=== PATIENT | male | born 1935 | race Caucasian/White ===

== ENCOUNTER 2017-08-28 12:17 | Inpatient (IN) | payer MEDICARE ==
[2017-08-28 12:33] LABS: Glucose,Whole Blood 117 mg/dL (75-99)
[2017-08-28] MEDS ORDERED: SODIUM CHLORIDE 0.9% 500 ML IV ONE (12:39)
--- NOTE | 2017-08-28 12:42 | ED ---
General Adult HPI - General Chief complaint: Altered Mental Status Stated complaint: Altered Mental Status Time Seen by Provider: 08/28/17 12:20 Source: patient, RN notes reviewed Mode of arrival: wheelchair Limitations: no limitations - History of Present Illness Initial comments: This is an 82-year-old male who presents emergency Department with his family he has a past medical history significant for diabetes high blood pressure and high cholesterol. Patient has had episodes where he has become unresponsive in the past last time was approximate one year ago. Today he comes in because white states she was sitting at the table and then became unresponsive but did not pass out he was just looking straight there and last approximate 5 minutes and then it resolved. Patient has no recollection of this. Patient has no complaint. Patient denies headache patient denies numbness weakness. Patient denies chest pain difficulty breathing shortness of breath. Patient denies any recent fever chills or cough. Patient did have some trauma on Tuesday fell hit the side of his head and there was a small laceration to the did not bring him into the hospital to get it repaired. Family states he is currently at his baseline according to them. - Related Data Home Medications Medication Instructions Recorded Confirmed Atenolol 25 mg PO DAILY 05/10/14 08/28/17 Omeprazole 20 mg PO DAILY 05/10/14 08/28/17 Simvastatin 20 mg PO HS 05/10/14 08/28/17 Ferrous Sulfate [Iron (65 MG 325 mg PO BID 08/28/16 08/28/17 Elemental)] Fludrocortisone [Florinef] 0.05 mg PO BID 08/28/16 08/28/17 Tiotropium 18 Mcg/Puff [Spiriva] 1 puff INHALATION RT-DAILY 08/28/16 08/28/17 Allopurinol [Zyloprim] 100 mg PO DAILY 08/28/17 08/28/17 Furosemide [Lasix] 20 mg PO DAILY 08/28/17 08/28/17 Hydrocortisone [Cortef] 10 mg PO BID 08/28/17 08/28/17 Ipratropium-Albuterol Nebulize 3 ml INHALATION RT-QID 08/28/17 08/28/17 [Duoneb 0.5 mg-3 mg/3 ml Soln] Spironolactone [Aldactone] 50 mg PO DAILY 08/28/17 08/28/17 glipiZIDE/METFORMIN HCL 2 tab PO BID 08/28/17 08/28/17 [glipiZIDE/METFORMIN HCL 5-500 mg] Allergies Allergy/AdvReac Type Severity Reaction Status Date / Time No Known Allergies Allergy Verified 08/28/17 14:34 Review of Systems ROS Statement: Those systems with pertinent positive or pertinent negative responses have been documented in the HPI. ROS Other: All systems not noted in ROS Statement are negative. Past Medical History Past Medical History: Heart Failure, COPD, CVA/TIA, Diabetes Mellitus, Hyperlipidemia, Hypertension Additional Past Medical History / Comment(s): ARTHRITIS History of Any Multi-Drug Resistant Organisms: None Reported Past Surgical History: Appendectomy Additional Past Surgical History / Comment(s): Right cataract removal and intraocular lens implant, last colonoscopy without abnormal findings Past Anesthesia/Blood Transfusion Reactions: No Reported Reaction Past Psychological History: No Psychological Hx Reported Smoking Status: Former smoker Past Alcohol Use History: None Reported Past Drug Use History: None Reported - Past Family History Father Additional Family Medical History / Comment(s): Father in his 60s from a myocardial infarction. Mother Additional Family Medical History / Comment(s): Mother between 85 and 90 with no major medical problems. Brother(s) Additional Family Medical History / Comment(s): Patient has 5 brothers with heavy coronary artery disease and MIs in the family. Sister(s) Additional Family Medical History / Comment(s): He has one sister with history of cervical cancer. Daughter(s) Additional Family Medical History / Comment(s): Patient has 4 daughters with no major medical problems and 1 son with history of Crohn's General Exam - General Exam Comments Initial Comments: GENERAL: Patient is well-developed and well-nourished. Patient is nontoxic and well- hydrated and is in no acute distress. ENT: Neck is soft and supple. No significant lymphadenopathy is noted. Oropharynx is clear. Moist mucous membranes. Neck has full range of motion without eliciting any pain. EYES: The sclera were anicteric and conjunctiva were pink and moist. Extraocular movements were intact and pupils were equal round and reactive to light. Eyelids were unremarkable. PULMONARY: Unlabored respirations. Good breath sounds bilaterally. No audible rales rhonchi or wheezing was noted. CARDIOVASCULAR: There is a regular rate and rhythm without any murmurs gallops or rubs. ABDOMEN: Soft and nontender with normal bowel sounds. No palpable organomegaly was noted. There is no palpable pulsatile mass. SKIN: Patient is a little bit pale. NEUROLOGIC: Patient is alert and oriented x3. Cranial nerves II through XII are grossly intact. Motor and sensory are also intact. Normal speech, volume and content. Symmetrical smile. MUSCULOSKELETAL: Normal extremities with adequate strength and full range of motion. No lower extremity swelling or edema. No calf tenderness. LYMPHATICS: No significant lymphadenopathy is noted PSYCHIATRIC: Normal psychiatric evaluation. Normal interpersonal interactions appears functionally intact in deals appropriately with others. No signs of depression. No signs of anxiety. Limitations: no limitations Course Vital Signs 08/28/17 08/28/17 08/28/17 12:20 13:10 13:44 Temperature 97.2 F L Pulse Rate 63 68 Pulse Rate [ 65 Sitting Tobacco Drummer] Pulse Rate [ 64 Standing Tobacco Drummer ] Pulse Rate [ 64 Supine Tobacco Drummer] Respiratory 18 18 Rate Blood Pressure 117/42 104/61 Blood Pressure 87/39 [Right Arm Sitting] Blood Pressure 68/31 [Right Arm Standing] Blood Pressure 90/43 [Right Arm Supine] O2 Sat by Pulse 99 99 Oximetry 08/28/17 08/28/17 14:17 15:04 Temperature Pulse Rate 68 68 Pulse Rate [ Sitting Tobacco Drummer] Pulse Rate [ Standing Tobacco Drummer ] Pulse Rate [ Supine Tobacco Drummer] Respiratory 18 18 Rate Blood Pressure 102/53 97/58 Blood Pressure [Right Arm Sitting] Blood Pressure [Right Arm Standing] Blood Pressure [Right Arm Supine] O2 Sat by Pulse 98 98 Oximetry Medical Decision Making - Medical Decision Making EKG shows a sinus rhythm with occasional PAC at 77 bpm NM interval is 136 QRS is 1:30 QT interval 466 QTC is 527. Patient's EKG shows no ST segment elevation or depression or T wave normalities are noted. Patient has a right bundle branch block. CT of the brain shows no acute abnormality. Chest x-ray shows no acute abnormality. - Lab Data Result diagrams: 08/28/17 12:51 08/28/17 12:51 Lab Results 08/28/17 08/28/17 08/28/17 Range/Units 12:31 12:51 12:51 WBC 7.1 (3.8-10.6) k/uL RBC 3.94 L (4.30-5.90) m/uL Hgb 11.8 L (13.0-17.5) gm/dL Hct 36.8 L (39.0-53.0) % MCV 93.5 (80.0-100.0) fL MCH 29.8 (25.0-35.0) pg MCHC 31.9 (31.0-37.0) g/dL RDW 16.4 H (11.5-15.5) % Plt Count 147 L (150-450) k/uL Neutrophils % 61 % Lymphocytes % 25 % Monocytes % 10 % Eosinophils % 2 % Basophils % 1 % Neutrophils # 4.3 (1.3-7.7) k/uL Lymphocytes # 1.7 (1.0-4.8) k/uL Monocytes # 0.7 (0-1.0) k/uL Eosinophils # 0.1 (0-0.7) k/uL Basophils # 0.1 (0-0.2) k/uL Anisocytosis Slight PT (9.0-12.0) sec INR (<1.2) APTT (22.0-30.0) sec Sodium (137-145) mmol/L Potassium (3.5-5.1) mmol/L Chloride (98-107) mmol/L Carbon Dioxide (22-30) mmol/L Anion Gap mmol/L BUN (9-20) mg/dL Creatinine (0.66-1.25) mg/dL Est GFR (MDRD) Af Amer (>60 ml/min/1.73 sqM) Est GFR (MDRD) Non-Af (>60 ml/min/1.73 sqM) Glucose (74-99) mg/dL POC Glucose (mg/dL) 117 H (75-99) mg/dL POC Glu Sales Representative Meats ID McDaid, Tiki Calcium (8.4-10.2) mg/dL Magnesium (1.6-2.3) mg/dL Total Bilirubin (0.2-1.3) mg/dL AST (17-59) U/L ALT (21-72) U/L Alkaline Phosphatase (38-126) U/L Total Creatine Kinase 174 H (55-170) U/L CK-MB (CK-2) 4.2 H* (0.0-2.4) ng/mL CK-MB (CK-2) Rel Index 2.4 Troponin I <0.012 (0.000-0.034) ng/mL Total Protein (6.3-8.2) g/dL Albumin (3.5-5.0) g/dL Urine Color Urine Appearance (Clear) Urine pH (5.0-8.0) Ur Specific [place] (1.001-1.035) Urine Protein (Negative) Urine Glucose (UA) (Negative) Urine Ketones (Negative) Urine Blood (Negative) Urine Nitrite (Negative) Urine Bilirubin (Negative) Urine Urobilinogen (<2.0) mg/dL Ur Leukocyte Esterase (Negative) Urine Opiates Screen (NotDetected) Ur Oxycodone Screen (NotDetected) Urine Methadone Screen (NotDetected) Ur Propoxyphene Screen (NotDetected) Ur Barbiturates Screen (NotDetected) U Tricyclic Antidepress (NotDetected) Ur Phencyclidine Scrn (NotDetected) Ur Amphetamines Screen (NotDetected) U Methamphetamines Scrn (NotDetected) U Benzodiazepines Scrn (NotDetected) Urine Cocaine Screen (NotDetected) U Marijuana (THC) Screen (NotDetected) 08/28/17 08/28/17 08/28/17 Range/Units 12:51 12:51 12:51 WBC (3.8-10.6) k/uL RBC (4.30-5.90) m/uL Hgb (13.0-17.5) gm/dL Hct (39.0-53.0) % MCV (80.0-100.0) fL MCH (25.0-35.0) pg MCHC (31.0-37.0) g/dL RDW (11.5-15.5) % Plt Count (150-450) k/uL Neutrophils % % Lymphocytes % % Monocytes % % Eosinophils % % Basophils % % Neutrophils # (1.3-7.7) k/uL Lymphocytes # (1.0-4.8) k/uL Monocytes # (0-1.0) k/uL Eosinophils # (0-0.7) k/uL Basophils # (0-0.2) k/uL Anisocytosis PT 12.0 (9.0-12.0) sec INR 1.2 H (<1.2) APTT 22.1 (22.0-30.0) sec Sodium 139 (137-145) mmol/L Potassium 4.2 (3.5-5.1) mmol/L Chloride 105 (98-107) mmol/L Carbon Dioxide 20 L (22-30) mmol/L Anion Gap 14 mmol/L BUN 26 H (9-20) mg/dL Creatinine 2.50 H (0.66-1.25) mg/dL Est GFR (MDRD) Af Amer 30 (>60 ml/min/1.73 sqM) Est GFR (MDRD) Non-Af 25 (>60 ml/min/1.73 sqM) Glucose 149 H (74-99) mg/dL POC Glucose (mg/dL) (75-99) mg/dL POC Glu Sales Representative Meats ID Calcium 8.8 (8.4-10.2) mg/dL Magnesium 1.1 L (1.6-2.3) mg/dL Total Bilirubin 1.5 H (0.2-1.3) mg/dL AST 34 (17-59) U/L ALT 31 (21-72) U/L Alkaline Phosphatase 54 (38-126) U/L Total Creatine Kinase (55-170) U/L CK-MB (CK-2) (0.0-2.4) ng/mL CK-MB (CK-2) Rel Index Troponin I (0.000-0.034) ng/mL Total Protein 5.8 L (6.3-8.2) g/dL Albumin 2.9 L (3.5-5.0) g/dL Urine Color Yellow Urine Appearance Clear (Clear) Urine pH 5.0 (5.0-8.0) Ur Specific [place] 1.010 (1.001-1.035) Urine Protein Negative (Negative) Urine Glucose (UA) Negative (Negative) Urine Ketones Negative (Negative) Urine Blood Negative (Negative) Urine Nitrite Negative (Negative) Urine Bilirubin Negative (Negative) Urine Urobilinogen <2.0 (<2.0) mg/dL Ur Leukocyte Esterase Negative (Negative) Urine Opiates Screen Not Detected (NotDetected) Ur Oxycodone Screen Not Detected (NotDetected) Urine Methadone Screen Not Detected (NotDetected) Ur Propoxyphene Screen Not Detected (NotDetected) Ur Barbiturates Screen Not Detected (NotDetected) U Tricyclic Antidepress Not Detected (NotDetected) Ur Phencyclidine Scrn Not Detected (NotDetected) Ur Amphetamines Screen Not Detected (NotDetected) U Methamphetamines Scrn Not Detected (NotDetected) U Benzodiazepines Scrn Not Detected (NotDetected) Urine Cocaine Screen Not Detected (NotDetected) U Marijuana (THC) Screen Not Detected (NotDetected) Disposition Clinical Impression: Altered mental status Disposition: ADMITTED IP TO THIS HOSP Referrals: Ishmael Rojas MD [Primary Care Provider] - 1-2 days Time of Disposition: 15:41
[2017-08-28 13:14] LABS: Anisocytosis Slight; Basophils # (A) 0.1 k/uL (0-0.2); Basophils % (A) 1 %; CH 31.2; CHCM 33.6; Eosinophils # (A) 0.1 k/uL (0-0.7); Eosinophils % (A) 2 %; HCT 36.8 % (39.0-53.0); HDW 2.81; HGB 11.8 gm/dL (13.0-17.5); Luc # (Auto) 0.14; Luc % (Auto) 2; Lymphocytes # (A) 1.7 k/uL (1.0-4.8); Lymphocytes % (A) 25 %; MCH 29.8 pg (25.0-35.0); MCHC 31.9 g/dL (31.0-37.0); MCV 93.5 fL (80.0-100.0); Mean Platelet Volume 8.6; Monocytes # (A) 0.7 k/uL (0-1.0); Monocytes % (A) 10 %; Neutrophils # (A) 4.3 k/uL (1.3-7.7); Neutrophils % (A) 61 %; RBC 3.94 m/uL (4.30-5.90); RDW 16.4 % (11.5-15.5); WBC 7.1 k/uL (3.8-10.6); WBC (Perox) 7.57
[2017-08-28 13:30] LABS: Calcium 8.8 mg/dL (8.4-10.2); Magnesium 1.1 mg/dL (1.6-2.3); Potassium 4.2 mmol/L (3.5-5.1); Total Bilirubin 1.5 mg/dL (0.2-1.3); Total Protein 5.8 g/dL (6.3-8.2)
[2017-08-28 13:33] LABS: INR 1.2 (<1.2); Partial Thromboplastin Time 22.1 sec (22.0-30.0)
[2017-08-28 13:37] LABS: Creatine Kinase 174 U/L (55-170)
[2017-08-28] MEDS ORDERED: SODIUM CHLORIDE 0.9% 500 ML IV STA (13:40)
--- NOTE | 2017-08-28 13:44 | CT ---
EXAMINATION TYPE: CT brain wo con DATE OF EXAM: 08/28/2017 COMPARISON: Previous study dated 08/28/2016 HISTORY: Altered mental status CT DLP: 1064.2 mGycm Automated exposure control for dose reduction was used. FINDINGS: There are generalized changes of sulcal prominence and ventriculomegaly, compatible with atrophic adriel nge. There is diffuse periventricular white matter lucency, compatible with small vessel ischemic adriel nge. There is no acute focal lesion, mass effect or midline shift identified. I do not see evidence o f intracranial blood. There is some chronic mucoperiosteal thickening involving the right maxillary s inus. Visualized portions of paranasal sinuses and mastoids are otherwise clear. IMPRESSION: 1. NO ACUTE INTRACRANIAL ABNORMALITY. 2. ATROPHIC CHANGE. 3. CHRONIC WHITE MATTER ISCHEMIC CHANGE. 4. CHRONIC MUCOPERIOSTEAL THICKENING INVOLVING THE RIGHT MAXILLARY SINUS.
--- NOTE | 2017-08-28 13:46 | XR ---
EXAMINATION TYPE: XR chest 2V DATE OF EXAM: 08/28/2017 HISTORY: altered mental status. REFERENCE: Previous study dated 08/28/2016. FINDINGS: The lungs are overinflated. The heart is mildly enlarged. The lungs are clear. Pleural spac es are clear. IMPRESSION: 1. COPD. 2. MILD CARDIOMEGALY.
[2017-08-28 13:48] LABS: Troponin I <0.012 ng/mL (0.000-0.034)
[2017-08-28 13:50] LABS: Creatine Kinase MB 4.2 ng/mL (0.0-2.4)
[2017-08-28 14:46] LABS: Appearance,Urine Clear (Clear); Bilirubin,Urine Negative (Negative); Glucose,Urine (UA) Negative (Negative); Ketones,Urine Negative (Negative); Leukocyte Esterase,Urine Negative (Negative); Nitrite,Urine Negative (Negative); Protein,Urine Negative (Negative); UA Billing (MACRO vs. MICRO) CHEM; Urobilinogen,Urine <2.0 mg/dL (<2.0)
[2017-08-28] MEDS ORDERED: SODIUM CHLORIDE 0.9% 1,000 ML IV ONE (15:41)
[2017-08-28 18:23] VITALS: BMI 29.6
[2017-08-28 20:44] LABS: Glucose,Whole Blood 170 mg/dL (75-99)
[2017-08-29] MEDS: MAGNESIUM SULFATE-D5W PMX 1 GM in DEXTROSE/WATER 1 100ML.BAG IVPB SCH ×3 (01:09→03:49)
[2017-08-29 05:58] LABS: Glucose,Whole Blood 108 mg/dL (75-99)
[2017-08-29] MEDS: INSULIN LISPRO (humaLOG) 300 UNIT/3 ML VIAL SQ SCH ×2 (06:16→11:58)
[2017-08-29 06:35] LABS: Anisocytosis Slight; Basophils % (A) 1 %; CH 31.3; CHCM 33.9; Eosinophils # (A) 0.1 k/uL (0-0.7); Eosinophils % (A) 2 %; HCT 32.9 % (39.0-53.0); HDW 2.76; HGB 10.6 gm/dL (13.0-17.5); Luc # (Auto) 0.09; Luc % (Auto) 2; Lymphocytes # (A) 1.3 k/uL (1.0-4.8); Lymphocytes % (A) 26 %; MCH 29.8 pg (25.0-35.0); MCHC 32.1 g/dL (31.0-37.0); MCV 92.8 fL (80.0-100.0); Mean Platelet Volume 8.8; Monocytes # (A) 0.4 k/uL (0-1.0); Monocytes % (A) 8 %; Neutrophils # (A) 3.2 k/uL (1.3-7.7); Neutrophils % (A) 62 %; RBC 3.54 m/uL (4.30-5.90); RDW 16.5 % (11.5-15.5); WBC 5.2 k/uL (3.8-10.6); WBC (Perox) 5.24
[2017-08-29 06:56] LABS: Potassium 4.4 mmol/L (3.5-5.1)
[2017-08-29] MEDS ORDERED: PANTOPRAZOLE 40 MG TABLET PO SCH (07:30)
[2017-08-29] MEDS ORDERED: NON-FORMULARY DRUG (Tiotropium 18 Mcg/Puff 1 PUFF) INHALATION SCH (08:00)
[2017-08-29] MEDS: IPRATROPIUM-ALBUTEROL 3 ML NEB INHALATION SCH ×3 (08:35→16:24)
[2017-08-29] MEDS ORDERED: FLUDROCORTISONE 0.1 MG TAB PO SCH (09:00)
[2017-08-29] MEDS ORDERED: ALLOPURINOL 100 MG TAB PO SCH (09:00)
[2017-08-29] MEDS ORDERED: HYDROCORTISONE 10 MG TAB PO SCH (09:00)
[2017-08-29] MEDS ORDERED: FERROUS SULFATE 325 MG TAB PO SCH (09:00)
[2017-08-29] MEDS ORDERED: ATENOLOL 25 MG TAB PO SCH (09:00)
[2017-08-29] MEDS ORDERED: glipiZIDE 10 MG TAB PO SCH (10:15)
[2017-08-29 10:23] VITALS: PULSE 77; RESP 18
[2017-08-29 10:48] LABS: Hemoglobin A1C 6.6 % (4.2-6.1)
[2017-08-29 11:57] LABS: Glucose,Whole Blood 169 mg/dL (75-99)
--- NOTE | 2017-08-29 12:28 | P.HPIM ---
History of Present Illness H&P Date: 08/29/17 Chief Complaint: Mental status changes HISTORY AND PHYSICAL AND DISCHARGE SUMMARY: This is an 82-year-old male. His primary care physician is Dr. Rojas. His past medical history is COPD, diabetes mellitus, osteoarthritis. Patient does not have previous history of stroke. He did have a hospitalization in August 2016 at which time he came in for mental status changes with metabolic encephalopathy secondary to acute kidney injury and dehydration. Patient's was contacted on the phone and she does state that he has not been drinking very much fluid. Patient is currently at his baseline. He denies any dysuria, cough, runny nose. He did have a fall at home and he states he at the back of his head with minimal swelling and no hematoma. He is undergone a chest x-ray that showed mild cardiomegaly and COPD. CAT scan of the brain showed only atrophic changes and chronic white matter ischemic changes. No acute findings. Patient does use a cane at home.on this admission, patient was found to have acute kidney injury with BUN 26 and creatinine 2.5. He has been on IV fluids with improvement to BUN of 24 and creatinine 1.94. We plan to continue IV fluids until 3 PM and patient can be discharged home later today with close follow-up and Dr. Rojas's office and repeat lab work on Tuesday. Review of Systems All systems: negative Constitutional: Denies anorexia, Denies chills, Denies fever, Denies poor appetite Eyes: denies blurred vision, denies pain Ears, nose, mouth and throat: Denies headache, Denies sore throat, Denies vertigo Cardiovascular: Denies chest pain, Denies decreased exercise tolerance, Denies dyspnea on exertion, Denies edema, Denies leg edema, Denies lightheadedness, Denies shortness of breath, Denies syncope Respiratory: Denies cough, Denies cough with sputum, Denies dyspnea, Denies excessive sputum, Denies hemoptysis, Denies home oxygen Gastrointestinal: Denies abdominal pain, Denies diarrhea, Denies nausea, Denies vomiting Genitourinary: Denies dysuria Musculoskeletal: Denies myalgias Integumentary: Denies pruritus, Denies rash Neurological: Denies numbness, Denies weakness Psychiatric: Denies anxiety, Denies depression Endocrine: Denies fatigue, Denies weight change Past Medical History Past Medical History: Heart Failure, COPD, CVA/TIA, Diabetes Mellitus, Hyperlipidemia, Hypertension Additional Past Medical History / Comment(s): ARTHRITIS History of Any Multi-Drug Resistant Organisms: None Reported Past Surgical History: Appendectomy Additional Past Surgical History / Comment(s): Right cataract removal and intraocular lens implant, last colonoscopy without abnormal findings Past Anesthesia/Blood Transfusion Reactions: No Reported Reaction Past Psychological History: No Psychological Hx Reported Smoking Status: Former smoker Past Alcohol Use History: None Reported Additional Past Alcohol Use History / Comment(s): Patient was a smoker one pack per day for possibly 35 years and quit 30 years ago. No marijuana, street drug or alcohol use. Patient lives at home with his . He uses a cane for ambulation. Past Drug Use History: None Reported - Past Family History Father Additional Family Medical History / Comment(s): Father in his 60s from a myocardial infarction. Mother Additional Family Medical History / Comment(s): Mother between 85 and 90 with no major medical problems. Brother(s) Additional Family Medical History / Comment(s): Patient has 5 brothers with heavy coronary artery disease and MIs in the family. Sister(s) Additional Family Medical History / Comment(s): He has one sister with history of cervical cancer. Daughter(s) Additional Family Medical History / Comment(s): Patient has 4 daughters with no major medical problems and 1 son with history of Crohn's Medications and Allergies Home Medications Medication Instructions Recorded Confirmed Type Atenolol 25 mg PO DAILY 05/10/14 08/28/17 History Omeprazole 20 mg PO DAILY 05/10/14 08/28/17 History Simvastatin 20 mg PO HS 05/10/14 08/28/17 History Ferrous Sulfate [Iron (65 MG 325 mg PO BID 08/28/16 08/28/17 History Elemental)] Fludrocortisone [Florinef] 0.05 mg PO BID 08/28/16 08/28/17 History Tiotropium 18 Mcg/Puff [Spiriva] 1 puff INHALATION RT-DAILY 08/28/16 08/28/17 History Allopurinol [Zyloprim] 100 mg PO DAILY 08/28/17 08/28/17 History Hydrocortisone [Cortef] 10 mg PO BID 08/28/17 08/28/17 History Ipratropium-Albuterol Nebulize 3 ml INHALATION RT-QID 08/28/17 08/28/17 History [Duoneb 0.5 mg-3 mg/3 ml Soln] glipiZIDE/METFORMIN HCL 2 tab PO BID 08/28/17 08/28/17 History [glipiZIDE/METFORMIN HCL 5-500 mg] Allergies Allergy/AdvReac Type Severity Reaction Status Date / Time No Known Allergies Allergy Verified 08/28/17 14:34 Physical Exam Vitals: Vital Signs Temp Pulse Pulse Pulse Pulse Pulse Resp 08/29/17 08:43 88 08/29/17 08:36 80 08/29/17 04:00 97.1 F L 82 17 08/29/17 00:00 97.1 F L 76 17 08/28/17 20:00 97.1 F L 85 17 08/28/17 18:56 70 18 08/28/17 18:15 96.9 F L 70 18 08/28/17 18:00 98.0 F 73 18 08/28/17 17:47 98.0 F 73 18 08/28/17 16:44 72 18 08/28/17 15:58 69 18 08/28/17 15:04 68 18 08/28/17 14:17 68 18 08/28/17 13:44 68 18 08/28/17 13:10 65 64 64 08/28/17 12:20 97.2 F L 63 18 BP BP BP BP Pulse Ox 08/29/17 08:43 08/29/17 08:36 96 08/29/17 04:00 127/44 100 08/29/17 00:00 114/44 99 08/28/17 20:00 120/48 100 08/28/17 18:56 08/28/17 18:15 106/43 99 08/28/17 18:00 95/56 100 08/28/17 17:47 95/56 100 08/28/17 16:44 124/64 98 08/28/17 15:58 110/52 98 08/28/17 15:04 97/58 98 08/28/17 14:17 102/53 98 08/28/17 13:44 104/61 99 08/28/17 13:10 87/39 68/31 90/43 08/28/17 12:20 117/42 99 Intake and Output 08/28/17 08/29/17 08/29/17 22:59 06:59 14:59 Intake Total 200 800 Output Total 750 Balance 200 50 Intake: IV 200 800 Sodium Chloride 0.9% 1, 200 800 000 ml @ 100 mls/hr IV . Q10H ONE Rx#:[id number] Output: Urine 375 Straight 375 Post Void Residual 375 Other: Voiding Method Urinal Urinal Weight 113.398 kg 114 kg Gen: This is an 81-year-old male. He is sitting up in bed and appears to be in no acute distress. Patient's mentation is back to baseline. Patient is noted to be hard of hearing. HEENT: Head is atraumatic, normocephalic. Pupils equal, round. Sclerae is anicteric. NECK: Supple. No JVD. No lymphadenopathy. No thyromegaly. LUNGS: Clear to auscultation. No wheezes or rhonchi. No intercostal retractions. HEART: Regular rate and rhythm. No murmur. ABDOMEN: Soft. Bowel sounds are present. No masses. No tenderness. EXTREMITIES: No pedal edema. No calf tenderness. NEUROLOGICAL: Patient is awake, alert and oriented x3. Cranial nerves 2 through 12 are grossly intact. Results CBC & Chem 7: 08/29/17 06:14 08/29/17 06:14 Labs: Abnormal Lab Results - Last 24 Hours (Table) 08/28/17 08/28/17 08/28/17 Range/Units 12:31 12:51 12:51 RBC 3.94 L (4.30-5.90) m/uL Hgb 11.8 L (13.0-17.5) gm/dL Hct 36.8 L (39.0-53.0) % RDW 16.4 H (11.5-15.5) % Plt Count 147 L (150-450) k/uL INR (<1.2) Chloride (98-107) mmol/L Carbon Dioxide (22-30) mmol/L BUN (9-20) mg/dL Creatinine (0.66-1.25) mg/dL Glucose (74-99) mg/dL POC Glucose (mg/dL) 117 H (75-99) mg/dL Calcium (8.4-10.2) mg/dL Magnesium (1.6-2.3) mg/dL Total Bilirubin (0.2-1.3) mg/dL Total Creatine Kinase 174 H (55-170) U/L CK-MB (CK-2) 4.2 H* (0.0-2.4) ng/mL Total Protein (6.3-8.2) g/dL Albumin (3.5-5.0) g/dL 08/28/17 08/28/17 08/28/17 Range/Units 12:51 12:51 20:41 RBC (4.30-5.90) m/uL Hgb (13.0-17.5) gm/dL Hct (39.0-53.0) % RDW (11.5-15.5) % Plt Count (150-450) k/uL INR 1.2 H (<1.2) Chloride (98-107) mmol/L Carbon Dioxide 20 L (22-30) mmol/L BUN 26 H (9-20) mg/dL Creatinine 2.50 H (0.66-1.25) mg/dL Glucose 149 H (74-99) mg/dL POC Glucose (mg/dL) 170 H (75-99) mg/dL Calcium (8.4-10.2) mg/dL Magnesium 1.1 L (1.6-2.3) mg/dL Total Bilirubin 1.5 H (0.2-1.3) mg/dL Total Creatine Kinase (55-170) U/L CK-MB (CK-2) (0.0-2.4) ng/mL Total Protein 5.8 L (6.3-8.2) g/dL Albumin 2.9 L (3.5-5.0) g/dL 08/29/17 08/29/17 08/29/17 Range/Units 05:56 06:14 06:14 RBC 3.54 L (4.30-5.90) m/uL Hgb 10.6 L (13.0-17.5) gm/dL Hct 32.9 L (39.0-53.0) % RDW 16.5 H (11.5-15.5) % Plt Count 111 L (150-450) k/uL INR (<1.2) Chloride 110 H (98-107) mmol/L Carbon Dioxide (22-30) mmol/L BUN 24 H (9-20) mg/dL Creatinine 1.94 H (0.66-1.25) mg/dL Glucose (74-99) mg/dL POC Glucose (mg/dL) 108 H (75-99) mg/dL Calcium 8.0 L (8.4-10.2) mg/dL Magnesium (1.6-2.3) mg/dL Total Bilirubin (0.2-1.3) mg/dL Total Creatine Kinase (55-170) U/L CK-MB (CK-2) (0.0-2.4) ng/mL Total Protein (6.3-8.2) g/dL Albumin (3.5-5.0) g/dL Thrombosis Risk Factor Assmnt - DVT/VTE Prophylaxis DVT/VTE Prophylaxis: Pharmacologic Prophylaxis ordered - Choose All That Apply Any of the Below Risk Factors Present?: No Each Factor Represents 1 point: Abnormal pulmonary function (COPD) Other Risk Factors: Yes Each Risk Factor Represents 3 Points: Age 75 years or older Other congenital or acquired thrombophilia - If yes, enter type in comment: No Thrombosis Risk Factor Assessment Total Risk Factor Score: 4 Thrombosis Risk Factor Assessment Level: Moderate Risk Assessment and Plan Plan: 1. Metabolic encephalopathy secondary to acute kidney injury and dehydration possibly due to hypoperfusion. Patient has been on IV fluids which will will be continued until about 3 PM and patient may be discharged home. 2. COPD. Continue albuterol nebulizer treatment every 6 hours as needed and Spiriva 1 puff daily. 3. Diabetes mellitus type 2. Metformin placed on holdand will be resumed at discharge. Humalog scale before meals and at bedtime. 4. Hyperlipidemia. Continue simvastatin 20mg daily. 5. Chronic anemia. Continue ferrous sulfate 325 mg daily. 6. History of hypotension. Continue Florinef 0.05 mg daily. 7. hypertension. Continue atenolol 25 mg daily. 8. Gout unspecified. Continue allopurinol 100 mg daily. 9. Gastroesophageal reflux disease. Continue omeprazole. Patient will be admitted to the hospital for a minimum of 1 night stay. Discharge plan: Return home Impression and plan of care have been directed as dictated by the signing physician. Radha Arredondo nurse practitioner acting as scribe for signing physician.
[2017-08-29 14:27] VITALS: BP 119/70; TEMP 97.4
--- NOTE | 2017-08-29 16:30 | P.CNNES ---
History of Present Illness Consult date: 08/28/17 Reason for Consult: Patient admitted with altered mental status. History of Present Illness: This patient is a 82-year-old right-handed white male was brought into the emergency room at [facility] on 08/28/2017 for evaluation of altered mental status. Patient apparently was sent home and was sitting at the table and suddenly became unresponsive. According to the ER notes the patient did not pass out but just was sitting and staring for approximately 5 minutes without any response to the family members who were there. After 5 minutes of patient did seem to snap out of a dream state and was able to converse with family members. Patient had no recollection of what had just happened. His entire episode of unresponsiveness was about 5 minutes in duration. He did suffer a recent fall and hit the side of his head for which she sustained a mild laceration. He did not come to the hospital as the family felt it was a minor accident. The patient has been having symptoms of slurred speech and difficulty with breathing for the past 3 months. He does use home oxygen but is unaware that the setting of the oxygen tanks. The patient has a history of underlying diabetes mellitus. He states his blood sugars have been under fairly good control. He denies any previous history of seizures or convulsions. He denies any recent motor vehicle accident or head trauma. The patient does seem to be appropriate but does have some difficulty with his breathing. His speech does become slurred at times. He may benefit from a pulmonary medicine consultation to assess his breathing status. Patient is now admitted and neurology has been consulted for further evaluation and recommendations. Review of Systems Constitutional: Denies chills, Denies fever Eyes: denies blurred vision, denies pain Ears, nose, mouth and throat: Denies headache, Denies sore throat Cardiovascular: Denies chest pain, Denies shortness of breath Respiratory: Denies cough Gastrointestinal: Denies abdominal pain, Denies diarrhea, Denies nausea, Denies vomiting Musculoskeletal: Denies myalgias Integumentary: Denies pruritus, Denies rash Neurological: Reports balance difficulties, Reports change in mentation, Reports convulsions, Reports head injury, Reports motor disturbance, Reports seizures, Denies numbness, Denies weakness Psychiatric: Denies anxiety, Denies depression Endocrine: Denies fatigue, Denies weight change Past Medical History Past Medical History: Heart Failure, COPD, CVA/TIA, Diabetes Mellitus, Hyperlipidemia, Hypertension Additional Past Medical History / Comment(s): ARTHRITIS History of Any Multi-Drug Resistant Organisms: None Reported Past Surgical History: Appendectomy Additional Past Surgical History / Comment(s): Right cataract removal and intraocular lens implant, last colonoscopy without abnormal findings Past Anesthesia/Blood Transfusion Reactions: No Reported Reaction Past Psychological History: No Psychological Hx Reported Smoking Status: Former smoker Past Alcohol Use History: None Reported Additional Past Alcohol Use History / Comment(s): Patient was a smoker one pack per day for possibly 35 years and quit 30 years ago. No marijuana, street drug or alcohol use. Patient lives at home with his . He uses a cane for ambulation. Past Drug Use History: None Reported - Past Family History Father Additional Family Medical History / Comment(s): Father in his 60s from a myocardial infarction. Mother Additional Family Medical History / Comment(s): Mother between 85 and 90 with no major medical problems. Brother(s) Additional Family Medical History / Comment(s): Patient has 5 brothers with heavy coronary artery disease and MIs in the family. Sister(s) Additional Family Medical History / Comment(s): He has one sister with history of cervical cancer. Daughter(s) Additional Family Medical History / Comment(s): Patient has 4 daughters with no major medical problems and 1 son with history of Crohn's Medications and Allergies Home Medications Medication Instructions Recorded Confirmed Type Atenolol 25 mg PO DAILY 05/10/14 08/28/17 History Omeprazole 20 mg PO DAILY 05/10/14 08/28/17 History Simvastatin 20 mg PO HS 05/10/14 08/28/17 History Ferrous Sulfate [Iron (65 MG 325 mg PO BID 08/28/16 08/28/17 History Elemental)] Fludrocortisone [Florinef] 0.05 mg PO BID 08/28/16 08/28/17 History Tiotropium 18 Mcg/Puff [Spiriva] 1 puff INHALATION RT-DAILY 08/28/16 08/28/17 History Allopurinol [Zyloprim] 100 mg PO DAILY 08/28/17 08/28/17 History Hydrocortisone [Cortef] 10 mg PO BID 08/28/17 08/28/17 History Ipratropium-Albuterol Nebulize 3 ml INHALATION RT-QID 08/28/17 08/28/17 History [Duoneb 0.5 mg-3 mg/3 ml Soln] glipiZIDE/METFORMIN HCL 2 tab PO BID 08/28/17 08/28/17 History [glipiZIDE/METFORMIN HCL 5-500 mg] Allergies Allergy/AdvReac Type Severity Reaction Status Date / Time No Known Allergies Allergy Verified 08/28/17 14:34 Physical Examination - Vital Signs Vital Signs: Vital Signs Temp Pulse Pulse Pulse Pulse Pulse Resp 08/28/17 18:56 70 18 08/28/17 18:15 96.9 F L 70 18 08/28/17 18:00 98.0 F 73 18 08/28/17 17:47 98.0 F 73 18 08/28/17 16:44 72 18 08/28/17 15:58 69 18 08/28/17 15:04 68 18 08/28/17 14:17 68 18 08/28/17 13:44 68 18 08/28/17 13:10 65 64 64 08/28/17 12:20 97.2 F L 63 18 BP BP BP BP Pulse Ox 08/28/17 18:56 08/28/17 18:15 106/43 99 08/28/17 18:00 95/56 100 08/28/17 17:47 95/56 100 08/28/17 16:44 124/64 98 08/28/17 15:58 110/52 98 08/28/17 15:04 97/58 98 08/28/17 14:17 102/53 98 08/28/17 13:44 104/61 99 08/28/17 13:10 87/39 68/31 90/43 08/28/17 12:20 117/42 99 Intake and Output 08/28/17 08/28/17 08/28/17 06:59 14:59 22:59 Other: Weight 113.398 kg 113.398 kg Patient Weight 08/29/17 06:59 Weight 113.398 kg - Constitutional General appearance: average body habitus, cooperative - EENT EENT: PERRL, mucous membranes moist - Respiratory Respiratory: lungs clear, normal breath sounds - Cardiovascular Cardiovascular: regular rate, normal S1, normal S2 Extremities: no peripheral edema bilaterally - Gastrointestinal Gastrointestinal: normoactive bowel sounds - Integumentary Integumentary: normal - Neurologic Cranial nerve examination: PERRL, EOMI, nystagmus, V1/V2/V3 grossly intact, face symmetric, intact gag reflex, intact corneal reflex, normal palatal elevation Speech examination: intact Sensorimotor examination: intact Motor examination - right side: 4/5: biceps, triceps, wrist flexion, wrist extension, imaging assistant, hip flexors, knee extensors, dorsiflexion, toe extension (EHL) , plantarflexion Motor examination - left side: 4/5: biceps, triceps, wrist flexion, wrist extension, imaging assistant, hip flexors, knee extensors, dorsiflexion, toe extension (EHL) , plantarflexion Detailed sensory examination: intact Reflex and gait examination: intact Reflexes: 1+: ankle, bicep, knee, tricep - Musculoskeletal Musculoskeletal: no pain - Psychiatric Psychiatric: mood/affect appropriate, cooperative Results - Laboratory Findings CBC and BMP: 08/29/17 06:14 08/29/17 06:14 Abnormal Lab Findings: Abnormal Labs 08/28/17 08/28/17 08/28/17 12:31 12:51 12:51 RBC 3.94 L Hgb 11.8 L Hct 36.8 L RDW 16.4 H Plt Count 147 L INR Carbon Dioxide BUN Creatinine Glucose POC Glucose (mg/dL) 117 H Magnesium Total Bilirubin Total Creatine Kinase 174 H CK-MB (CK-2) 4.2 H* Total Protein Albumin 08/28/17 08/28/17 12:51 12:51 RBC Hgb Hct RDW Plt Count INR 1.2 H Carbon Dioxide 20 L BUN 26 H Creatinine 2.50 H Glucose 149 H POC Glucose (mg/dL) Magnesium 1.1 L Total Bilirubin 1.5 H Total Creatine Kinase CK-MB (CK-2) Total Protein 5.8 L Albumin 2.9 L Assessment and Plan (1) Acute encephalopathy Current Visit: Yes Status: Acute SNOMED Code(s): 8634726 (2) Shortness of breath Current Visit: Yes Status: Acute SNOMED Code(s): 382519890 (3) ARF (acute renal failure) Current Visit: No Status: Acute SNOMED Code(s): 99964715 (4) Dehydration Current Visit: No Status: Acute SNOMED Code(s): 93340719 Plan: This patient is a 82-year-old male who was admitted to hospital with episode of altered mental status and unresponsive state. The patient was sitting at the table and became unresponsive for appeared to 5 minutes. Apparently he was staring into space and was not answering to family members. Exact etiology is still unclear. We've recommended to have the patient evaluated for possibility of partial seizures. He was brought into the emergency room and was seen by Dr. Roman. He was sent for a computed tomography scan of the brain which revealed no acute intracranial abnormality. There was some atrophy seen. He was subsequent admitted to the hospital. His neurological examination at this time is limited. He does not appear to have any focal weakness some. We have recommended further evaluation to rule out possibility of partial seizures in this patient. His overall prognosis at this time remains guarded. Time with Patient: Greater than 30
[2017-08-29] MEDS ORDERED: ATORVASTATIN 10 MG TAB PO SCH (21:00)
--- NOTE | 2017-09-09 10:12 | EEG ---
ELECTROENCEPHALOGRAM REPORT DATE OF EE08/29/2017 REFERRING PHYSICIAN: Dr. Patino. ELECTROENCEPHALOGRAPHIC EXAMINATION REPORT: INDICATION FOR EXAMINATION: This patient is an 82-year-old male being evaluated for episode of unresponsiveness. Patient had staring spell lasting for over 5 minutes. EEG to rule out partial seizure. AGE: 82. EEG FINDINGS: A routine 21 channel awake digital EEG recording was accomplished utilizing the 10 - 20 international system with bipolar and referential montages. The background activity in the most alert resting state consists of a low to medium amplitude, poorly-developed and poorly-sustained 3 - 4 Hz activity over the posterior head regions. This posterior rhythm attenuates minimally to eye opening. There was a small amount of low amplitude 18 - 20 Hz beta activity seen maximally over the anterior head regions. Muscle and movement artifact was observed on a few occasions during the tracing. Hyperventilation was not performed. Photic stimulation at flash frequencies of 2 - 30 Hz produced a minimal occipital driving response. No epileptiform discharges were seen. IMPRESSION: This EEG gives evidence of a severe widespread diffuse disturbance in cerebral function. The EEG failed to reveal any focal, lateralized, or epileptiform abnormalities. Clinical correlation is recommended. MMODL / IJN: [id number] /
== END 2017-08-29 16:24 | disposition home or self-care (01) | DRG 682 ==
LOC: EC 12:17 → 6SEL 15:42
PROVIDERS: ADMIT Family Medicine; ATTEND Family Medicine
DX: N17.9 Acute kidney failure, unspecified (principal); G93.41 Metabolic encephalopathy; I95.9 Hypotension, unspecified; I11.0 Hypertensive heart disease with heart failure; Z99.81 Dependence on supplemental oxygen; I50.9 Heart failure, unspecified; J44.9 Chronic obstructive pulmonary disease, unspecified; D64.9 Anemia, unspecified; E11.9 Type 2 diabetes mellitus without complications; E86.0 Dehydration; I45.10 Unspecified right bundle-branch block; E78.5 Hyperlipidemia, unspecified; M10.9 Gout, unspecified; M19.91 Primary osteoarthritis, unspecified site; K21.9 Gastro-esophageal reflux disease without esophagitis; Z79.84 Long term (current) use of oral hypoglycemic drugs; Z79.899 Other long term (current) drug therapy; Z90.49 Acquired absence of other specified parts of digestive tract; Z98.41 Cataract extraction status, right eye; Z96.1 Presence of intraocular lens; Z87.891 Personal history of nicotine dependence; Z86.73 Personal history of transient ischemic attack (TIA), and cerebral infarction without residual deficits; W19.XXXA Unspecified fall, initial encounter; Y92.009 Unspecified place in unspecified non-institutional (private) residence as the place of occurrence of the external cause
CPT/HCPCS: 36415; 70450; 71020; 80048; 80053; 80306; 81003; 82550; 82553; 83036; 83735; 84484; 85025; 85610; 85730; 93005; 94640; 94760; 95819; 96360; 96361; 99285

== ENCOUNTER 2018-01-16 11:23 | Inpatient (IN) | payer MEDICARE ==
[2018-01-16] MEDS ORDERED: SODIUM CHLORIDE 0.9% 1,000 ML IV STA ×3 (12:02→13:45)
--- NOTE | 2018-01-16 12:09 | ED ---
General Adult HPI - General Chief complaint: Weakness Stated complaint: Weakness Time Seen by Provider: 01/16/18 11:34 Source: patient, family, RN notes reviewed Mode of arrival: EMS Limitations: no limitations - History of Present Illness Initial comments: Patient is a pleasant 82-year-old male presenting to the emergency department with family for generalized weakness. Patient did have a fall a couple of days ago with no injury. Patient did have a large bowel movement through the night in bed that was black. Patient was too weak to get up out of bed this morning. Patient feels weak all over. No history of similar symptoms previously. No isolated area of weakness or confusion. Patient has been eating and drinking normally. - Related Data Home Medications Medication Instructions Recorded Confirmed Omeprazole 20 mg PO DAILY 05/10/14 01/16/18 Simvastatin 20 mg PO HS 05/10/14 01/16/18 Fludrocortisone [Florinef] 0.05 mg PO BID 08/28/16 01/16/18 Tiotropium 18 Mcg/Puff [Spiriva] 1 puff INHALATION RT-DAILY 08/28/16 01/16/18 Allopurinol [Zyloprim] 100 mg PO DAILY 08/28/17 01/16/18 Hydrocortisone [Cortef] 10 mg PO BID 08/28/17 01/16/18 glipiZIDE/METFORMIN HCL 2 tab PO BID 08/28/17 01/16/18 [glipiZIDE/METFORMIN HCL 5-500 mg] Metoprolol Succinate [Toprol XL] 25 mg PO DAILY 01/16/18 01/16/18 Spironolactone [Aldactone] 25 mg PO DAILY 01/16/18 01/16/18 Allergies Allergy/AdvReac Type Severity Reaction Status Date / Time No Known Allergies Allergy Verified 01/16/18 12:37 Review of Systems ROS Statement: Those systems with pertinent positive or pertinent negative responses have been documented in the HPI. ROS Other: All systems not noted in ROS Statement are negative. Constitutional: Denies: fever Eyes: Denies: eye pain ENT: Denies: ear pain Respiratory: Denies: cough Cardiovascular: Denies: chest pain Endocrine: Reports: fatigue Gastrointestinal: Reports: melena. Denies: abdominal pain Genitourinary: Denies: dysuria Musculoskeletal: Denies: back pain Skin: Denies: rash Neurological: Reports: weakness (Generalized) Past Medical History Past Medical History: Heart Failure, COPD, CVA/TIA, Diabetes Mellitus, Hyperlipidemia, Hypertension Additional Past Medical History / Comment(s): ARTHRITIS History of Any Multi-Drug Resistant Organisms: None Reported Past Surgical History: Appendectomy Additional Past Surgical History / Comment(s): Right cataract removal and intraocular lens implant, last colonoscopy without abnormal findings Past Anesthesia/Blood Transfusion Reactions: No Reported Reaction Past Psychological History: No Psychological Hx Reported Smoking Status: Former smoker Past Alcohol Use History: None Reported Past Drug Use History: None Reported - Past Family History Father Additional Family Medical History / Comment(s): Father in his 60s from a myocardial infarction. Mother Additional Family Medical History / Comment(s): Mother between 85 and 90 with no major medical problems. Brother(s) Additional Family Medical History / Comment(s): Patient has 5 brothers with heavy coronary artery disease and MIs in the family. Sister(s) Additional Family Medical History / Comment(s): He has one sister with history of cervical cancer. Daughter(s) Additional Family Medical History / Comment(s): Patient has 4 daughters with no major medical problems and 1 son with history of Crohn's General Exam Limitations: no limitations General appearance: alert, in no apparent distress Head exam: Present: atraumatic Eye exam: Present: normal appearance, PERRL ENT exam: Present: mucous membranes dry Neck exam: Present: normal inspection Respiratory exam: Present: normal lung sounds bilaterally Cardiovascular Exam: Present: tachycardia GI/Abdominal exam: Present: soft. Absent: distended, tenderness, guarding, rebound Rectal exam: Present: black stool Extremities exam: Present: normal inspection Neurological exam: Present: alert. Absent: motor sensory deficit Expanded Motor strength exam: RUE: 5, LUE: 5, RLE: 5, LLE: 5 Eye Response: (4) open spontaneously Motor Response: (6) obeys commands Verbal Response: (5) oriented Psychiatric exam: Present: normal affect, normal mood Skin exam: Present: normal color Course Vital Signs 01/16/18 11:30 Pulse Rate 114 H Respiratory 28 H Rate Blood Pressure 147/57 O2 Sat by Pulse 95 Oximetry - Reevaluation(s) Reevaluation #1: 01/16/18 13:43 Patient reevaluated. Case was discussed in detail with Dr. Patino, who will admit for Dr. Rojas. She does recommend IV fluids. Consult with Dr. Sampson, consult with GI and surgery, Dr. mackenzie. Patient will have second IV placed. Chest x-ray will be added. Cause of lactic acidosis is felt to be secondary to GI hemorrhage and some dehydration. Patient does not have concern for infection at this time. Therefore patient does not meet sepsis criteria. Procedures - Procedures Initial comment: Emergent procedure: NG tube. Patient with large episode of coffee-ground emesis. NG tube placed to suction the stomach. Nursing did have difficulty with this. NG tube was passed on the right nares. Original attempt was unclear if it needed to the stomach. Tube was withdrawn and then forwarded with positive sounds in the epigastric region with tube insufflation. Medical Decision Making - Lab Data Result diagrams: 01/16/18 12:35 01/16/18 12:35 Lab Results 01/16/18 01/16/18 01/16/18 Range/Units 12:35 12:35 12:35 WBC 16.2 H (3.8-10.6) k/uL RBC 3.40 L (4.30-5.90) m/uL Hgb 9.9 L (13.0-17.5) gm/dL Hct 30.7 L (39.0-53.0) % MCV 90.5 (80.0-100.0) fL MCH 29.0 (25.0-35.0) pg MCHC 32.1 (31.0-37.0) g/dL RDW 15.8 H (11.5-15.5) % Plt Count 190 (150-450) k/uL Neutrophils % 75 % Lymphocytes % 13 % Monocytes % 8 % Eosinophils % 0 % Basophils % 0 % Neutrophils # 12.1 H (1.3-7.7) k/uL Lymphocytes # 2.2 (1.0-4.8) k/uL Monocytes # 1.3 H (0-1.0) k/uL Eosinophils # 0.1 (0-0.7) k/uL Basophils # 0.1 (0-0.2) k/uL Hypochromasia Slight PT (9.0-12.0) sec INR (<1.2) APTT (22.0-30.0) sec Sodium 144 (137-145) mmol/L Potassium 5.1 (3.5-5.1) mmol/L Chloride 108 H (98-107) mmol/L Carbon Dioxide 15 L (22-30) mmol/L Anion Gap 21 mmol/L BUN 54 H (9-20) mg/dL Creatinine 1.70 H (0.66-1.25) mg/dL Est GFR (CKD-EPI)AfAm 43 (>60 ml/min/1.73 sqM) Est GFR (CKD-EPI)NonAf 37 (>60 ml/min/1.73 sqM) Glucose 48 L* (74-99) mg/dL POC Glucose (mg/dL) (75-99) mg/dL POC Glu [employer] Of [employer] [address] ID Plasma Lactic Acid Abram (0.7-2.0) mmol/L Calcium 9.4 (8.4-10.2) mg/dL Magnesium 1.7 (1.6-2.3) mg/dL Total Bilirubin 0.9 (0.2-1.3) mg/dL AST 61 H (17-59) U/L ALT 33 (21-72) U/L Alkaline Phosphatase 93 (38-126) U/L Total Creatine Kinase 136 (55-170) U/L CK-MB (CK-2) 4.9 H* (0.0-2.4) ng/mL CK-MB (CK-2) Rel Index 3.6 Troponin I 0.060 H* (0.000-0.034) ng/mL Total Protein 5.3 L (6.3-8.2) g/dL Albumin 2.7 L (3.5-5.0) g/dL Urine Color Urine Appearance (Clear) Urine pH (5.0-8.0) Ur Specific [place] (1.001-1.035) Urine Protein (Negative) Urine Glucose (UA) (Negative) Urine Ketones (Negative) Urine Blood (Negative) Urine Nitrite (Negative) Urine Bilirubin (Negative) Urine Urobilinogen (<2.0) mg/dL Ur Leukocyte Esterase (Negative) Urine RBC (0-5) /hpf Urine WBC (0-5) /hpf Ur Squamous Epith Cells (0-4) /hpf Urine Bacteria (None) /hpf Hyaline Casts (0-2) /lpf Stool Occult Blood (Negative) 0301/16/18 01/16/18 Range/Units 12:35 12:35 12:35 WBC (3.8-10.6) k/uL RBC (4.30-5.90) m/uL Hgb (13.0-17.5) gm/dL Hct (39.0-53.0) % MCV (80.0-100.0) fL MCH (25.0-35.0) pg MCHC (31.0-37.0) g/dL RDW (11.5-15.5) % Plt Count (150-450) k/uL Neutrophils % % Lymphocytes % % Monocytes % % Eosinophils % % Basophils % % Neutrophils # (1.3-7.7) k/uL Lymphocytes # (1.0-4.8) k/uL Monocytes # (0-1.0) k/uL Eosinophils # (0-0.7) k/uL Basophils # (0-0.2) k/uL Hypochromasia PT 12.1 H (9.0-12.0) sec INR 1.3 H (<1.2) APTT 22.7 (22.0-30.0) sec Sodium (137-145) mmol/L Potassium (3.5-5.1) mmol/L Chloride (98-107) mmol/L Carbon Dioxide (22-30) mmol/L Anion Gap mmol/L BUN (9-20) mg/dL Creatinine (0.66-1.25) mg/dL Est GFR (CKD-EPI)AfAm (>60 ml/min/1.73 sqM) Est GFR (CKD-EPI)NonAf (>60 ml/min/1.73 sqM) Glucose (74-99) mg/dL POC Glucose (mg/dL) (75-99) mg/dL POC Glu [address] [employer] [address] ID Plasma Lactic Acid Abram 10.0 H* (0.7-2.0) mmol/L Calcium (8.4-10.2) mg/dL Magnesium (1.6-2.3) mg/dL Total Bilirubin (0.2-1.3) mg/dL AST (17-59) U/L ALT (21-72) U/L Alkaline Phosphatase (38-126) U/L Total Creatine Kinase (55-170) U/L CK-MB (CK-2) (0.0-2.4) ng/mL CK-MB (CK-2) Rel Index Troponin I (0.000-0.034) ng/mL Total Protein (6.3-8.2) g/dL Albumin (3.5-5.0) g/dL Urine Color Urine Appearance (Clear) Urine pH (5.0-8.0) Ur Specific [place] (1.001-1.035) Urine Protein (Negative) Urine Glucose (UA) (Negative) Urine Ketones (Negative) Urine Blood (Negative) Urine Nitrite (Negative) Urine Bilirubin (Negative) Urine Urobilinogen (<2.0) mg/dL Ur Leukocyte Esterase (Negative) Urine RBC (0-5) /hpf Urine WBC (0-5) /hpf Ur Squamous Epith Cells (0-4) /hpf Urine Bacteria (None) /hpf Hyaline Casts (0-2) /lpf Stool Occult Blood Positive (Negative) 01/16/18 01/16/18 Range/Units 12:45 13:23 WBC (3.8-10.6) k/uL RBC (4.30-5.90) m/uL Hgb (13.0-17.5) gm/dL Hct (39.0-53.0) % MCV (80.0-100.0) fL MCH (25.0-35.0) pg MCHC (31.0-37.0) g/dL RDW (11.5-15.5) % Plt Count (150-450) k/uL Neutrophils % % Lymphocytes % % Monocytes % % Eosinophils % % Basophils % % Neutrophils # (1.3-7.7) k/uL Lymphocytes # (1.0-4.8) k/uL Monocytes # (0-1.0) k/uL Eosinophils # (0-0.7) k/uL Basophils # (0-0.2) k/uL Hypochromasia PT (9.0-12.0) sec INR (<1.2) APTT (22.0-30.0) sec Sodium (137-145) mmol/L Potassium (3.5-5.1) mmol/L Chloride (98-107) mmol/L Carbon Dioxide (22-30) mmol/L Anion Gap mmol/L BUN (9-20) mg/dL Creatinine (0.66-1.25) mg/dL Est GFR (CKD-EPI)AfAm (>60 ml/min/1.73 sqM) Est GFR (CKD-EPI)NonAf (>60 ml/min/1.73 sqM) Glucose (74-99) mg/dL POC Glucose (mg/dL) 55 L (75-99) mg/dL POC Glu Friend [address] Court ID Alma Holm Plasma Lactic Acid [place] (0.7-2.0) mmol/L Calcium (8.4-10.2) mg/dL Magnesium (1.6-2.3) mg/dL Total Bilirubin (0.2-1.3) mg/dL AST (17-59) U/L ALT (21-72) U/L Alkaline Phosphatase (38-126) U/L Total Creatine Kinase (55-170) U/L CK-MB (CK-2) (0.0-2.4) ng/mL CK-MB (CK-2) Rel Index Troponin I (0.000-0.034) ng/mL Total Protein (6.3-8.2) g/dL Albumin (3.5-5.0) g/dL Urine Color Yellow Urine Appearance Clear (Clear) Urine pH 5.5 (5.0-8.0) Ur Specific [place] 1.020 (1.001-1.035) Urine Protein Trace H (Negative) Urine Glucose (UA) Negative (Negative) Urine Ketones 1+ H (Negative) Urine Blood Moderate H (Negative) Urine Nitrite Negative (Negative) Urine Bilirubin Negative (Negative) Urine Urobilinogen <2.0 (<2.0) mg/dL Ur Leukocyte Esterase Negative (Negative) Urine RBC 59 H (0-5) /hpf Urine WBC 1 (0-5) /hpf Ur Squamous Epith Cells <1 (0-4) /hpf Urine Bacteria Rare H (None) /hpf Hyaline Casts 15 H (0-2) /lpf Stool Occult Blood (Negative) Critical Care Time Critical Care Time: Yes Total Critical Care Time: 35 Disposition Clinical Impression: GI hemorrhage, Lactic acidosis Disposition: ADMITTED IP TO THIS [facility] Condition: Critical Referrals: Ishmael Rojas MD [Primary Care Provider] - 1-2 days Decision Time: 13:44
[2018-01-16 13:03] LABS: Albumin 2.7 g/dL (3.5-5.0); Basophils # (A) 0.1 k/uL (0-0.2); Basophils % (A) 0 %; Calcium 9.4 mg/dL (8.4-10.2); Eosinophils # (A) 0.1 k/uL (0-0.7); Eosinophils % (A) 0 %; HCT 30.7 % (39.0-53.0); HGB 9.9 gm/dL (13.0-17.5); Hypochromasia Slight; Lymphocytes # (A) 2.2 k/uL (1.0-4.8); Lymphocytes % (A) 13 %; MCHC 32.1 g/dL (31.0-37.0); MCV 90.5 fL (80.0-100.0); Magnesium 1.7 mg/dL (1.6-2.3); Mean Platelet Volume 8.4; Monocytes # (A) 1.3 k/uL (0-1.0); Monocytes % (A) 8 %; Neutrophils # (A) 12.1 k/uL (1.3-7.7); Neutrophils % (A) 75 %; Platelet Count 190 k/uL (150-450); Potassium 5.1 mmol/L (3.5-5.1); RDW 15.8 % (11.5-15.5); Total Bilirubin 0.9 mg/dL (0.2-1.3); Total Protein 5.3 g/dL (6.3-8.2); WBC 16.2 k/uL (3.8-10.6)
[2018-01-16] MEDS: PANTOPRAZOLE 40 MG/10 ML VIAL IVP STA ×2 (13:06→13:40)
[2018-01-16 13:08] LABS: INR 1.3 (<1.2); Partial Thromboplastin Time 22.7 sec (22.0-30.0); Prothrombin Time 12.1 sec (9.0-12.0)
[2018-01-16 13:18] LABS: Appearance,Urine Clear (Clear); Bacteria,Urine Rare /hpf; Bilirubin,Urine Negative (Negative); Blood,Urine Moderate (Negative); Color,Urine Yellow; Glucose,Urine (UA) Negative (Negative); Hyaline Casts,Urine 15 /lpf (0-2); Ketones,Urine 1+ (Negative); Leukocyte Esterase,Urine Negative (Negative); Nitrite,Urine Negative (Negative); PH, Urine 5.5 (5.0-8.0); Protein,Urine Trace (Negative); RBC,Urine 59 /hpf (0-5); Squamous Epithelial Cell,Urine <1 /hpf (0-4); Urobilinogen,Urine <2.0 mg/dL (<2.0); WBC,Urine 1 /hpf (0-5)
[2018-01-16 13:24] LABS: Glucose,Whole Blood 55 mg/dL (75-99)
[2018-01-16 13:31] LABS: Creatine Kinase MB 4.9 ng/mL (0.0-2.4); Troponin I 0.06 ng/mL (0.000-0.034)
[2018-01-16] MEDS ORDERED: PANTOPRAZOLE 40 MG/10 ML VIAL IVP STA (13:45)
[2018-01-16 13:54] LABS: Glucose,Whole Blood 109 mg/dL (75-99)
[2018-01-16] MEDS ORDERED: DEXTROSE 5%-0.45% NACL 1,000 ML IV SCH (14:00)
[2018-01-16] MEDS ORDERED: NALOXONE 0.4 MG/ML 1 ML VIAL IV PRN (14:00)
[2018-01-16] MEDS ORDERED: DEXTROSE 50%-WATER 50 ML SYRINGE IVP STA (14:11)
[2018-01-16 14:37] LABS: Glucose,Whole Blood 95 mg/dL (75-99)
--- NOTE | 2018-01-16 14:37 | XR ---
EXAMINATION TYPE: XR chest 1V portable DATE OF EXAM: 01/16/2018 COMPARISON: 08/26/2017 HISTORY: Enteric tube placement TECHNIQUE: Single frontal view of the chest is obtained. FINDINGS: New patchy bilateral subsegmental atelectasis is seen. Pulmonary hyperinflation represents underlying COPD. Enteric tube has been placed in the interim with its distal tip not clearly defined secondary to overpenetration. Abdominal radiograph could be performed. Cardiomediastinal silhouette is within normal limits. Osseous structures are grossly intact. IMPRESSION: 1. Distal tip of the enteric tube is not clearly defined given overpenetration. Abdominal radiograph could be utilized to further assess the distal aspect location. 2. New bibasilar subsegmental atelectasis.
--- NOTE | 2018-01-16 14:38 | XR ---
EXAMINATION TYPE: XR abdomen 1V DATE OF EXAM: 01/16/2018 2:32 PM CLINICAL HISTORY: Enteric tube placement TECHNIQUE: Single supine KUB image of the abdomen is obtained. COMPARISON: None. FINDINGS: Enteric tube has been inserted with its fenestrated portion beyond the gastroesophageal carli ction and its distal aspect in the region of the proximal small bowel. Incidental note of cholelithia sis. Scattered gas is seen in non-distended small bowel loops. Gas and fecal material is seen in non- distended colon. There is no visceromegaly, pneumoperitoneum, or abnormal calcification appreciated. The lung bases are clear and the osseous structures are intact. IMPRESSION: Appropriately placed enteric tube. Scattered air-fluid levels within nondilated small bow el suggests mild ileus.
--- NOTE | 2018-01-16 15:36 | P.GSCN ---
History of Present Illness Consult date: 01/16/18 History of present illness: 82-year-old male was brought in by his family secondary to generalized weakness. They did state that he had a large black bowel movement overnight. He also stated that he did have a fall approximately 2 days ago. At this point , he is confused and not answering questions appropriately. The family is currently not at bedside. His examination was performed with a nurse at bedside. Dates that he was covered head to toe in black stool and likely hematemesis. He did have one episode of hematemesis in the emergency department and an NG tube was placed. So far 900 mL of coffee ground colored fluid has been suctioned. A Ortiz catheter was placed with yellow urine noted. The urine output has been marginal. So far he has received 1.5 L normal saline. When pushing on his abdomen, the patient states he does not have belly pain. Review of Systems ROS unobtainable: due to mental status Past Medical History Past Medical History: Heart Failure, COPD, CVA/TIA, Diabetes Mellitus, Hyperlipidemia, Hypertension Additional Past Medical History / Comment(s): ARTHRITIS History of Any Multi-Drug Resistant Organisms: None Reported Past Surgical History: Appendectomy Additional Past Surgical History / Comment(s): Right cataract removal and intraocular lens implant, last colonoscopy without abnormal findings Past Anesthesia/Blood Transfusion Reactions: No Reported Reaction Past Psychological History: No Psychological Hx Reported Smoking Status: Former smoker Past Alcohol Use History: None Reported Past Drug Use History: None Reported - Past Family History Father Additional Family Medical History / Comment(s): Father in his 60s from a myocardial infarction. Mother Additional Family Medical History / Comment(s): Mother between 85 and 90 with no major medical problems. Brother(s) Additional Family Medical History / Comment(s): Patient has 5 brothers with heavy coronary artery disease and MIs in the family. Sister(s) Additional Family Medical History / Comment(s): He has one sister with history of cervical cancer. Daughter(s) Additional Family Medical History / Comment(s): Patient has 4 daughters with no major medical problems and 1 son with history of Crohn's Medications and Allergies Home Medications Medication Instructions Recorded Confirmed Type Omeprazole 20 mg PO DAILY 05/10/14 01/16/18 History Simvastatin 20 mg PO HS 05/10/14 01/16/18 History Fludrocortisone [Florinef] 0.05 mg PO BID 08/28/16 01/16/18 History Tiotropium 18 Mcg/Puff [Spiriva] 1 puff INHALATION RT-DAILY 08/28/16 01/16/18 History Allopurinol [Zyloprim] 100 mg PO DAILY 08/28/17 01/16/18 History Hydrocortisone [Cortef] 10 mg PO BID 08/28/17 01/16/18 History glipiZIDE/METFORMIN HCL 2 tab PO BID 08/28/17 01/16/18 History [glipiZIDE/METFORMIN HCL 5-500 mg] Metoprolol Succinate [Toprol XL] 25 mg PO DAILY 01/16/18 01/16/18 History Spironolactone [Aldactone] 25 mg PO DAILY 01/16/18 01/16/18 History Allergies Allergy/AdvReac Type Severity Reaction Status Date / Time No Known Allergies Allergy Verified 01/16/18 12:37 Surgical - Exam Osteopathic Statement: *. No significant issues noted on an osteopathic structural exam other than those noted in the History and Physical/Consult. Vital Signs Pulse Resp BP Pulse Ox 114 H 28 H 147/57 95 01/16/18 11:30 01/16/18 11:30 01/16/18 11:30 01/16/18 11:30 - General Well-developed, confused - Eyes PERRL, normal ocular movement - ENT normal mucosa, decreased hearing - Neck no masses, no bruits, trachea midline - Respiratory normal respiratory effort - Cardiovascular Tachycardic - Abdomen Soft, nontender, nondistended, no rebound, no guarding, there is an infraumbilical vertical midline scar - Psychiatric Currently confused, not oriented to time or place or person Results - Labs 01/16/18 12:35 01/16/18 12:35 Abnormal Lab Results - Last 24 Hours (Table) 01/16/18 01/16/18 01/16/18 Range/Units 12:35 12:35 12:35 WBC 16.2 H (3.8-10.6) k/uL RBC 3.40 L (4.30-5.90) m/uL Hgb 9.9 L (13.0-17.5) gm/dL Hct 30.7 L (39.0-53.0) % RDW 15.8 H (11.5-15.5) % Neutrophils # 12.1 H (1.3-7.7) k/uL Monocytes # 1.3 H (0-1.0) k/uL PT (9.0-12.0) sec INR (<1.2) Chloride 108 H (98-107) mmol/L Carbon Dioxide 15 L (22-30) mmol/L BUN 54 H (9-20) mg/dL Creatinine 1.70 H (0.66-1.25) mg/dL Glucose 48 L* (74-99) mg/dL POC Glucose (mg/dL) (75-99) mg/dL Plasma Lactic Acid Abram (0.7-2.0) mmol/L AST 61 H (17-59) U/L CK-MB (CK-2) 4.9 H* (0.0-2.4) ng/mL Troponin I 0.060 H* (0.000-0.034) ng/mL Total Protein 5.3 L (6.3-8.2) g/dL Albumin 2.7 L (3.5-5.0) g/dL Urine Protein (Negative) Urine Ketones (Negative) Urine Blood (Negative) Urine RBC (0-5) /hpf Urine Bacteria (None) /hpf Hyaline Casts (0-2) /lpf 01/16/18 01/16/18 01/16/18 Range/Units 12:35 12:35 12:45 WBC (3.8-10.6) k/uL RBC (4.30-5.90) m/uL Hgb (13.0-17.5) gm/dL Hct (39.0-53.0) % RDW (11.5-15.5) % Neutrophils # (1.3-7.7) k/uL Monocytes # (0-1.0) k/uL PT 12.1 H (9.0-12.0) sec INR 1.3 H (<1.2) Chloride (98-107) mmol/L Carbon Dioxide (22-30) mmol/L BUN (9-20) mg/dL Creatinine (0.66-1.25) mg/dL Glucose (74-99) mg/dL POC Glucose (mg/dL) (75-99) mg/dL Plasma Lactic Acid Abram 10.0 H* (0.7-2.0) mmol/L AST (17-59) U/L CK-MB (CK-2) (0.0-2.4) ng/mL Troponin I (0.000-0.034) ng/mL Total Protein (6.3-8.2) g/dL Albumin (3.5-5.0) g/dL Urine Protein Trace H (Negative) Urine Ketones 1+ H (Negative) Urine Blood Moderate H (Negative) Urine RBC 59 H (0-5) /hpf Urine Bacteria Rare H (None) /hpf Hyaline Casts 15 H (0-2) /lpf 01/16/18 01/16/18 Range/Units 13:23 13:53 WBC (3.8-10.6) k/uL RBC (4.30-5.90) m/uL Hgb (13.0-17.5) gm/dL Hct (39.0-53.0) % RDW (11.5-15.5) % Neutrophils # (1.3-7.7) k/uL Monocytes # (0-1.0) k/uL PT (9.0-12.0) sec INR (<1.2) Chloride (98-107) mmol/L Carbon Dioxide (22-30) mmol/L BUN (9-20) mg/dL Creatinine (0.66-1.25) mg/dL Glucose (74-99) mg/dL POC Glucose (mg/dL) 55 L 109 H (75-99) mg/dL Plasma Lactic Acid Abram (0.7-2.0) mmol/L AST (17-59) U/L CK-MB (CK-2) (0.0-2.4) ng/mL Troponin I (0.000-0.034) ng/mL Total Protein (6.3-8.2) g/dL Albumin (3.5-5.0) g/dL Urine Protein (Negative) Urine Ketones (Negative) Urine Blood (Negative) Urine RBC (0-5) /hpf Urine Bacteria (None) /hpf Hyaline Casts (0-2) /lpf Diabetes panel 01/16/18 Range/Units 12:35 Sodium 144 (137-145) mmol/L Potassium 5.1 (3.5-5.1) mmol/L Chloride 108 H (98-107) mmol/L Carbon Dioxide 15 L (22-30) mmol/L BUN 54 H (9-20) mg/dL Creatinine 1.70 H (0.66-1.25) mg/dL Glucose 48 L* (74-99) mg/dL Calcium 9.4 (8.4-10.2) mg/dL AST 61 H (17-59) U/L ALT 33 (21-72) U/L Alkaline Phosphatase 93 (38-126) U/L Total Protein 5.3 L (6.3-8.2) g/dL Albumin 2.7 L (3.5-5.0) g/dL Calcium panel 01/16/18 Range/Units 12:35 Calcium 9.4 (8.4-10.2) mg/dL Albumin 2.7 L (3.5-5.0) g/dL Pituitary panel 01/16/18 Range/Units 12:35 Sodium 144 (137-145) mmol/L Potassium 5.1 (3.5-5.1) mmol/L Chloride 108 H (98-107) mmol/L Carbon Dioxide 15 L (22-30) mmol/L BUN 54 H (9-20) mg/dL Creatinine 1.70 H (0.66-1.25) mg/dL Glucose 48 L* (74-99) mg/dL Calcium 9.4 (8.4-10.2) mg/dL Adrenal panel 01/16/18 Range/Units 12:35 Sodium 144 (137-145) mmol/L Potassium 5.1 (3.5-5.1) mmol/L Chloride 108 H (98-107) mmol/L Carbon Dioxide 15 L (22-30) mmol/L BUN 54 H (9-20) mg/dL Creatinine 1.70 H (0.66-1.25) mg/dL Glucose 48 L* (74-99) mg/dL Calcium 9.4 (8.4-10.2) mg/dL Total Bilirubin 0.9 (0.2-1.3) mg/dL AST 61 H (17-59) U/L ALT 33 (21-72) U/L Alkaline Phosphatase 93 (38-126) U/L Total Protein 5.3 L (6.3-8.2) g/dL Albumin 2.7 L (3.5-5.0) g/dL Assessment and Plan (1) GI hemorrhage Narrative/Plan: The patient needs continued IV fluid resuscitation. Hemoglobin is currently 9.9 and lactic acidosis of 10. He is having marginal output. He is only received 1.5 L of normal saline. I have advised to continue IV fluid resuscitation. Follow hemoglobin every 6 hours. NG tube is in place and we'll continue to monitor quality of output. Gastroenterology has been consulted for any endoscopy that may be needed. Due to an elevated B LAD and the coffee- ground finding in the NG tube, this is most likely an upper GI bleed. I recommend the patient placed in the intensive care unit for resuscitation and close monitoring. Hold any anticoagulation. We will continue to follow patient closely and continue to provide recommendations. Current Visit: Yes Status: Acute Code(s): K92.2 - GASTROINTESTINAL HEMORRHAGE, UNSPECIFIED SNOMED Code(s): 36714922
[2018-01-16] MEDS ORDERED: HYDROCORTISONE SUCCINATE 100 MG/2 ML VIAL IV SCH (16:00)
--- NOTE | 2018-01-16 16:03 | P.CNPUL ---
History of Present Illness Consult date: 01/16/18 Reason for consult: other (ICU management) Chief complaint: Black stool and confusion History of present illness: This is an 82-year-old gentleman who presented emergency department complaining of generalized weakness. The patient apparently had a large black bowel movement overnight. He also had coffee-ground emesis the emergency department. An NG tube was placed and 900 mL of coffee-ground fluid has been suctioned. The patient denies abdominal pain. He has received one and half liters of normal saline. He was found to have a lactic acid of 10. The patient denies abdominal pain, nausea, vomiting. He denies a history of GI bleed however the patient appears to be a poor historian. His hemoglobin is currently 9.9. History is mostly obtained from the electronic medical record. Review of Systems All systems: negative Past Medical History Past Medical History: Heart Failure, COPD, CVA/TIA, Diabetes Mellitus, Hyperlipidemia, Hypertension Additional Past Medical History / Comment(s): ARTHRITIS History of Any Multi-Drug Resistant Organisms: None Reported Past Surgical History: Appendectomy Additional Past Surgical History / Comment(s): Right cataract removal and intraocular lens implant, last colonoscopy without abnormal findings Past Anesthesia/Blood Transfusion Reactions: No Reported Reaction Past Psychological History: No Psychological Hx Reported Smoking Status: Former smoker Past Alcohol Use History: None Reported Past Drug Use History: None Reported - Past Family History Father Additional Family Medical History / Comment(s): Father in his 60s from a myocardial infarction. Mother Additional Family Medical History / Comment(s): Mother between 85 and 90 with no major medical problems. Brother(s) Additional Family Medical History / Comment(s): Patient has 5 brothers with heavy coronary artery disease and MIs in the family. Sister(s) Additional Family Medical History / Comment(s): He has one sister with history of cervical cancer. Daughter(s) Additional Family Medical History / Comment(s): Patient has 4 daughters with no major medical problems and 1 son with history of Crohn's Medications and Allergies Home Medications Medication Instructions Recorded Confirmed Type Omeprazole 20 mg PO DAILY 05/10/14 01/16/18 History Simvastatin 20 mg PO HS 05/10/14 01/16/18 History Fludrocortisone [Florinef] 0.05 mg PO BID 08/28/16 01/16/18 History Tiotropium 18 Mcg/Puff [Spiriva] 1 puff INHALATION RT-DAILY 08/28/16 01/16/18 History Allopurinol [Zyloprim] 100 mg PO DAILY 08/28/17 01/16/18 History Hydrocortisone [Cortef] 10 mg PO BID 08/28/17 01/16/18 History glipiZIDE/METFORMIN HCL 2 tab PO BID 08/28/17 01/16/18 History [glipiZIDE/METFORMIN HCL 5-500 mg] Metoprolol Succinate [Toprol XL] 25 mg PO DAILY 01/16/18 01/16/18 History Spironolactone [Aldactone] 25 mg PO DAILY 01/16/18 01/16/18 History Allergies Allergy/AdvReac Type Severity Reaction Status Date / Time No Known Allergies Allergy Verified 01/16/18 12:37 Physical Exam Osteopathic Statement: *. No significant issues noted on an osteopathic structural exam other than those noted in the History and Physical/Consult. Vitals: Vital Signs Temp Pulse Resp BP Pulse Ox 01/16/18 15:42 97.2 F L 126 H 24 116/58 100 01/16/18 14:15 97.0 F L 126 H 26 H 128/84 98 01/16/18 13:30 97 F L 115 H 22 94 L 01/16/18 11:30 114 H 28 H 147/57 95 Intake and Output 01/16/18 01/16/18 01/16/18 06:59 14:59 22:59 Output Total 602 Balance -602 Output: Urine 602 Straight 600 Uretheral (Ortiz) 2 Other: Weight 113.398 kg Patient Weight 01/17/18 06:59 Weight 113.398 kg Gen.: Patient is alert and oriented 3, no acute distress, poor historian Cardiovascular: Tachycardic, regular rate and rhythm, S1/S2 Lungs: Diminished breath sounds bilaterally otherwise clear Abdomen: Soft nontender nondistended positive bowel sounds Extremities: Trace edema Results - Laboratory Findings CBC and BMP: 01/16/18 12:35 01/16/18 12:35 PT/INR, D-dimer PT 12.1 sec (9.0-12.0) H 01/16/18 12:35 INR 1.3 (<1.2) H 01/16/18 12:35 Abnormal lab findings: Abnormal Labs 01/16/18 01/16/18 01/16/18 12:35 12:35 12:35 WBC 16.2 H RBC 3.40 L Hgb 9.9 L Hct 30.7 L RDW 15.8 H Neutrophils # 12.1 H Monocytes # 1.3 H PT INR Chloride 108 H Carbon Dioxide 15 L BUN 54 H Creatinine 1.70 H Glucose 48 L* POC Glucose (mg/dL) Plasma Lactic Acid Abram AST 61 H CK-MB (CK-2) 4.9 H* Troponin I 0.060 H* Total Protein 5.3 L Albumin 2.7 L Urine Protein Urine Ketones Urine Blood Urine RBC Urine Bacteria Hyaline Casts 01/16/18 01/16/18 01/16/18 12:35 12:35 12:45 WBC RBC Hgb Hct RDW Neutrophils # Monocytes # PT 12.1 H INR 1.3 H Chloride Carbon Dioxide BUN Creatinine Glucose POC Glucose (mg/dL) Plasma Lactic Acid Abram 10.0 H* AST CK-MB (CK-2) Troponin I Total Protein Albumin Urine Protein Trace H Urine Ketones 1+ H Urine Blood Moderate H Urine RBC 59 H Urine Bacteria Rare H Hyaline Casts 15 H 01/16/18 01/16/18 13:23 13:53 WBC RBC Hgb Hct RDW Neutrophils # Monocytes # PT INR Chloride Carbon Dioxide BUN Creatinine Glucose POC Glucose (mg/dL) 55 L 109 H Plasma Lactic Acid Abram AST CK-MB (CK-2) Troponin I Total Protein Albumin Urine Protein Urine Ketones Urine Blood Urine RBC Urine Bacteria Hyaline Casts - Diagnostic Findings Chest x-ray: report reviewed, image reviewed Assessment and Plan Assessment: Acute GIB Leukocytosis ABLA Lactic acidosis AGMA ALONDRA NSTEMI History of CHF, unknown type COPD DM2 Dyslipidemia Chronic steroids, question orthostatic hypotension Discontinue metformin and glipizide Continue IVF hydration Monitor H/H Repeat LA Transfer to ICU Monitor lytes, coags Echocardiogram No anticoagulation Surgery and GI recommendations NGT to LIS Consult cardiology Protonix SCDs for DVT prophylaxis Thank you for this consultation. We will continue to follow along.
--- NOTE | 2018-01-16 16:09 | XR ---
EXAMINATION TYPE: XR chest 1V portable DATE OF EXAM: 01/16/2018 COMPARISON: 01/16/2018 abdomen and chest radiograph HISTORY: Enteric tube placement TECHNIQUE: Single frontal view of the chest is obtained. FINDINGS: The enteric tube courses beyond the hemidiaphragms and beyond the [id number] and was ap propriately placed on the abdominal radiograph earlier the same day. Patchy bibasilar atelectasis is redemonstrated with pulmonary hyperinflation. Cardiomediastinal silhouette is within normal limits an d osseous structures are intact. IMPRESSION: Appropriately placed enteric tube and bibasilar atelectasis, unchanged from the abdominal and chest radiographs earlier on the same day.
[2018-01-16 16:23] LABS: Glucose,Whole Blood 127 mg/dL (75-99)
[2018-01-16] MEDS: HYDROCORTISONE SUCCINATE 100 MG/2 ML VIAL IV SCH (16:28)
[2018-01-16 16:48] LABS: HCT 29.4 % (39.0-53.0); HGB 9.6 gm/dL (13.0-17.5); Hypochromasia Slight; MCH 29.8 pg (25.0-35.0); MCHC 32.7 g/dL (31.0-37.0); MCV 91.1 fL (80.0-100.0); Mean Platelet Volume 8.2; Platelet Count 167 k/uL (150-450); RBC 3.23 m/uL (4.30-5.90); RDW 15.8 % (11.5-15.5); WBC 16.3 k/uL (3.8-10.6)
[2018-01-16 17:01] LABS: Albumin 2.5 g/dL (3.5-5.0); Calcium 8.8 mg/dL (8.4-10.2); Potassium 5.4 mmol/L (3.5-5.1); Total Bilirubin 1.1 mg/dL (0.2-1.3); Total Protein 5.1 g/dL (6.3-8.2)
[2018-01-16] MEDS ORDERED: SODIUM CHLORIDE 0.9% 1,000 ML IV ONE ×2 (18:46→18:59)
[2018-01-16] MEDS ORDERED: Magnesium Replacement Protocol 1 EACH MISC MISCELLANE PRN (19:57)
[2018-01-16] MEDS: DEXTROSE 5%-0.45% NACL 1,000 ML with SODIUM BICARB (1 MEQ/ML) 150 ML IV SCH ×2 (20:02)
[2018-01-16] MEDS: MAGNESIUM SULFATE-D5W PMX 1 GM in DEXTROSE/WATER 1 100ML.BAG IVPB SCH ×2 (21:05→22:15)
[2018-01-16 21:06] LABS: HCT 30.6 % (39.0-53.0); HGB 9.7 gm/dL (13.0-17.5); Hypochromasia Moderate; MCH 29.6 pg (25.0-35.0); MCHC 31.9 g/dL (31.0-37.0); MCV 92.9 fL (80.0-100.0); Mean Platelet Volume 8.6; Platelet Count 159 k/uL (150-450); RBC 3.29 m/uL (4.30-5.90); RDW 15.6 % (11.5-15.5); WBC 16.2 k/uL (3.8-10.6)
[2018-01-16 21:18] LABS: Calcium 8.5 mg/dL (8.4-10.2); Potassium 5.1 mmol/L (3.5-5.1)
[2018-01-16 22:04] LABS: Glucose,Whole Blood 181 mg/dL (75-99)
[2018-01-17] MEDS: HYDROCORTISONE SUCCINATE 100 MG/2 ML VIAL IV SCH ×3 (00:59→16:21)
[2018-01-17 02:15] LABS: Glucose,Whole Blood 246 mg/dL (75-99)
[2018-01-17 02:25] LABS: Hemoglobin A1C 5.7 % (4.0-6.0)
[2018-01-17 02:34] LABS: Basophils % (A) 0 %; Eosinophils # (A) 0.1 k/uL (0-0.7); Eosinophils % (A) 1 %; HGB 8.6 gm/dL (13.0-17.5); Hypochromasia Slight; Lymphocytes # (A) 1.6 k/uL (1.0-4.8); Lymphocytes % (A) 11 %; MCH 28.1 pg (25.0-35.0); MCHC 30.6 g/dL (31.0-37.0); MCV 91.7 fL (80.0-100.0); Mean Platelet Volume 8.9; Monocytes # (A) 1.2 k/uL (0-1.0); Monocytes % (A) 8 %; Neutrophils % (A) 79 %; Platelet Count 138 k/uL (150-450); RBC 3.05 m/uL (4.30-5.90); WBC 15.1 k/uL (3.8-10.6)
[2018-01-17 02:43] LABS: Albumin 2.4 g/dL (3.5-5.0); Calcium 8.4 mg/dL (8.4-10.2); Potassium 4.6 mmol/L (3.5-5.1); Total Bilirubin 1.2 mg/dL (0.2-1.3)
[2018-01-17 06:10] LABS: Glucose,Whole Blood 358 mg/dL (75-99)
[2018-01-17] MEDS: INSULIN ASPART 100 UNIT/ML 1 ML 10 ML VIAL SQ SCH ×4 (06:14→18:56)
[2018-01-17 06:15] LABS: Basophils % (A) 0 %; Eosinophils # (A) 0.1 k/uL (0-0.7); Eosinophils % (A) 1 %; HCT 28.1 % (39.0-53.0); HGB 9.1 gm/dL (13.0-17.5); Lymphocytes # (A) 1.2 k/uL (1.0-4.8); Lymphocytes % (A) 8 %; MCHC 32.3 g/dL (31.0-37.0); MCV 89.9 fL (80.0-100.0); Mean Platelet Volume 8.6; Monocytes % (A) 7 %; Neutrophils # (A) 11.9 k/uL (1.3-7.7); Neutrophils % (A) 82 %; Platelet Count 140 k/uL (150-450); RBC 3.12 m/uL (4.30-5.90); RDW 15.9 % (11.5-15.5); WBC 14.6 k/uL (3.8-10.6)
[2018-01-17 06:46] LABS: Albumin 2.4 g/dL (3.5-5.0); Calcium 8.5 mg/dL (8.4-10.2); Magnesium 2.2 mg/dL (1.6-2.3); Potassium 4.5 mmol/L (3.5-5.1); Total Bilirubin 1.2 mg/dL (0.2-1.3); Total Protein 5.1 g/dL (6.3-8.2)
[2018-01-17] MEDS: PANTOPRAZOLE 40 MG/10 ML VIAL IV SCH (08:52)
[2018-01-17] MEDS: DEXTROSE 5%-0.45% NACL 1,000 ML with SODIUM BICARB (1 MEQ/ML) 150 ML IV SCH ×2 (09:08)
[2018-01-17] MEDS: SODIUM CHLORIDE 0.9% 1,000 ML IV SCH ×2 (09:36→21:20)
[2018-01-17 10:23] LABS: Glucose,Whole Blood 179 mg/dL (75-99)
--- NOTE | 2018-01-17 10:43 | PN ---
PROGRESS NOTE He was seen again on 01/17/2018. He has been hemodynamically stable, not requiring pressors. He is confused, but awake. He has had some coffee-ground secretions in his NG tube. Vital signs reveal a blood pressure 129/72, respiratory rate of 16, pulse rate of 105, temperature 98.6, O2 saturation on room air is 99%. HEENT reveals pupils are equal. Chest reveals occasional rhonchi in the base only. Cardiovascular system reveals an S1, S2. Abdomen is soft. There is no edema. White count is 14.6, hemoglobin of 9.1. Sodium 139, potassium 4.5, chloride 109, bicarb 18, BUN 59, creatinine of 1.7. Glucose 358. Lactic acid is 4.2. AST is 73. Albumin of 2.4. IMPRESSION AT THIS TIME: 1. Acute gastrointestinal bleed. 2. Diabetes mellitus. 3. Lactic acidosis, which is multifactorial in part due to low flow state. Cannot rule out bowel ischemia. 4. Non ST myocardial infarction. 5. Chronic obstructive pulmonary disease for which the patient has been chronically on steroids. 6. Metabolic acidosis. 7. Metabolic encephalopathy. At this point in time, would continue the patient on Solu-Cortef, insulin, pantoprazole, IV fluids, bicarbonate drip, SCDs for lower extremities. We will follow him closely during his hospital stay and appreciate the opportunity to participate in his care. REJI / JOBY: [id number] /
--- NOTE | 2018-01-17 10:47 | P.PN ---
Subjective Progress Note Date: 01/17/18 Patient seen and examined at bedside. Confused. He has had 1 small black, tarry stool overnight. NG tube has been coffee-ground and bright red blood. Lactic acidosis has decreased to 4 from 11. Not complaining of abdominal pain. Objective - Vital Signs Vital signs: Vital Signs Temp 98.6 F 01/17/18 08:00 Pulse 113 H 01/17/18 09:00 Resp 13 01/17/18 09:00 BP 129/72 01/17/18 09:00 Pulse Ox 97 01/17/18 09:00 Intake & Output 01/16/18 01/17/18 01/17/18 18:59 06:59 18:59 Intake Total 390 4360 300 Output Total 662 564 105 Balance -272 3796 195 Weight 113.398 kg 112.3 kg Intake: IV 390 3130 Dextrose 5%-0.45% NaCl 1, 390 130 000 ml @ 130 mls/hr IV . Q7H42M EVELIN Rx#:[id number] Sodium Chloride 0.9% 1, 3000 000 ml @ 999 mls/hr IV . Q1H1M ONE Rx#:[id number] Intake, IV Titration 1230 300 Amount Dextrose 5%-0.45% NaCl 1, 1030 300 000 ml @ 100 mls/hr IV . [id number] EVELIN with Sodium Bicarb (1 Meq/ml) 150 ml Rx#:[id number] Magnesium Sulfate-D5w Pmx 200 1 gm In Dextrose/Water 1 100ml.bag @ 100 mls/hr IVPB Q1H EVELIN Rx#: [id number] Output: Urine 662 564 105 Straight 600 Uretheral (Ortiz) 2 4 Other: Voiding Method Indwelling Catheter Indwelling Catheter Indwelling Catheter # Bowel Movements 1 - Constitutional Constitutional Comment(s): Confused - EENT Eyes: Present: PERRLA - Neck Neck: Present: normal ROM - Respiratory Details: No difficulty with respiration - Gastrointestinal Gastrointestinal Comment(s): Soft, nontender, nondistended, no rebound, no guarding - Musculoskeletal Musculoskeletal: Present: generalized weakness - Labs CBC & Chem 7: 01/17/18 05:53 01/17/18 05:53 Labs: Abnormal Lab Results - Last 24 Hours (Table) 01/16/18 01/16/18 01/16/18 Range/Units 12:35 12:35 12:35 WBC 16.2 H (3.8-10.6) k/uL RBC 3.40 L (4.30-5.90) m/uL Hgb 9.9 L (13.0-17.5) gm/dL Hct 30.7 L (39.0-53.0) % MCHC (31.0-37.0) g/dL RDW 15.8 H (11.5-15.5) % Plt Count (150-450) k/uL Neutrophils # 12.1 H (1.3-7.7) k/uL Monocytes # 1.3 H (0-1.0) k/uL PT (9.0-12.0) sec INR (<1.2) Potassium (3.5-5.1) mmol/L Chloride 108 H (98-107) mmol/L Carbon Dioxide 15 L (22-30) mmol/L BUN 54 H (9-20) mg/dL Creatinine 1.70 H (0.66-1.25) mg/dL Glucose 48 L* (74-99) mg/dL POC Glucose (mg/dL) (75-99) mg/dL Plasma Lactic Acid Abram (0.7-2.0) mmol/L AST 61 H (17-59) U/L CK-MB (CK-2) 4.9 H* (0.0-2.4) ng/mL Troponin I 0.060 H* (0.000-0.034) ng/mL Total Protein 5.3 L (6.3-8.2) g/dL Albumin 2.7 L (3.5-5.0) g/dL Urine Protein (Negative) Urine Ketones (Negative) Urine Blood (Negative) Urine RBC (0-5) /hpf Urine Bacteria (None) /hpf Hyaline Casts (0-2) /lpf 01/16/18 01/16/18 01/16/18 Range/Units 12:35 12:35 12:45 WBC (3.8-10.6) k/uL RBC (4.30-5.90) m/uL Hgb (13.0-17.5) gm/dL Hct (39.0-53.0) % MCHC (31.0-37.0) g/dL RDW (11.5-15.5) % Plt Count (150-450) k/uL Neutrophils # (1.3-7.7) k/uL Monocytes # (0-1.0) k/uL PT 12.1 H (9.0-12.0) sec INR 1.3 H (<1.2) Potassium (3.5-5.1) mmol/L Chloride (98-107) mmol/L Carbon Dioxide (22-30) mmol/L BUN (9-20) mg/dL Creatinine (0.66-1.25) mg/dL Glucose (74-99) mg/dL POC Glucose (mg/dL) (75-99) mg/dL Plasma Lactic Acid Abram 10.0 H* (0.7-2.0) mmol/L AST (17-59) U/L CK-MB (CK-2) (0.0-2.4) ng/mL Troponin I (0.000-0.034) ng/mL Total Protein (6.3-8.2) g/dL Albumin (3.5-5.0) g/dL Urine Protein Trace H (Negative) Urine Ketones 1+ H (Negative) Urine Blood Moderate H (Negative) Urine RBC 59 H (0-5) /hpf Urine Bacteria Rare H (None) /hpf Hyaline Casts 15 H (0-2) /lpf 01/16/18 01/16/18 01/16/18 Range/Units 13:23 13:53 16:19 WBC (3.8-10.6) k/uL RBC (4.30-5.90) m/uL Hgb (13.0-17.5) gm/dL Hct (39.0-53.0) % MCHC (31.0-37.0) g/dL RDW (11.5-15.5) % Plt Count (150-450) k/uL Neutrophils # (1.3-7.7) k/uL Monocytes # (0-1.0) k/uL PT (9.0-12.0) sec INR (<1.2) Potassium (3.5-5.1) mmol/L Chloride (98-107) mmol/L Carbon Dioxide (22-30) mmol/L BUN (9-20) mg/dL Creatinine (0.66-1.25) mg/dL Glucose (74-99) mg/dL POC Glucose (mg/dL) 55 L 109 H 127 H (75-99) mg/dL Plasma Lactic Acid Abram (0.7-2.0) mmol/L AST (17-59) U/L CK-MB (CK-2) (0.0-2.4) ng/mL Troponin I (0.000-0.034) ng/mL Total Protein (6.3-8.2) g/dL Albumin (3.5-5.0) g/dL Urine Protein (Negative) Urine Ketones (Negative) Urine Blood (Negative) Urine RBC (0-5) /hpf Urine Bacteria (None) /hpf Hyaline Casts (0-2) /lpf 01/16/18 01/16/18 01/16/18 Range/Units 16:27 16:27 16:27 WBC (3.8-10.6) k/uL RBC (4.30-5.90) m/uL Hgb (13.0-17.5) gm/dL Hct (39.0-53.0) % MCHC (31.0-37.0) g/dL RDW (11.5-15.5) % Plt Count (150-450) k/uL Neutrophils # (1.3-7.7) k/uL Monocytes # (0-1.0) k/uL PT (9.0-12.0) sec INR (<1.2) Potassium 5.4 H (3.5-5.1) mmol/L Chloride 110 H (98-107) mmol/L Carbon Dioxide 11 L (22-30) mmol/L BUN 53 H (9-20) mg/dL Creatinine 1.80 H (0.66-1.25) mg/dL Glucose 121 H (74-99) mg/dL POC Glucose (mg/dL) (75-99) mg/dL Plasma Lactic Acid Abram 11.4 H* (0.7-2.0) mmol/L AST 61 H (17-59) U/L CK-MB (CK-2) (0.0-2.4) ng/mL Troponin I 0.077 H* (0.000-0.034) ng/mL Total Protein 5.1 L (6.3-8.2) g/dL Albumin 2.5 L (3.5-5.0) g/dL Urine Protein (Negative) Urine Ketones (Negative) Urine Blood (Negative) Urine RBC (0-5) /hpf Urine Bacteria (None) /hpf Hyaline Casts (0-2) /lpf 01/16/18 01/16/18 01/16/18 Range/Units 16:30 20:48 20:48 WBC 16.3 H 16.2 H (3.8-10.6) k/uL RBC 3.23 L 3.29 L (4.30-5.90) m/uL Hgb 9.6 L 9.7 L (13.0-17.5) gm/dL Hct 29.4 L 30.6 L (39.0-53.0) % MCHC (31.0-37.0) g/dL RDW 15.8 H 15.6 H (11.5-15.5) % Plt Count (150-450) k/uL Neutrophils # (1.3-7.7) k/uL Monocytes # (0-1.0) k/uL PT (9.0-12.0) sec INR (<1.2) Potassium (3.5-5.1) mmol/L Chloride 110 H (98-107) mmol/L Carbon Dioxide 13 L (22-30) mmol/L BUN 55 H (9-20) mg/dL Creatinine 1.80 H (0.66-1.25) mg/dL Glucose 151 H (74-99) mg/dL POC Glucose (mg/dL) (75-99) mg/dL Plasma Lactic Acid Abram (0.7-2.0) mmol/L AST (17-59) U/L CK-MB (CK-2) (0.0-2.4) ng/mL Troponin I (0.000-0.034) ng/mL Total Protein (6.3-8.2) g/dL Albumin (3.5-5.0) g/dL Urine Protein (Negative) Urine Ketones (Negative) Urine Blood (Negative) Urine RBC (0-5) /hpf Urine Bacteria (None) /hpf Hyaline Casts (0-2) /lpf 01/16/18 01/16/18 01/17/18 Range/Units 20:48 22:01 02:12 WBC (3.8-10.6) k/uL RBC (4.30-5.90) m/uL Hgb (13.0-17.5) gm/dL Hct (39.0-53.0) % MCHC (31.0-37.0) g/dL RDW (11.5-15.5) % Plt Count (150-450) k/uL Neutrophils # (1.3-7.7) k/uL Monocytes # (0-1.0) k/uL PT (9.0-12.0) sec INR (<1.2) Potassium (3.5-5.1) mmol/L Chloride (98-107) mmol/L Carbon Dioxide (22-30) mmol/L BUN (9-20) mg/dL Creatinine (0.66-1.25) mg/dL Glucose (74-99) mg/dL POC Glucose (mg/dL) 181 H 246 H (75-99) mg/dL Plasma Lactic Acid Abram 8.7 H* (0.7-2.0) mmol/L AST (17-59) U/L CK-MB (CK-2) (0.0-2.4) ng/mL Troponin I (0.000-0.034) ng/mL Total Protein (6.3-8.2) g/dL Albumin (3.5-5.0) g/dL Urine Protein (Negative) Urine Ketones (Negative) Urine Blood (Negative) Urine RBC (0-5) /hpf Urine Bacteria (None) /hpf Hyaline Casts (0-2) /lpf 01/17/18 01/17/18 01/17/18 Range/Units 02:15 02:15 02:15 WBC 15.1 H (3.8-10.6) k/uL RBC 3.05 L (4.30-5.90) m/uL Hgb 8.6 L (13.0-17.5) gm/dL Hct 28.0 L (39.0-53.0) % MCHC 30.6 L (31.0-37.0) g/dL RDW 16.0 H (11.5-15.5) % Plt Count 138 L (150-450) k/uL Neutrophils # 12.0 H (1.3-7.7) k/uL Monocytes # 1.2 H (0-1.0) k/uL PT (9.0-12.0) sec INR (<1.2) Potassium (3.5-5.1) mmol/L Chloride 109 H (98-107) mmol/L Carbon Dioxide 18 L (22-30) mmol/L BUN 58 H (9-20) mg/dL Creatinine 1.70 H (0.66-1.25) mg/dL Glucose 216 H (74-99) mg/dL POC Glucose (mg/dL) (75-99) mg/dL Plasma Lactic Acid Abram 5.3 H* (0.7-2.0) mmol/L AST 68 H (17-59) U/L CK-MB (CK-2) (0.0-2.4) ng/mL Troponin I (0.000-0.034) ng/mL Total Protein 5.0 L (6.3-8.2) g/dL Albumin 2.4 L (3.5-5.0) g/dL Urine Protein (Negative) Urine Ketones (Negative) Urine Blood (Negative) Urine RBC (0-5) /hpf Urine Bacteria (None) /hpf Hyaline Casts (0-2) /lpf 01/17/18 01/17/18 01/17/18 Range/Units 05:53 05:53 05:53 WBC 14.6 H (3.8-10.6) k/uL RBC 3.12 L (4.30-5.90) m/uL Hgb 9.1 L (13.0-17.5) gm/dL Hct 28.1 L (39.0-53.0) % MCHC (31.0-37.0) g/dL RDW 15.9 H (11.5-15.5) % Plt Count 140 L (150-450) k/uL Neutrophils # 11.9 H (1.3-7.7) k/uL Monocytes # (0-1.0) k/uL PT (9.0-12.0) sec INR (<1.2) Potassium (3.5-5.1) mmol/L Chloride 109 H (98-107) mmol/L Carbon Dioxide 18 L (22-30) mmol/L BUN 59 H (9-20) mg/dL Creatinine 1.70 H (0.66-1.25) mg/dL Glucose 235 H (74-99) mg/dL POC Glucose (mg/dL) (75-99) mg/dL Plasma Lactic Acid Abram 4.2 H* (0.7-2.0) mmol/L AST 73 H (17-59) U/L CK-MB (CK-2) (0.0-2.4) ng/mL Troponin I (0.000-0.034) ng/mL Total Protein 5.1 L (6.3-8.2) g/dL Albumin 2.4 L (3.5-5.0) g/dL Urine Protein (Negative) Urine Ketones (Negative) Urine Blood (Negative) Urine RBC (0-5) /hpf Urine Bacteria (None) /hpf Hyaline Casts (0-2) /lpf 01/17/18 01/17/18 Range/Units 06:07 10:20 WBC (3.8-10.6) k/uL RBC (4.30-5.90) m/uL Hgb (13.0-17.5) gm/dL Hct (39.0-53.0) % MCHC (31.0-37.0) g/dL RDW (11.5-15.5) % Plt Count (150-450) k/uL Neutrophils # (1.3-7.7) k/uL Monocytes # (0-1.0) k/uL PT (9.0-12.0) sec INR (<1.2) Potassium (3.5-5.1) mmol/L Chloride (98-107) mmol/L Carbon Dioxide (22-30) mmol/L BUN (9-20) mg/dL Creatinine (0.66-1.25) mg/dL Glucose (74-99) mg/dL POC Glucose (mg/dL) 358 H 179 H (75-99) mg/dL Plasma Lactic Acid Abram (0.7-2.0) mmol/L AST (17-59) U/L CK-MB (CK-2) (0.0-2.4) ng/mL Troponin I (0.000-0.034) ng/mL Total Protein (6.3-8.2) g/dL Albumin (3.5-5.0) g/dL Urine Protein (Negative) Urine Ketones (Negative) Urine Blood (Negative) Urine RBC (0-5) /hpf Urine Bacteria (None) /hpf Hyaline Casts (0-2) /lpf Assessment and Plan (1) GI hemorrhage Narrative/Plan: Was called overnight the patient, I did recommend continued IV fluid resuscitation at that time. Lactic acidosis has decreased from 11.4 to 4. Will continue to need IV fluid resuscitation. Urine output has increased to 30-40 mL/ h. Awaiting GI recommendations and possible intervention with endoscopy. NG tube is in place with some coffee-ground and bloody output. I do recommend PPI at this time. No obvious indication of ischemic bowel at this time with no hypotension, no abdominal pain , tenderness or distention and decreased lactic acidosis and decreased white count over the past 24 hours. Continue to hold any anticoagulation. We'll continue to follow. Current Visit: Yes Status: Acute Code(s): K92.2 - GASTROINTESTINAL HEMORRHAGE, UNSPECIFIED SNOMED Code(s): 68098060
--- NOTE | 2018-01-17 10:47 | P.CONS ---
History of Present Illness - Reason for Consult Consult date: 01/17/18 GI bleed Requesting physician: Sofie Patino - History of Present Illness 82-year-old male with a past medical history of heart failure, COPD, diabetes, hyperlipidemia, CVA TIA. Admitted with confusion, generalized weakness fall 2 days ago with reports of black colored bowel movements. Most of history is been obtained from medical records and nursing staff as patient is not able to provide details. Nursing reports to black colored bowel movements early evening yesterday. NG tube was inserted on admission with 900 mL coffee-ground gastric colored fluid. Lactic acid was elevated 10 with hydration improved to 4.2. Admission hemoglobin 9.9. MCV 90. Platelet 190. White count 16.2. Presently hemoglobin is 9.1 platelet 140. White count 14.6. Hemoccult and gastric occult positive. BUN 54. Creatinine 1.7. Unsure if patient has had an EGD colonoscopy in the past. Abdominal x-rays nondilated small bowel possible mild ileus. Review of Systems Obtained from medical records nursing staff Constitutional: Denies fever, chills, sweats, weight gain, or loss. HEENT: Negative for migraines, blurred vision or loss, earaches, drainage, tinnitus, oral mucosal lesions, dysphagia, or odynophagia. Cardiac: History of heart failure. Hypertension. Hyperlipidemia. Negative for chest pain, arrhythmias, or palpitation. Respiratory: Negative for shortness of breath, hemoptysis, cough, or sputum production. Gastrointestinal: See HPI for pertinent findings. Genitourinary: Negative for hematuria, urgency, frequency, polyuria, dysuria, or penile discharge. Musculoskeletal: Negative for muscle aches, swelling, arthritis, and arthralgias. Neurologic: Negative for stroke or TIA. Endocrine: History diabetes. Negative for thyroid problems. Skin: Negative for rash or itching. Psychiatric: Negative history for depression and anxiety ROS unobtainable: due to mental status Past Medical History Past Medical History: Heart Failure, COPD, Diabetes Mellitus, Eye Disorder, GERD /Reflux, Hyperlipidemia, Hypertension Additional Past Medical History / Comment(s): Pt had a fall about 1 month ago with 5 R rib fractures, family has noticed increased confusion since time of fall, bronchitis, R pleural effusion, diverticular dx, peptic ulcer, hemorrhoids , chronic anemia, NIDDM type iI, gout, R eye macular degeneration, dehydration with acute kidney injury, bladder polyp removed, hypotensive at times. History of Any Multi-Drug Resistant Organisms: None Reported Past Surgical History: Appendectomy Additional Past Surgical History / Comment(s): R/L cataract removal with lens implants, EGD/colonoscopy, capsule endoscopy, cystoscopy to remove bladder polyp. Past Anesthesia/Blood Transfusion Reactions: No Reported Reaction Smoking Status: Former smoker - Past Family History Father Additional Family Medical History / Comment(s): Father in his 60s from a myocardial infarction. Mother Additional Family Medical History / Comment(s): Mother between 85 and 90 with no major medical problems. Brother(s) Additional Family Medical History / Comment(s): Patient has 5 brothers with heavy coronary artery disease and MIs in the family. Sister(s) Additional Family Medical History / Comment(s): He has one sister with history of cervical cancer. Daughter(s) Additional Family Medical History / Comment(s): Patient has 4 daughters with no major medical problems. Son(s) Additional Family Medical History / Comment(s): Son has chron's dx. Medications and Allergies Home Medications Medication Instructions Recorded Confirmed Type Omeprazole 20 mg PO DAILY 05/10/14 01/16/18 History Simvastatin 20 mg PO HS 05/10/14 01/16/18 History Fludrocortisone [Florinef] 0.05 mg PO BID 08/28/16 01/16/18 History Tiotropium 18 Mcg/Puff [Spiriva] 1 puff INHALATION RT-DAILY 08/28/16 01/16/18 History Allopurinol [Zyloprim] 100 mg PO DAILY 08/28/17 01/16/18 History Hydrocortisone [Cortef] 10 mg PO BID 08/28/17 01/16/18 History glipiZIDE/METFORMIN HCL 2 tab PO BID 08/28/17 01/16/18 History [glipiZIDE/METFORMIN HCL 5-500 mg] Metoprolol Succinate [Toprol XL] 25 mg PO DAILY 01/16/18 01/16/18 History Spironolactone [Aldactone] 25 mg PO DAILY 01/16/18 01/16/18 History Allergies Allergy/AdvReac Type Severity Reaction Status Date / Time No Known Allergies Allergy Verified 01/16/18 12:37 Physical Exam Vitals: Vital Signs Temp Pulse Resp BP Pulse Ox 01/17/18 09:00 113 H 13 129/72 97 01/17/18 08:00 98.6 F 105 H 16 129/72 99 01/17/18 07:00 109 H 14 142/79 98 01/17/18 06:00 109 H 21 142/79 93 L 01/17/18 05:00 125 H 24 142/79 97 01/17/18 04:00 98.4 F 121 H 24 158/70 97 01/17/18 03:00 126 H 20 158/70 98 01/17/18 02:00 125 H 19 123/64 98 01/17/18 01:00 130 H 15 123/64 99 01/17/18 00:00 141 H 24 96 01/16/18 23:05 119 H 36 H 145/72 95 01/16/18 23:00 134 H 30 H 145/72 99 01/16/18 22:00 126 H 36 H 153/53 97 01/16/18 21:00 98.4 F 126 H 28 H 153/66 100 01/16/18 20:00 123 H 36 H 145/66 99 01/16/18 19:00 127 H 20 147/78 99 01/16/18 18:00 124 H 22 105/61 100 01/16/18 17:15 124 H 25 H 171/70 100 01/16/18 17:00 125 H 24 100 01/16/18 16:30 97.8 F 128 H 18 112/53 100 01/16/18 15:42 97.2 F L 126 H 24 116/58 100 01/16/18 14:15 97.0 F L 126 H 26 H 128/84 98 01/16/18 13:30 97 F L 115 H 22 94 L 01/16/18 11:30 114 H 28 H 147/57 95 Intake and Output 01/16/18 01/17/18 01/17/18 22:59 06:59 14:59 Intake Total 3850 900 300 Output Total 227 397 105 Balance 3623 503 195 Intake: IV 3520 Dextrose 5%-0.45% NaCl 1, 520 000 ml @ 130 mls/hr IV . Q7H42M [facility] Rx#:[id number] Sodium Chloride 0.9% 1, 3000 000 ml @ 999 mls/hr IV . Q1H1M [facility] Rx#:[id number] Intake, IV Titration 330 900 300 Amount Dextrose 5%-0.45% NaCl 1, 230 800 300 000 ml @ 100 mls/hr IV . [id number] [facility] with Sodium Bicarb (1 Meq/ml) 150 ml Rx#:[id number] Magnesium Sulfate-D5w Pmx 100 100 1 gm In Dextrose/Water 1 100ml.bag @ 100 mls/hr IVPB Q1H [facility] Rx#: [id number] Output: Urine 227 397 105 Uretheral (Ortiz) 2 2 Other: Voiding Method Indwelling Catheter Indwelling Catheter Indwelling Catheter # Bowel Movements 1 Weight 112.3 kg General appearance: The patient is alert, in no acute distress. Alert to self only. Patient is presently restrained. HET: Head is normocephalic and atraumatic. Pupils are equal and reactive. Oropharynx is clear without lesions. NG tube with coffee ground fluid in canister. Neck: Supple without lymphadenopathy. Trachea midline. Heart: S1 S2. Regular rate and rhythm. Lungs: No crackles or wheezes are heard. Abdomen: Soft, nontender, nondistended with bowel sounds. No peritoneal signs. No palpable organomegaly or masses. Extremities: Normal skin color and turgor. No cyanosis, rash, ulceration, clubbing, or edema. Radial and pedal pulses are 2/4 bilaterally. Ortiz with clear nicol urine. Neurological: No focal deficits. Strength and sensation are grossly intact. Results CBC & Chem 7: 01/17/18 05:53 01/17/18 05:53 Labs: Abnormal Lab Results - Last 24 Hours (Table) 01/16/18 01/16/18 01/16/18 Range/Units 12:35 12:35 12:35 WBC 16.2 H (3.8-10.6) k/uL RBC 3.40 L (4.30-5.90) m/uL Hgb 9.9 L (13.0-17.5) gm/dL Hct 30.7 L (39.0-53.0) % MCHC (31.0-37.0) g/dL RDW 15.8 H (11.5-15.5) % Plt Count (150-450) k/uL Neutrophils # 12.1 H (1.3-7.7) k/uL Monocytes # 1.3 H (0-1.0) k/uL PT (9.0-12.0) sec INR (<1.2) Potassium (3.5-5.1) mmol/L Chloride 108 H (98-107) mmol/L Carbon Dioxide 15 L (22-30) mmol/L BUN 54 H (9-20) mg/dL Creatinine 1.70 H (0.66-1.25) mg/dL Glucose 48 L* (74-99) mg/dL POC Glucose (mg/dL) (75-99) mg/dL Plasma Lactic Acid Abram (0.7-2.0) mmol/L AST 61 H (17-59) U/L CK-MB (CK-2) 4.9 H* (0.0-2.4) ng/mL Troponin I 0.060 H* (0.000-0.034) ng/mL Total Protein 5.3 L (6.3-8.2) g/dL Albumin 2.7 L (3.5-5.0) g/dL Urine Protein (Negative) Urine Ketones (Negative) Urine Blood (Negative) Urine RBC (0-5) /hpf Urine Bacteria (None) /hpf Hyaline Casts (0-2) /lpf 01/16/18 01/16/18 01/16/18 Range/Units 12:35 12:35 12:45 WBC (3.8-10.6) k/uL RBC (4.30-5.90) m/uL Hgb (13.0-17.5) gm/dL Hct (39.0-53.0) % MCHC (31.0-37.0) g/dL RDW (11.5-15.5) % Plt Count (150-450) k/uL Neutrophils # (1.3-7.7) k/uL Monocytes # (0-1.0) k/uL PT 12.1 H (9.0-12.0) sec INR 1.3 H (<1.2) Potassium (3.5-5.1) mmol/L Chloride (98-107) mmol/L Carbon Dioxide (22-30) mmol/L BUN (9-20) mg/dL Creatinine (0.66-1.25) mg/dL Glucose (74-99) mg/dL POC Glucose (mg/dL) (75-99) mg/dL Plasma Lactic Acid Abram 10.0 H* (0.7-2.0) mmol/L AST (17-59) U/L CK-MB (CK-2) (0.0-2.4) ng/mL Troponin I (0.000-0.034) ng/mL Total Protein (6.3-8.2) g/dL Albumin (3.5-5.0) g/dL Urine Protein Trace H (Negative) Urine Ketones 1+ H (Negative) Urine Blood Moderate H (Negative) Urine RBC 59 H (0-5) /hpf Urine Bacteria Rare H (None) /hpf Hyaline Casts 15 H (0-2) /lpf 01/16/18 01/16/18 01/16/18 Range/Units 13:23 13:53 16:19 WBC (3.8-10.6) k/uL RBC (4.30-5.90) m/uL Hgb (13.0-17.5) gm/dL Hct (39.0-53.0) % MCHC (31.0-37.0) g/dL RDW (11.5-15.5) % Plt Count (150-450) k/uL Neutrophils # (1.3-7.7) k/uL Monocytes # (0-1.0) k/uL PT (9.0-12.0) sec INR (<1.2) Potassium (3.5-5.1) mmol/L Chloride (98-107) mmol/L Carbon Dioxide (22-30) mmol/L BUN (9-20) mg/dL Creatinine (0.66-1.25) mg/dL Glucose (74-99) mg/dL POC Glucose (mg/dL) 55 L 109 H 127 H (75-99) mg/dL Plasma Lactic Acid Abram (0.7-2.0) mmol/L AST (17-59) U/L CK-MB (CK-2) (0.0-2.4) ng/mL Troponin I (0.000-0.034) ng/mL Total Protein (6.3-8.2) g/dL Albumin (3.5-5.0) g/dL Urine Protein (Negative) Urine Ketones (Negative) Urine Blood (Negative) Urine RBC (0-5) /hpf Urine Bacteria (None) /hpf Hyaline Casts (0-2) /lpf 01/16/18 01/16/18 01/16/18 Range/Units 16:27 16:27 16:27 WBC (3.8-10.6) k/uL RBC (4.30-5.90) m/uL Hgb (13.0-17.5) gm/dL Hct (39.0-53.0) % MCHC (31.0-37.0) g/dL RDW (11.5-15.5) % Plt Count (150-450) k/uL Neutrophils # (1.3-7.7) k/uL Monocytes # (0-1.0) k/uL PT (9.0-12.0) sec INR (<1.2) Potassium 5.4 H (3.5-5.1) mmol/L Chloride 110 H (98-107) mmol/L Carbon Dioxide 11 L (22-30) mmol/L BUN 53 H (9-20) mg/dL Creatinine 1.80 H (0.66-1.25) mg/dL Glucose 121 H (74-99) mg/dL POC Glucose (mg/dL) (75-99) mg/dL Plasma Lactic Acid Abram 11.4 H* (0.7-2.0) mmol/L AST 61 H (17-59) U/L CK-MB (CK-2) (0.0-2.4) ng/mL Troponin I 0.077 H* (0.000-0.034) ng/mL Total Protein 5.1 L (6.3-8.2) g/dL Albumin 2.5 L (3.5-5.0) g/dL Urine Protein (Negative) Urine Ketones (Negative) Urine Blood (Negative) Urine RBC (0-5) /hpf Urine Bacteria (None) /hpf Hyaline Casts (0-2) /lpf 01/16/18 01/16/18 01/16/18 Range/Units 16:30 20:48 20:48 WBC 16.3 H 16.2 H (3.8-10.6) k/uL RBC 3.23 L 3.29 L (4.30-5.90) m/uL Hgb 9.6 L 9.7 L (13.0-17.5) gm/dL Hct 29.4 L 30.6 L (39.0-53.0) % MCHC (31.0-37.0) g/dL RDW 15.8 H 15.6 H (11.5-15.5) % Plt Count (150-450) k/uL Neutrophils # (1.3-7.7) k/uL Monocytes # (0-1.0) k/uL PT (9.0-12.0) sec INR (<1.2) Potassium (3.5-5.1) mmol/L Chloride 110 H (98-107) mmol/L Carbon Dioxide 13 L (22-30) mmol/L BUN 55 H (9-20) mg/dL Creatinine 1.80 H (0.66-1.25) mg/dL Glucose 151 H (74-99) mg/dL POC Glucose (mg/dL) (75-99) mg/dL Plasma Lactic Acid Abram (0.7-2.0) mmol/L AST (17-59) U/L CK-MB (CK-2) (0.0-2.4) ng/mL Troponin I (0.000-0.034) ng/mL Total Protein (6.3-8.2) g/dL Albumin (3.5-5.0) g/dL Urine Protein (Negative) Urine Ketones (Negative) Urine Blood (Negative) Urine RBC (0-5) /hpf Urine Bacteria (None) /hpf Hyaline Casts (0-2) /lpf 01/16/18 01/16/18 01/17/18 Range/Units 20:48 22:01 02:12 WBC (3.8-10.6) k/uL RBC (4.30-5.90) m/uL Hgb (13.0-17.5) gm/dL Hct (39.0-53.0) % MCHC (31.0-37.0) g/dL RDW (11.5-15.5) % Plt Count (150-450) k/uL Neutrophils # (1.3-7.7) k/uL Monocytes # (0-1.0) k/uL PT (9.0-12.0) sec INR (<1.2) Potassium (3.5-5.1) mmol/L Chloride (98-107) mmol/L Carbon Dioxide (22-30) mmol/L BUN (9-20) mg/dL Creatinine (0.66-1.25) mg/dL Glucose (74-99) mg/dL POC Glucose (mg/dL) 181 H 246 H (75-99) mg/dL Plasma Lactic Acid Abram 8.7 H* (0.7-2.0) mmol/L AST (17-59) U/L CK-MB (CK-2) (0.0-2.4) ng/mL Troponin I (0.000-0.034) ng/mL Total Protein (6.3-8.2) g/dL Albumin (3.5-5.0) g/dL Urine Protein (Negative) Urine Ketones (Negative) Urine Blood (Negative) Urine RBC (0-5) /hpf Urine Bacteria (None) /hpf Hyaline Casts (0-2) /lpf 01/17/18 01/17/18 01/17/18 Range/Units 02:15 02:15 02:15 WBC 15.1 H (3.8-10.6) k/uL RBC 3.05 L (4.30-5.90) m/uL Hgb 8.6 L (13.0-17.5) gm/dL Hct 28.0 L (39.0-53.0) % MCHC 30.6 L (31.0-37.0) g/dL RDW 16.0 H (11.5-15.5) % Plt Count 138 L (150-450) k/uL Neutrophils # 12.0 H (1.3-7.7) k/uL Monocytes # 1.2 H (0-1.0) k/uL PT (9.0-12.0) sec INR (<1.2) Potassium (3.5-5.1) mmol/L Chloride 109 H (98-107) mmol/L Carbon Dioxide 18 L (22-30) mmol/L BUN 58 H (9-20) mg/dL Creatinine 1.70 H (0.66-1.25) mg/dL Glucose 216 H (74-99) mg/dL POC Glucose (mg/dL) (75-99) mg/dL Plasma Lactic Acid Abram 5.3 H* (0.7-2.0) mmol/L AST 68 H (17-59) U/L CK-MB (CK-2) (0.0-2.4) ng/mL Troponin I (0.000-0.034) ng/mL Total Protein 5.0 L (6.3-8.2) g/dL Albumin 2.4 L (3.5-5.0) g/dL Urine Protein (Negative) Urine Ketones (Negative) Urine Blood (Negative) Urine RBC (0-5) /hpf Urine Bacteria (None) /hpf Hyaline Casts (0-2) /lpf 01/17/18 01/17/18 01/17/18 Range/Units 05:53 05:53 05:53 WBC 14.6 H (3.8-10.6) k/uL RBC 3.12 L (4.30-5.90) m/uL Hgb 9.1 L (13.0-17.5) gm/dL Hct 28.1 L (39.0-53.0) % MCHC (31.0-37.0) g/dL RDW 15.9 H (11.5-15.5) % Plt Count 140 L (150-450) k/uL Neutrophils # 11.9 H (1.3-7.7) k/uL Monocytes # (0-1.0) k/uL PT (9.0-12.0) sec INR (<1.2) Potassium (3.5-5.1) mmol/L Chloride 109 H (98-107) mmol/L Carbon Dioxide 18 L (22-30) mmol/L BUN 59 H (9-20) mg/dL Creatinine 1.70 H (0.66-1.25) mg/dL Glucose 235 H (74-99) mg/dL POC Glucose (mg/dL) (75-99) mg/dL Plasma Lactic Acid Abram 4.2 H* (0.7-2.0) mmol/L AST 73 H (17-59) U/L CK-MB (CK-2) (0.0-2.4) ng/mL Troponin I (0.000-0.034) ng/mL Total Protein 5.1 L (6.3-8.2) g/dL Albumin 2.4 L (3.5-5.0) g/dL Urine Protein (Negative) Urine Ketones (Negative) Urine Blood (Negative) Urine RBC (0-5) /hpf Urine Bacteria (None) /hpf Hyaline Casts (0-2) /lpf 01/17/18 01/17/18 Range/Units 06:07 10:20 WBC (3.8-10.6) k/uL RBC (4.30-5.90) m/uL Hgb (13.0-17.5) gm/dL Hct (39.0-53.0) % MCHC (31.0-37.0) g/dL RDW (11.5-15.5) % Plt Count (150-450) k/uL Neutrophils # (1.3-7.7) k/uL Monocytes # (0-1.0) k/uL PT (9.0-12.0) sec INR (<1.2) Potassium (3.5-5.1) mmol/L Chloride (98-107) mmol/L Carbon Dioxide (22-30) mmol/L BUN (9-20) mg/dL Creatinine (0.66-1.25) mg/dL Glucose (74-99) mg/dL POC Glucose (mg/dL) 358 H 179 H (75-99) mg/dL Plasma Lactic Acid Abram (0.7-2.0) mmol/L AST (17-59) U/L CK-MB (CK-2) (0.0-2.4) ng/mL Troponin I (0.000-0.034) ng/mL Total Protein (6.3-8.2) g/dL Albumin (3.5-5.0) g/dL Urine Protein (Negative) Urine Ketones (Negative) Urine Blood (Negative) Urine RBC (0-5) /hpf Urine Bacteria (None) /hpf Hyaline Casts (0-2) /lpf Abdominal x-ray: report reviewed (Dr. Haq) Assessment and Plan (1) GI bleed Narrative/Plan: 82-year-old male admitted with reports of coffee-ground emesis and melena possible peptic ulcer disease component of acute blood loss anemia. Current Visit: Yes Status: Acute Code(s): K92.2 - GASTROINTESTINAL HEMORRHAGE, UNSPECIFIED SNOMED Code(s): 87808390 Plan: 1. Continue with Protonix 40 mg twice daily. CBC monitoring. EGD evaluation. Thank you for this kind referral and the opportunity to participate in the care of your patient. This consultation was discussed with Dr. Haq. The impression and plan of care have been directed as dictated.
[2018-01-17 11:54] LABS: Glucose,Whole Blood 180 mg/dL (75-99)
[2018-01-17 14:39] LABS: Calcium 8.2 mg/dL (8.4-10.2)
[2018-01-17 15:53] LABS: Glucose,Whole Blood 202 mg/dL (75-99)
--- NOTE | 2018-01-17 18:31 | ECHOF ---
Referral Reason:elevated troponin MEASUREMENTS -------- HEIGHT: 193.0 cm WEIGHT: 113.4 kg BP: 116/58 IVSd: 1.2 cm (0.6 - 1.1) LVIDd: 4.3 cm (3.9 - 5.3) LVPWd: 1.3 cm (0.6 - 1.1) IVSs: 1.6 cm LVIDs: 3.0 cm LVPWs: 1.6 cm LAESV Index (A-L): 16.36 ml/m AV maxP.23 mmHg AV meanP.95 mmHg RAP: 5.00 mmHg RVSP: 21.85 mmHg FINDINGS -------- Resting tachycardia (HR>100bpm). This was a technically difficult study with suboptimal views. Unable to use Lumason due to patient agitation. The left ventricular size is normal. There is mild concentric left ventricular hypertrophy. Overa ll left ventricular systolic function is normal with, an EF between 55 - 60 %. The RV was not well visualized. Normal LA size by volume 22+/-6 ml/m2. The right atrium is normal in size. The aortic valve is trileaflet, and appears structurally normal. No aortic stenosis or regurgitation. The mitral valve leaflets are mildly thickened. There is trace to mild mitral regurgitation. Trace tricuspid regurgitation present. Right ventricular systolic pressure is normal at < 35 mmHg. There is no evidence of pulmonary hypertension. The pulmonic valve was not well visualized. The aortic root size is normal. IVC Not well visulized. There is no pericardial effusion. CONCLUSIONS -------- 1. Resting tachycardia (HR>100bpm). 2. This was a technically difficult study with suboptimal views. 3. Unable to use Lumason due to patient agitation. 4. The left ventricular size is normal. 5. There is mild concentric left ventricular hypertrophy. 6. Overall left ventricular systolic function is normal with, an EF between 55 - 60 %. 7. The RV was not well visualized. 8. Normal LA size by volume 22+/-6 ml/m2. 9. The aortic valve is trileaflet, and appears structurally normal. No aortic stenosis or regurgitati on. 10. The mitral valve leaflets are mildly thickened. 11. There is trace to mild mitral regurgitation. 12. Trace tricuspid regurgitation present. 13. Right ventricular systolic pressure is normal at < 35 mmHg. 14. There is no evidence of pulmonary hypertension. 15. The pulmonic valve was not well visualized. 16. The aortic root size is normal. 17. IVC Not well visulized. 18. There is no pericardial effusion. [employer] MECH[employer]IC: Santi Meeks RDCS
[2018-01-17 18:55] LABS: Glucose,Whole Blood 137 mg/dL (75-99)
[2018-01-17 20:24] LABS: Glucose,Whole Blood 141 mg/dL (75-99)
[2018-01-17] MEDS ORDERED: METOPROLOL SUCCINATE (ER) 25 MG TAB.ER.24H PO SCH (20:30)
--- NOTE | 2018-01-17 20:31 | P.HPIM ---
History of Present Illness H&P Date: 01/17/18 Chief Complaint: Jaundice confusion This is an 82-year-old gentleman patient of Dr. Rojas, with known history of CK D stage III, diabetes mellitus type 2, COPD, hyperlipidemia, and chronic anemia admitted from our facility in early August 2017, was diagnosed to have metabolic encephalopathy secondary to acute kidney injury and dehydration with hypoperfusion. Patient comes into the emergency room with a four-day history of black stools, has had increasing falls, no abdominal pain, patient denies any hematochezia, patient is not an alcoholic drinker currently, and was not feeling very well hence the ER admission. Patient has fallen numerous times, and the last one was 2 days ago, previous to this, patient had cracked the ribs , 4 weeks prior to admission. Patient follows up with Dr. Rojas every 4 months regimen, his due to see him in 01/20/2018 In the emergency room, he was noted to have Hemoccult-positive stools, patient was noted to have melanocytic stools, Hemoccult positive, hematuria with RBC of 59, double see if 1, moderate ketones, EKG shows sinus tachycardia with right bundle branch block, left anterior fascicular block, and pulmonary disease pattern heart rate of 124. Patient is admitted to ICU secondary to melanocytic stools with hemoglobin of 9, consult to Gen. surgery Dr. Montes and Dr. Haq gastroenterology. Admitting lactic acid was significantly elevated at 10.0 with a peak of 11.4, wbc of 15 troponin of 0.077 Previous imaging in our facility shows small amount of ascites, in the abdomen noted in May 2014 and CAT scan chest 2014, cholelithiasis, and evidence of cirrhosis and portal hypertension, improving pleural effusion, improving right apical nodule When patient was seen, patient was very much confused, trying to grab things in the area, very dry mouth, patient's nothing by mouth, and has a bilateral wrist restraints, ammonia levels were requested, family at bedside, CODE STATUS was discussed and is DO NOT RESUSCITATE no CPR with options for vent if needed Review of Systems ROS unobtainable: due to mental status Constitutional: Reports as per HPI Past Medical History Past Medical History: Heart Failure, COPD, Diabetes Mellitus, Eye Disorder, GERD /Reflux, Hyperlipidemia, Hypertension Additional Past Medical History / Comment(s): Pt had a fall about 1 month ago with 5 R rib fractures, family has noticed increased confusion since time of fall, bronchitis, R pleural effusion, diverticular dx, peptic ulcer, hemorrhoids , chronic anemia, NIDDM type iI, gout, R eye macular degeneration, dehydration with acute kidney injury, bladder polyp removed, hypotensive at times. History of Any Multi-Drug Resistant Organisms: None Reported Past Surgical History: Appendectomy Additional Past Surgical History / Comment(s): R/L cataract removal with lens implants, EGD/colonoscopy, capsule endoscopy, cystoscopy to remove bladder polyp. Past Anesthesia/Blood Transfusion Reactions: No Reported Reaction Smoking Status: Former smoker - Past Family History Father Additional Family Medical History / Comment(s): Father in his 60s from a myocardial infarction. Mother Additional Family Medical History / Comment(s): Mother between 85 and 90 with no major medical problems. Brother(s) Additional Family Medical History / Comment(s): Patient has 5 brothers with heavy coronary artery disease and MIs in the family. Sister(s) Additional Family Medical History / Comment(s): He has one sister with history of cervical cancer. Daughter(s) Additional Family Medical History / Comment(s): Patient has 4 daughters with no major medical problems. Son(s) Additional Family Medical History / Comment(s): Son has chron's dx. Medications and Allergies Home Medications Medication Instructions Recorded Confirmed Type Omeprazole 20 mg PO DAILY 05/10/14 01/16/18 History Simvastatin 20 mg PO HS 05/10/14 01/16/18 History Fludrocortisone [Florinef] 0.05 mg PO BID 08/28/16 01/16/18 History Tiotropium 18 Mcg/Puff [Spiriva] 1 puff INHALATION RT-DAILY 08/28/16 01/16/18 History Allopurinol [Zyloprim] 100 mg PO DAILY 08/28/17 01/16/18 History Hydrocortisone [Cortef] 10 mg PO BID 08/28/17 01/16/18 History glipiZIDE/METFORMIN HCL 2 tab PO BID 08/28/17 01/16/18 History [glipiZIDE/METFORMIN HCL 5-500 mg] Metoprolol Succinate [Toprol XL] 25 mg PO DAILY 01/16/18 01/16/18 History Spironolactone [Aldactone] 25 mg PO DAILY 01/16/18 01/16/18 History Allergies Allergy/AdvReac Type Severity Reaction Status Date / Time No Known Allergies Allergy Verified 01/16/18 12:37 Physical Exam Vitals: Vital Signs Temp Pulse Resp BP Pulse Ox 01/17/18 09:00 113 H 13 129/72 97 01/17/18 08:00 98.6 F 105 H 16 129/72 99 01/17/18 07:00 109 H 14 142/79 98 01/17/18 06:00 109 H 21 142/79 93 L 01/17/18 05:00 125 H 24 142/79 97 01/17/18 04:00 98.4 F 121 H 24 158/70 97 01/17/18 03:00 126 H 20 158/70 98 01/17/18 02:00 125 H 19 123/64 98 01/17/18 01:00 130 H 15 123/64 99 01/17/18 00:00 141 H 24 96 01/16/18 23:05 119 H 36 H 145/72 95 01/16/18 23:00 134 H 30 H 145/72 99 01/16/18 22:00 126 H 36 H 153/53 97 01/16/18 21:00 98.4 F 126 H 28 H 153/66 100 01/16/18 20:00 123 H 36 H 145/66 99 01/16/18 19:00 127 H 20 147/78 99 01/16/18 18:00 124 H 22 105/61 100 01/16/18 17:15 124 H 25 H 171/70 100 01/16/18 17:00 125 H 24 100 01/16/18 16:30 97.8 F 128 H 18 112/53 100 01/16/18 15:42 97.2 F L 126 H 24 116/58 100 01/16/18 14:15 97.0 F L 126 H 26 H 128/84 98 01/16/18 13:30 97 F L 115 H 22 94 L 01/16/18 11:30 114 H 28 H 147/57 95 Intake and Output 01/16/18 01/17/18 01/17/18 22:59 06:59 14:59 Intake Total 3850 900 300 Output Total 227 397 105 Balance 3623 503 195 Intake: IV 3520 Dextrose 5%-0.45% NaCl 1, 520 000 ml @ 130 mls/hr IV . [id number] EVELIN Rx#:[id number] Sodium Chloride 0.9% 1, 3000 000 ml @ 999 mls/hr IV . Q1H1M ONE Rx#:[id number] Intake, IV Titration 330 900 300 Amount Dextrose 5%-0.45% NaCl 1, 230 800 300 000 ml @ 100 mls/hr IV . [id number] EVELIN with Sodium Bicarb (1 Meq/ml) 150 ml Rx#:[id number] Magnesium Sulfate-D5w Pmx 100 100 1 gm In Dextrose/Water 1 100ml.bag @ 100 mls/hr IVPB Q1H EVELIN Rx#: [id number] Output: Urine 227 397 105 Uretheral (Ortiz) 2 2 Other: Voiding Method Indwelling Catheter Indwelling Catheter Indwelling Catheter # Bowel Movements 1 Weight 112.3 kg - Constitutional General appearance: cooperative, obese - EENT Eyes: anicteric sclerae, EOMI ENT: NA/AT - Neck Neck: normal ROM - Respiratory Respiratory: bilateral: CTA, diminished, negative: dullness, rales, rhonchi, wheezing - Cardiovascular Rhythm: regular Heart sounds: normal: S1, S2 - Gastrointestinal General gastrointestinal: normal bowel sounds, soft - Integumentary Integumentary: decreased turgor, normal - Neurologic Unable, patient cannot cooperate during the examination for complete cranial nerve exam Results CBC & Chem 7: 01/17/18 05:53 01/17/18 14:13 Labs: Abnormal Lab Results - Last 24 Hours (Table) 01/16/18 01/16/18 01/16/18 Range/Units 12:35 12:35 12:35 WBC 16.2 H (3.8-10.6) k/uL RBC 3.40 L (4.30-5.90) m/uL Hgb 9.9 L (13.0-17.5) gm/dL Hct 30.7 L (39.0-53.0) % MCHC (31.0-37.0) g/dL RDW 15.8 H (11.5-15.5) % Plt Count (150-450) k/uL Neutrophils # 12.1 H (1.3-7.7) k/uL Monocytes # 1.3 H (0-1.0) k/uL PT (9.0-12.0) sec INR (<1.2) Potassium (3.5-5.1) mmol/L Chloride 108 H (98-107) mmol/L Carbon Dioxide 15 L (22-30) mmol/L BUN 54 H (9-20) mg/dL Creatinine 1.70 H (0.66-1.25) mg/dL Glucose 48 L* (74-99) mg/dL POC Glucose (mg/dL) (75-99) mg/dL Plasma Lactic Acid Abram (0.7-2.0) mmol/L AST 61 H (17-59) U/L CK-MB (CK-2) 4.9 H* (0.0-2.4) ng/mL Troponin I 0.060 H* (0.000-0.034) ng/mL Total Protein 5.3 L (6.3-8.2) g/dL Albumin 2.7 L (3.5-5.0) g/dL Urine Protein (Negative) Urine Ketones (Negative) Urine Blood (Negative) Urine RBC (0-5) /hpf Urine Bacteria (None) /hpf Hyaline Casts (0-2) /lpf 01/16/18 01/16/18 01/16/18 Range/Units 12:35 12:35 12:45 WBC (3.8-10.6) k/uL RBC (4.30-5.90) m/uL Hgb (13.0-17.5) gm/dL Hct (39.0-53.0) % MCHC (31.0-37.0) g/dL RDW (11.5-15.5) % Plt Count (150-450) k/uL Neutrophils # (1.3-7.7) k/uL Monocytes # (0-1.0) k/uL PT 12.1 H (9.0-12.0) sec INR 1.3 H (<1.2) Potassium (3.5-5.1) mmol/L Chloride (98-107) mmol/L Carbon Dioxide (22-30) mmol/L BUN (9-20) mg/dL Creatinine (0.66-1.25) mg/dL Glucose (74-99) mg/dL POC Glucose (mg/dL) (75-99) mg/dL Plasma Lactic Acid Abram 10.0 H* (0.7-2.0) mmol/L AST (17-59) U/L CK-MB (CK-2) (0.0-2.4) ng/mL Troponin I (0.000-0.034) ng/mL Total Protein (6.3-8.2) g/dL Albumin (3.5-5.0) g/dL Urine Protein Trace H (Negative) Urine Ketones 1+ H (Negative) Urine Blood Moderate H (Negative) Urine RBC 59 H (0-5) /hpf Urine Bacteria Rare H (None) /hpf Hyaline Casts 15 H (0-2) /lpf 01/16/18 01/16/18 01/16/18 Range/Units 13:23 13:53 16:19 WBC (3.8-10.6) k/uL RBC (4.30-5.90) m/uL Hgb (13.0-17.5) gm/dL Hct (39.0-53.0) % MCHC (31.0-37.0) g/dL RDW (11.5-15.5) % Plt Count (150-450) k/uL Neutrophils # (1.3-7.7) k/uL Monocytes # (0-1.0) k/uL PT (9.0-12.0) sec INR (<1.2) Potassium (3.5-5.1) mmol/L Chloride (98-107) mmol/L Carbon Dioxide (22-30) mmol/L BUN (9-20) mg/dL Creatinine (0.66-1.25) mg/dL Glucose (74-99) mg/dL POC Glucose (mg/dL) 55 L 109 H 127 H (75-99) mg/dL Plasma Lactic Acid Abram (0.7-2.0) mmol/L AST (17-59) U/L CK-MB (CK-2) (0.0-2.4) ng/mL Troponin I (0.000-0.034) ng/mL Total Protein (6.3-8.2) g/dL Albumin (3.5-5.0) g/dL Urine Protein (Negative) Urine Ketones (Negative) Urine Blood (Negative) Urine RBC (0-5) /hpf Urine Bacteria (None) /hpf Hyaline Casts (0-2) /lpf 01/16/18 01/16/18 01/16/18 Range/Units 16:27 16:27 16:27 WBC (3.8-10.6) k/uL RBC (4.30-5.90) m/uL Hgb (13.0-17.5) gm/dL Hct (39.0-53.0) % MCHC (31.0-37.0) g/dL RDW (11.5-15.5) % Plt Count (150-450) k/uL Neutrophils # (1.3-7.7) k/uL Monocytes # (0-1.0) k/uL PT (9.0-12.0) sec INR (<1.2) Potassium 5.4 H (3.5-5.1) mmol/L Chloride 110 H (98-107) mmol/L Carbon Dioxide 11 L (22-30) mmol/L BUN 53 H (9-20) mg/dL Creatinine 1.80 H (0.66-1.25) mg/dL Glucose 121 H (74-99) mg/dL POC Glucose (mg/dL) (75-99) mg/dL Plasma Lactic Acid Abram 11.4 H* (0.7-2.0) mmol/L AST 61 H (17-59) U/L CK-MB (CK-2) (0.0-2.4) ng/mL Troponin I 0.077 H* (0.000-0.034) ng/mL Total Protein 5.1 L (6.3-8.2) g/dL Albumin 2.5 L (3.5-5.0) g/dL Urine Protein (Negative) Urine Ketones (Negative) Urine Blood (Negative) Urine RBC (0-5) /hpf Urine Bacteria (None) /hpf Hyaline Casts (0-2) /lpf 01/16/18 01/16/18 01/16/18 Range/Units 16:30 20:48 20:48 WBC 16.3 H 16.2 H (3.8-10.6) k/uL RBC 3.23 L 3.29 L (4.30-5.90) m/uL Hgb 9.6 L 9.7 L (13.0-17.5) gm/dL Hct 29.4 L 30.6 L (39.0-53.0) % MCHC (31.0-37.0) g/dL RDW 15.8 H 15.6 H (11.5-15.5) % Plt Count (150-450) k/uL Neutrophils # (1.3-7.7) k/uL Monocytes # (0-1.0) k/uL PT (9.0-12.0) sec INR (<1.2) Potassium (3.5-5.1) mmol/L Chloride 110 H (98-107) mmol/L Carbon Dioxide 13 L (22-30) mmol/L BUN 55 H (9-20) mg/dL Creatinine 1.80 H (0.66-1.25) mg/dL Glucose 151 H (74-99) mg/dL POC Glucose (mg/dL) (75-99) mg/dL Plasma Lactic Acid Abram (0.7-2.0) mmol/L AST (17-59) U/L CK-MB (CK-2) (0.0-2.4) ng/mL Troponin I (0.000-0.034) ng/mL Total Protein (6.3-8.2) g/dL Albumin (3.5-5.0) g/dL Urine Protein (Negative) Urine Ketones (Negative) Urine Blood (Negative) Urine RBC (0-5) /hpf Urine Bacteria (None) /hpf Hyaline Casts (0-2) /lpf 01/16/18 01/16/18 01/17/18 Range/Units 20:48 22:01 02:12 WBC (3.8-10.6) k/uL RBC (4.30-5.90) m/uL Hgb (13.0-17.5) gm/dL Hct (39.0-53.0) % MCHC (31.0-37.0) g/dL RDW (11.5-15.5) % Plt Count (150-450) k/uL Neutrophils # (1.3-7.7) k/uL Monocytes # (0-1.0) k/uL PT (9.0-12.0) sec INR (<1.2) Potassium (3.5-5.1) mmol/L Chloride (98-107) mmol/L Carbon Dioxide (22-30) mmol/L BUN (9-20) mg/dL Creatinine (0.66-1.25) mg/dL Glucose (74-99) mg/dL POC Glucose (mg/dL) 181 H 246 H (75-99) mg/dL Plasma Lactic Acid Abram 8.7 H* (0.7-2.0) mmol/L AST (17-59) U/L CK-MB (CK-2) (0.0-2.4) ng/mL Troponin I (0.000-0.034) ng/mL Total Protein (6.3-8.2) g/dL Albumin (3.5-5.0) g/dL Urine Protein (Negative) Urine Ketones (Negative) Urine Blood (Negative) Urine RBC (0-5) /hpf Urine Bacteria (None) /hpf Hyaline Casts (0-2) /lpf 01/17/18 01/17/18 01/17/18 Range/Units 02:15 02:15 02:15 WBC 15.1 H (3.8-10.6) k/uL RBC 3.05 L (4.30-5.90) m/uL Hgb 8.6 L (13.0-17.5) gm/dL Hct 28.0 L (39.0-53.0) % MCHC 30.6 L (31.0-37.0) g/dL RDW 16.0 H (11.5-15.5) % Plt Count 138 L (150-450) k/uL Neutrophils # 12.0 H (1.3-7.7) k/uL Monocytes # 1.2 H (0-1.0) k/uL PT (9.0-12.0) sec INR (<1.2) Potassium (3.5-5.1) mmol/L Chloride 109 H (98-107) mmol/L Carbon Dioxide 18 L (22-30) mmol/L BUN 58 H (9-20) mg/dL Creatinine 1.70 H (0.66-1.25) mg/dL Glucose 216 H (74-99) mg/dL POC Glucose (mg/dL) (75-99) mg/dL Plasma Lactic Acid Abram 5.3 H* (0.7-2.0) mmol/L AST 68 H (17-59) U/L CK-MB (CK-2) (0.0-2.4) ng/mL Troponin I (0.000-0.034) ng/mL Total Protein 5.0 L (6.3-8.2) g/dL Albumin 2.4 L (3.5-5.0) g/dL Urine Protein (Negative) Urine Ketones (Negative) Urine Blood (Negative) Urine RBC (0-5) /hpf Urine Bacteria (None) /hpf Hyaline Casts (0-2) /lpf 01/17/18 01/17/18 01/17/18 Range/Units 05:53 05:53 05:53 WBC 14.6 H (3.8-10.6) k/uL RBC 3.12 L (4.30-5.90) m/uL Hgb 9.1 L (13.0-17.5) gm/dL Hct 28.1 L (39.0-53.0) % MCHC (31.0-37.0) g/dL RDW 15.9 H (11.5-15.5) % Plt Count 140 L (150-450) k/uL Neutrophils # 11.9 H (1.3-7.7) k/uL Monocytes # (0-1.0) k/uL PT (9.0-12.0) sec INR (<1.2) Potassium (3.5-5.1) mmol/L Chloride 109 H (98-107) mmol/L Carbon Dioxide 18 L (22-30) mmol/L BUN 59 H (9-20) mg/dL Creatinine 1.70 H (0.66-1.25) mg/dL Glucose 235 H (74-99) mg/dL POC Glucose (mg/dL) (75-99) mg/dL Plasma Lactic Acid Abram 4.2 H* (0.7-2.0) mmol/L AST 73 H (17-59) U/L CK-MB (CK-2) (0.0-2.4) ng/mL Troponin I (0.000-0.034) ng/mL Total Protein 5.1 L (6.3-8.2) g/dL Albumin 2.4 L (3.5-5.0) g/dL Urine Protein (Negative) Urine Ketones (Negative) Urine Blood (Negative) Urine RBC (0-5) /hpf Urine Bacteria (None) /hpf Hyaline Casts (0-2) /lpf 01/17/18 01/17/18 Range/Units 06:07 10:20 WBC (3.8-10.6) k/uL RBC (4.30-5.90) m/uL Hgb (13.0-17.5) gm/dL Hct (39.0-53.0) % MCHC (31.0-37.0) g/dL RDW (11.5-15.5) % Plt Count (150-450) k/uL Neutrophils # (1.3-7.7) k/uL Monocytes # (0-1.0) k/uL PT (9.0-12.0) sec INR (<1.2) Potassium (3.5-5.1) mmol/L Chloride (98-107) mmol/L Carbon Dioxide (22-30) mmol/L BUN (9-20) mg/dL Creatinine (0.66-1.25) mg/dL Glucose (74-99) mg/dL POC Glucose (mg/dL) 358 H 179 H (75-99) mg/dL Plasma Lactic Acid Abram (0.7-2.0) mmol/L AST (17-59) U/L CK-MB (CK-2) (0.0-2.4) ng/mL Troponin I (0.000-0.034) ng/mL Total Protein (6.3-8.2) g/dL Albumin (3.5-5.0) g/dL Urine Protein (Negative) Urine Ketones (Negative) Urine Blood (Negative) Urine RBC (0-5) /hpf Urine Bacteria (None) /hpf Hyaline Casts (0-2) /lpf Laboratory Results WBC 14.6 k/uL (3.8-10.6) H 01/17/18 05:53 RBC 3.12 m/uL (4.30-5.90) L 01/17/18 05:53 Hgb 9.1 gm/dL (13.0-17.5) L 01/17/18 05:53 Hct 28.1 % (39.0-53.0) L 01/17/18 05:53 MCV 89.9 fL (80.0-100.0) 01/17/18 05:53 MCH 29.0 pg (25.0-35.0) 01/17/18 05:53 MCHC 32.3 g/dL (31.0-37.0) 01/17/18 05:53 RDW 15.9 % (11.5-15.5) H 01/17/18 05:53 Plt Count 140 k/uL (150-450) L 01/17/18 05:53 Neutrophils % 82 % 01/17/18 05:53 Lymphocytes % 8 % 01/17/18 05:53 Monocytes % 7 % 01/17/18 05:53 Eosinophils % 1 % 01/17/18 05:53 Basophils % 0 % 01/17/18 05:53 Neutrophils # 11.9 k/uL (1.3-7.7) H 01/17/18 05:53 Lymphocytes # 1.2 k/uL (1.0-4.8) 01/17/18 05:53 Monocytes # 1.0 k/uL (0-1.0) 01/17/18 05:53 Eosinophils # 0.1 k/uL (0-0.7) 01/17/18 05:53 Basophils # 0.0 k/uL (0-0.2) 01/17/18 05:53 Hypochromasia Slight 01/17/18 02:15 PT 12.1 sec (9.0-12.0) H 01/16/18 12:35 INR 1.3 (<1.2) H 01/16/18 12:35 APTT 22.7 sec (22.0-30.0) 01/16/18 12:35 Sodium 143 mmol/L (137-145) 01/17/18 14:13 Potassium 4.0 mmol/L (3.5-5.1) 01/17/18 14:13 Chloride 109 mmol/L (98-107) H 01/17/18 14:13 Carbon Dioxide 25 mmol/L (22-30) 01/17/18 14:13 Anion Gap 9 mmol/L 01/17/18 14:13 BUN 58 mg/dL (9-20) H 01/17/18 14:13 Creatinine 1.50 mg/dL (0.66-1.25) H 01/17/18 14:13 Est GFR (CKD-EPI)AfAm 50 (>60 ml/min/1.73 sqM) 01/17/18 14:13 Est GFR (CKD-EPI)NonAf 43 (>60 ml/min/1.73 sqM) 01/17/18 14:13 Glucose 201 mg/dL (74-99) H 01/17/18 14:13 POC Glucose (mg/dL) 137 mg/dL (75-99) H 01/17/18 18:52 POC Glu [employer] ID Murali Mike 01/17/18 18:[address] Glu mg/dL 117 01/16/18 16:30 Hemoglobin A1c 5.7 % (4.0-6.0) 01/16/18 16:30 Lactic Ac Sepsis Rflx Y 01/17/18 06:39 Plasma Lactic Acid Abram 2.8 mmol/L (0.7-2.0) H* 01/17/18 14:13 Calcium 8.2 mg/dL (8.4-10.2) L 01/17/18 14:13 Magnesium 2.2 mg/dL (1.6-2.3) 01/17/18 05:53 Total Bilirubin 1.2 mg/dL (0.2-1.3) 01/17/18 05:53 AST 73 U/L (17-59) H 01/17/18 05:53 ALT 35 U/L (21-72) 01/17/18 05:53 Alkaline Phosphatase 96 U/L (38-126) 01/17/18 05:53 Ammonia 52 umol/L (<30) H 01/17/18 14:13 Total Creatine Kinase 136 U/L (55-170) 01/16/18 12:35 CK-MB (CK-2) 4.9 ng/mL (0.0-2.4) H* 01/16/18 12:35 CK-MB (CK-2) Rel Index 3.6 01/16/18 12:35 Troponin I 0.077 ng/mL (0.000-0.034) H* 01/16/18 16:27 Total Protein 5.1 g/dL (6.3-8.2) L 01/17/18 05:53 Albumin 2.4 g/dL (3.5-5.0) L 01/17/18 05:53 Urine Color Yellow 01/16/18 12:45 Urine Appearance Clear (Clear) 01/16/18 12:45 Urine pH 5.5 (5.0-8.0) 01/16/18 12:45 Ur Specific [place] 1.020 (1.001-1.035) 01/16/18 12:45 Urine Protein Trace (Negative) H 01/16/18 12:45 Urine Glucose (UA) Negative (Negative) 01/16/18 12:45 Urine Ketones 1+ (Negative) H 01/16/18 12:45 Urine Blood Moderate (Negative) H 01/16/18 12:45 Urine Nitrite Negative (Negative) 01/16/18 12:45 Urine Bilirubin Negative (Negative) 01/16/18 12:45 Urine Urobilinogen <2.0 mg/dL (<2.0) 01/16/18 12:45 Ur Leukocyte Esterase Negative (Negative) 01/16/18 12:45 Urine RBC 59 /hpf (0-5) H 01/16/18 12:45 Urine WBC 1 /hpf (0-5) 01/16/18 12:45 Ur Squamous Epith Cells <1 /hpf (0-4) 01/16/18 12:45 Urine Bacteria Rare /hpf (None) H 01/16/18 12:45 Hyaline Casts 15 /lpf (0-2) H 01/16/18 12:45 Gastric Occult Blood Positive (Negative) 01/16/18 13:55 Stool Occult Blood Positive (Negative) 01/16/18 12:35 Blood Type O Positive 01/16/18 12:35 Blood Type Recheck No 01/16/18 12:35 Antibody Screen NEGATIVE 01/16/18 12:35 Spec Expiration Date 01/19/2018 - 3677 01/16/18 12:35 Thrombosis Risk Factor Assmnt - DVT/VTE Prophylaxis DVT/VTE Prophylaxis: Mechanical Prophylaxis ordered, Contraindicated - See note (GI bleed) - Choose All That Apply Any of the Below Risk Factors Present?: Yes Each Factor Represents 1 point: Abnormal pulmonary function (COPD), Medical pt on bed rest, Obesity (BMI >25) Other Risk Factors: Yes Each Risk Factor Represents 3 Points: Age 75 years or older Other congenital or acquired thrombophilia - If yes, enter type in comment: No Thrombosis Risk Factor Assessment Total Risk Factor Score: 6 Thrombosis Risk Factor Assessment Level: High Risk Assessment and Plan Plan: 1. Acute upper GI bleed with melanocytic stools, patient is currently in ICU being closely monitored, director payment was consulted Dr. Granger,we will transfuse with hemoglobin of less than 7, and GI consult with Dr. Salinas, for an EGD. Dr. Rodgers general surgeon hemoglobin in cereal, 2. Chronic liver cirrhosis and portal hypertension as noted through CT imaging , in 2015, ammonia levels are requested secondary to confusion, 3. Hyperammonemia, lactulose started 20 g 3 times a day, series of ammonia level to be made 4. Recurrent falls, multifactorial, was likely secondary to metabolic encephalopathy with ongoing liver cirrhosis, as well as sensory and motor neuropathy, primary possibly spinal stenosis,, consulted with PT OT, discharge planning for possible skilled Diabetes mellitus type 2, on metformin and glipizide, Autonomic dysfunction/possible adrenal insufficiency, on Cortef 10 twice a day, and Florinef 0.05 mg twice a day however patient currently is nothing by mouth, with an NG tube, patient will be started on stress dose hydrocortisone 100 mg every 8 hours COPD on Spiriva, and when necessary albuterol Hypertension, and tachycardia, patient will be restarted on metoprolol 25 mg nightly G-tube Lactic acidosis likely secondary to GI bleed, continue to monitor serially, CK D stage III with acute kidney failure, azotemia, IV hydration, monitor for post void to Cipro, patient would need to discontinue metformin secondary to elevated creatinine if it remains to be over 1.5 post discharge Leukocytosis, Hematuria, this needs to be worked up as outpatient, patient is asymptomatic, would need evaluate with either renal ultrasound or CT of the abdomen once stabilized Acute blood loss anemia, baseline over the past 1-2 years are between 9-11.8, last normal hemoglobin was in May 2014, iron studies to be done, would transfuse with hemoglobin less than 7-8 if continues to bleed
[2018-01-17] MEDS ORDERED: hydrALAZINE HCL 20 MG/ML 1 ML VIAL IVP PRN (20:32)
[2018-01-17] MEDS ORDERED: LACTATED RINGERS 1,000 ML IV SCH (20:45)
[2018-01-17] MEDS ORDERED: INSULIN ASPART 100 UNIT/ML 1 ML 10 ML VIAL SQ ONE (20:49)
[2018-01-17] MEDS: ACETAMINOPHEN IV (For NPO) 1,000 MG in EMPTY BAG 1 BAG IVPB PRN (20:58)
[2018-01-17] MEDS: METOPROLOL TARTRATE 12.5 MG TAB PO SCH (20:59)
[2018-01-17] MEDS: LACTULOSE 20 GM/30 ML CUP PO SCH (21:00)
[2018-01-17 23:54] LABS: Calcium 8.4 mg/dL (8.4-10.2); Potassium 3.9 mmol/L (3.5-5.1)
[2018-01-18 00:09] LABS: Glucose,Whole Blood 142 mg/dL (75-99)
[2018-01-18] MEDS: HYDROCORTISONE SUCCINATE 100 MG/2 ML VIAL IV SCH ×3 (00:51→16:22)
[2018-01-18] MEDS: INSULIN ASPART 100 UNIT/ML 1 ML 10 ML VIAL SQ SCH ×6 (00:51→20:04)
[2018-01-18 04:57] LABS: Glucose,Whole Blood 167 mg/dL (75-99)
[2018-01-18 05:42] LABS: Anisocytosis Slight; Basophils % (A) 0 %; Eosinophils % (A) 0 %; HCT 26.7 % (39.0-53.0); HGB 8.8 gm/dL (13.0-17.5); Lymphocytes # (A) 0.7 k/uL (1.0-4.8); Lymphocytes % (A) 7 %; MCH 29.2 pg (25.0-35.0); MCV 88.4 fL (80.0-100.0); Mean Platelet Volume 8.6; Monocytes # (A) 0.2 k/uL (0-1.0); Monocytes % (A) 3 %; Neutrophils # (A) 8.4 k/uL (1.3-7.7); Neutrophils % (A) 89 %; Platelet Count 130 k/uL (150-450); RBC 3.01 m/uL (4.30-5.90); RDW 16.3 % (11.5-15.5); WBC 9.5 k/uL (3.8-10.6)
[2018-01-18 05:52] LABS: Albumin 2.6 g/dL (3.5-5.0); Calcium 8.3 mg/dL (8.4-10.2); Phosphorus 2.3 mg/dL (2.5-4.5); Potassium 3.9 mmol/L (3.5-5.1); Total Bilirubin 1.3 mg/dL (0.2-1.3); Total Protein 5.3 g/dL (6.3-8.2)
[2018-01-18] MEDS: METOPROLOL TARTRATE 12.5 MG TAB PO SCH ×2 (08:16→20:05)
[2018-01-18] MEDS: PANTOPRAZOLE 40 MG/10 ML VIAL IV SCH (08:16)
[2018-01-18 08:26] LABS: Glucose,Whole Blood 188 mg/dL (75-99)
[2018-01-18] MEDS: LACTULOSE 20 GM/30 ML CUP PO SCH ×3 (09:15→20:05)
[2018-01-18 11:00] LABS: Iron Saturation 7.05 (15.00-50.00)
[2018-01-18] MEDS ORDERED: PROPOFOL 10 MG/ML 20 ML VIAL IV ONE (11:38)
[2018-01-18] MEDS ORDERED: SODIUM CHLORIDE 0.9% 1,000 ML IV ONE (11:52)
--- NOTE | 2018-01-18 11:54 | P.PCN ---
Date of Procedure: 01/18/18 Procedure(s) Performed: BRIEF HISTORY: Patient is a 82-year-old, pleasant,, admitted to the hospital with acute GI bleed. Here multiple episodes of black tarry stools. Hemoglobin is 9.2 g/dL. He scheduled for an upper endoscopy to evaluate further.. PROCEDURE PERFORMED: Esophagogastroduodenoscopy. PREOPERATIVE DIAGNOSIS: Acute upper GI bleed. IV sedation per anesthesia. PROCEDURE: After informed consent was obtained, the patient was brought into the endoscopy unit. IV sedation was administered by Anesthesia under continuous monitoring. Initially the Olympus GIF-140 video endoscope was inserted into the mouth. Esophagus intubated without any difficulty. It was gradually advanced into the stomach and duodenum and carefully examined. The bulb and the second part of the duodenum appeared normal. The scope at this time was withdrawn to the stomach, adequately insufflated with air, and upon careful examination, mucosa of the antrum, body, cardia and the fundus appeared normal. The scope was then withdrawn into the esophagus. The GE junction was located at 41 cm from the incisors. There was a superficial ulceration the distal esophagus measuring about 3 cm in length with no active bleeding. The rest of esophagus appeared normal. In the posterior pharynx there was thick crusted or blood and a mass in this area could not be excluded. Patient tolerated the procedure well IMPRESSION: 1. Distal esophageal superficial ulceration with no active bleeding. 2. Mild gastritis. RECOMMENDATIONS: The findings of this examination were discussed with the patient as well as his family. He will be started on full liquid diet and it will be advanced as tolerated. If patient has any dysphagia or throat discomfort ENT evaluation can be considered.
[2018-01-18 12:16] LABS: Glucose,Whole Blood 162 mg/dL (75-99)
[2018-01-18] MEDS: SODIUM CHLORIDE 0.9% 1,000 ML IV SCH ×2 (12:33→20:06)
[2018-01-18] MEDS: ACETAMINOPHEN IV (For NPO) 1,000 MG in EMPTY BAG 1 BAG IVPB PRN (13:16)
--- NOTE | 2018-01-18 13:28 | P.CRDCN ---
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 No further cardiac workup Past Medical History Past Medical History: Heart Failure, COPD, Diabetes Mellitus, Eye Disorder, GERD /Reflux, Hyperlipidemia, Hypertension Additional Past Medical History / Comment(s): Pt had a fall about 1 month ago with 5 R rib fractures, family has noticed increased confusion since time of fall, bronchitis, R pleural effusion, diverticular dx, peptic ulcer, hemorrhoids , chronic anemia, NIDDM type iI, gout, R eye macular degeneration, dehydration with acute kidney injury, bladder polyp removed, hypotensive at times. History of Any Multi-Drug Resistant Organisms: None Reported Past Surgical History: Appendectomy Additional Past Surgical History / Comment(s): R/L cataract removal with lens implants, EGD/colonoscopy, capsule endoscopy, cystoscopy to remove bladder polyp. Past Anesthesia/Blood Transfusion Reactions: No Reported Reaction Smoking Status: Former smoker - Past Family History Father Additional Family Medical History / Comment(s): Father in his 60s from a myocardial infarction. Mother Additional Family Medical History / Comment(s): Mother between 85 and 90 with no major medical problems. Brother(s) Additional Family Medical History / Comment(s): Patient has 5 brothers with heavy coronary artery disease and MIs in the family. Sister(s) Additional Family Medical History / Comment(s): He has one sister with history of cervical cancer. Daughter(s) Additional Family Medical History / Comment(s): Patient has 4 daughters with no major medical problems. Son(s) Additional Family Medical History / Comment(s): Son has chron's dx. Medications and Allergies Home Medications Medication Instructions Recorded Confirmed Type Omeprazole 20 mg PO DAILY 05/10/14 01/16/18 History Simvastatin 20 mg PO HS 05/10/14 01/16/18 History Fludrocortisone [Florinef] 0.05 mg PO BID 08/28/16 01/16/18 History Tiotropium 18 Mcg/Puff [Spiriva] 1 puff INHALATION RT-DAILY 08/28/16 01/16/18 History Allopurinol [Zyloprim] 100 mg PO DAILY 08/28/17 01/16/18 History Hydrocortisone [Cortef] 10 mg PO BID 08/28/17 01/16/18 History glipiZIDE/METFORMIN HCL 2 tab PO BID 08/28/17 01/16/18 History [glipiZIDE/METFORMIN HCL 5-500 mg] Metoprolol Succinate [Toprol XL] 25 mg PO DAILY 01/16/18 01/16/18 History Spironolactone [Aldactone] 25 mg PO DAILY 01/16/18 01/16/18 History Allergies Allergy/AdvReac Type Severity Reaction Status Date / Time No Known Allergies Allergy Verified 01/16/18 12:37 Physical Exam Vitals: Vital Signs Temp Pulse Resp BP Pulse Ox 01/18/18 12:00 14 144/61 01/18/18 11:00 101 H 14 134/62 100 01/18/18 10:00 92 20 137/54 97 01/18/18 09:00 91 14 146/59 96 01/18/18 08:00 97.8 F 107 H 13 152/59 98 01/18/18 07:00 97 13 154/59 97 01/18/18 06:00 101 H 14 146/55 97 01/18/18 05:00 108 H 14 150/58 99 01/18/18 04:00 97.9 F 104 H 14 134/49 98 01/18/18 03:00 101 H 14 149/68 97 01/18/18 02:00 104 H 18 150/77 98 01/18/18 01:00 103 H 16 146/88 96 01/18/18 00:00 98.9 F 104 H 17 152/54 99 01/17/18 23:30 103 H 19 148/106 97 01/17/18 23:00 107 H 20 143/60 99 01/17/18 22:00 108 H 17 160/86 99 01/17/18 21:00 122 H 15 164/69 97 01/17/18 20:00 98.8 F 120 H 20 163/65 97 01/17/18 19:00 119 H 19 164/65 97 01/17/18 18:00 117 H 22 148/85 97 01/17/18 17:00 119 H 17 101/70 98 01/17/18 16:00 98.0 F 115 H 35 H 176/57 99 01/17/18 15:00 120 H 17 156/74 98 01/17/18 14:00 115 H 22 147/65 98 Intake and Output 01/17/18 01/18/18 01/18/18 22:59 06:59 14:59 Intake Total 880 600 550 Output Total 345 535 430 Balance 535 65 120 Intake: IV 400 600 550 ACETAMINOPHEN IV (For NPO 100 ) 1,000 mg In Empty Bag 1 bag @ 400 mls/hr IVPB Q6HR PRN Rx#:[id number] Sodium Chloride 0.9% 1, 300 600 450 000 ml @ 75 mls/hr IV . [id number] [facility] Rx#:[id number] Intake, IV Titration 400 Amount Dextrose 5%-0.45% NaCl 1, 100 000 ml @ 100 mls/hr IV . [id number] [facility] with Sodium Bicarb (1 Meq/ml) 150 ml Rx#:[id number] Sodium Chloride 0.9% 1, 300 000 ml @ 75 mls/hr IV . [id number] [facility] Rx#:[id number] Other 80 Output: Gastric Drainage 150 Urine 345 385 430 Other: Voiding Method Indwelling Catheter Indwelling Catheter Indwelling Catheter # Bowel Movements 1 1 1 Weight 113.3 kg Results 01/18/18 05:24 01/18/18 05:24 Cardiac Enzymes 01/17/18 01/18/18 01/18/18 Range/Units 23:24 05:24 05:24 AST 112 H (17-59) U/L Troponin I 0.109 H* 0.105 H* (0.000-0.034) ng/mL CBC 01/18/18 Range/Units 05:24 WBC 9.5 (3.8-10.6) k/uL RBC 3.01 L (4.30-5.90) m/uL Hgb 8.8 L (13.0-17.5) gm/dL Hct 26.7 L (39.0-53.0) % Plt Count 130 L (150-450) k/uL Comprehensive Metabolic Panel 03/13/18 03/13/18 03/14/18 Range/Units 14:13 23:24 05:24 Sodium 143 144 148 H (137-145) mmol/L Potassium 4.0 3.9 3.9 (3.5-5.1) mmol/L Chloride 109 H 111 H 113 H (98-107) mmol/L Carbon Dioxide 25 23 24 (22-30) mmol/L BUN 58 H 54 H 49 H (9-20) mg/dL Creatinine 1.50 H 1.42 H 1.32 H (0.66-1.25) mg/dL Glucose 201 H 155 H 171 H (74-99) mg/dL Calcium 8.2 L 8.4 8.3 L (8.4-10.2) mg/dL AST 112 H (17-59) U/L ALT 48 (21-72) U/L Alkaline Phosphatase 119 (38-126) U/L Total Protein 5.3 L (6.3-8.2) g/dL Albumin 2.6 L (3.5-5.0) g/dL Current Medications Generic Name Dose Route Start Last Admin Trade Name Freq PRN Reason Stop Dose Admin Albuterol/Ipratropium 3 ml 01/17/18 20:28 Duoneb 0.5 Mg-3 Mg/3 Ml Soln INHALATION RT-QID PRN Shortness Of Breath Or Wheezing Hydralazine HCl 10 mg 01/17/18 20:32 01/17/18 22:01 Apresoline IVP 10 mg Q4HR PRN Administration Blood Pressure - High Hydrocortisone Sodium Succinate 100 mg 01/18/18 00:00 01/18/18 08:17 Solu-Cortef IV 100 mg Q8HR [facility] Administration Sodium Chloride 1,000 mls @ 75 mls/hr 01/17/18 09:15 01/18/18 12:33 Saline 0.9% IV 75 mls/hr .[id number] [facility] Administration Acetaminophen 1,000 mg/ IV 100 mls @ 400 mls/hr 01/17/18 20:27 01/18/18 13:16 Solution IVPB 01/18/18 18:14 400 mls/hr Q6HR PRN Administration Analgesia Lactated Ringer's 1,000 mls @ 20 mls/hr 01/17/18 20:45 01/17/18 20:57 Lactated Ringers IV Not Given .Q24H [facility] Insulin Aspart 0 unit 01/18/18 00:00 01/18/18 12:32 Novolog SQ 3 unit Q4H [facility] Administration Protocol Lactulose 20 gm 01/17/18 22:00 01/18/18 09:15 Cephulac PO Not Given TID [facility] Metoprolol Tartrate 12.5 mg 01/17/18 21:00 01/18/18 08:16 Lopressor PO 12.5 mg BID [facility] Administration Miscellaneous Information 1 each 01/16/18 19:57 Magnesium Per Protocol MISCELLANE DAILY PRN Per Protocol Protocol Naloxone HCl 0.2 mg 01/16/18 14:00 Narcan IV Q2M PRN Opioid Reversal Pantoprazole Sodium 40 mg 01/17/18 09:00 01/18/18 08:16 Protonix IV 40 mg DAILY [facility] Administration Intake and Output 01/17/18 01/18/18 01/18/18 22:59 06:59 14:59 Intake Total 880 600 550 Output Total 345 535 430 Balance 535 65 120 Intake: IV 400 600 550 ACETAMINOPHEN IV (For NPO 100 ) 1,000 mg In Empty Bag 1 bag @ 400 mls/hr IVPB Q6HR PRN Rx#:[id number] Sodium Chloride 0.9% 1, 300 600 450 000 ml @ 75 mls/hr IV . [id number] [facility] Rx#:[id number] Intake, IV Titration 400 Amount Dextrose 5%-0.45% NaCl 1, 100 000 ml @ 100 mls/hr IV . [id number] [facility] with Sodium Bicarb (1 Meq/ml) 150 ml Rx#:[id number] Sodium Chloride 0.9% 1, 300 000 ml @ 75 mls/hr IV . [id number] [facility] Rx#:[id number] Other 80 Output: Gastric Drainage 150 Urine 345 385 430 Other: Voiding Method Indwelling Catheter Indwelling Catheter Indwelling Catheter # Bowel Movements 1 1 1 Weight 113.3 kg 01/18/18 05:24 01/18/18 05:24
--- NOTE | 2018-01-18 13:58 | P.PN ---
<Teresa Farfan E - Last Filed: 01/18/18 13:53> Subjective Progress Note Date: 01/18/18 01/16/18-This is an 82-year-old gentleman who presented emergency department complaining of generalized weakness. The patient apparently had a large black bowel movement overnight. He also had coffee-ground emesis the emergency department. An NG tube was placed and 900 mL of coffee-ground fluid has been suctioned. The patient denies abdominal pain. He has received one and half liters of normal saline. He was found to have a lactic acid of 10. The patient denies abdominal pain, nausea, vomiting. He denies a history of GI bleed however the patient appears to be a poor historian. His hemoglobin is currently 9.9. History is mostly obtained from the electronic medical record. 01/17/18- Please see Dr. Baron Pool note 01/18/18- patient been seen examined and evaluated on rounds in the intensive care unit. The patient is resting up in bed on room air. He will be going for an EGD with Dr. Claros this afternoon. He continues to have some coffee ground liquid coming from the NG tube as well as some dark stools. His current hemoglobin is 8.8 WBCs 9.5 has lactic acid has come down to 1.7. He has been afebrile denies any further complaints. Denies any pain. All labs and reports have been reviewed. Objective - Vital Signs Vital signs: Vital Signs Temp 97.8 F 01/18/18 08:00 Pulse 104 H 01/18/18 13:00 Resp 27 H 01/18/18 13:00 BP 168/67 01/18/18 13:00 Pulse Ox 100 01/18/18 13:00 Intake & Output 01/17/18 01/18/18 01/18/18 18:59 06:59 18:59 Intake Total 1500 1080 625 Output Total 525 705 505 Balance 975 375 120 Weight 113.3 kg Intake: IV 1000 625 ACETAMINOPHEN IV (For NPO 100 ) 1,000 mg In Empty Bag 1 bag @ 400 mls/hr IVPB Q6HR PRN Rx#:[id number] Sodium Chloride 0.9% 1, 900 525 000 ml @ 75 mls/hr IV . [id number] [facility] Rx#:[id number] Intake, IV Titration 1500 Amount Dextrose 5%-0.45% NaCl 1, 900 000 ml @ 100 mls/hr IV . [id number] [facility] with Sodium Bicarb (1 Meq/ml) 150 ml Rx#:[id number] Sodium Chloride 0.9% 1, 600 000 ml @ 75 mls/hr IV . [id number] [facility] Rx#:[id number] Other 80 Output: Gastric Drainage 150 Urine 525 555 505 Other: Voiding Method Indwelling Catheter Indwelling Catheter Indwelling Catheter # Bowel Movements 1 1 1 - Exam Gen.: Patient is alert and oriented 3, no acute distress, poor historian Cardiovascular: Tachycardic, regular rate and rhythm, S1/S2 Lungs: Diminished breath sounds bilaterally otherwise clear Abdomen: Soft nontender nondistended positive bowel sounds Extremities: Trace edema - Labs CBC & Chem 7: 01/18/18 05:24 01/18/18 05:24 Labs: Abnormal Lab Results - Last 24 Hours (Table) 01/17/18 01/17/18 01/17/18 Range/Units 14:13 14:13 14:13 RBC (4.30-5.90) m/uL Hgb (13.0-17.5) gm/dL Hct (39.0-53.0) % RDW (11.5-15.5) % Plt Count (150-450) k/uL Neutrophils # (1.3-7.7) k/uL Lymphocytes # (1.0-4.8) k/uL Sodium (137-145) mmol/L Chloride 109 H (98-107) mmol/L BUN 58 H (9-20) mg/dL Creatinine 1.50 H (0.66-1.25) mg/dL Glucose 201 H (74-99) mg/dL POC Glucose (mg/dL) (75-99) mg/dL Plasma Lactic Acid Abram 2.8 H* (0.7-2.0) mmol/L Calcium 8.2 L (8.4-10.2) mg/dL Phosphorus (2.5-4.5) mg/dL Iron (65-175) ug/dL TIBC (228-460) ug/dL Iron Saturation (15.00-50.00) AST (17-59) U/L Ammonia 52 H (<30) umol/L Troponin I (0.000-0.034) ng/mL Total Protein (6.3-8.2) g/dL Albumin (3.5-5.0) g/dL 01/17/18 01/17/18 01/17/18 Range/Units 15:51 18:52 20:22 RBC (4.30-5.90) m/uL Hgb (13.0-17.5) gm/dL Hct (39.0-53.0) % RDW (11.5-15.5) % Plt Count (150-450) k/uL Neutrophils # (1.3-7.7) k/uL Lymphocytes # (1.0-4.8) k/uL Sodium (137-145) mmol/L Chloride (98-107) mmol/L BUN (9-20) mg/dL Creatinine (0.66-1.25) mg/dL Glucose (74-99) mg/dL POC Glucose (mg/dL) 202 H 137 H 141 H (75-99) mg/dL Plasma Lactic Acid Abram (0.7-2.0) mmol/L Calcium (8.4-10.2) mg/dL Phosphorus (2.5-4.5) mg/dL Iron (65-175) ug/dL TIBC (228-460) ug/dL Iron Saturation (15.00-50.00) AST (17-59) U/L Ammonia (<30) umol/L Troponin I (0.000-0.034) ng/mL Total Protein (6.3-8.2) g/dL Albumin (3.5-5.0) g/dL 01/17/18 01/17/18 01/17/18 Range/Units 23:24 23:24 23:24 RBC (4.30-5.90) m/uL Hgb (13.0-17.5) gm/dL Hct (39.0-53.0) % RDW (11.5-15.5) % Plt Count (150-450) k/uL Neutrophils # (1.3-7.7) k/uL Lymphocytes # (1.0-4.8) k/uL Sodium (137-145) mmol/L Chloride 111 H (98-107) mmol/L BUN 54 H (9-20) mg/dL Creatinine 1.42 H (0.66-1.25) mg/dL Glucose 155 H (74-99) mg/dL POC Glucose (mg/dL) (75-99) mg/dL Plasma Lactic Acid Abram 2.6 H* (0.7-2.0) mmol/L Calcium (8.4-10.2) mg/dL Phosphorus (2.5-4.5) mg/dL Iron (65-175) ug/dL TIBC (228-460) ug/dL Iron Saturation (15.00-50.00) AST (17-59) U/L Ammonia (<30) umol/L Troponin I 0.109 H* (0.000-0.034) ng/mL Total Protein (6.3-8.2) g/dL Albumin (3.5-5.0) g/dL 01/18/18 01/18/18 01/18/18 Range/Units 00:06 04:55 05:24 RBC (4.30-5.90) m/uL Hgb (13.0-17.5) gm/dL Hct (39.0-53.0) % RDW (11.5-15.5) % Plt Count (150-450) k/uL Neutrophils # (1.3-7.7) k/uL Lymphocytes # (1.0-4.8) k/uL Sodium (137-145) mmol/L Chloride (98-107) mmol/L BUN (9-20) mg/dL Creatinine (0.66-1.25) mg/dL Glucose (74-99) mg/dL POC Glucose (mg/dL) 142 H 167 H (75-99) mg/dL Plasma Lactic Acid Abram (0.7-2.0) mmol/L Calcium (8.4-10.2) mg/dL Phosphorus (2.5-4.5) mg/dL Iron 16 L (65-175) ug/dL TIBC 227 L (228-460) ug/dL Iron Saturation 7.05 L (15.00-50.00) AST (17-59) U/L Ammonia (<30) umol/L Troponin I (0.000-0.034) ng/mL Total Protein (6.3-8.2) g/dL Albumin (3.5-5.0) g/dL 03/14/18 03/14/18 03/14/18 Range/Units 05:24 05:24 05:24 RBC 3.01 L (4.30-5.90) m/uL Hgb 8.8 L (13.0-17.5) gm/dL Hct 26.7 L (39.0-53.0) % RDW 16.3 H (11.5-15.5) % Plt Count 130 L (150-450) k/uL Neutrophils # 8.4 H (1.3-7.7) k/uL Lymphocytes # 0.7 L (1.0-4.8) k/uL Sodium 148 H (137-145) mmol/L Chloride 113 H (98-107) mmol/L BUN 49 H (9-20) mg/dL Creatinine 1.32 H (0.66-1.25) mg/dL Glucose 171 H (74-99) mg/dL POC Glucose (mg/dL) (75-99) mg/dL Plasma Lactic Acid Abram (0.7-2.0) mmol/L Calcium 8.3 L (8.4-10.2) mg/dL Phosphorus 2.3 L (2.5-4.5) mg/dL Iron (65-175) ug/dL TIBC (228-460) ug/dL Iron Saturation (15.00-50.00) AST 112 H (17-59) U/L Ammonia (<30) umol/L Troponin I 0.105 H* (0.000-0.034) ng/mL Total Protein 5.3 L (6.3-8.2) g/dL Albumin 2.6 L (3.5-5.0) g/dL 01/18/18 01/18/18 01/18/18 Range/Units 05:24 08:24 12:15 RBC (4.30-5.90) m/uL Hgb (13.0-17.5) gm/dL Hct (39.0-53.0) % RDW (11.5-15.5) % Plt Count (150-450) k/uL Neutrophils # (1.3-7.7) k/uL Lymphocytes # (1.0-4.8) k/uL Sodium (137-145) mmol/L Chloride (98-107) mmol/L BUN (9-20) mg/dL Creatinine (0.66-1.25) mg/dL Glucose (74-99) mg/dL POC Glucose (mg/dL) 188 H 162 H (75-99) mg/dL Plasma Lactic Acid Abram 2.1 H* (0.7-2.0) mmol/L Calcium (8.4-10.2) mg/dL Phosphorus (2.5-4.5) mg/dL Iron (65-175) ug/dL TIBC (228-460) ug/dL Iron Saturation (15.00-50.00) AST (17-59) U/L Ammonia (<30) umol/L Troponin I (0.000-0.034) ng/mL Total Protein (6.3-8.2) g/dL Albumin (3.5-5.0) g/dL Assessment and Plan Assessment: Assessment Acute GIB Leukocytosis ABLA Lactic acidosis AGMA ALONDRA NSTEMI History of CHF, unknown type COPD DM2 Dyslipidemia Chronic steroids, question orthostatic hypotension Plan Patient will be going for an EGD with Dr. Claros this afternoon. Discontinue metformin and glipizide Continue IVF hydration Monitor H/H Repeat LA, reviewed and is now 1.7 Transfer to ICU Monitor emily addison Echocardiogram No anticoagulation Surgery and GI recommendations NGT to LIS Consult cardiology Protonix SCDs for DVT prophylaxis Thank you for this consultation. We will continue to follow along. I performed an examination of the patient and discussed their management with the nurse practitioner. I have reviewed the nurse practitioner's note and agree with the documented findings and plan of care. <Jenifer Granger - Last Filed: 01/18/18 15:11> Objective - Vital Signs Vital signs: Vital Signs Temp 97.8 F 01/18/18 08:00 Pulse 102 H 01/18/18 14:00 Resp 21 01/18/18 14:00 BP 152/76 01/18/18 14:00 Pulse Ox 98 01/18/18 14:00 Intake & Output 01/17/18 01/18/18 01/18/18 18:59 06:59 18:59 Intake Total 1500 1080 700 Output Total 525 705 550 Balance 975 375 150 Weight 113.3 kg Intake: IV 1000 700 ACETAMINOPHEN IV (For NPO 100 ) 1,000 mg In Empty Bag 1 bag @ 400 mls/hr IVPB Q6HR PRN Rx#:[id number] Sodium Chloride 0.9% 1, 900 600 000 ml @ 75 mls/hr IV . [id number] [facility] Rx#:[id number] Intake, IV Titration 1500 Amount Dextrose 5%-0.45% NaCl 1, 900 000 ml @ 100 mls/hr IV . [id number] [facility] with Sodium Bicarb (1 Meq/ml) 150 ml Rx#:[id number] Sodium Chloride 0.9% 1, 600 000 ml @ 75 mls/hr IV . [id number] [facility] Rx#:[id number] Other 80 Output: Gastric Drainage 150 Urine 525 555 550 Other: Voiding Method Indwelling Catheter Indwelling Catheter Indwelling Catheter # Bowel Movements 1 1 1 - Labs CBC & Chem 7: 01/18/18 05:24 01/18/18 05:24 Labs: Abnormal Lab Results - Last 24 Hours (Table) 01/17/18 01/17/18 01/17/18 Range/Units 15:51 18:52 20:22 RBC (4.30-5.90) m/uL Hgb (13.0-17.5) gm/dL Hct (39.0-53.0) % RDW (11.5-15.5) % Plt Count (150-450) k/uL Neutrophils # (1.3-7.7) k/uL Lymphocytes # (1.0-4.8) k/uL Sodium (137-145) mmol/L Chloride (98-107) mmol/L BUN (9-20) mg/dL Creatinine (0.66-1.25) mg/dL Glucose (74-99) mg/dL POC Glucose (mg/dL) 202 H 137 H 141 H (75-99) mg/dL Plasma Lactic Acid Abram (0.7-2.0) mmol/L Calcium (8.4-10.2) mg/dL Phosphorus (2.5-4.5) mg/dL Iron (65-175) ug/dL TIBC (228-460) ug/dL Iron Saturation (15.00-50.00) AST (17-59) U/L Troponin I (0.000-0.034) ng/mL Total Protein (6.3-8.2) g/dL Albumin (3.5-5.0) g/dL 01/17/18 01/17/18 01/17/18 Range/Units 23:24 23:24 23:24 RBC (4.30-5.90) m/uL Hgb (13.0-17.5) gm/dL Hct (39.0-53.0) % RDW (11.5-15.5) % Plt Count (150-450) k/uL Neutrophils # (1.3-7.7) k/uL Lymphocytes # (1.0-4.8) k/uL Sodium (137-145) mmol/L Chloride 111 H (98-107) mmol/L BUN 54 H (9-20) mg/dL Creatinine 1.42 H (0.66-1.25) mg/dL Glucose 155 H (74-99) mg/dL POC Glucose (mg/dL) (75-99) mg/dL Plasma Lactic Acid Abram 2.6 H* (0.7-2.0) mmol/L Calcium (8.4-10.2) mg/dL Phosphorus (2.5-4.5) mg/dL Iron (65-175) ug/dL TIBC (228-460) ug/dL Iron Saturation (15.00-50.00) AST (17-59) U/L Troponin I 0.109 H* (0.000-0.034) ng/mL Total Protein (6.3-8.2) g/dL Albumin (3.5-5.0) g/dL 01/18/18 01/18/18 01/18/18 Range/Units 00:06 04:55 05:24 RBC (4.30-5.90) m/uL Hgb (13.0-17.5) gm/dL Hct (39.0-53.0) % RDW (11.5-15.5) % Plt Count (150-450) k/uL Neutrophils # (1.3-7.7) k/uL Lymphocytes # (1.0-4.8) k/uL Sodium (137-145) mmol/L Chloride (98-107) mmol/L BUN (9-20) mg/dL Creatinine (0.66-1.25) mg/dL Glucose (74-99) mg/dL POC Glucose (mg/dL) 142 H 167 H (75-99) mg/dL Plasma Lactic Acid Abram (0.7-2.0) mmol/L Calcium (8.4-10.2) mg/dL Phosphorus (2.5-4.5) mg/dL Iron 16 L (65-175) ug/dL TIBC 227 L (228-460) ug/dL Iron Saturation 7.05 L (15.00-50.00) AST (17-59) U/L Troponin I (0.000-0.034) ng/mL Total Protein (6.3-8.2) g/dL Albumin (3.5-5.0) g/dL 01/18/18 01/18/18 01/18/18 Range/Units 05:24 05:24 05:24 RBC 3.01 L (4.30-5.90) m/uL Hgb 8.8 L (13.0-17.5) gm/dL Hct 26.7 L (39.0-53.0) % RDW 16.3 H (11.5-15.5) % Plt Count 130 L (150-450) k/uL Neutrophils # 8.4 H (1.3-7.7) k/uL Lymphocytes # 0.7 L (1.0-4.8) k/uL Sodium 148 H (137-145) mmol/L Chloride 113 H (98-107) mmol/L BUN 49 H (9-20) mg/dL Creatinine 1.32 H (0.66-1.25) mg/dL Glucose 171 H (74-99) mg/dL POC Glucose (mg/dL) (75-99) mg/dL Plasma Lactic Acid Abram (0.7-2.0) mmol/L Calcium 8.3 L (8.4-10.2) mg/dL Phosphorus 2.3 L (2.5-4.5) mg/dL Iron (65-175) ug/dL TIBC (228-460) ug/dL Iron Saturation (15.00-50.00) AST 112 H (17-59) U/L Troponin I 0.105 H* (0.000-0.034) ng/mL Total Protein 5.3 L (6.3-8.2) g/dL Albumin 2.6 L (3.5-5.0) g/dL 01/18/18 01/18/18 01/18/18 Range/Units 05:24 08:24 12:15 RBC (4.30-5.90) m/uL Hgb (13.0-17.5) gm/dL Hct (39.0-53.0) % RDW (11.5-15.5) % Plt Count (150-450) k/uL Neutrophils # (1.3-7.7) k/uL Lymphocytes # (1.0-4.8) k/uL Sodium (137-145) mmol/L Chloride (98-107) mmol/L BUN (9-20) mg/dL Creatinine (0.66-1.25) mg/dL Glucose (74-99) mg/dL POC Glucose (mg/dL) 188 H 162 H (75-99) mg/dL Plasma Lactic Acid Abram 2.1 H* (0.7-2.0) mmol/L Calcium (8.4-10.2) mg/dL Phosphorus (2.5-4.5) mg/dL Iron (65-175) ug/dL TIBC (228-460) ug/dL Iron Saturation (15.00-50.00) AST (17-59) U/L Troponin I (0.000-0.034) ng/mL Total Protein (6.3-8.2) g/dL Albumin (3.5-5.0) g/dL Assessment and Plan Assessment: Patient had EGD with gastric ulcer. He is still recovering from anesthesia. Patient's family is at bedside. Patient is currently on 2 L nasal cannula. Nursing staff will check patient's swallow once he is more awake from anesthesia. He will be transferred to selective unit later this afternoon. He has been hemodynamically stable. Hemoglobin has been stable. ~Jenifer Granger DO
--- NOTE | 2018-01-18 14:49 | P.PN ---
Subjective Progress Note Date: 01/18/18 Patient seen and examined at bedside. Currently resting. Had upper endoscopy performed today with finding of distal esophageal ulcer, nonbleeding. He has had a few small tarry stool. Objective - Vital Signs Vital signs: Vital Signs Temp 97.8 F 01/18/18 08:00 Pulse 102 H 01/18/18 14:00 Resp 21 01/18/18 14:00 BP 152/76 01/18/18 14:00 Pulse Ox 98 01/18/18 14:00 Intake & Output 01/17/18 01/18/18 01/18/18 18:59 06:59 18:59 Intake Total 1500 1080 700 Output Total 525 705 550 Balance 975 375 150 Weight 113.3 kg Intake: IV 1000 700 ACETAMINOPHEN IV (For NPO 100 ) 1,000 mg In Empty Bag 1 bag @ 400 mls/hr IVPB Q6HR PRN Rx#:[id number] Sodium Chloride 0.9% 1, 900 600 000 ml @ 75 mls/hr IV . [id number] [facility] Rx#:[id number] Intake, IV Titration 1500 Amount Dextrose 5%-0.45% NaCl 1, 900 000 ml @ 100 mls/hr IV . [id number] [facility] with Sodium Bicarb (1 Meq/ml) 150 ml Rx#:[id number] Sodium Chloride 0.9% 1, 600 000 ml @ 75 mls/hr IV . [id number] [facility] Rx#:[id number] Other 80 Output: Gastric Drainage 150 Urine 525 555 550 Other: Voiding Method Indwelling Catheter Indwelling Catheter Indwelling Catheter # Bowel Movements 1 1 1 - Constitutional General appearance: Present: no acute distress - EENT Eyes: Present: PERRLA - Respiratory Details: No difficulty with respiration - Gastrointestinal Gastrointestinal Comment(s): Soft, nontender, nondistended, no rebound, no guarding - Musculoskeletal Musculoskeletal: Present: generalized weakness - Labs CBC & Chem 7: 01/18/18 05:24 01/18/18 05:24 Labs: Abnormal Lab Results - Last 24 Hours (Table) 01/17/18 01/17/18 01/17/18 Range/Units 15:51 18:52 20:22 RBC (4.30-5.90) m/uL Hgb (13.0-17.5) gm/dL Hct (39.0-53.0) % RDW (11.5-15.5) % Plt Count (150-450) k/uL Neutrophils # (1.3-7.7) k/uL Lymphocytes # (1.0-4.8) k/uL Sodium (137-145) mmol/L Chloride (98-107) mmol/L BUN (9-20) mg/dL Creatinine (0.66-1.25) mg/dL Glucose (74-99) mg/dL POC Glucose (mg/dL) 202 H 137 H 141 H (75-99) mg/dL Plasma Lactic Acid Abram (0.7-2.0) mmol/L Calcium (8.4-10.2) mg/dL Phosphorus (2.5-4.5) mg/dL Iron (65-175) ug/dL TIBC (228-460) ug/dL Iron Saturation (15.00-50.00) AST (17-59) U/L Troponin I (0.000-0.034) ng/mL Total Protein (6.3-8.2) g/dL Albumin (3.5-5.0) g/dL 01/17/18 01/17/18 01/17/18 Range/Units 23:24 23:24 23:24 RBC (4.30-5.90) m/uL Hgb (13.0-17.5) gm/dL Hct (39.0-53.0) % RDW (11.5-15.5) % Plt Count (150-450) k/uL Neutrophils # (1.3-7.7) k/uL Lymphocytes # (1.0-4.8) k/uL Sodium (137-145) mmol/L Chloride 111 H (98-107) mmol/L BUN 54 H (9-20) mg/dL Creatinine 1.42 H (0.66-1.25) mg/dL Glucose 155 H (74-99) mg/dL POC Glucose (mg/dL) (75-99) mg/dL Plasma Lactic Acid Abram 2.6 H* (0.7-2.0) mmol/L Calcium (8.4-10.2) mg/dL Phosphorus (2.5-4.5) mg/dL Iron (65-175) ug/dL TIBC (228-460) ug/dL Iron Saturation (15.00-50.00) AST (17-59) U/L Troponin I 0.109 H* (0.000-0.034) ng/mL Total Protein (6.3-8.2) g/dL Albumin (3.5-5.0) g/dL 01/18/18 01/18/18 01/18/18 Range/Units 00:06 04:55 05:24 RBC (4.30-5.90) m/uL Hgb (13.0-17.5) gm/dL Hct (39.0-53.0) % RDW (11.5-15.5) % Plt Count (150-450) k/uL Neutrophils # (1.3-7.7) k/uL Lymphocytes # (1.0-4.8) k/uL Sodium (137-145) mmol/L Chloride (98-107) mmol/L BUN (9-20) mg/dL Creatinine (0.66-1.25) mg/dL Glucose (74-99) mg/dL POC Glucose (mg/dL) 142 H 167 H (75-99) mg/dL Plasma Lactic Acid Abram (0.7-2.0) mmol/L Calcium (8.4-10.2) mg/dL Phosphorus (2.5-4.5) mg/dL Iron 16 L (65-175) ug/dL TIBC 227 L (228-460) ug/dL Iron Saturation 7.05 L (15.00-50.00) AST (17-59) U/L Troponin I (0.000-0.034) ng/mL Total Protein (6.3-8.2) g/dL Albumin (3.5-5.0) g/dL 01/18/18 01/18/18 01/18/18 Range/Units 05:24 05:24 05:24 RBC 3.01 L (4.30-5.90) m/uL Hgb 8.8 L (13.0-17.5) gm/dL Hct 26.7 L (39.0-53.0) % RDW 16.3 H (11.5-15.5) % Plt Count 130 L (150-450) k/uL Neutrophils # 8.4 H (1.3-7.7) k/uL Lymphocytes # 0.7 L (1.0-4.8) k/uL Sodium 148 H (137-145) mmol/L Chloride 113 H (98-107) mmol/L BUN 49 H (9-20) mg/dL Creatinine 1.32 H (0.66-1.25) mg/dL Glucose 171 H (74-99) mg/dL POC Glucose (mg/dL) (75-99) mg/dL Plasma Lactic Acid Abram (0.7-2.0) mmol/L Calcium 8.3 L (8.4-10.2) mg/dL Phosphorus 2.3 L (2.5-4.5) mg/dL Iron (65-175) ug/dL TIBC (228-460) ug/dL Iron Saturation (15.00-50.00) AST 112 H (17-59) U/L Troponin I 0.105 H* (0.000-0.034) ng/mL Total Protein 5.3 L (6.3-8.2) g/dL Albumin 2.6 L (3.5-5.0) g/dL 01/18/18 01/18/18 01/18/18 Range/Units 05:24 08:24 12:15 RBC (4.30-5.90) m/uL Hgb (13.0-17.5) gm/dL Hct (39.0-53.0) % RDW (11.5-15.5) % Plt Count (150-450) k/uL Neutrophils # (1.3-7.7) k/uL Lymphocytes # (1.0-4.8) k/uL Sodium (137-145) mmol/L Chloride (98-107) mmol/L BUN (9-20) mg/dL Creatinine (0.66-1.25) mg/dL Glucose (74-99) mg/dL POC Glucose (mg/dL) 188 H 162 H (75-99) mg/dL Plasma Lactic Acid Abram 2.1 H* (0.7-2.0) mmol/L Calcium (8.4-10.2) mg/dL Phosphorus (2.5-4.5) mg/dL Iron (65-175) ug/dL TIBC (228-460) ug/dL Iron Saturation (15.00-50.00) AST (17-59) U/L Troponin I (0.000-0.034) ng/mL Total Protein (6.3-8.2) g/dL Albumin (3.5-5.0) g/dL Assessment and Plan (1) GI hemorrhage Narrative/Plan: Upper endoscopy was performed by GI today. A distal esophageal ulcer was noted with no stigmata of bleeding. The patient's lactic acidosis has resolved. Leukocytosis has resolved. Per family, the patient is returning towards normal mentation. No plan for acute surgical intervention. Continue medical management at this time. Current Visit: Yes Status: Acute Code(s): K92.2 - GASTROINTESTINAL HEMORRHAGE, UNSPECIFIED SNOMED Code(s): 04326172
[2018-01-18 16:19] LABS: Glucose,Whole Blood 168 mg/dL (75-99)
[2018-01-18] MEDS: TAMSULOSIN 0.4 MG CAP.ER.24H PO SCH (17:59)
[2018-01-18 19:43] LABS: Glucose,Whole Blood 196 mg/dL (75-99)
[2018-01-18] MEDS: MELATONIN 3 MG TABLET PO SCH (20:04)
[2018-01-19] MEDS: HYDROCORTISONE SUCCINATE 100 MG/2 ML VIAL IV SCH ×3 (00:11→17:16)
[2018-01-19 00:12] LABS: Glucose,Whole Blood 162 mg/dL (75-99)
[2018-01-19] MEDS: INSULIN ASPART 100 UNIT/ML 1 ML 10 ML VIAL SQ SCH ×6 (00:14→21:04)
[2018-01-19 04:30] LABS: Glucose,Whole Blood 155 mg/dL (75-99)
[2018-01-19 04:43] LABS: Anisocytosis Slight; Basophils % (A) 0 %; Eosinophils % (A) 0 %; HCT 24.8 % (39.0-53.0); HGB 8.1 gm/dL (13.0-17.5); Lymphocytes # (A) 0.6 k/uL (1.0-4.8); Lymphocytes % (A) 10 %; MCH 29.2 pg (25.0-35.0); MCHC 32.6 g/dL (31.0-37.0); MCV 89.7 fL (80.0-100.0); Mean Platelet Volume 8.5; Monocytes # (A) 0.2 k/uL (0-1.0); Monocytes % (A) 4 %; Neutrophils # (A) 5.2 k/uL (1.3-7.7); Neutrophils % (A) 86 %; Platelet Count 111 k/uL (150-450); RBC 2.77 m/uL (4.30-5.90); RDW 16.3 % (11.5-15.5); WBC 6.1 k/uL (3.8-10.6)
[2018-01-19 04:55] LABS: Albumin 2.4 g/dL (3.5-5.0); Calcium 8.1 mg/dL (8.4-10.2); Magnesium 2.1 mg/dL (1.6-2.3); Phosphorus 2.8 mg/dL (2.5-4.5); Potassium 3.8 mmol/L (3.5-5.1)
[2018-01-19] MEDS: LACTULOSE 20 GM/30 ML CUP PO SCH ×3 (09:15→21:05)
[2018-01-19] MEDS: PANTOPRAZOLE 40 MG/10 ML VIAL IV SCH (09:16)
[2018-01-19] MEDS: METOPROLOL TARTRATE 12.5 MG TAB PO SCH ×2 (09:16→21:05)
[2018-01-19 12:10] LABS: Glucose,Whole Blood 217 mg/dL (75-99)
--- NOTE | 2018-01-19 12:22 | P.PN ---
<Teresa Farfan E - Last Filed: 01/19/18 12:20> Subjective Progress Note Date: 01/19/18 01/16/18-This is an 82-year-old gentleman who presented emergency department complaining of generalized weakness. The patient apparently had a large black bowel movement overnight. He also had coffee-ground emesis the emergency department. An NG tube was placed and 900 mL of coffee-ground fluid has been suctioned. The patient denies abdominal pain. He has received one and half liters of normal saline. He was found to have a lactic acid of 10. The patient denies abdominal pain, nausea, vomiting. He denies a history of GI bleed however the patient appears to be a poor historian. His hemoglobin is currently 9.9. History is mostly obtained from the electronic medical record. 01/17/18- Please see Dr. Baron Pool note 01/18/18- patient been seen examined and evaluated on rounds in the intensive care unit. The patient is resting up in bed on room air. He will be going for an EGD with Dr. Claros this afternoon. He continues to have some coffee ground liquid coming from the NG tube as well as some dark stools. His current hemoglobin is 8.8 WBCs 9.5 has lactic acid has come down to 1.7. He has been afebrile denies any further complaints. Denies any pain. All labs and reports have been reviewed. 01/19/18- patient is in seen examined and evaluated today on rounds. He is resting up in bed on room air. He states he is feeling better today. He did go for an EGD with GI yesterday and then nonbleeding ulcer was found. Patient has had no further episodes of bleeding. He is afebrile, no further complaints. All labs and reports have been reviewed. Objective - Vital Signs Vital signs: Vital Signs Temp 98.2 F 01/19/18 08:00 Pulse 97 01/19/18 11:00 Resp 15 01/19/18 11:00 BP 153/63 01/19/18 11:00 Pulse Ox 92 L 01/19/18 09:00 Intake & Output 01/18/18 01/19/18 01/19/18 18:59 06:59 18:59 Intake Total 1000 825 Output Total 820 350 Balance 180 475 Weight 112.1 kg Intake: IV 1000 825 Sodium Chloride 0.9% 1, 900 825 000 ml @ 75 mls/hr IV . [id number] [facility] Rx#:[id number] Output: Urine 820 350 Other: Voiding Method Indwelling Catheter Indwelling Catheter Indwelling Catheter # Bowel Movements 1 1 - Exam Gen.: Patient is alert and oriented 3, no acute distress, poor historian Cardiovascular: Tachycardic, regular rate and rhythm, S1/S2 Lungs: Diminished breath sounds bilaterally otherwise clear Abdomen: Soft nontender nondistended positive bowel sounds Extremities: Trace edema - Labs CBC & Chem 7: 01/19/18 04:24 01/19/18 04:24 Labs: Abnormal Lab Results - Last 24 Hours (Table) 01/18/18 01/18/18 01/19/18 Range/Units 16:18 19:41 00:10 RBC (4.30-5.90) m/uL Hgb (13.0-17.5) gm/dL Hct (39.0-53.0) % RDW (11.5-15.5) % Plt Count (150-450) k/uL Lymphocytes # (1.0-4.8) k/uL Sodium (137-145) mmol/L Chloride (98-107) mmol/L BUN (9-20) mg/dL Creatinine (0.66-1.25) mg/dL Glucose (74-99) mg/dL POC Glucose (mg/dL) 168 H 196 H 162 H (75-99) mg/dL Calcium (8.4-10.2) mg/dL AST (17-59) U/L Total Protein (6.3-8.2) g/dL Albumin (3.5-5.0) g/dL 01/19/18 01/19/18 01/19/18 Range/Units 04:24 04:24 04:28 RBC 2.77 L (4.30-5.90) m/uL Hgb 8.1 L (13.0-17.5) gm/dL Hct 24.8 L (39.0-53.0) % RDW 16.3 H (11.5-15.5) % Plt Count 111 L (150-450) k/uL Lymphocytes # 0.6 L (1.0-4.8) k/uL Sodium 146 H (137-145) mmol/L Chloride 114 H (98-107) mmol/L BUN 47 H (9-20) mg/dL Creatinine 1.30 H (0.66-1.25) mg/dL Glucose 158 H (74-99) mg/dL POC Glucose (mg/dL) 155 H (75-99) mg/dL Calcium 8.1 L (8.4-10.2) mg/dL AST 106 H (17-59) U/L Total Protein 5.0 L (6.3-8.2) g/dL Albumin 2.4 L (3.5-5.0) g/dL 01/19/18 Range/Units 12:08 RBC (4.30-5.90) m/uL Hgb (13.0-17.5) gm/dL Hct (39.0-53.0) % RDW (11.5-15.5) % Plt Count (150-450) k/uL Lymphocytes # (1.0-4.8) k/uL Sodium (137-145) mmol/L Chloride (98-107) mmol/L BUN (9-20) mg/dL Creatinine (0.66-1.25) mg/dL Glucose (74-99) mg/dL POC Glucose (mg/dL) 217 H (75-99) mg/dL Calcium (8.4-10.2) mg/dL AST (17-59) U/L Total Protein (6.3-8.2) g/dL Albumin (3.5-5.0) g/dL Assessment and Plan Assessment: Assessment Acute GIB Leukocytosis ABLA Lactic acidosis AGMA ALONDRA NSTEMI History of CHF, unknown type COPD DM2 Dyslipidemia Chronic steroids, question orthostatic hypotension Nonbleeding ulcer found on EKG Plan Status post EGD Continue IVF hydration Monitor H/H, monitor for any overt signs of bleeding Repeat LA, reviewed and is now 1.7 Monitor lytes, coags Echocardiogram No anticoagulation Surgery and GI recommendations Diet advanced per GI recommendations NGT to LIS Consult cardiology Protonix SCDs for DVT prophylaxis Thank you for this consultation. We will continue to follow along. I performed an examination of the patient and discussed their management with the nurse practitioner. I have reviewed the nurse practitioner's note and agree with the documented findings and plan of care. <Jenifer Granger Last Filed: 01/19/18 15:00> Objective - Vital Signs Vital signs: Vital Signs Temp 98.2 F 01/19/18 08:00 Pulse 97 01/19/18 11:00 Resp 15 01/19/18 11:00 BP 153/63 01/19/18 11:00 Pulse Ox 92 L 01/19/18 09:00 Intake & Output 01/18/18 01/19/18 01/19/18 18:59 06:59 18:59 Intake Total 1000 825 Output Total 820 350 Balance 180 475 Weight 112.1 kg Intake: IV 1000 825 Sodium Chloride 0.9% 1, 900 825 000 ml @ 75 mls/hr IV . [id number] [facility] Rx#:[id number] Output: Urine 820 350 Other: Voiding Method Indwelling Catheter Indwelling Catheter Indwelling Catheter # Bowel Movements 1 1 - Labs CBC & Chem 7: 01/19/18 04:24 01/19/18 04:24 Labs: Abnormal Lab Results - Last 24 Hours (Table) 01/18/18 01/18/18 01/19/18 Range/Units 16:18 19:41 00:10 RBC (4.30-5.90) m/uL Hgb (13.0-17.5) gm/dL Hct (39.0-53.0) % RDW (11.5-15.5) % Plt Count (150-450) k/uL Lymphocytes # (1.0-4.8) k/uL Sodium (137-145) mmol/L Chloride (98-107) mmol/L BUN (9-20) mg/dL Creatinine (0.66-1.25) mg/dL Glucose (74-99) mg/dL POC Glucose (mg/dL) 168 H 196 H 162 H (75-99) mg/dL Calcium (8.4-10.2) mg/dL AST (17-59) U/L Total Protein (6.3-8.2) g/dL Albumin (3.5-5.0) g/dL 01/19/18 01/19/18 01/19/18 Range/Units 04:24 04:24 04:28 RBC 2.77 L (4.30-5.90) m/uL Hgb 8.1 L (13.0-17.5) gm/dL Hct 24.8 L (39.0-53.0) % RDW 16.3 H (11.5-15.5) % Plt Count 111 L (150-450) k/uL Lymphocytes # 0.6 L (1.0-4.8) k/uL Sodium 146 H (137-145) mmol/L Chloride 114 H (98-107) mmol/L BUN 47 H (9-20) mg/dL Creatinine 1.30 H (0.66-1.25) mg/dL Glucose 158 H (74-99) mg/dL POC Glucose (mg/dL) 155 H (75-99) mg/dL Calcium 8.1 L (8.4-10.2) mg/dL AST 106 H (17-59) U/L Total Protein 5.0 L (6.3-8.2) g/dL Albumin 2.4 L (3.5-5.0) g/dL 01/19/18 Range/Units 12:08 RBC (4.30-5.90) m/uL Hgb (13.0-17.5) gm/dL Hct (39.0-53.0) % RDW (11.5-15.5) % Plt Count (150-450) k/uL Lymphocytes # (1.0-4.8) k/uL Sodium (137-145) mmol/L Chloride (98-107) mmol/L BUN (9-20) mg/dL Creatinine (0.66-1.25) mg/dL Glucose (74-99) mg/dL POC Glucose (mg/dL) 217 H (75-99) mg/dL Calcium (8.4-10.2) mg/dL AST (17-59) U/L Total Protein (6.3-8.2) g/dL Albumin (3.5-5.0) g/dL Assessment and Plan Assessment: seen and examined in the ICU with sitter at bedside. Patient states he is feeling well. He is complaining of an occasional cough. He denies fevers and chills. He denies abdominal pain. Patient has been respiratory and hemodynamically stable. He is going to be transferred to telemetry. Jenifer Granger DO
[2018-01-19] MEDS ORDERED: SODIUM FERRIC GLUCONAT-SUCROSE 125 MG in SODIUM CHLORIDE 0.9% 100 ML IVPB ONE (13:15)
[2018-01-19] MEDS ORDERED: MUPIROCIN 2% OINT 22 GM TUBE TOPICAL ONE (13:15)
--- NOTE | 2018-01-19 14:17 | P.PN ---
Subjective Progress Note Date: 01/19/18 Principal diagnosis: Upper GI bleed s/p EGD with findings of distal esophageal superficial ulceration. Hemoglobin 8.1. No bleeding this morning. Tolerating full liquids. Objective - Vital Signs Vital signs: Vital Signs Temp 98.2 F 01/19/18 08:00 Pulse 97 01/19/18 11:00 Resp 15 01/19/18 11:00 BP 153/63 01/19/18 11:00 Pulse Ox 92 L 01/19/18 09:00 Intake & Output 01/18/18 01/19/18 01/19/18 18:59 06:59 18:59 Intake Total 1000 825 Output Total 820 350 Balance 180 475 Weight 112.1 kg Intake: IV 1000 825 Sodium Chloride 0.9% 1, 900 825 000 ml @ 75 mls/hr IV . [id number] [facility] Rx#:[id number] Output: Urine 820 350 Other: Voiding Method Indwelling Catheter Indwelling Catheter Indwelling Catheter # Bowel Movements 1 1 - Constitutional Constitutional Comment(s): alert to self General appearance: Present: average body habitus, no acute distress - EENT Eyes: Present: normal appearance - Neck Neck: Present: normal ROM - Respiratory Respiratory: bilateral: CTA - Cardiovascular Rhythm: regular - Gastrointestinal General gastrointestinal: Present: soft - Labs CBC & Chem 7: 01/19/18 04:24 01/19/18 04:24 Labs: Abnormal Lab Results - Last 24 Hours (Table) 01/18/18 01/18/18 01/19/18 Range/Units 16:18 19:41 00:10 RBC (4.30-5.90) m/uL Hgb (13.0-17.5) gm/dL Hct (39.0-53.0) % RDW (11.5-15.5) % Plt Count (150-450) k/uL Lymphocytes # (1.0-4.8) k/uL Sodium (137-145) mmol/L Chloride (98-107) mmol/L BUN (9-20) mg/dL Creatinine (0.66-1.25) mg/dL Glucose (74-99) mg/dL POC Glucose (mg/dL) 168 H 196 H 162 H (75-99) mg/dL Calcium (8.4-10.2) mg/dL AST (17-59) U/L Total Protein (6.3-8.2) g/dL Albumin (3.5-5.0) g/dL 01/19/18 01/19/18 01/19/18 Range/Units 04:24 04:24 04:28 RBC 2.77 L (4.30-5.90) m/uL Hgb 8.1 L (13.0-17.5) gm/dL Hct 24.8 L (39.0-53.0) % RDW 16.3 H (11.5-15.5) % Plt Count 111 L (150-450) k/uL Lymphocytes # 0.6 L (1.0-4.8) k/uL Sodium 146 H (137-145) mmol/L Chloride 114 H (98-107) mmol/L BUN 47 H (9-20) mg/dL Creatinine 1.30 H (0.66-1.25) mg/dL Glucose 158 H (74-99) mg/dL POC Glucose (mg/dL) 155 H (75-99) mg/dL Calcium 8.1 L (8.4-10.2) mg/dL AST 106 H (17-59) U/L Total Protein 5.0 L (6.3-8.2) g/dL Albumin 2.4 L (3.5-5.0) g/dL 01/19/18 Range/Units 12:08 RBC (4.30-5.90) m/uL Hgb (13.0-17.5) gm/dL Hct (39.0-53.0) % RDW (11.5-15.5) % Plt Count (150-450) k/uL Lymphocytes # (1.0-4.8) k/uL Sodium (137-145) mmol/L Chloride (98-107) mmol/L BUN (9-20) mg/dL Creatinine (0.66-1.25) mg/dL Glucose (74-99) mg/dL POC Glucose (mg/dL) 217 H (75-99) mg/dL Calcium (8.4-10.2) mg/dL AST (17-59) U/L Total Protein (6.3-8.2) g/dL Albumin (3.5-5.0) g/dL Assessment and Plan (1) GI bleed Narrative/Plan: 82-year-old male admitted with reports of coffee-ground emesis and melena s/p EGD with findings of distal esophageal superficial ulceration with component of acute blood loss anemia. Current Visit: Yes Status: Acute Code(s): K92.2 - GASTROINTESTINAL HEMORRHAGE, UNSPECIFIED SNOMED Code(s): 85066432 Plan: 1. Slow advancement of diet. 2. Protonix 40 mg daily. 3. CBC monitoring. Assessment and plan of care discussed with Dr. Haq
[2018-01-19] MEDS: SODIUM CHLORIDE 0.9% 1,000 ML IV SCH (15:31)
--- NOTE | 2018-01-19 16:35 | P.PN ---
Subjective Progress Note Date: 01/18/18 This is an 82-year-old gentleman patient of Dr. Rojas, with known history of CK D stage III, diabetes mellitus type 2, COPD, hyperlipidemia, and chronic anemia admitted from our facility in early August 2017, was diagnosed to have metabolic encephalopathy secondary to acute kidney injury and dehydration with hypoperfusion. Patient comes into the emergency room with a four-day history of black stools, has had increasing falls, no abdominal pain, patient denies any hematochezia, patient is not an alcoholic drinker currently, and was not feeling very well hence the ER admission. Patient has fallen numerous times, and the last one was 2 days ago, previous to this, patient had cracked the ribs , 4 weeks prior to admission. Patient follows up with Dr. Rojas every 4 months regimen, his due to see him in 01/20/2018 In the emergency room, he was noted to have Hemoccult-positive stools, patient was noted to have melanocytic stools, Hemoccult positive, hematuria with RBC of 59, double see if 1, moderate ketones, EKG shows sinus tachycardia with right bundle branch block, left anterior fascicular block, and pulmonary disease pattern heart rate of 124. Patient is admitted to ICU secondary to melanocytic stools with hemoglobin of 9, consult to Gen. surgery Dr. Montes and Dr. Haq gastroenterology. Admitting lactic acid was significantly elevated at 10.0 with a peak of 11.4, wbc of 15 troponin of 0.077 Previous imaging in our facility shows small amount of ascites, in the abdomen noted in May 2014 and CAT scan chest 2014, cholelithiasis, and evidence of cirrhosis and portal hypertension, improving pleural effusion, improving right apical nodule When patient was seen, patient was very much confused, trying to grab things in the area, very dry mouth, patient's nothing by mouth, and has a bilateral wrist restraints, ammonia levels were requested, family at bedside, CODE STATUS was discussed and is DO NOT RESUSCITATE no CPR with options for vent if needed 01/18: Hemoglobin is stable at 8.8. Patient is scheduled for EGD. The patient has had small bowel movements 7. Lactulose is on hold. Stools have been tarry in color. Cardiology is following for tachycardia. No plan for any further workup. Objective - Vital Signs Vital signs: Vital Signs Temp 97.8 F 01/18/18 08:00 Pulse 104 H 01/18/18 13:00 Resp 27 H 01/18/18 13:00 BP 168/67 01/18/18 13:00 Pulse Ox 100 01/18/18 13:00 Intake & Output 01/17/18 01/18/18 01/18/18 18:59 06:59 18:59 Intake Total 1500 1080 625 Output Total 525 705 505 Balance 975 375 120 Weight 113.3 kg Intake: IV 1000 625 ACETAMINOPHEN IV (For NPO 100 ) 1,000 mg In Empty Bag 1 bag @ 400 mls/hr IVPB Q6HR PRN Rx#:[id number] Sodium Chloride 0.9% 1, 900 525 000 ml @ 75 mls/hr IV . [id number] [facility] Rx#:[id number] Intake, IV Titration 1500 Amount Dextrose 5%-0.45% NaCl 1, 900 000 ml @ 100 mls/hr IV . [id number] EVELIN with Sodium Bicarb (1 Meq/ml) 150 ml Rx#:[id number] Sodium Chloride 0.9% 1, 600 000 ml @ 75 mls/hr IV . [id number] [facility] Rx#:[id number] Other 80 Output: Gastric Drainage 150 Urine 525 555 505 Other: Voiding Method Indwelling Catheter Indwelling Catheter Indwelling Catheter # Bowel Movements 1 1 1 - Exam General appearance: cooperative, obese - EENT Eyes: anicteric sclerae, EOMI ENT: NA/AT - Neck Neck: normal ROM - Respiratory Respiratory: bilateral: CTA, diminished, negative: dullness, rales, rhonchi, wheezing - Cardiovascular Rhythm: regular Heart sounds: normal: S1, S2 - Gastrointestinal General gastrointestinal: normal bowel sounds, soft - Integumentary Integumentary: decreased turgor, normal - Neurologic Unable, patient cannot cooperate during the examination for complete cranial nerve exam - Labs CBC & Chem 7: 01/19/18 04:24 01/19/18 04:24 Labs: Abnormal Lab Results - Last 24 Hours (Table) 01/17/18 01/17/18 01/17/18 Range/Units 14:13 14:13 14:13 RBC (4.30-5.90) m/uL Hgb (13.0-17.5) gm/dL Hct (39.0-53.0) % RDW (11.5-15.5) % Plt Count (150-450) k/uL Neutrophils # (1.3-7.7) k/uL Lymphocytes # (1.0-4.8) k/uL Sodium (137-145) mmol/L Chloride 109 H (98-107) mmol/L BUN 58 H (9-20) mg/dL Creatinine 1.50 H (0.66-1.25) mg/dL Glucose 201 H (74-99) mg/dL POC Glucose (mg/dL) (75-99) mg/dL Plasma Lactic Acid Abram 2.8 H* (0.7-2.0) mmol/L Calcium 8.2 L (8.4-10.2) mg/dL Phosphorus (2.5-4.5) mg/dL Iron (65-175) ug/dL TIBC (228-460) ug/dL Iron Saturation (15.00-50.00) AST (17-59) U/L Ammonia 52 H (<30) umol/L Troponin I (0.000-0.034) ng/mL Total Protein (6.3-8.2) g/dL Albumin (3.5-5.0) g/dL 01/17/18 01/17/18 01/17/18 Range/Units 15:51 18:52 20:22 RBC (4.30-5.90) m/uL Hgb (13.0-17.5) gm/dL Hct (39.0-53.0) % RDW (11.5-15.5) % Plt Count (150-450) k/uL Neutrophils # (1.3-7.7) k/uL Lymphocytes # (1.0-4.8) k/uL Sodium (137-145) mmol/L Chloride (98-107) mmol/L BUN (9-20) mg/dL Creatinine (0.66-1.25) mg/dL Glucose (74-99) mg/dL POC Glucose (mg/dL) 202 H 137 H 141 H (75-99) mg/dL Plasma Lactic Acid Abram (0.7-2.0) mmol/L Calcium (8.4-10.2) mg/dL Phosphorus (2.5-4.5) mg/dL Iron (65-175) ug/dL TIBC (228-460) ug/dL Iron Saturation (15.00-50.00) AST (17-59) U/L Ammonia (<30) umol/L Troponin I (0.000-0.034) ng/mL Total Protein (6.3-8.2) g/dL Albumin (3.5-5.0) g/dL 01/17/18 01/17/18 01/17/18 Range/Units 23:24 23:24 23:24 RBC (4.30-5.90) m/uL Hgb (13.0-17.5) gm/dL Hct (39.0-53.0) % RDW (11.5-15.5) % Plt Count (150-450) k/uL Neutrophils # (1.3-7.7) k/uL Lymphocytes # (1.0-4.8) k/uL Sodium (137-145) mmol/L Chloride 111 H (98-107) mmol/L BUN 54 H (9-20) mg/dL Creatinine 1.42 H (0.66-1.25) mg/dL Glucose 155 H (74-99) mg/dL POC Glucose (mg/dL) (75-99) mg/dL Plasma Lactic Acid Abram 2.6 H* (0.7-2.0) mmol/L Calcium (8.4-10.2) mg/dL Phosphorus (2.5-4.5) mg/dL Iron (65-175) ug/dL TIBC (228-460) ug/dL Iron Saturation (15.00-50.00) AST (17-59) U/L Ammonia (<30) umol/L Troponin I 0.109 H* (0.000-0.034) ng/mL Total Protein (6.3-8.2) g/dL Albumin (3.5-5.0) g/dL 01/18/18 01/18/18 01/18/18 Range/Units 00:06 04:55 05:24 RBC (4.30-5.90) m/uL Hgb (13.0-17.5) gm/dL Hct (39.0-53.0) % RDW (11.5-15.5) % Plt Count (150-450) k/uL Neutrophils # (1.3-7.7) k/uL Lymphocytes # (1.0-4.8) k/uL Sodium (137-145) mmol/L Chloride (98-107) mmol/L BUN (9-20) mg/dL Creatinine (0.66-1.25) mg/dL Glucose (74-99) mg/dL POC Glucose (mg/dL) 142 H 167 H (75-99) mg/dL Plasma Lactic Acid Abram (0.7-2.0) mmol/L Calcium (8.4-10.2) mg/dL Phosphorus (2.5-4.5) mg/dL Iron 16 L (65-175) ug/dL TIBC 227 L (228-460) ug/dL Iron Saturation 7.05 L (15.00-50.00) AST (17-59) U/L Ammonia (<30) umol/L Troponin I (0.000-0.034) ng/mL Total Protein (6.3-8.2) g/dL Albumin (3.5-5.0) g/dL 01/18/18 01/18/18 01/18/18 Range/Units 05:24 05:24 05:24 RBC 3.01 L (4.30-5.90) m/uL Hgb 8.8 L (13.0-17.5) gm/dL Hct 26.7 L (39.0-53.0) % RDW 16.3 H (11.5-15.5) % Plt Count 130 L (150-450) k/uL Neutrophils # 8.4 H (1.3-7.7) k/uL Lymphocytes # 0.7 L (1.0-4.8) k/uL Sodium 148 H (137-145) mmol/L Chloride 113 H (98-107) mmol/L BUN 49 H (9-20) mg/dL Creatinine 1.32 H (0.66-1.25) mg/dL Glucose 171 H (74-99) mg/dL POC Glucose (mg/dL) (75-99) mg/dL Plasma Lactic Acid Abram (0.7-2.0) mmol/L Calcium 8.3 L (8.4-10.2) mg/dL Phosphorus 2.3 L (2.5-4.5) mg/dL Iron (65-175) ug/dL TIBC (228-460) ug/dL Iron Saturation (15.00-50.00) AST 112 H (17-59) U/L Ammonia (<30) umol/L Troponin I 0.105 H* (0.000-0.034) ng/mL Total Protein 5.3 L (6.3-8.2) g/dL Albumin 2.6 L (3.5-5.0) g/dL 01/18/18 01/18/18 01/18/18 Range/Units 05:24 08:24 12:15 RBC (4.30-5.90) m/uL Hgb (13.0-17.5) gm/dL Hct (39.0-53.0) % RDW (11.5-15.5) % Plt Count (150-450) k/uL Neutrophils # (1.3-7.7) k/uL Lymphocytes # (1.0-4.8) k/uL Sodium (137-145) mmol/L Chloride (98-107) mmol/L BUN (9-20) mg/dL Creatinine (0.66-1.25) mg/dL Glucose (74-99) mg/dL POC Glucose (mg/dL) 188 H 162 H (75-99) mg/dL Plasma Lactic Acid Abram 2.1 H* (0.7-2.0) mmol/L Calcium (8.4-10.2) mg/dL Phosphorus (2.5-4.5) mg/dL Iron (65-175) ug/dL TIBC (228-460) ug/dL Iron Saturation (15.00-50.00) AST (17-59) U/L Ammonia (<30) umol/L Troponin I (0.000-0.034) ng/mL Total Protein (6.3-8.2) g/dL Albumin (3.5-5.0) g/dL Assessment and Plan Plan: 1. Acute upper GI bleed with melanocytic stools, and acute blood loss anemia, patient is currently in ICU being closely monitored, insurance marketing specialist was consulted Dr. Granger,we will transfuse with hemoglobin of less than 7, and GI consult with Dr. Salinas, for an EGD. Dr. Rodgers general surgeon. 2. Chronic liver cirrhosis and portal hypertension as noted through CT imaging , in 2015, ammonia levels are requested secondary to confusion, 3. Hyperammonemia, lactulose started 20 g 3 times a day, series of ammonia level to be made 4. Recurrent falls, multifactorial, was likely secondary to metabolic encephalopathy with ongoing liver cirrhosis, as well as sensory and motor neuropathy, primary possibly spinal stenosis, consulted with PT OT, discharge planning for possible skilled 5. Diabetes mellitus type 2, on metformin and glipizide, 6. Autonomic dysfunction/possible adrenal insufficiency, on Cortef 10 twice a day, and Florinef 0.05 mg twice a day however patient currently is nothing by mouth, with an NG tube, patient will be started on stress dose hydrocortisone 100 mg every 8 hours 7. COPD on Spiriva, and when necessary albuterol 8. Hypertension, and tachycardia, patient will be restarted on metoprolol 12.5 mg bid. 9. Lactic acidosis likely secondary to GI bleed, continue to monitor serially, 10. CK D stage III with acute kidney failure, azotemia, IV hydration, Ortiz in place. Monitor creatinine. 11. Leukocytosis, 12. Hematuria, this needs to be worked up as outpatient, patient is asymptomatic , would need evaluate with either renal ultrasound or CT of the abdomen once stabilized Discharge plan: To be determined Impression and plan of care have been directed as dictated by the signing physician. Radha Arredondo nurse practitioner acting as scribe for signing physician.
--- NOTE | 2018-01-19 16:39 | P.PN ---
Subjective Progress Note Date: 01/19/18 This is an 82-year-old gentleman patient of Dr. Roajs, with known history of CK D stage III, diabetes mellitus type 2, COPD, hyperlipidemia, and chronic anemia admitted from our facility in early August 2017, was diagnosed to have metabolic encephalopathy secondary to acute kidney injury and dehydration with hypoperfusion. Patient comes into the emergency room with a four-day history of black stools, has had increasing falls, no abdominal pain, patient denies any hematochezia, patient is not an alcoholic drinker currently, and was not feeling very well hence the ER admission. Patient has fallen numerous times, and the last one was 2 days ago, previous to this, patient had cracked the ribs , 4 weeks prior to admission. Patient follows up with Dr. Rojas every 4 months regimen, his due to see him in 01/20/2018 In the emergency room, he was noted to have Hemoccult-positive stools, patient was noted to have melanocytic stools, Hemoccult positive, hematuria with RBC of 59, double see if 1, moderate ketones, EKG shows sinus tachycardia with right bundle branch block, left anterior fascicular block, and pulmonary disease pattern heart rate of 124. Patient is admitted to ICU secondary to melanocytic stools with hemoglobin of 9, consult to Gen. surgery Dr. Montes and Dr. Haq gastroenterology. Admitting lactic acid was significantly elevated at 10.0 with a peak of 11.4, wbc of 15 troponin of 0.077 Previous imaging in our facility shows small amount of ascites, in the abdomen noted in May 2014 and CAT scan chest 2014, cholelithiasis, and evidence of cirrhosis and portal hypertension, improving pleural effusion, improving right apical nodule When patient was seen, patient was very much confused, trying to grab things in the area, very dry mouth, patient's nothing by mouth, and has a bilateral wrist restraints, ammonia levels were requested, family at bedside, CODE STATUS was discussed and is DO NOT RESUSCITATE no CPR with options for vent if needed 01/18: Hemoglobin is stable at 8.8. Patient is scheduled for EGD. The patient has had small bowel movements 7. Lactulose is on hold. Stools have been tarry in color. Cardiology is following for tachycardia. No plan for any further workup. 01/19: EGD revealed distal esophageal ulcer and gastritis but no active bleeding. Hemoglobin is 8.1. Ferrlecit ordered 1 dose. Patient is more alert today. Ammonia level is less than 9. Patient does have a large bruising area to the left antecubital which we will plan for Bactroban. Patient will be transferred out of intensive care today. PT will be started to help determine discharge plan. Objective - Vital Signs Vital signs: Vital Signs Temp 98.2 F 01/19/18 08:00 Pulse 97 01/19/18 11:00 Resp 15 01/19/18 11:00 BP 153/63 01/19/18 11:00 Pulse Ox 92 L 01/19/18 09:00 Intake & Output 01/18/18 01/19/18 01/19/18 18:59 06:59 18:59 Intake Total 1000 825 Output Total 820 350 Balance 180 475 Weight 112.1 kg Intake: IV 1000 825 Sodium Chloride 0.9% 1, 900 825 000 ml @ 75 mls/hr IV . [id number] [facility]EL[facility] Rx#:[id number] Output: Urine 820 350 Other: Voiding Method Indwelling Catheter Indwelling Catheter Indwelling Catheter # Bowel Movements 1 1 - Exam General appearance: cooperative, obese - EENT Eyes: anicteric sclerae, EOMI ENT: NA/AT - Neck Neck: normal ROM - Respiratory Respiratory: bilateral: CTA, diminished, negative: dullness, rales, rhonchi, wheezing - Cardiovascular Rhythm: regular Heart sounds: normal: S1, S2 - Gastrointestinal General gastrointestinal: normal bowel sounds, soft - Integumentary Integumentary: decreased turgor, normal - Neurologic awake, oriented to person and place. - Labs CBC & Chem 7: 01/19/18 04:24 01/19/18 04:24 Labs: Abnormal Lab Results - Last 24 Hours (Table) 01/18/18 01/18/18 01/19/18 Range/Units 16:18 19:41 00:10 RBC (4.30-5.90) m/uL Hgb (13.0-17.5) gm/dL Hct (39.0-53.0) % RDW (11.5-15.5) % Plt Count (150-450) k/uL Lymphocytes # (1.0-4.8) k/uL Sodium (137-145) mmol/L Chloride (98-107) mmol/L BUN (9-20) mg/dL Creatinine (0.66-1.25) mg/dL Glucose (74-99) mg/dL POC Glucose (mg/dL) 168 H 196 H 162 H (75-99) mg/dL Calcium (8.4-10.2) mg/dL AST (17-59) U/L Total Protein (6.3-8.2) g/dL Albumin (3.5-5.0) g/dL 01/19/18 01/19/18 01/19/18 Range/Units 04:24 04:24 04:28 RBC 2.77 L (4.30-5.90) m/uL Hgb 8.1 L (13.0-17.5) gm/dL Hct 24.8 L (39.0-53.0) % RDW 16.3 H (11.5-15.5) % Plt Count 111 L (150-450) k/uL Lymphocytes # 0.6 L (1.0-4.8) k/uL Sodium 146 H (137-145) mmol/L Chloride 114 H (98-107) mmol/L BUN 47 H (9-20) mg/dL Creatinine 1.30 H (0.66-1.25) mg/dL Glucose 158 H (74-99) mg/dL POC Glucose (mg/dL) 155 H (75-99) mg/dL Calcium 8.1 L (8.4-10.2) mg/dL AST 106 H (17-59) U/L Total Protein 5.0 L (6.3-8.2) g/dL Albumin 2.4 L (3.5-5.0) g/dL 01/19/18 Range/Units 12:08 RBC (4.30-5.90) m/uL Hgb (13.0-17.5) gm/dL Hct (39.0-53.0) % RDW (11.5-15.5) % Plt Count (150-450) k/uL Lymphocytes # (1.0-4.8) k/uL Sodium (137-145) mmol/L Chloride (98-107) mmol/L BUN (9-20) mg/dL Creatinine (0.66-1.25) mg/dL Glucose (74-99) mg/dL POC Glucose (mg/dL) 217 H (75-99) mg/dL Calcium (8.4-10.2) mg/dL AST (17-59) U/L Total Protein (6.3-8.2) g/dL Albumin (3.5-5.0) g/dL Assessment and Plan Plan: 1. Acute upper GI bleed with melanocytic stools, and acute blood loss anemia, secondary to esophageal ulcer and gastritis. Patient will be transferred out of ICU. [employer] was consulted Dr. Granger,we will transfuse with hemoglobin of less than 7, and GI consult with Dr. Salinas, for an EGD. Dr. Rodgers general surgeon. 2. Chronic liver cirrhosis and portal hypertension as noted through CT imaging , in 2015, ammonia levels are requested secondary to confusion, 3. Hyperammonemia, lactulose started 20 g 3 times a day, series of ammonia level to be made 4. Recurrent falls, multifactorial, was likely secondary to metabolic encephalopathy with ongoing liver cirrhosis, as well as sensory and motor neuropathy, primary possibly spinal stenosis, consulted with PT OT, discharge planning for possible skilled 5. Diabetes mellitus type 2, on metformin and glipizide, 6. Autonomic dysfunction/possible adrenal insufficiency, on Cortef 10 twice a day, and Florinef 0.05 mg twice a day however patient currently is nothing by mouth, with an NG tube, patient will be started on stress dose hydrocortisone 100 mg every 8 hours 7. COPD on Spiriva, and when necessary albuterol 8. Hypertension, and tachycardia, patient will be restarted on metoprolol 12.5 mg bid. 9. Lactic acidosis likely secondary to GI bleed, continue to monitor serially, 10. CK D stage III with acute kidney failure, azotemia, IV hydration, Ortiz in place. Monitor creatinine. 11. Leukocytosis, 12. Hematuria, this needs to be worked up as outpatient, patient is asymptomatic , would need evaluate with either renal ultrasound or CT of the abdomen once stabilized Discharge plan: To be determined Impression and plan of care have been directed as dictated by the signing physician. Radha Arredondo nurse practitioner acting as scribe for signing physician.
[2018-01-19] MEDS: TAMSULOSIN 0.4 MG CAP.ER.24H PO SCH (17:16)
[2018-01-19 17:24] LABS: Glucose,Whole Blood 124 mg/dL (75-99)
[2018-01-19 21:00] LABS: Glucose,Whole Blood 197 mg/dL (75-99)
[2018-01-19] MEDS: MELATONIN 3 MG TABLET PO SCH (21:05)
[2018-01-20] MEDS: HYDROCORTISONE SUCCINATE 100 MG/2 ML VIAL IV SCH ×2 (00:03→07:45)
[2018-01-20 05:03] LABS: Anisocytosis Slight; Basophils % (A) 0 %; Eosinophils % (A) 0 %; HCT 23.8 % (39.0-53.0); HGB 7.8 gm/dL (13.0-17.5); Lymphocytes # (A) 0.5 k/uL (1.0-4.8); Lymphocytes % (A) 8 %; MCH 29.2 pg (25.0-35.0); MCHC 32.7 g/dL (31.0-37.0); MCV 89.4 fL (80.0-100.0); Mean Platelet Volume 8.8; Monocytes # (A) 0.2 k/uL (0-1.0); Monocytes % (A) 4 %; Neutrophils # (A) 4.6 k/uL (1.3-7.7); Neutrophils % (A) 86 %; Platelet Count 100 k/uL (150-450); RBC 2.66 m/uL (4.30-5.90); RDW 16.6 % (11.5-15.5); WBC 5.4 k/uL (3.8-10.6)
[2018-01-20 05:16] LABS: Albumin 2.2 g/dL (3.5-5.0); Calcium 7.9 mg/dL (8.4-10.2); Phosphorus 2.9 mg/dL (2.5-4.5); Potassium 4.1 mmol/L (3.5-5.1); Total Protein 4.8 g/dL (6.3-8.2)
[2018-01-20] MEDS: SODIUM CHLORIDE 0.9% 1,000 ML IV SCH ×2 (06:32→17:57)
[2018-01-20 07:44] LABS: Glucose,Whole Blood 171 mg/dL (75-99)
[2018-01-20] MEDS: PANTOPRAZOLE 40 MG/10 ML VIAL IV SCH (07:45)
[2018-01-20] MEDS: METOPROLOL TARTRATE 12.5 MG TAB PO SCH ×2 (07:45→20:51)
[2018-01-20] MEDS: LACTULOSE 20 GM/30 ML CUP PO SCH ×2 (07:45→20:49)
[2018-01-20] MEDS: INSULIN ASPART 100 UNIT/ML 1 ML 10 ML VIAL SQ SCH ×4 (07:49→20:51)
--- NOTE | 2018-01-20 09:31 | P.PN ---
Subjective Progress Note Date: 01/20/18 Principal diagnosis: Upper GI bleed s/p EGD with findings of distal esophageal superficial ulceration. Hemoglobin 7.8. No bleeding this morning passing nonbloody BMs per nursing. Tolerating full liquids. Objective - Vital Signs Vital signs: Vital Signs Temp 98.2 F 01/20/18 08:00 Pulse 94 01/20/18 08:00 Resp 18 01/20/18 08:36 BP 124/78 01/20/18 08:00 Pulse Ox 94 L 01/20/18 08:00 Intake & Output 01/19/18 01/20/18 01/20/18 18:59 06:59 18:59 Intake Total 700 915 Output Total 220 275 Balance 480 640 Weight 117 kg Intake: IV 600 675 Sodium Chloride 0.9% 1, 600 675 000 ml @ 75 mls/hr IV . [id number] [facility] Rx#:[id number] Intake, IV Titration 100 Amount Sodium Ferric Gluconat- 100 Sucrose 125 mg In Sodium Chloride 0.9% 100 ml @ 100 mls/hr IVPB ONCE ONE Rx#:[id number] Oral 240 Output: Urine 220 275 Other: Voiding Method Indwelling Catheter Indwelling Catheter Indwelling Catheter # Bowel Movements 1 1 - Exam General appearance: The patient is alert, oriented, in no acute distress. HET: Head is normocephalic and atraumatic. Pupils are equal and reactive. Oropharynx is clear without lesions. Neck: Supple without lymphadenopathy. Trachea midline. Heart: S1 S2. Regular rate and rhythm. Lungs: No crackles or wheezes are heard. Abdomen: Soft, nontender, nondistended with bowel sounds. No peritoneal signs. No palpable organomegaly or masses. Extremities: Normal skin color and turgor. No cyanosis, rash, ulceration, clubbing, or edema. Radial and pedal pulses are 2/4 bilaterally. Ortiz with clear nicol urine. Neurological: No focal deficits. Strength and sensation are grossly intact. - Labs CBC & Chem 7: 01/20/18 04:29 01/20/18 04:29 Labs: Abnormal Lab Results - Last 24 Hours (Table) 01/19/18 01/19/18 01/19/18 Range/Units 12:08 17:23 20:59 RBC (4.30-5.90) m/uL Hgb (13.0-17.5) gm/dL Hct (39.0-53.0) % RDW (11.5-15.5) % Plt Count (150-450) k/uL Lymphocytes # (1.0-4.8) k/uL Chloride (98-107) mmol/L Carbon Dioxide (22-30) mmol/L BUN (9-20) mg/dL Glucose (74-99) mg/dL POC Glucose (mg/dL) 217 H 124 H 197 H (75-99) mg/dL Calcium (8.4-10.2) mg/dL AST (17-59) U/L Ammonia (<30) umol/L Total Protein (6.3-8.2) g/dL Albumin (3.5-5.0) g/dL 01/20/18 01/20/18 01/20/18 Range/Units 04:29 04:29 04:29 RBC 2.66 L (4.30-5.90) m/uL Hgb 7.8 L (13.0-17.5) gm/dL Hct 23.8 L (39.0-53.0) % RDW 16.6 H (11.5-15.5) % Plt Count 100 L (150-450) k/uL Lymphocytes # 0.5 L (1.0-4.8) k/uL Chloride 110 H (98-107) mmol/L Carbon Dioxide 21 L (22-30) mmol/L BUN 44 H (9-20) mg/dL Glucose 147 H (74-99) mg/dL POC Glucose (mg/dL) (75-99) mg/dL Calcium 7.9 L (8.4-10.2) mg/dL AST 108 H (17-59) U/L Ammonia 34 H (<30) umol/L Total Protein 4.8 L (6.3-8.2) g/dL Albumin 2.2 L (3.5-5.0) g/dL 01/20/18 Range/Units 07:43 RBC (4.30-5.90) m/uL Hgb (13.0-17.5) gm/dL Hct (39.0-53.0) % RDW (11.5-15.5) % Plt Count (150-450) k/uL Lymphocytes # (1.0-4.8) k/uL Chloride (98-107) mmol/L Carbon Dioxide (22-30) mmol/L BUN (9-20) mg/dL Glucose (74-99) mg/dL POC Glucose (mg/dL) 171 H (75-99) mg/dL Calcium (8.4-10.2) mg/dL AST (17-59) U/L Ammonia (<30) umol/L Total Protein (6.3-8.2) g/dL Albumin (3.5-5.0) g/dL Assessment and Plan (1) GI bleed Narrative/Plan: 82-year-old male admitted with reports of coffee-ground emesis and melena s/p EGD with findings of distal esophageal superficial ulceration with component of acute blood loss anemia. Current Visit: Yes Status: Acute Code(s): K92.2 - GASTROINTESTINAL HEMORRHAGE, UNSPECIFIED SNOMED Code(s): 23751734 Plan: 1. Slow advancement of diet. 2. Protonix 40 mg daily. 3. CBC monitoring. Assessment and plan of care discussed with Dr. Lopez
--- NOTE | 2018-01-20 11:40 | P.PN ---
Subjective Progress Note Date: 01/20/18 This is an 82-year-old gentleman patient of Dr. Rojas, with known history of CK D stage III, diabetes mellitus type 2, COPD, hyperlipidemia, and chronic anemia admitted from our facility in early August 2017, was diagnosed to have metabolic encephalopathy secondary to acute kidney injury and dehydration with hypoperfusion. Patient comes into the emergency room with a four-day history of black stools, has had increasing falls, no abdominal pain, patient denies any hematochezia, patient is not an alcoholic drinker currently, and was not feeling very well hence the ER admission. Patient has fallen numerous times, and the last one was 2 days ago, previous to this, patient had cracked the ribs , 4 weeks prior to admission. Patient follows up with Dr. Rojas every 4 months regimen, his due to see him in 01/20/2018 In the emergency room, he was noted to have Hemoccult-positive stools, patient was noted to have melanocytic stools, Hemoccult positive, hematuria with RBC of 59, double see if 1, moderate ketones, EKG shows sinus tachycardia with right bundle branch block, left anterior fascicular block, and pulmonary disease pattern heart rate of 124. Patient is admitted to ICU secondary to melanocytic stools with hemoglobin of 9, consult to Gen. surgery Dr. Montes and Dr. Haq gastroenterology. Admitting lactic acid was significantly elevated at 10.0 with a peak of 11.4, wbc of 15 troponin of 0.077 Previous imaging in our facility shows small amount of ascites, in the abdomen noted in May 2014 and CAT scan chest 2014, cholelithiasis, and evidence of cirrhosis and portal hypertension, improving pleural effusion, improving right apical nodule When patient was seen, patient was very much confused, trying to grab things in the area, very dry mouth, patient's nothing by mouth, and has a bilateral wrist restraints, ammonia levels were requested, family at bedside, CODE STATUS was discussed and is DO NOT RESUSCITATE no CPR with options for vent if needed 01/18: Hemoglobin is stable at 8.8. Patient is scheduled for EGD. The patient has had small bowel movements 7. Lactulose is on hold. Stools have been tarry in color. Cardiology is following for tachycardia. No plan for any further workup. 01/19: EGD revealed distal esophageal ulcer and gastritis but no active bleeding. Hemoglobin is 8.1. Ferrlecit ordered 1 dose. Patient is more alert today. Ammonia level is less than 9. Patient does have a large bruising area to the left antecubital which we will plan for Bactroban. Patient will be transferred out of intensive care today. PT will be started to help determine discharge plan. 01/20: Patient has less alert today. He missed a dose of lactulose and ammonia level is 34 today. He has a sitter at the bedside. Hemoglobin is currently 7.8. [facility] He is hemodynamically stable will now be transferred to [facility]. Lactulose decrease to twice daily. Home medications reviewed and those appropriate have been resumed. Objective - Vital Signs Vital signs: Vital Signs Temp 98.2 F 01/20/18 08:00 Pulse 94 01/20/18 08:00 Resp 18 01/20/18 08:36 BP 124/78 01/20/18 08:00 Pulse Ox 94 L 01/20/18 08:00 Intake & Output 01/19/18 01/20/18 01/20/18 18:59 06:59 18:59 Intake Total 700 915 Output Total 220 275 Balance 480 640 Weight 117 kg Intake: IV 600 675 Sodium Chloride 0.9% 1, 600 675 000 ml @ 75 mls/hr IV . [id number] [facility] Rx#:[id number] Intake, IV Titration 100 Amount Sodium Ferric Gluconat- 100 Sucrose 125 mg In Sodium Chloride 0.9% 100 ml @ 100 mls/hr IVPB ONCE ONE Rx#:[id number] Oral 240 Output: Urine 220 275 Other: Voiding Method Indwelling Catheter Indwelling Catheter Indwelling Catheter # Bowel Movements 1 1 - Exam General appearance: cooperative, obese - EENT Eyes: anicteric sclerae, EOMI ENT: NA/AT - Neck Neck: normal ROM - Respiratory Respiratory: bilateral: CTA, diminished, negative: dullness, rales, rhonchi, wheezing - Cardiovascular Rhythm: regular Heart sounds: normal: S1, S2 - Gastrointestinal General gastrointestinal: normal bowel sounds, soft - Integumentary Integumentary: decreased turgor, normal - Neurologic awake, oriented to person and place. - Labs CBC & Chem 7: 01/20/18 04:29 01/20/18 04:29 Labs: Abnormal Lab Results - Last 24 Hours (Table) 01/19/18 01/19/18 01/19/18 Range/Units 12:08 17:23 20:59 RBC (4.30-5.90) m/uL Hgb (13.0-17.5) gm/dL Hct (39.0-53.0) % RDW (11.5-15.5) % Plt Count (150-450) k/uL Lymphocytes # (1.0-4.8) k/uL Chloride (98-107) mmol/L Carbon Dioxide (22-30) mmol/L BUN (9-20) mg/dL Glucose (74-99) mg/dL POC Glucose (mg/dL) 217 H 124 H 197 H (75-99) mg/dL Calcium (8.4-10.2) mg/dL AST (17-59) U/L Ammonia (<30) umol/L Total Protein (6.3-8.2) g/dL Albumin (3.5-5.0) g/dL 01/20/18 01/20/18 01/20/18 Range/Units 04:29 04:29 04:29 RBC 2.66 L (4.30-5.90) m/uL Hgb 7.8 L (13.0-17.5) gm/dL Hct 23.8 L (39.0-53.0) % RDW 16.6 H (11.5-15.5) % Plt Count 100 L (150-450) k/uL Lymphocytes # 0.5 L (1.0-4.8) k/uL Chloride 110 H (98-107) mmol/L Carbon Dioxide 21 L (22-30) mmol/L BUN 44 H (9-20) mg/dL Glucose 147 H (74-99) mg/dL POC Glucose (mg/dL) (75-99) mg/dL Calcium 7.9 L (8.4-10.2) mg/dL AST 108 H (17-59) U/L Ammonia 34 H (<30) umol/L Total Protein 4.8 L (6.3-8.2) g/dL Albumin 2.2 L (3.5-5.0) g/dL 01/20/18 Range/Units 07:43 RBC (4.30-5.90) m/uL Hgb (13.0-17.5) gm/dL Hct (39.0-53.0) % RDW (11.5-15.5) % Plt Count (150-450) k/uL Lymphocytes # (1.0-4.8) k/uL Chloride (98-107) mmol/L Carbon Dioxide (22-30) mmol/L BUN (9-20) mg/dL Glucose (74-99) mg/dL POC Glucose (mg/dL) 171 H (75-99) mg/dL Calcium (8.4-10.2) mg/dL AST (17-59) U/L Ammonia (<30) umol/L Total Protein (6.3-8.2) g/dL Albumin (3.5-5.0) g/dL Assessment and Plan Plan: 1. Acute upper GI bleed with acute blood loss anemia, secondary to esophageal ulcer and gastritis. Patient will be transferred out of ICU. Clinical Resource Coordinator was consulted Dr. Granger,we will transfuse with hemoglobin of less than 7, and GI consult with Dr. Lopez, for an EGD. Dr. Rodgers general surgeon. 2. Chronic liver cirrhosis and portal hypertension as noted through CT imaging , in 2015, ammonia levels are requested secondary to confusion. Lactulose twice daily. Aldactone will be resumed. 13. Hyperlipidemia. Patient will be resumed back on Lipitor. 3. Hyperammonemia, lactulose started 20 g 2 times a day, series of ammonia level to be made 4. Recurrent falls, multifactorial, was likely secondary to metabolic encephalopathy with ongoing liver cirrhosis, as well as sensory and motor neuropathy, primary possibly spinal stenosis, consulted with PT OT, discharge planning for possible skilled 5. Diabetes mellitus type 2, on metformin and glipizide--resumed 6. Autonomic dysfunction/possible adrenal insufficiency, patient resumed on home dose of Cortef and Florinef. Hydrocortisone discontinued 7. COPD on Spiriva, and when necessary albuterol 8. Hypertension, and tachycardia, patient will be restarted on metoprolol 12.5 mg bid. 9. Lactic acidosis likely secondary to GI bleed, continue to monitor serially, 10. CK D stage III with acute kidney failure, azotemia, IV hydration, Ortiz in place. Monitor creatinine. 11. Leukocytosis, 12. Hematuria, this needs to be worked up as outpatient, patient is asymptomatic , would need evaluate with either renal ultrasound or CT of the abdomen once stabilized 13. Hyperlipidemia. Patient will be resumed back on atorvastatin. 14. Mildly elevated troponins for which acute coronary syndrome has been ruled out. 15. No previous diagnosis right also of heart failure. He is on Aldactone due to liver failure. 16. Severe protein calorie malnutrition secondary to cirrhosis of the liver with albumin of 2.2. Ensure added. Discharge plan: PT and OT added as patient may benefit from subacute rehab. Impression and plan of care have been directed as dictated by the signing physician. Radha Arredondo nurse practitioner acting as scribe for signing physician.
--- NOTE | 2018-01-20 11:49 | P.PN ---
Subjective Progress Note Date: 01/20/18 01/16/18-This is an 82-year-old gentleman who presented emergency department complaining of generalized weakness. The patient apparently had a large black bowel movement overnight. He also had coffee-ground emesis the emergency department. An NG tube was placed and 900 mL of coffee-ground fluid has been suctioned. The patient denies abdominal pain. He has received one and half liters of normal saline. He was found to have a lactic acid of 10. The patient denies abdominal pain, nausea, vomiting. He denies a history of GI bleed however the patient appears to be a poor historian. His hemoglobin is currently 9.9. History is mostly obtained from the electronic medical record. 01/17/18- Please see Dr. Baron Pool note 01/18/18- patient been seen examined and evaluated on rounds in the intensive care unit. The patient is resting up in bed on room air. He will be going for an EGD with Dr. Claros this afternoon. He continues to have some coffee ground liquid coming from the NG tube as well as some dark stools. His current hemoglobin is 8.8 WBCs 9.5 has lactic acid has come down to 1.7. He has been afebrile denies any further complaints. Denies any pain. All labs and reports have been reviewed. 01/19/18- patient is in seen examined and evaluated today on rounds. He is resting up in bed on room air. He states he is feeling better today. He did go for an EGD with GI yesterday and then nonbleeding ulcer was found. Patient has had no further episodes of bleeding. He is afebrile, no further complaints. All labs and reports have been reviewed. 01/20/18- patient's being seen examined and evaluated today on rounds. He continues on room air denies any shortness of breath cough or congestion at this time. He has had no further bleeding. His hemoglobin has been stable his diet has been advanced per surgical services, he is tolerating a full liquid diet at this time. Patient has been working with therapy. Objective - Vital Signs Vital signs: Vital Signs Temp 98.2 F 01/20/18 08:00 Pulse 94 01/20/18 08:00 Resp 18 01/20/18 08:36 BP 124/78 01/20/18 08:00 Pulse Ox 94 L 01/20/18 08:00 Intake & Output 01/19/18 01/20/18 01/20/18 18:59 06:59 18:59 Intake Total 700 915 Output Total 220 275 Balance 480 640 Weight 117 kg Intake: IV 600 675 Sodium Chloride 0.9% 1, 600 675 000 ml @ 75 mls/hr IV . [id number] [facility] Rx#:[id number] Intake, IV Titration 100 Amount Sodium Ferric Gluconat- 100 Sucrose 125 mg In Sodium Chloride 0.9% 100 ml @ 100 mls/hr IVPB ONCE ONE Rx#:[id number] Oral 240 Output: Urine 220 275 Other: Voiding Method Indwelling Catheter Indwelling Catheter Indwelling Catheter # Bowel Movements 1 1 - Exam Gen.: Patient is alert and oriented 3, no acute distress, poor historian Cardiovascular: Tachycardic, regular rate and rhythm, S1/S2 Lungs: Diminished breath sounds bilaterally otherwise clear Abdomen: Soft nontender nondistended positive bowel sounds Extremities: Trace edema - Labs CBC & Chem 7: 01/20/18 04:29 01/20/18 04:29 Labs: Abnormal Lab Results - Last 24 Hours (Table) 01/19/18 01/19/18 01/19/18 Range/Units 12:08 17:23 20:59 RBC (4.30-5.90) m/uL Hgb (13.0-17.5) gm/dL Hct (39.0-53.0) % RDW (11.5-15.5) % Plt Count (150-450) k/uL Lymphocytes # (1.0-4.8) k/uL Chloride (98-107) mmol/L Carbon Dioxide (22-30) mmol/L BUN (9-20) mg/dL Glucose (74-99) mg/dL POC Glucose (mg/dL) 217 H 124 H 197 H (75-99) mg/dL Calcium (8.4-10.2) mg/dL AST (17-59) U/L Ammonia (<30) umol/L Total Protein (6.3-8.2) g/dL Albumin (3.5-5.0) g/dL 01/20/18 01/20/18 01/20/18 Range/Units 04:29 04:29 04:29 RBC 2.66 L (4.30-5.90) m/uL Hgb 7.8 L (13.0-17.5) gm/dL Hct 23.8 L (39.0-53.0) % RDW 16.6 H (11.5-15.5) % Plt Count 100 L (150-450) k/uL Lymphocytes # 0.5 L (1.0-4.8) k/uL Chloride 110 H (98-107) mmol/L Carbon Dioxide 21 L (22-30) mmol/L BUN 44 H (9-20) mg/dL Glucose 147 H (74-99) mg/dL POC Glucose (mg/dL) (75-99) mg/dL Calcium 7.9 L (8.4-10.2) mg/dL AST 108 H (17-59) U/L Ammonia 34 H (<30) umol/L Total Protein 4.8 L (6.3-8.2) g/dL Albumin 2.2 L (3.5-5.0) g/dL 01/20/18 Range/Units 07:43 RBC (4.30-5.90) m/uL Hgb (13.0-17.5) gm/dL Hct (39.0-53.0) % RDW (11.5-15.5) % Plt Count (150-450) k/uL Lymphocytes # (1.0-4.8) k/uL Chloride (98-107) mmol/L Carbon Dioxide (22-30) mmol/L BUN (9-20) mg/dL Glucose (74-99) mg/dL POC Glucose (mg/dL) 171 H (75-99) mg/dL Calcium (8.4-10.2) mg/dL AST (17-59) U/L Ammonia (<30) umol/L Total Protein (6.3-8.2) g/dL Albumin (3.5-5.0) g/dL Assessment and Plan Assessment: Assessment Acute GIB Leukocytosis ABLA Lactic acidosis AGMA ALONDRA NSTEMI History of CHF, unknown type COPD DM2 Dyslipidemia Chronic steroids, question orthostatic hypotension Nonbleeding ulcer found on EKG Plan Status post EGD Continue IVF hydration Monitor H/H, monitor for any overt signs of bleeding Repeat LA, reviewed and is now 1.7 Monitor lytes, coags Echocardiogram No anticoagulation Surgery and GI recommendations Diet advanced per GI recommendations Consult cardiology Protonix SCDs for DVT prophylaxis Thank you for this consultation. We will continue to follow along. I performed an examination of the patient and discussed their management with the nurse practitioner. I have reviewed the nurse practitioner's note and agree with the documented findings and plan of care.
[2018-01-20 12:26] LABS: Glucose,Whole Blood 239 mg/dL (75-99)
--- NOTE | 2018-01-20 14:06 | CDI ---
Last Revision, October 2017 Documentation Clarification Form Date: 01/20/2018 From: Salima Lopez RN, CCDS Admit Date: 01/16/2018 2:00:00 PM Patient Name: Kayden Méndez Visit Number: [id number] Discharge Date: ATTENTION: The Clinical Documentation Specialists (CDI) and [facility] Coding Staff appreciate your assistance in clarifying documentation. Please respond to the clarification below the line at the bottom and electronically sign. The CDI & [facility] Coding staff will review the response and follow-up if needed. Please note: Queries are made part of the Legal Health Record. If you have any questions, please contact the author of this message via ITS. Dr. Jenifer Granger NSTEMI is documented in the ongoing pulmonary progress notes. Patient History/Risk Factors: Heart Failure, COPD, CVA/TIA, Diabetes Mellitus, Hyperlipidemia, Hypertension Clinical Indicators: Present with complaints of generalized weakness. He had a large bowel movement and it was black. Troponin: 0.060, 0.077 Labs: Lactic acid 10.0, BUN 54, CR 1.70, WBC 16.2 EKG Results: Sinus tachycardia 124 bpm Treatment: Monitor Labs Cardiology Consult: Twelve-lead ECG shows sinus tachycardia right bundle branch block left anterior fascicular block right axis. Impression: GI bleeding metabolic encephalopathy patient obtunded chronic kidney disease. Plan GI management of bleeding . No further cardiac workup In order to capture the severity of condition and necessary documentation , please clarify: NSTEMI ruled in NSTEMI ruled out Unable to determine Other Condition, please specify Please continue to document in your progress notes and discharge summary in order to capture severity of illness and risk of mortality. Include clinical findings that support your diagnosis. MTDD
[2018-01-20 17:25] LABS: Glucose,Whole Blood 174 mg/dL (75-99)
[2018-01-20] MEDS: glipiZIDE 5 MG TAB PO SCH (17:44)
[2018-01-20] MEDS: metFORMIN 500 MG TAB PO SCH (17:44)
[2018-01-20] MEDS: TAMSULOSIN 0.4 MG CAP.ER.24H PO SCH (17:45)
[2018-01-20 20:07] LABS: Glucose,Whole Blood 153 mg/dL (75-99)
[2018-01-20] MEDS: ATORVASTATIN 10 MG TAB PO SCH (20:49)
[2018-01-20] MEDS: FLUDROCORTISONE 0.1 MG TAB PO SCH (20:50)
[2018-01-20] MEDS: HYDROCORTISONE 10 MG TAB PO SCH (20:51)
[2018-01-20] MEDS: MELATONIN 3 MG TABLET PO SCH (20:51)
[2018-01-21 07:36] LABS: Glucose,Whole Blood 76 mg/dL (75-99)
[2018-01-21 07:36] LABS: Anisocytosis Slight; HCT 21.7 % (39.0-53.0); HGB 7.2 gm/dL (13.0-17.5); MCH 29.1 pg (25.0-35.0); MCV 88.4 fL (80.0-100.0); Mean Platelet Volume 8.4; Platelet Count 104 k/uL (150-450); Poikilocytosis Slight; RBC 2.46 m/uL (4.30-5.90); RDW 17.1 % (11.5-15.5); WBC 6.1 k/uL (3.8-10.6)
[2018-01-21] MEDS: INSULIN ASPART 100 UNIT/ML 1 ML 10 ML VIAL SQ SCH ×4 (07:39→21:27)
[2018-01-21 07:57] LABS: Albumin 2.1 g/dL (3.5-5.0); Calcium 7.7 mg/dL (8.4-10.2); Potassium 3.7 mmol/L (3.5-5.1); Total Bilirubin 0.9 mg/dL (0.2-1.3); Total Protein 4.6 g/dL (6.3-8.2)
[2018-01-21] MEDS: LACTULOSE 20 GM/30 ML CUP PO SCH ×2 (08:57→21:28)
[2018-01-21] MEDS: FLUDROCORTISONE 0.1 MG TAB PO SCH ×2 (08:58→21:28)
[2018-01-21] MEDS: metFORMIN 500 MG TAB PO SCH ×2 (08:58→17:53)
[2018-01-21] MEDS: glipiZIDE 5 MG TAB PO SCH ×2 (08:58→17:54)
[2018-01-21] MEDS: METOPROLOL TARTRATE 12.5 MG TAB PO SCH ×2 (08:58→21:27)
[2018-01-21] MEDS: PANTOPRAZOLE 40 MG/10 ML VIAL IV SCH (08:59)
[2018-01-21] MEDS: SPIRONOLACTONE 25 MG TAB PO SCH (08:59)
[2018-01-21] MEDS: HYDROCORTISONE 10 MG TAB PO SCH ×2 (08:59→21:28)
--- NOTE | 2018-01-21 11:13 | P.PN ---
Subjective Progress Note Date: 01/21/18 01/16/18-This is an 82-year-old gentleman who presented emergency department complaining of generalized weakness. The patient apparently had a large black bowel movement overnight. He also had coffee-ground emesis the emergency department. An NG tube was placed and 900 mL of coffee-ground fluid has been suctioned. The patient denies abdominal pain. He has received one and half liters of normal saline. He was found to have a lactic acid of 10. The patient denies abdominal pain, nausea, vomiting. He denies a history of GI bleed however the patient appears to be a poor historian. His hemoglobin is currently 9.9. History is mostly obtained from the electronic medical record. 01/17/18- Please see Dr. Baron Pool note 01/18/18- patient been seen examined and evaluated on rounds in the intensive care unit. The patient is resting up in bed on room air. He will be going for an EGD with Dr. Claros this afternoon. He continues to have some coffee ground liquid coming from the NG tube as well as some dark stools. His current hemoglobin is 8.8 WBCs 9.5 has lactic acid has come down to 1.7. He has been afebrile denies any further complaints. Denies any pain. All labs and reports have been reviewed. 01/19/18- patient is in seen examined and evaluated today on rounds. He is resting up in bed on room air. He states he is feeling better today. He did go for an EGD with GI yesterday and then nonbleeding ulcer was found. Patient has had no further episodes of bleeding. He is afebrile, no further complaints. All labs and reports have been reviewed. 01/20/18- patient's being seen examined and evaluated today on rounds. He continues on room air denies any shortness of breath cough or congestion at this time. He has had no further bleeding. His hemoglobin has been stable his diet has been advanced per surgical services, he is tolerating a full liquid diet at this time. Patient has been working with therapy. 01/21/2018: Patient seen and examined. Patient states that he is feeling good. He has no needs or complaints. He is currently on 2 L nasal cannula. He denies any shortness of breath or chest pain. He denies abdominal pain. The patient states his cough is improving. Objective - Vital Signs Vital signs: Vital Signs Temp 97.5 F L 01/21/18 07:00 Pulse 89 01/21/18 07:00 Resp 18 01/21/18 07:00 BP 108/52 01/21/18 07:00 Pulse Ox 96 01/21/18 07:00 Intake & Output 01/20/18 01/21/18 01/21/18 18:59 06:59 18:59 Intake Total 1440 480 Output Total 100 Balance 1340 480 Weight 117 kg Intake: Oral 1440 480 Output: Urine 100 Other: Voiding Method Indwelling Catheter Bedside Commode # Voids 2 # Bowel Movements 1 - Exam Gen.: Patient is alert and oriented 3, no acute distress, poor historian Cardiovascular: Tachycardic, regular rate and rhythm, S1/S2 Lungs: Diminished breath sounds bilaterally otherwise clear Abdomen: Soft nontender nondistended positive bowel sounds Extremities: Trace edema - Labs CBC & Chem 7: 01/21/18 06:58 01/21/18 06:58 Labs: Abnormal Lab Results - Last 24 Hours (Table) 01/20/18 01/20/18 01/20/18 Range/Units 12:22 17:15 20:06 RBC (4.30-5.90) m/uL Hgb (13.0-17.5) gm/dL Hct (39.0-53.0) % RDW (11.5-15.5) % Plt Count (150-450) k/uL Chloride (98-107) mmol/L Carbon Dioxide (22-30) mmol/L BUN (9-20) mg/dL Creatinine (0.66-1.25) mg/dL Glucose (74-99) mg/dL POC Glucose (mg/dL) 239 H 174 H 153 H (75-99) mg/dL Calcium (8.4-10.2) mg/dL AST (17-59) U/L Alkaline Phosphatase (38-126) U/L Total Protein (6.3-8.2) g/dL Albumin (3.5-5.0) g/dL 01/21/18 01/21/18 Range/Units 06:58 06:58 RBC 2.46 L (4.30-5.90) m/uL Hgb 7.2 L (13.0-17.5) gm/dL Hct 21.7 L (39.0-53.0) % RDW 17.1 H (11.5-15.5) % Plt Count 104 L (150-450) k/uL Chloride 108 H (98-107) mmol/L Carbon Dioxide 21 L (22-30) mmol/L BUN 43 H (9-20) mg/dL Creatinine 1.26 H (0.66-1.25) mg/dL Glucose 69 L (74-99) mg/dL POC Glucose (mg/dL) (75-99) mg/dL Calcium 7.7 L (8.4-10.2) mg/dL AST 110 H (17-59) U/L Alkaline Phosphatase 130 H (38-126) U/L Total Protein 4.6 L (6.3-8.2) g/dL Albumin 2.1 L (3.5-5.0) g/dL Assessment and Plan Assessment: Acute upper GIB Leukocytosis ABLA Lactic acidosis AGMA ALONDRA, improving NSTEMI History of CHF, unknown type COPD DM2 Dyslipidemia Chronic steroids, question orthostatic hypotension Nonbleeding ulcer found on EGD Plan Status post EGD Monitor H/H, monitor for any overt signs of bleeding Monitor lytes, coags No anticoagulation Surgery and GI recommendations Diet advanced per GI recommendations Protonix SCDs for DVT prophylaxis Respiratory status is stable Decrease IVF Bronchodilators PRN
[2018-01-21] MEDS: SODIUM CHLORIDE 0.9% 1,000 ML IV SCH ×3 (11:37→11:40)
[2018-01-21] MEDS ORDERED: FUROSEMIDE 10 MG/ML 2 ML VIAL IV ONE (12:19)
[2018-01-21] MEDS: IPRATROPIUM-ALBUTEROL 3 ML NEB INHALATION PRN ×3 (12:25→20:15)
--- NOTE | 2018-01-21 12:28 | P.PN ---
Subjective Progress Note Date: 01/21/18 Principal diagnosis: GI bleed Patient continued to be hemodynamically stable no major events reported by nursing staff patient currently is alert and oriented denying chest pain, shortness breath, nausea, vomiting, abdominal pain, dizziness or lightheadedness. Patient mentioned that he had no bowel movement today but nursing staff is reporting one bowel movement with fresh blood. Objective - Vital Signs Vital signs: Vital Signs Temp 97.5 F L 01/21/18 07:00 Pulse 89 01/21/18 07:00 Resp 18 01/21/18 07:00 BP 108/52 01/21/18 07:00 Pulse Ox 96 01/21/18 07:00 Intake & Output 01/20/18 01/21/18 01/21/18 18:59 06:59 18:59 Intake Total 1440 480 Output Total 100 Balance 1340 480 Weight 117 kg Intake: Oral 1440 480 Output: Urine 100 Other: Voiding Method Indwelling Catheter Bedside Commode # Voids 2 # Bowel Movements 1 1 - Exam Gen.: in stated age, no acute distress Heart: Normal S1-S2 Lungs: Clear to auscultation bilaterally Abdomen: Soft, distended at baseline, no tenderness, positive bowel sounds in all 4 quadrant no guarding or rebound Skin: No new rash Psych: Alert and oriented 3 Neuro: No focal deficit Lower extremity seems to be with chronic edema - Labs CBC & Chem 7: 01/21/18 06:58 01/21/18 06:58 Labs: Abnormal Lab Results - Last 24 Hours (Table) 01/20/18 01/20/18 01/20/18 Range/Units 12:22 17:15 20:06 RBC (4.30-5.90) m/uL Hgb (13.0-17.5) gm/dL Hct (39.0-53.0) % RDW (11.5-15.5) % Plt Count (150-450) k/uL Chloride (98-107) mmol/L Carbon Dioxide (22-30) mmol/L BUN (9-20) mg/dL Creatinine (0.66-1.25) mg/dL Glucose (74-99) mg/dL POC Glucose (mg/dL) 239 H 174 H 153 H (75-99) mg/dL Calcium (8.4-10.2) mg/dL AST (17-59) U/L Alkaline Phosphatase (38-126) U/L Total Protein (6.3-8.2) g/dL Albumin (3.5-5.0) g/dL 01/21/18 01/21/18 Range/Units 06:58 06:58 RBC 2.46 L (4.30-5.90) m/uL Hgb 7.2 L (13.0-17.5) gm/dL Hct 21.7 L (39.0-53.0) % RDW 17.1 H (11.5-15.5) % Plt Count 104 L (150-450) k/uL Chloride 108 H (98-107) mmol/L Carbon Dioxide 21 L (22-30) mmol/L BUN 43 H (9-20) mg/dL Creatinine 1.26 H (0.66-1.25) mg/dL Glucose 69 L (74-99) mg/dL POC Glucose (mg/dL) (75-99) mg/dL Calcium 7.7 L (8.4-10.2) mg/dL AST 110 H (17-59) U/L Alkaline Phosphatase 130 H (38-126) U/L Total Protein 4.6 L (6.3-8.2) g/dL Albumin 2.1 L (3.5-5.0) g/dL Assessment and Plan Assessment: 1. GI bleed likely lower. 2. Liver cirrhosis. 3. Elevated liver enzymes. 4. Diabetes mellitus. 5. Blood loss anemia. 6. Elevated ammonia level, chronic. 7. COPD. 8. Chronic kidney disease stage III. 9. Moderate to severe protein calorie malnutrition Plan: I would like to reconsult with GI regarding current GI bleed which seems to be lower and possible need for colonoscopy as soon as possible area didn't we will check on CBC again this afternoon monitor vital signs closely if hemoglobin is less than 7 would consider blood transfusion. I would like to provide patients with one dose of Lasix 20 mg IV push given the swelling in the legs and distention and abdomen monitor his vital signs closely plan discussed with the nursing staff and with family at the bedside
[2018-01-21 12:41] LABS: Glucose,Whole Blood 181 mg/dL (75-99)
[2018-01-21 16:51] LABS: Anisocytosis Slight; Basophils # (A) 0.1 k/uL (0-0.2); Basophils % (A) 1 %; Eosinophils # (A) 0.1 k/uL (0-0.7); Eosinophils % (A) 1 %; HCT 24.9 % (39.0-53.0); Hypochromasia Slight; Lymphocytes # (A) 1.2 k/uL (1.0-4.8); Lymphocytes % (A) 13 %; MCH 29.9 pg (25.0-35.0); MCHC 32.1 g/dL (31.0-37.0); MCV 92.9 fL (80.0-100.0); Mean Platelet Volume 8.5; Monocytes % (A) 10 %; Neutrophils # (A) 6.8 k/uL (1.3-7.7); Neutrophils % (A) 72 %; Platelet Count 115 k/uL (150-450); RBC 2.67 m/uL (4.30-5.90); RDW 17.2 % (11.5-15.5); WBC 9.4 k/uL (3.8-10.6)
[2018-01-21 17:14] LABS: Glucose,Whole Blood 88 mg/dL (75-99)
[2018-01-21] MEDS: TAMSULOSIN 0.4 MG CAP.ER.24H PO SCH (17:53)
[2018-01-21 20:19] LABS: Glucose,Whole Blood 229 mg/dL (75-99)
[2018-01-21] MEDS: MELATONIN 3 MG TABLET PO SCH (21:27)
[2018-01-21] MEDS: ATORVASTATIN 10 MG TAB PO SCH (21:28)
[2018-01-22] MEDS: INSULIN ASPART 100 UNIT/ML 1 ML 10 ML VIAL SQ SCH ×5 (07:56→21:36)
[2018-01-22] MEDS: metFORMIN 500 MG TAB PO SCH ×2 (07:58→17:41)
[2018-01-22] MEDS: glipiZIDE 5 MG TAB PO SCH ×2 (07:58→17:41)
[2018-01-22 08:13] LABS: Glucose,Whole Blood 119 mg/dL (75-99)
[2018-01-22] MEDS: SPIRONOLACTONE 25 MG TAB PO SCH (08:50)
[2018-01-22] MEDS: LACTULOSE 20 GM/30 ML CUP PO SCH ×2 (08:50→20:27)
[2018-01-22] MEDS: FLUDROCORTISONE 0.1 MG TAB PO SCH ×2 (08:50→20:26)
[2018-01-22] MEDS: METOPROLOL TARTRATE 12.5 MG TAB PO SCH ×2 (08:50→20:27)
[2018-01-22] MEDS: HYDROCORTISONE 10 MG TAB PO SCH ×2 (08:50→20:26)
[2018-01-22] MEDS: PANTOPRAZOLE 40 MG/10 ML VIAL IV SCH (08:50)
[2018-01-22] MEDS: SODIUM CHLORIDE 0.9% 1,000 ML IV SCH (08:54)
[2018-01-22] MEDS: IPRATROPIUM-ALBUTEROL 3 ML NEB INHALATION PRN ×3 (11:18→19:05)
[2018-01-22 12:04] LABS: Glucose,Whole Blood 190 mg/dL (75-99)
[2018-01-22] MEDS ORDERED: PEG 3350-NA SULF,BICARB,CL/KCL 4,000 ML BOTTLE PO ONE (12:36)
[2018-01-22 17:24] LABS: Glucose,Whole Blood 237 mg/dL (75-99)
[2018-01-22] MEDS: FUROSEMIDE 10 MG/ML 2 ML VIAL IV SCH (17:38)
[2018-01-22] MEDS: TAMSULOSIN 0.4 MG CAP.ER.24H PO SCH (17:41)
[2018-01-22] MEDS: MELATONIN 3 MG TABLET PO SCH (20:26)
[2018-01-22] MEDS: ATORVASTATIN 10 MG TAB PO SCH (20:26)
[2018-01-22 21:18] LABS: Glucose,Whole Blood 215 mg/dL (75-99)
--- NOTE | 2018-01-22 21:50 | P.PN ---
Subjective Progress Note Date: 01/22/18 Principal diagnosis: GI bleed Patient continued to be hemodynamically stable no major events reported by nursing staff patient currently is alert and oriented denying chest pain, shortness breath, nausea, vomiting, abdominal pain, dizziness or lightheadedness. Patient with no bowel movement today. Objective - Vital Signs Vital signs: Vital Signs Temp 98.1 F 01/22/18 15:00 Pulse 82 01/22/18 19:05 Resp 18 01/22/18 16:00 BP 132/54 01/22/18 15:00 Pulse Ox 99 01/22/18 15:00 Intake & Output 01/22/18 01/22/18 01/23/18 06:59 18:59 06:59 Intake Total 140 1040 Balance 140 1040 Weight 117 kg Intake: IV 140 80 Sodium Chloride 0.9% 1, 140 80 000 ml @ 40 mls/hr IV . Q24H EVELIN Rx#:[id number] Oral 960 Other: Voiding Method Bedside Commode Bedside Commode # Voids 2 1 # Bowel Movements 1 - Exam Gen.: in stated age, no acute distress Heart: Normal S1-S2 Lungs: Clear to auscultation bilaterally Abdomen: Soft, distended at baseline, no tenderness, positive bowel sounds in all 4 quadrant no guarding or rebound Skin: No new rash Psych: Alert and oriented 3 Neuro: No focal deficit Lower extremity seems to be with chronic edema - Labs CBC & Chem 7: 01/21/18 16:26 01/21/18 06:58 Labs: Abnormal Lab Results - Last 24 Hours (Table) 01/22/18 01/22/18 01/22/18 Range/Units 07:31 12:00 17:21 POC Glucose (mg/dL) 119 H 190 H 237 H (75-99) mg/dL 01/22/18 Range/Units 21:17 POC Glucose (mg/dL) 215 H (75-99) mg/dL Assessment and Plan Assessment: 1. GI bleed likely lower. 2. Liver cirrhosis. 3. Elevated liver enzymes. 4. Diabetes mellitus. 5. Blood loss anemia. 6. Elevated ammonia level, chronic. 7. COPD. 8. Chronic kidney disease stage III. 9. Moderate to severe protein calorie malnutrition Plan: I discussed with GI regarding LGIB and need for colonoscopy, will keep pt npo pmn, start clear and bowel prep d/w nursing staff. I would like to Hg and VS closely.
--- NOTE | 2018-01-22 22:42 | P.PN ---
Subjective Progress Note Date: 01/21/18 Principal diagnosis: GI bleeding The patient was reported to pass fresh bleeding per rectum mixed with normal- looking stools with drop in his hemoglobin. He denied abdominal pains. No further upper GI complaints or black stools. His EGD done on January 17 showed distal esophageal ulcer and gastritis. Objective - Vital Signs Vital signs: Vital Signs Temp 97.5 F L 01/21/18 07:00 Pulse 84 01/21/18 12:38 Resp 18 01/21/18 07:00 BP 108/52 01/21/18 07:00 Pulse Ox 96 01/21/18 07:00 Intake & Output 01/20/18 01/21/18 01/21/18 18:59 06:59 18:59 Intake Total 1440 480 Output Total 100 Balance 1340 480 Weight 117 kg Intake: Oral 1440 480 Output: Urine 100 Other: Voiding Method Indwelling Catheter Bedside Commode # Voids 2 1 # Bowel Movements 1 3 - Exam General: Appears stated age, very pleasant in no acute distress Head and neck: Normocephalic and atraumatic, conjunctivae pink and sclerae not icteric, mucous membranes moist and pink. No masses in the neck or tracheal shifts Lungs: Clear to auscultation with no dullness to percussion Heart: Regular, no abnormal sounds, murmurs, gallops or friction rubs Abdomen: Soft, no masses or organomegalies. No tenderness or guarding. Bowel sounds present Extremities: No clubbing, cyanosis or edema Neurologic: Alert and oriented. Cranial nerves grossly intact. No gross sensory or motor abnormalities - Labs CBC & Chem 7: 01/21/18 16:26 01/21/18 06:58 Labs: Abnormal Lab Results - Last 24 Hours (Table) 01/20/18 01/20/18 01/21/18 Range/Units 17:15 20:06 06:58 RBC 2.46 L (4.30-5.90) m/uL Hgb 7.2 L (13.0-17.5) gm/dL Hct 21.7 L (39.0-53.0) % RDW 17.1 H (11.5-15.5) % Plt Count 104 L (150-450) k/uL Chloride (98-107) mmol/L Carbon Dioxide (22-30) mmol/L BUN (9-20) mg/dL Creatinine (0.66-1.25) mg/dL Glucose (74-99) mg/dL POC Glucose (mg/dL) 174 H 153 H (75-99) mg/dL Calcium (8.4-10.2) mg/dL AST (17-59) U/L Alkaline Phosphatase (38-126) U/L Total Protein (6.3-8.2) g/dL Albumin (3.5-5.0) g/dL 01/21/18 01/21/18 Range/Units 06:58 12:35 RBC (4.30-5.90) m/uL Hgb (13.0-17.5) gm/dL Hct (39.0-53.0) % RDW (11.5-15.5) % Plt Count (150-450) k/uL Chloride 108 H (98-107) mmol/L Carbon Dioxide 21 L (22-30) mmol/L BUN 43 H (9-20) mg/dL Creatinine 1.26 H (0.66-1.25) mg/dL Glucose 69 L (74-99) mg/dL POC Glucose (mg/dL) 181 H (75-99) mg/dL Calcium 7.7 L (8.4-10.2) mg/dL AST 110 H (17-59) U/L Alkaline Phosphatase 130 H (38-126) U/L Total Protein 4.6 L (6.3-8.2) g/dL Albumin 2.1 L (3.5-5.0) g/dL Assessment and Plan Assessment: GI bleeding appears to be lower in origin. The possibility of diverticular bleed, colitis or neoplasia would be considered. Plan: Agree with your current management. I would consider colonoscopy for Tuesday as you have suggested. Further plans based on his course.
[2018-01-23 07:42] LABS: Glucose,Whole Blood 193 mg/dL (75-99)
--- NOTE | 2018-01-23 07:47 | XR ---
EXAMINATION TYPE: XR chest 1V portable DATE OF EXAM: 01/23/2018 COMPARISON: 01/16/2018 HISTORY: Shortness of breath TECHNIQUE: Single frontal view of the chest is obtained. FINDINGS: There is a new right small pleural effusion with right basilar airspace disease. Remainder of the lungs are clear. Cardiomediastinal silhouette is within normal limits and osseous structures are grossly intact. Mediastinal rotation secondary to patient positioning creates pronunciation of th e left hilum. Enteric tube has been removed in the interim. IMPRESSION: New small right pleural effusion and right basilar airspace disease favored to represent atelectasis. Pneumonia is possible in the appropriate clinical setting.
[2018-01-23 07:48] LABS: Anisocytosis Slight; Basophils % (A) 0 %; Eosinophils # (A) 0.2 k/uL (0-0.7); Eosinophils % (A) 2 %; HCT 24.2 % (39.0-53.0); HGB 7.9 gm/dL (13.0-17.5); Hypochromasia Slight; Lymphocytes # (A) 0.5 k/uL (1.0-4.8); Lymphocytes % (A) 5 %; MCH 29.6 pg (25.0-35.0); MCHC 32.6 g/dL (31.0-37.0); MCV 90.6 fL (80.0-100.0); Mean Platelet Volume 8.3; Monocytes # (A) 0.5 k/uL (0-1.0); Monocytes % (A) 5 %; Neutrophils # (A) 8.9 k/uL (1.3-7.7); Neutrophils % (A) 87 %; Platelet Count 127 k/uL (150-450); RBC 2.67 m/uL (4.30-5.90); RDW 17.9 % (11.5-15.5); WBC 10.2 k/uL (3.8-10.6)
[2018-01-23 08:06] LABS: Calcium 8.3 mg/dL (8.4-10.2); Potassium 4.4 mmol/L (3.5-5.1)
[2018-01-23] MEDS: INSULIN ASPART 100 UNIT/ML 1 ML 10 ML VIAL SQ SCH ×4 (08:06→20:37)
[2018-01-23] MEDS: metFORMIN 500 MG TAB PO SCH ×2 (08:06→18:07)
[2018-01-23] MEDS: glipiZIDE 5 MG TAB PO SCH ×2 (08:06→18:07)
[2018-01-23] MEDS: IPRATROPIUM-ALBUTEROL 3 ML NEB INHALATION PRN (08:45)
[2018-01-23] MEDS: METOPROLOL TARTRATE 12.5 MG TAB PO SCH ×2 (10:04→20:00)
[2018-01-23] MEDS: HYDROCORTISONE 10 MG TAB PO SCH ×2 (10:04→20:00)
[2018-01-23] MEDS: FLUDROCORTISONE 0.1 MG TAB PO SCH ×2 (10:04→19:59)
[2018-01-23] MEDS: LACTULOSE 20 GM/30 ML CUP PO SCH ×2 (10:04→20:00)
[2018-01-23] MEDS: SPIRONOLACTONE 25 MG TAB PO SCH (10:04)
[2018-01-23] MEDS: SODIUM CHLORIDE 0.9% 1,000 ML IV SCH (10:05)
[2018-01-23] MEDS: PANTOPRAZOLE 40 MG/10 ML VIAL IV SCH (10:07)
[2018-01-23 11:38] LABS: Glucose,Whole Blood 212 mg/dL (75-99)
[2018-01-23] MEDS ORDERED: BISACODYL 10 MG SUPP RECTAL STA (12:36)
--- NOTE | 2018-01-23 13:13 | XR ---
EXAMINATION TYPE: XR abdomen 1V DATE OF EXAM: 01/23/2018 12:53 PM CLINICAL HISTORY: Abdominal pain. TECHNIQUE: Single supine KUB image of the abdomen is obtained. COMPARISON: None. FINDINGS: Numerous choleliths are seen within the right upper quadrant. Exam is somewhat limited by p atient body habitus. No dilated bowel is seen. Evaluation for pneumoperitoneum is limited on this sup ine only view. Moderate multilevel degenerative changes of the visualized thoracolumbar spine and fem oral acetabular joints are present. No gross evidence of abnormal calcification within the abdomen or pelvis. IMPRESSION: Exam is somewhat limited by patient body habitus although there is no gross evidence of b owel obstruction. Incidentally noted cholelithiasis.
[2018-01-23] MEDS: LACTULOSE 200 GM/300 ML (FROM 1/2 GAL JUG) RECTAL SCH ×2 (14:32→21:49)
[2018-01-23] MEDS: FUROSEMIDE 10 MG/ML 2 ML VIAL IV SCH (14:33)
[2018-01-23] MEDS ORDERED: BISACODYL 10 MG SUPP RECTAL SCH (16:00)
[2018-01-23 17:22] LABS: Glucose,Whole Blood 183 mg/dL (75-99)
[2018-01-23] MEDS: TAMSULOSIN 0.4 MG CAP.ER.24H PO SCH (18:07)
--- NOTE | 2018-01-23 18:45 | P.PN ---
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 Bedolla recommended to monitor observe closely Patient presented emergency department on January 16 complaining of generalized weakness and was admitted in ICU, patient was evaluated by Dr. crystal in my absence. The patient apparently had a large black bowel movement overnight. He also had coffee-ground emesis the emergency department. An NG tube was placed and 900 mL of coffee-ground fluid has been suctioned. The patient denies abdominal pain. He has received one and half liters of normal saline. He was found to have a lactic acid of 10. The patient denies abdominal pain, nausea, vomiting. He denies a history of GI bleed however the patient appears to be a poor historian. His hemoglobin is currently 9.9. History is mostly obtained from the electronic medical record. Objective - Vital Signs Vital signs: Vital Signs Temp 97.8 F 01/23/18 15:00 Pulse 104 H 01/23/18 15:00 Resp 22 01/23/18 15:00 BP 111/52 01/23/18 15:00 Pulse Ox 99 01/23/18 15:00 Intake & Output 01/22/18 01/23/18 01/23/18 18:59 06:59 18:59 Intake Total 1040 160 280 Balance 1040 160 280 Weight 117 kg Intake: IV 80 160 280 Sodium Chloride 0.9% 1, 80 160 280 000 ml @ 40 mls/hr IV . Q24H [facility] Rx#:[id number] Oral 960 Other: Voiding Method Bedside Commode Bedside Commode Bedside Commode Diaper Incontinent # Voids 1 1 # Bowel Movements 1 1 - Constitutional General appearance: Present: mild distress, obese - EENT Eyes: Present: EOMI, PERRLA, normal appearance ENT: Present: hard of hearing, normal oropharynx Ears: bilateral: normal - Neck Neck: Present: normal ROM Carotids: bilateral: upstroke normal, bruit absent Thyroid: bilateral: normal size - Respiratory Respiratory: bilateral: CTA, diminished, negative: dullness, rales, rhonchi, wheezing, prolonged expiration, prolonged inspiration - Cardiovascular Rhythm: regular Heart sounds: normal: S1, S2 - Gastrointestinal General gastrointestinal: Present: decreased bowel sounds, distended - Integumentary Integumentary: Present: normal, normal turgor - Neurologic Neurologic: Present: CNII-XII intact - Musculoskeletal Musculoskeletal: Present: generalized weakness, strength equal bilaterally - Psychiatric Psychiatric: Present: A&O x's 3, appropriate affect, intact judgment & insight - Labs CBC & Chem 7: 01/23/18 07:32 01/23/18 07:32 Labs: Abnormal Lab Results - Last 24 Hours (Table) 01/22/18 01/23/18 01/23/18 Range/Units 21:17 07:08 07:32 RBC (4.30-5.90) m/uL Hgb (13.0-17.5) gm/dL Hct (39.0-53.0) % RDW (11.5-15.5) % Plt Count (150-450) k/uL Neutrophils # (1.3-7.7) k/uL Lymphocytes # (1.0-4.8) k/uL Carbon Dioxide 21 L (22-30) mmol/L BUN 46 H (9-20) mg/dL Creatinine 1.64 H (0.66-1.25) mg/dL Glucose 182 H (74-99) mg/dL POC Glucose (mg/dL) 215 H 193 H (75-99) mg/dL Plasma Lactic Acid Abram (0.7-2.0) mmol/L Calcium 8.3 L (8.4-10.2) mg/dL Ammonia (<30) umol/L 01/23/18 01/23/18 01/23/18 Range/Units 07:32 07:32 07:32 RBC 2.67 L (4.30-5.90) m/uL Hgb 7.9 L (13.0-17.5) gm/dL Hct 24.2 L (39.0-53.0) % RDW 17.9 H (11.5-15.5) % Plt Count 127 L (150-450) k/uL Neutrophils # 8.9 H (1.3-7.7) k/uL Lymphocytes # 0.5 L (1.0-4.8) k/uL Carbon Dioxide (22-30) mmol/L BUN (9-20) mg/dL Creatinine (0.66-1.25) mg/dL Glucose (74-99) mg/dL POC Glucose (mg/dL) (75-99) mg/dL Plasma Lactic Acid Abram 2.1 H* (0.7-2.0) mmol/L Calcium (8.4-10.2) mg/dL Ammonia 137 H (<30) umol/L 01/23/18 01/23/18 Range/Units 11:30 17:09 RBC (4.30-5.90) m/uL Hgb (13.0-17.5) gm/dL Hct (39.0-53.0) % RDW (11.5-15.5) % Plt Count (150-450) k/uL Neutrophils # (1.3-7.7) k/uL Lymphocytes # (1.0-4.8) k/uL Carbon Dioxide (22-30) mmol/L BUN (9-20) mg/dL Creatinine (0.66-1.25) mg/dL Glucose (74-99) mg/dL POC Glucose (mg/dL) 212 H 183 H (75-99) mg/dL Plasma Lactic Acid Abram (0.7-2.0) mmol/L Calcium (8.4-10.2) mg/dL Ammonia (<30) umol/L Assessment and Plan Assessment: Severe anemia and thrombocytopenia and GI bleed Stage III renal failure GI bleed with nonbleeding peptic ulcer, associated lower GI bleed cannot be excluded Metabolic acidosis lactic acidosis slowly improving History of prior recurrent pleural effusion of unclear etiology History of cirrhosis of the liver Plan: Continue gentle rehydration monitor clinical course closely continue supportive care will follow clinical course closely Time with Patient: Greater than 30
--- NOTE | 2018-01-23 18:49 | P.PN ---
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 Bedolla recommended to monitor observe closely Patient presented emergency department on January 16 complaining of generalized weakness and was admitted in ICU, patient was evaluated by Dr. crystal in my absence. The patient apparently had a large black bowel movement overnight. He also had coffee-ground emesis the emergency department. An NG tube was placed and 900 mL of coffee-ground fluid has been suctioned. The patient denies abdominal pain. He has received one and half liters of normal saline. He was found to have a lactic acid of 10. The patient denies abdominal pain, nausea, vomiting. He denies a history of GI bleed however the patient appears to be a poor historian. His hemoglobin is currently 9.9. History is mostly obtained from the electronic medical record. Objective - Vital Signs Vital signs: Vital Signs Temp 97.8 F 01/23/18 15:00 Pulse 104 H 01/23/18 15:00 Resp 22 01/23/18 15:00 BP 111/52 01/23/18 15:00 Pulse Ox 99 01/23/18 15:00 Intake & Output 01/22/18 01/23/18 01/23/18 18:59 06:59 18:59 Intake Total 1040 160 280 Balance 1040 160 280 Weight 117 kg Intake: IV 80 160 280 Sodium Chloride 0.9% 1, 80 160 280 000 ml @ 40 mls/hr IV . Q24H [facility] Rx#:[id number] Oral 960 Other: Voiding Method Bedside Commode Bedside Commode Bedside Commode Diaper Incontinent # Voids 1 1 # Bowel Movements 1 1 - Exam - Constitutional General appearance: Present: mild distress, obese - EENT Eyes: Present: EOMI, PERRLA, normal appearance ENT: Present: hard of hearing, normal oropharynx Ears: bilateral: normal - Neck Neck: Present: normal ROM Carotids: bilateral: upstroke normal, bruit absent Thyroid: bilateral: normal size - Respiratory Respiratory: bilateral: CTA, diminished, negative: dullness, rales, rhonchi, wheezing, prolonged expiration, prolonged inspiration - Cardiovascular Rhythm: regular Heart sounds: normal: S1, S2 - Gastrointestinal General gastrointestinal: Present: decreased bowel sounds, distended - Integumentary Integumentary: Present: normal, normal turgor - Neurologic Neurologic: Present: CNII-XII intact, somnolent but arousable - Musculoskeletal Musculoskeletal: Present: generalized weakness, strength equal bilaterally - Psychiatric Psychiatric: Present: A&O x's 3, appropriate affect, intact judgment & insight - Labs CBC & Chem 7: 01/23/18 07:32 01/23/18 07:32 Labs: Abnormal Lab Results - Last 24 Hours (Table) 01/22/18 01/23/18 01/23/18 Range/Units 21:17 07:08 07:32 RBC (4.30-5.90) m/uL Hgb (13.0-17.5) gm/dL Hct (39.0-53.0) % RDW (11.5-15.5) % Plt Count (150-450) k/uL Neutrophils # (1.3-7.7) k/uL Lymphocytes # (1.0-4.8) k/uL Carbon Dioxide 21 L (22-30) mmol/L BUN 46 H (9-20) mg/dL Creatinine 1.64 H (0.66-1.25) mg/dL Glucose 182 H (74-99) mg/dL POC Glucose (mg/dL) 215 H 193 H (75-99) mg/dL Plasma Lactic Acid Abram (0.7-2.0) mmol/L Calcium 8.3 L (8.4-10.2) mg/dL Ammonia (<30) umol/L 01/23/18 01/23/18 01/23/18 Range/Units 07:32 07:32 07:32 RBC 2.67 L (4.30-5.90) m/uL Hgb 7.9 L (13.0-17.5) gm/dL Hct 24.2 L (39.0-53.0) % RDW 17.9 H (11.5-15.5) % Plt Count 127 L (150-450) k/uL Neutrophils # 8.9 H (1.3-7.7) k/uL Lymphocytes # 0.5 L (1.0-4.8) k/uL Carbon Dioxide (22-30) mmol/L BUN (9-20) mg/dL Creatinine (0.66-1.25) mg/dL Glucose (74-99) mg/dL POC Glucose (mg/dL) (75-99) mg/dL Plasma Lactic Acid Abram 2.1 H* (0.7-2.0) mmol/L Calcium (8.4-10.2) mg/dL Ammonia 137 H (<30) umol/L 01/23/18 01/23/18 Range/Units 11:30 17:09 RBC (4.30-5.90) m/uL Hgb (13.0-17.5) gm/dL Hct (39.0-53.0) % RDW (11.5-15.5) % Plt Count (150-450) k/uL Neutrophils # (1.3-7.7) k/uL Lymphocytes # (1.0-4.8) k/uL Carbon Dioxide (22-30) mmol/L BUN (9-20) mg/dL Creatinine (0.66-1.25) mg/dL Glucose (74-99) mg/dL POC Glucose (mg/dL) 212 H 183 H (75-99) mg/dL Plasma Lactic Acid Abram (0.7-2.0) mmol/L Calcium (8.4-10.2) mg/dL Ammonia (<30) umol/L Assessment and Plan Assessment: Altered mental status encephalopathy with elevated ammonia level Severe anemia and thrombocytopenia and GI bleed Stage III renal failure GI bleed with nonbleeding peptic ulcer, associated lower GI bleed cannot be excluded Metabolic acidosis lactic acidosis slowly improving History of prior recurrent pleural effusion of unclear etiology History of cirrhosis of the liver Plan: Continue gentle rehydration monitor clinical course closely continue supportive care will follow clinical course closely, continue breathing treatment continue lactulose further recommendations pending plan of care as per clinical response of the patient repeat ammonia level as well as coags tomorrow Time with Patient: Greater than 30
[2018-01-23] MEDS: MELATONIN 3 MG TABLET PO SCH (20:00)
[2018-01-23] MEDS: ATORVASTATIN 10 MG TAB PO SCH (20:00)
[2018-01-23 20:46] LABS: Glucose,Whole Blood 155 mg/dL (75-99)
[2018-01-24] MEDS: LACTULOSE 200 GM/300 ML (FROM 1/2 GAL JUG) RECTAL SCH ×3 (02:44→14:47)
[2018-01-24 07:29] LABS: Glucose,Whole Blood 162 mg/dL (75-99)
[2018-01-24 07:31] LABS: Anisocytosis Slight; Basophils % (A) 0 %; Eosinophils # (A) 0.2 k/uL (0-0.7); Eosinophils % (A) 2 %; HCT 23.7 % (39.0-53.0); HGB 7.7 gm/dL (13.0-17.5); Hypochromasia Slight; Lymphocytes # (A) 0.6 k/uL (1.0-4.8); Lymphocytes % (A) 6 %; MCH 29.2 pg (25.0-35.0); MCHC 32.3 g/dL (31.0-37.0); MCV 90.3 fL (80.0-100.0); Mean Platelet Volume 8.3; Monocytes # (A) 0.7 k/uL (0-1.0); Monocytes % (A) 7 %; Neutrophils % (A) 83 %; Platelet Count 137 k/uL (150-450); Poikilocytosis Slight; RBC 2.62 m/uL (4.30-5.90); RDW 18.2 % (11.5-15.5); WBC 9.6 k/uL (3.8-10.6)
[2018-01-24 07:40] LABS: INR 1.3 (<1.2)
[2018-01-24 07:48] LABS: Albumin 2.1 g/dL (3.5-5.0); Potassium 4.4 mmol/L (3.5-5.1); Total Bilirubin 1.2 mg/dL (0.2-1.3); Total Protein 4.6 g/dL (6.3-8.2)
--- NOTE | 2018-01-24 07:50 | P.PN ---
Subjective Progress Note Date: 01/23/18 This is an 82-year-old gentleman patient of Dr. Rojas, with known history of CK D stage III, diabetes mellitus type 2, COPD, hyperlipidemia, and chronic anemia admitted from our facility in early August 2017, was diagnosed to have metabolic encephalopathy secondary to acute kidney injury and dehydration with hypoperfusion. Patient comes into the emergency room with a four-day history of black stools, has had increasing falls, no abdominal pain, patient denies any hematochezia, patient is not an alcoholic drinker currently, and was not feeling very well hence the ER admission. Patient has fallen numerous times, and the last one was 2 days ago, previous to this, patient had cracked the ribs , 4 weeks prior to admission. Patient follows up with Dr. Rojas every 4 months regimen, his due to see him in 01/20/2018 In the emergency room, he was noted to have Hemoccult-positive stools, patient was noted to have melanocytic stools, Hemoccult positive, hematuria with RBC of 59, double see if 1, moderate ketones, EKG shows sinus tachycardia with right bundle branch block, left anterior fascicular block, and pulmonary disease pattern heart rate of 124. Patient is admitted to ICU secondary to melanocytic stools with hemoglobin of 9, consult to Gen. surgery Dr. Montes and Dr. Haq gastroenterology. Admitting lactic acid was significantly elevated at 10.0 with a peak of 11.4, wbc of 15 troponin of 0.077 Previous imaging in our facility shows small amount of ascites, in the abdomen noted in May 2014 and CAT scan chest 2014, cholelithiasis, and evidence of cirrhosis and portal hypertension, improving pleural effusion, improving right apical nodule When patient was seen, patient was very much confused, trying to grab things in the area, very dry mouth, patient's nothing by mouth, and has a bilateral wrist restraints, ammonia levels were requested, family at bedside, CODE STATUS was discussed and is DO NOT RESUSCITATE no CPR with options for vent if needed 01/18: Hemoglobin is stable at 8.8. Patient is scheduled for EGD. The patient has had small bowel movements 7. Lactulose is on hold. Stools have been tarry in color. Cardiology is following for tachycardia. No plan for any further workup. 01/19: EGD revealed distal esophageal ulcer and gastritis but no active bleeding. Hemoglobin is 8.1. Ferrlecit ordered 1 dose. Patient is more alert today. Ammonia level is less than 9. Patient does have a large bruising area to the left antecubital which we will plan for Bactroban. Patient will be transferred out of intensive care today. PT will be started to help determine discharge plan. 01/20: Patient has less alert today. He missed a dose of lactulose and ammonia level is 34 today. He has a sitter at the bedside. Hemoglobin is currently 7.8. Patient has been waiting for [facility] care bed. He is hemodynamically stable will now be transferred to [facility]. Lactulose decrease to twice daily. Home medications reviewed and those appropriate have been resumed. 01/23: Patient is more lethargic today and stat lab work including ammonia level was ordered. Lactic acid came back at 2.1 and ammonia level [id number]. Patient was ordered for 1 L of IV fluid. Abdomen is more distended today and abdominal x-ray shows no bowel obstruction. Patient underwent bowel prep yesterday for colonoscopy to be done today but still did not clear. He has not been able to take any oral medications. Rectal lactulose has been ordered. Objective - Vital Signs Vital signs: Vital Signs Temp 98.3 F 01/23/18 07:00 Pulse 102 H 01/23/18 08:56 Resp 20 01/23/18 08:46 BP 109/49 01/23/18 07:00 Pulse Ox 99 01/23/18 08:46 Intake & Output 01/22/18 01/23/18 01/23/18 18:59 06:59 18:59 Intake Total 1040 160 Balance 1040 160 Weight 117 kg Intake: IV 80 160 Sodium Chloride 0.9% 1, 80 160 000 ml @ 40 mls/hr IV . Q24H [facility] Rx#:[id number] Oral 960 Other: Voiding Method Bedside Commode Bedside Commode # Voids 1 1 # Bowel Movements 1 1 - Exam General appearance: cooperative, obese - EENT Eyes: anicteric sclerae, EOMI ENT: NA/AT - Neck Neck: normal ROM - Respiratory Respiratory: bilateral: CTA, diminished, negative: dullness, rales, rhonchi, wheezing - Cardiovascular Rhythm: regular Heart sounds: normal: S1, S2 - Gastrointestinal General gastrointestinal: normal bowel sounds, soft, distended - Integumentary Integumentary: decreased turgor, normal - Neurologic Patient is lethargic,. - Labs CBC & Chem 7: 01/23/18 07:32 01/23/18 07:32 Labs: Abnormal Lab Results - Last 24 Hours (Table) 01/22/18 01/22/18 01/23/18 Range/Units 17:21 21:17 07:08 RBC (4.30-5.90) m/uL Hgb (13.0-17.5) gm/dL Hct (39.0-53.0) % RDW (11.5-15.5) % Plt Count (150-450) k/uL Neutrophils # (1.3-7.7) k/uL Lymphocytes # (1.0-4.8) k/uL Carbon Dioxide (22-30) mmol/L BUN (9-20) mg/dL Creatinine (0.66-1.25) mg/dL Glucose (74-99) mg/dL POC Glucose (mg/dL) 237 H 215 H 193 H (75-99) mg/dL Calcium (8.4-10.2) mg/dL 01/23/18 01/23/18 01/23/18 Range/Units 07:32 07:32 11:30 RBC 2.67 L (4.30-5.90) m/uL Hgb 7.9 L (13.0-17.5) gm/dL Hct 24.2 L (39.0-53.0) % RDW 17.9 H (11.5-15.5) % Plt Count 127 L (150-450) k/uL Neutrophils # 8.9 H (1.3-7.7) k/uL Lymphocytes # 0.5 L (1.0-4.8) k/uL Carbon Dioxide 21 L (22-30) mmol/L BUN 46 H (9-20) mg/dL Creatinine 1.64 H (0.66-1.25) mg/dL Glucose 182 H (74-99) mg/dL POC Glucose (mg/dL) 212 H (75-99) mg/dL Calcium 8.3 L (8.4-10.2) mg/dL Assessment and Plan Plan: 1. Acute upper GI bleed with acute blood loss anemia, secondary to esophageal ulcer and gastritis. Patient will be transferred out of ICU. Security Sales Consultant was consulted Dr. Granger,we will transfuse with hemoglobin of less than 7, and GI consult with Dr. Lopez, for an EGD. Dr. Rodgers general surgeon. 2. Chronic liver cirrhosis and portal hypertension as noted through CT imaging , in 2015, ammonia levels are requested secondary to confusion. Lactulose every 6 hours rectally. Aldactone will be resumed. 3. Hyperammonemia, lactulose 4. Recurrent falls, multifactorial, was likely secondary to metabolic encephalopathy with ongoing liver cirrhosis, as well as sensory and motor neuropathy, primary possibly spinal stenosis, consulted with PT OT, discharge planning for possible skilled 5. Diabetes mellitus type 2, on metformin and glipizide--resumed 6. Autonomic dysfunction/possible adrenal insufficiency, patient resumed on home dose of Cortef and Florinef. Hydrocortisone discontinued 7. COPD on Spiriva, and when necessary albuterol 8. Hypertension, and tachycardia, patient will be restarted on metoprolol 12.5 mg bid. 9. Lactic acidosis likely secondary to GI bleed, continue to monitor serially, 10. CKD stage III with acute kidney failure, azotemia, IV hydration, Ortiz in place. Monitor creatinine. 11. Leukocytosis, 12. Hematuria, this needs to be worked up as outpatient, patient is asymptomatic , would need evaluate with either renal ultrasound or CT of the abdomen once stabilized 13. Hyperlipidemia. Patient will be resumed back on atorvastatin. 14. Mildly elevated troponins for which acute coronary syndrome has been ruled out. 15. No previous diagnosis heart failure. He is on Aldactone due to liver failure. 16. Severe protein calorie malnutrition secondary to cirrhosis of the liver with albumin of 2.2. Ensure added. Discharge plan: Subacute rehab at [facility] or [facility] Impression and plan of care have been directed as dictated by the signing physician. Radha Arredondo nurse practitioner acting as scribe for signing physician.
[2018-01-24] MEDS: SODIUM CHLORIDE 0.9% 1,000 ML IV SCH ×2 (08:15→21:47)
[2018-01-24] MEDS: PANTOPRAZOLE 40 MG/10 ML VIAL IV SCH (08:17)
[2018-01-24] MEDS: INSULIN ASPART 100 UNIT/ML 1 ML 10 ML VIAL SQ SCH ×4 (08:17→21:32)
[2018-01-24] MEDS: FUROSEMIDE 10 MG/ML 2 ML VIAL IV SCH (08:17)
[2018-01-24] MEDS: SPIRONOLACTONE 25 MG TAB PO SCH ×2 (08:18→14:47)
[2018-01-24] MEDS: METOPROLOL TARTRATE 12.5 MG TAB PO SCH ×2 (08:18→15:44)
[2018-01-24] MEDS ORDERED: BENZOCAINE SPRAY 1 CAN ONE (09:43)
--- NOTE | 2018-01-24 10:05 | XR ---
EXAMINATION TYPE: XR chest 1V portable DATE OF EXAM: 01/24/2018 COMPARISON: 01/23/2018 HISTORY: Pleural effusion TECHNIQUE: Single frontal view of the chest is obtained. FINDINGS: There is minimal blunting of the right costophrenic angle with near complete resolution of the previously seen small right pleural effusion. The right hemidiaphragm medially as well delineate d. No new focal consolidation, pulmonary vascular congestion or pneumothorax is seen. Cardia mediasti nal silhouette is within normal limits. Osseous structures are grossly intact. IMPRESSION: Near complete resolution the previously seen small right pleural effusion, now trace.
[2018-01-24] MEDS ORDERED: RX INFO: IV CONTRAST WAS GIVEN 1 EACH MISC MISCELLANE PRN (10:30)
[2018-01-24] MEDS ORDERED: IOPAMIDOL-300 CONTRAST 30 ML VIAL (ORAL USE) PO PRN (10:34)
--- NOTE | 2018-01-24 10:34 | P.PN ---
Subjective Progress Note Date: 01/24/18 Principal diagnosis: Upper GI bleed s/p EGD last week with findings of distal esophageal superficial ulceration. No recurrent bleeding. Patient is more confused with elevated ammonia levels 118. Receiving lactulose enemas. Hemoglobin 7.7. No bleeding this morning. Abdominal distention. Abdominal x-ray yesterday reported no gross evidence of bowel obstruction. Afebrile. Objective - Vital Signs Vital signs: Vital Signs Temp 97.3 F L 01/24/18 07:00 Pulse 106 H 01/24/18 07:00 Resp 18 01/24/18 07:00 BP 141/63 01/24/18 07:00 Pulse Ox 100 01/24/18 07:00 Intake & Output 01/23/18 01/24/18 01/24/18 18:59 06:59 18:59 Intake Total 280 840 Balance 280 840 Weight 117 kg Intake: IV 280 480 Sodium Chloride 0.9% 1, 280 480 000 ml @ 40 mls/hr IV . Q24H [facility] Rx#:[id number] Oral 360 Other: Voiding Method Bedside Commode Bedside Commode Diaper Diaper Diaper Incontinent Incontinent Incontinent # Voids 1 # Bowel Movements 1 - Exam General appearance: The patient is confused. HET: Head is normocephalic and atraumatic. Pupils are equal and reactive. Oropharynx is clear without lesions. Neck: Supple without lymphadenopathy. Trachea midline. Heart: S1 S2. Regular rate and rhythm. Lungs: No crackles or wheezes are heard. Abdomen: Soft, nontender, distended with hypoactive bowel sounds. No peritoneal signs. No palpable organomegaly or masses. Extremities: Normal skin color and turgor. No cyanosis, rash, ulceration, clubbing, or edema. Radial and pedal pulses are 2/4 bilaterally. Neurological: No focal deficits. Strength and sensation are grossly intact. - Labs CBC & Chem 7: 01/24/18 07:12 01/24/18 07:12 Labs: Abnormal Lab Results - Last 24 Hours (Table) 01/23/18 01/23/18 01/23/18 Range/Units 07:32 07:32 11:30 RBC (4.30-5.90) m/uL Hgb (13.0-17.5) gm/dL Hct (39.0-53.0) % RDW (11.5-15.5) % Plt Count (150-450) k/uL Neutrophils # (1.3-7.7) k/uL Lymphocytes # (1.0-4.8) k/uL INR (<1.2) Chloride (98-107) mmol/L Carbon Dioxide (22-30) mmol/L BUN (9-20) mg/dL Creatinine (0.66-1.25) mg/dL Glucose (74-99) mg/dL POC Glucose (mg/dL) 212 H (75-99) mg/dL Plasma Lactic Acid Abram 2.1 H* (0.7-2.0) mmol/L Calcium (8.4-10.2) mg/dL AST (17-59) U/L Ammonia 137 H (<30) umol/L Total Protein (6.3-8.2) g/dL Albumin (3.5-5.0) g/dL 01/23/18 01/23/18 01/24/18 Range/Units 17:09 20:26 07:12 RBC 2.62 L (4.30-5.90) m/uL Hgb 7.7 L (13.0-17.5) gm/dL Hct 23.7 L (39.0-53.0) % RDW 18.2 H (11.5-15.5) % Plt Count 137 L (150-450) k/uL Neutrophils # 8.0 H (1.3-7.7) k/uL Lymphocytes # 0.6 L (1.0-4.8) k/uL INR (<1.2) Chloride (98-107) mmol/L Carbon Dioxide (22-30) mmol/L BUN (9-20) mg/dL Creatinine (0.66-1.25) mg/dL Glucose (74-99) mg/dL POC Glucose (mg/dL) 183 H 155 H (75-99) mg/dL Plasma Lactic Acid Abram (0.7-2.0) mmol/L Calcium (8.4-10.2) mg/dL AST (17-59) U/L Ammonia (<30) umol/L Total Protein (6.3-8.2) g/dL Albumin (3.5-5.0) g/dL 0301/24/18 01/24/18 Range/Units 07:12 07:12 07:12 RBC (4.30-5.90) m/uL Hgb (13.0-17.5) gm/dL Hct (39.0-53.0) % RDW (11.5-15.5) % Plt Count (150-450) k/uL Neutrophils # (1.3-7.7) k/uL Lymphocytes # (1.0-4.8) k/uL INR 1.3 H (<1.2) Chloride 109 H (98-107) mmol/L Carbon Dioxide 18 L (22-30) mmol/L BUN 52 H (9-20) mg/dL Creatinine 1.74 H (0.66-1.25) mg/dL Glucose 149 H (74-99) mg/dL POC Glucose (mg/dL) (75-99) mg/dL Plasma Lactic Acid Abram (0.7-2.0) mmol/L Calcium 8.0 L (8.4-10.2) mg/dL AST 75 H (17-59) U/L Ammonia 118 H (<30) umol/L Total Protein 4.6 L (6.3-8.2) g/dL Albumin 2.1 L (3.5-5.0) g/dL 01/24/18 Range/Units 07:26 RBC (4.30-5.90) m/uL Hgb (13.0-17.5) gm/dL Hct (39.0-53.0) % RDW (11.5-15.5) % Plt Count (150-450) k/uL Neutrophils # (1.3-7.7) k/uL Lymphocytes # (1.0-4.8) k/uL INR (<1.2) Chloride (98-107) mmol/L Carbon Dioxide (22-30) mmol/L BUN (9-20) mg/dL Creatinine (0.66-1.25) mg/dL Glucose (74-99) mg/dL POC Glucose (mg/dL) 162 H (75-99) mg/dL Plasma Lactic Acid Abram (0.7-2.0) mmol/L Calcium (8.4-10.2) mg/dL AST (17-59) U/L Ammonia (<30) umol/L Total Protein (6.3-8.2) g/dL Albumin (3.5-5.0) g/dL Assessment and Plan (1) Hepatic encephalopathy Current Visit: Yes Status: Acute Code(s): K72.90 - HEPATIC FAILURE, UNSPECIFIED WITHOUT COMA SNOMED Code(s): 21570774 (2) GI bleed Narrative/Plan: 82-year-old male admitted with reports of coffee-ground emesis and melena s/p EGD with findings of distal esophageal superficial ulceration with component of acute blood loss anemia. Current Visit: Yes Status: Acute Code(s): K92.2 - GASTROINTESTINAL HEMORRHAGE, UNSPECIFIED SNOMED Code(s): 20761647 (3) Altered mental status Current Visit: No Status: Acute Code(s): R41.82 - ALTERED MENTAL STATUS, UNSPECIFIED SNOMED Code(s): 958640509 (4) Cirrhosis Current Visit: Yes Status: Chronic Code(s): K74.60 - UNSPECIFIED CIRRHOSIS OF LIVER SNOMED Code(s): 72448464 Plan: 1. Insert NGT with administration of Xifaxan 550 mg twice daily. Daily ammonia. Continue GI prophylaxis. 2. Continue with lactulose via NG tube 20 g 3 times daily. Discontinue enemas once NG tube is established. 3. Computed tomography scan abdomen and pelvis. Plan a care was discussed with Dr. Ayala. Assessment and plan a care discussed with Dr. Lopez.
[2018-01-24 11:25] LABS: Glucose,Whole Blood 146 mg/dL (75-99)
[2018-01-24] MEDS ORDERED: BENZOCAINE SPRAY 1 CAN MUCOUS MEM PRN (11:41)
[2018-01-24] MEDS: IOPAMIDOL-300 CONTRAST 30 ML VIAL (ORAL USE) PO PRN ×2 (13:35→15:35)
[2018-01-24] MEDS: RIFAXIMIN 550 MG TABLET NG-TUBE SCH ×2 (13:35→21:27)
[2018-01-24] MEDS: LACTULOSE 20 GM/30 ML CUP NG-TUBE SCH ×3 (13:36→21:47)
--- NOTE | 2018-01-24 14:30 | XR ---
EXAMINATION TYPE: XR abdomen 1V DATE OF EXAM: 01/24/2018 2:11 PM CLINICAL HISTORY: Enteric tube placement TECHNIQUE: Single supine KUB image of the abdomen is obtained. COMPARISON: 01/23/2018. FINDINGS: The fenestrated portion of the enteric tube is beyond the gastroesophageal junction, approp riately placed. Scattered gas is seen in non-distended small bowel loops. Gas and fecal material is s een in non-distended colon. Pelvis is not examined. The lung bases are clear and the osseous structur es are intact. IMPRESSION: Appropriately placed enteric tube.
[2018-01-24] MEDS: FLUDROCORTISONE 0.1 MG TAB PO SCH ×2 (14:47→21:27)
[2018-01-24] MEDS: glipiZIDE 5 MG TAB PO SCH ×2 (14:47→18:16)
[2018-01-24] MEDS: HYDROCORTISONE 10 MG TAB PO SCH (14:47)
[2018-01-24] MEDS: LACTULOSE 20 GM/30 ML CUP PO SCH (15:44)
[2018-01-24] MEDS: metFORMIN 500 MG TAB PO SCH (15:44)
--- NOTE | 2018-01-24 15:44 | P.PN ---
Subjective Progress Note Date: 01/24/18 This is an 82-year-old gentleman patient of Dr. Rojas, with known history of CK D stage III, diabetes mellitus type 2, COPD, hyperlipidemia, and chronic anemia admitted from our facility in early August 2017, was diagnosed to have metabolic encephalopathy secondary to acute kidney injury and dehydration with hypoperfusion. Patient comes into the emergency room with a four-day history of black stools, has had increasing falls, no abdominal pain, patient denies any hematochezia, patient is not an alcoholic drinker currently, and was not feeling very well hence the ER admission. Patient has fallen numerous times, and the last one was 2 days ago, previous to this, patient had cracked the ribs , 4 weeks prior to admission. Patient follows up with Dr. Rojas every 4 months regimen, his due to see him in 01/20/2018 In the emergency room, he was noted to have Hemoccult-positive stools, patient was noted to have melanocytic stools, Hemoccult positive, hematuria with RBC of 59, double see if 1, moderate ketones, EKG shows sinus tachycardia with right bundle branch block, left anterior fascicular block, and pulmonary disease pattern heart rate of 124. Patient is admitted to ICU secondary to melanocytic stools with hemoglobin of 9, consult to Gen. surgery Dr. Montes and Dr. Haq gastroenterology. Admitting lactic acid was significantly elevated at 10.0 with a peak of 11.4, wbc of 15 troponin of 0.077 Previous imaging in our facility shows small amount of ascites, in the abdomen noted in May 2014 and CAT scan chest 2014, cholelithiasis, and evidence of cirrhosis and portal hypertension, improving pleural effusion, improving right apical nodule When patient was seen, patient was very much confused, trying to grab things in the area, very dry mouth, patient's nothing by mouth, and has a bilateral wrist restraints, ammonia levels were requested, family at bedside, CODE STATUS was discussed and is DO NOT RESUSCITATE no CPR with options for vent if needed 01/18: Hemoglobin is stable at 8.8. Patient is scheduled for EGD. The patient has had small bowel movements 7. Lactulose is on hold. Stools have been tarry in color. Cardiology is following for tachycardia. No plan for any further workup. 01/19: EGD revealed distal esophageal ulcer and gastritis but no active bleeding. Hemoglobin is 8.1. Ferrlecit ordered 1 dose. Patient is more alert today. Ammonia level is less than 9. Patient does have a large bruising area to the left antecubital which we will plan for Bactroban. Patient will be transferred out of intensive care today. PT will be started to help determine discharge plan. 01/20: Patient has less alert today. He missed a dose of lactulose and ammonia level is 34 today. He has a sitter at the bedside. Hemoglobin is currently 7.8. Patient has been waiting for selective care bed. He is hemodynamically stable will now be transferred to [facility]. Lactulose decrease to twice daily. Home medications reviewed and those appropriate have been resumed. 01/23: Patient is more lethargic today and stat lab work including ammonia level was ordered. Lactic acid came back at 2.1 and ammonia level CXXXVII. Patient was ordered for 1 L of IV fluid. Abdomen is more distended today and abdominal x-ray shows no bowel obstruction. Patient underwent bowel prep yesterday for colonoscopy to be done today but still did not clear. He has not been able to take any oral medications. Rectal lactulose has been ordered. 01/24: Patient is more lethargic today from yesterday. Ammonia level today is at 118. Patient did receive lactulose enemas yesterday. Patient is noted to have more abdominal distention today. GI has ordered NG tube and start Xifaxan , lactulose per NG tube and discontinue enemas and a CT of the abdomen and pelvis was ordered. Patient to be transferred to selective care. Objective - Vital Signs Vital signs: Vital Signs Temp 97.3 F L 01/24/18 07:00 Pulse 106 H 01/24/18 07:00 Resp 18 01/24/18 07:00 BP 141/63 01/24/18 07:00 Pulse Ox 100 01/24/18 07:00 Intake & Output 01/23/18 01/24/18 01/24/18 18:59 06:59 18:59 Intake Total 280 840 Balance 280 840 Weight 117 kg Intake: IV 280 480 Sodium Chloride 0.9% 1, 280 480 000 ml @ 40 mls/hr IV . Q24H [facility] Rx#:[id number] Oral 360 Other: Voiding Method Bedside Commode Bedside Commode Diaper Diaper Diaper Incontinent Incontinent Incontinent # Voids 1 # Bowel Movements 1 - Exam General appearance: cooperative, obese - EENT Eyes: anicteric sclerae, EOMI ENT: NA/AT - Neck Neck: normal ROM - Respiratory Respiratory: bilateral: CTA, diminished, negative: dullness, rales, rhonchi, wheezing - Cardiovascular Rhythm: regular Heart sounds: normal: S1, S2 - Gastrointestinal General gastrointestinal: normal bowel sounds, soft, distended - Integumentary Integumentary: decreased turgor, normal - Neurologic Patient is lethargic, and obtunded. - Labs CBC & Chem 7: 01/24/18 07:12 01/24/18 07:12 Labs: Abnormal Lab Results - Last 24 Hours (Table) 01/23/18 01/23/18 01/23/18 Range/Units 07:32 07:32 11:30 RBC (4.30-5.90) m/uL Hgb (13.0-17.5) gm/dL Hct (39.0-53.0) % RDW (11.5-15.5) % Plt Count (150-450) k/uL Neutrophils # (1.3-7.7) k/uL Lymphocytes # (1.0-4.8) k/uL INR (<1.2) Chloride (98-107) mmol/L Carbon Dioxide (22-30) mmol/L BUN (9-20) mg/dL Creatinine (0.66-1.25) mg/dL Glucose (74-99) mg/dL POC Glucose (mg/dL) 212 H (75-99) mg/dL Plasma Lactic Acid Abram 2.1 H* (0.7-2.0) mmol/L Calcium (8.4-10.2) mg/dL AST (17-59) U/L Ammonia 137 H (<30) umol/L Total Protein (6.3-8.2) g/dL Albumin (3.5-5.0) g/dL 01/23/18 01/23/18 01/24/18 Range/Units 17:09 20:26 07:12 RBC 2.62 L (4.30-5.90) m/uL Hgb 7.7 L (13.0-17.5) gm/dL Hct 23.7 L (39.0-53.0) % RDW 18.2 H (11.5-15.5) % Plt Count 137 L (150-450) k/uL Neutrophils # 8.0 H (1.3-7.7) k/uL Lymphocytes # 0.6 L (1.0-4.8) k/uL INR (<1.2) Chloride (98-107) mmol/L Carbon Dioxide (22-30) mmol/L BUN (9-20) mg/dL Creatinine (0.66-1.25) mg/dL Glucose (74-99) mg/dL POC Glucose (mg/dL) 183 H 155 H (75-99) mg/dL Plasma Lactic Acid Abram (0.7-2.0) mmol/L Calcium (8.4-10.2) mg/dL AST (17-59) U/L Ammonia (<30) umol/L Total Protein (6.3-8.2) g/dL Albumin (3.5-5.0) g/dL 01/24/18 01/24/18 01/24/18 Range/Units 07:12 07:12 07:12 RBC (4.30-5.90) m/uL Hgb (13.0-17.5) gm/dL Hct (39.0-53.0) % RDW (11.5-15.5) % Plt Count (150-450) k/uL Neutrophils # (1.3-7.7) k/uL Lymphocytes # (1.0-4.8) k/uL INR 1.3 H (<1.2) Chloride 109 H (98-107) mmol/L Carbon Dioxide 18 L (22-30) mmol/L BUN 52 H (9-20) mg/dL Creatinine 1.74 H (0.66-1.25) mg/dL Glucose 149 H (74-99) mg/dL POC Glucose (mg/dL) (75-99) mg/dL Plasma Lactic Acid Abram (0.7-2.0) mmol/L Calcium 8.0 L (8.4-10.2) mg/dL AST 75 H (17-59) U/L Ammonia 118 H (<30) umol/L Total Protein 4.6 L (6.3-8.2) g/dL Albumin 2.1 L (3.5-5.0) g/dL 01/24/18 Range/Units 07:26 RBC (4.30-5.90) m/uL Hgb (13.0-17.5) gm/dL Hct (39.0-53.0) % RDW (11.5-15.5) % Plt Count (150-450) k/uL Neutrophils # (1.3-7.7) k/uL Lymphocytes # (1.0-4.8) k/uL INR (<1.2) Chloride (98-107) mmol/L Carbon Dioxide (22-30) mmol/L BUN (9-20) mg/dL Creatinine (0.66-1.25) mg/dL Glucose (74-99) mg/dL POC Glucose (mg/dL) 162 H (75-99) mg/dL Plasma Lactic Acid Abram (0.7-2.0) mmol/L Calcium (8.4-10.2) mg/dL AST (17-59) U/L Ammonia (<30) umol/L Total Protein (6.3-8.2) g/dL Albumin (3.5-5.0) g/dL Assessment and Plan Plan: 1. Acute upper GI bleed with acute blood loss anemia, secondary to esophageal ulcer and gastritis. Patient will be transferred out of ICU. Industrial Energy Engineer was consulted Dr. Granger,we will transfuse with hemoglobin of less than 7, and GI consult with Dr. Lopez, for an EGD. Dr. Rodgers general surgeon. 2. Chronic liver cirrhosis and portal hypertension as noted through CT imaging , in 2014, ammonia levels are requested secondary to confusion. Lactulose every 6 hours rectally. Aldactone will be resumed. 3. Hyperammonemia, lactulose 4. Recurrent falls, multifactorial, was likely secondary to metabolic encephalopathy with ongoing liver cirrhosis. Patient has having relapsing metabolic encephalopathy. NG tube placed for Xifaxan and lactulose. 5. Diabetes mellitus type 2, on metformin and glipizide--resumed 6. Autonomic dysfunction/possible adrenal insufficiency, patient resumed on home dose of Cortef and Florinef. Hydrocortisone discontinued 7. COPD on Spiriva, and when necessary albuterol 8. Hypertension, and tachycardia, patient will be restarted on metoprolol 12.5 mg bid. 9. Lactic acidosis likely secondary to GI bleed, continue to monitor serially, 10. CKD stage III with acute kidney failure, azotemia, IV hydration, Ortiz in place. Monitor creatinine. 11. Leukocytosis, 12. Hematuria, this needs to be worked up as outpatient, patient is asymptomatic , would need evaluate with either renal ultrasound or CT of the abdomen once stabilized 13. Hyperlipidemia. Patient will be resumed back on atorvastatin. 14. Mildly elevated troponins for which acute coronary syndrome has been ruled out. 15. No previous diagnosis heart failure. He is on Aldactone due to liver failure. 16. Severe protein calorie malnutrition secondary to cirrhosis of the liver with albumin of 2.2. Ensure added. Discharge plan: Subacute rehab at [facility] or [facility] Impression and plan of care have been directed as dictated by the signing physician. Radha Arredondo nurse practitioner acting as scribe for signing physician.
--- NOTE | 2018-01-24 16:57 | CT ---
EXAMINATION TYPE: CT abdomen pelvis wo con DATE OF EXAM: 01/24/2018 HISTORY: Abdominal distention CT DLP: 1516.6 mGycm. Automated Exposure Control for Dose Reduction was Utilized. TECHNIQUE: CT scan of the abdomen and pelvis is performed with oral but without IV contrast. COMPARISON: CT abdomen and pelvis May 10, 2014 FINDINGS: Within the limitations of a non-contrast study, the following observations are made. LUNG BASES: There is persistent small right pleural effusion with associated compressive atelectasis. LIVER/GB: Liver small in size with lobulated contour suggesting underlying cirrhosis. Adjacent ascite s is present right lateral margin. PANCREAS: Some fat replaced atrophy of pancreas is again seen SPLEEN: There is perisplenic ascites along the left margin. Spleen is enlarged measuring 14.1 cm on a xial image 22 no significant change from prior. ADRENALS: No significant abnormality is seen. KIDNEYS: There is cortical thinning and diminished size to both kidneys. There is 4 mm calculus in le ft kidney on axial image 39 mid pole level. Ortiz catheter is within decompressed bladder which is th us suboptimally evaluated. BOWEL: Oral contrast reaches level of the rectum. There is no suspicious small or large bowel dilatat ion. There is moderate wall thickening involving the right colon. There is areas of mild to moderate wall thickening in the transverse colon. There are diverticula in the left and sigmoid colon. There i s moderate to severe wall thickening in the sigmoid colon extending into rectum. Cannot exclude multi focal colitis. Cannot exclude neoplasm particularly at sigmoid rectal level in reference axial image 84. GENITAL ORGANS: No gross abnormality seen. LYMPH NODES: No greater than 1cm abdominal or pelvic lymph nodes are appreciated. OSSEOUS STRUCTURES: Spine is straightened on sagittal images. There is mild to moderate multilevel sp urring and disc space narrowing in the mid to lower lumbar spine. There is facet arthropathy lower stanton mbar levels. OTHER: There is moderate calcified plaque of the abdominal aorta. There is ectasia measuring up to 2. 9 cm in transverse diameter axial image 51. There is small fat-containing left inguinal hernia. There is small amount of pelvic ascites anteriorly. There is small amount of fluid in the paracolic g utters bilaterally. IMPRESSION: 1. New small amount of abdominal and pelvic ascites. Underlying cirrhosis with splenomegaly suspected . 2. Cannot exclude multifocal colitis versus product of underlying liver failure. Correlate clinically . Some areas of colon particularly sigmoid rectal level neoplasm cannot be excluded, correlation with colonoscopy advised if has not been performed in last 3 years.
[2018-01-24] MEDS: TAMSULOSIN 0.4 MG CAP.ER.24H PO SCH (17:54)
[2018-01-24] MEDS: METOPROLOL TARTRATE 5 MG/5 ML VIAL IVP SCH (18:08)
--- NOTE | 2018-01-24 18:38 | P.PN ---
Subjective Progress Note Date: 01/24/18 Principal diagnosis: Hepatic encephalopathy, GI bleed, cirrhosis liver, pancytopenia including thrombocytopenia and anemia, uncontrolled diabetes and hyperglycemia, chronic renal failure, protein calorie malnourishment, nonbleeding ulcer found on EGD, 01/24/2018, patient seen eval reexamined during the rounds he is more lethargic poorly responsive unable to hold anything by mouth an NG tube has been placed patient is somewhat tachycardic as well will need his the continuation of med a prolonged however cannot be given by mouth will need IV the patient will be transferred to selective care will put a Ortiz's catheter patient appears to be dehydrated with gently rehydrate patient to undergo medications through the OG tube, metoprolol cannot be crushed and cannot be given through the OG tubes so will give IV, repeat labs tomorrow, critical care time spent 35 minutes 01/23/2018, patient seen eval examined during the rounds family is present at bedside he is arousable he is getting lactulose per rectum ammonia level noted to be elevated, care plan discussed with the primary service may need NG tube if unable to tolerate by mouth or per rectum, will follow 01/22/2018, patient seen and evaluated examined during the rounds he is arousable and awake but remains somnolent patient is status post endoscopy noted to have the nonbleeding ulcer, patient does have a 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 Bedolla recommended to monitor observe closely Patient presented emergency department on January 16 complaining of generalized weakness and was admitted in ICU, patient was evaluated by Dr. crystal in my absence. The patient apparently had a large black bowel movement overnight. He also had coffee-ground emesis the emergency department. An NG tube was placed and 900 mL of coffee-ground fluid has been suctioned. The patient denies abdominal pain. He has received one and half liters of normal saline. He was found to have a lactic acid of 10. The patient denies abdominal pain, nausea, vomiting. He denies a history of GI bleed however the patient appears to be a poor historian. His hemoglobin is currently 9.9. History is mostly obtained from the electronic medical record. Objective - Vital Signs Vital signs: Vital Signs Temp 97.2 F L 01/24/18 17:55 Pulse 101 H 01/24/18 17:55 Resp 22 01/24/18 17:55 BP 145/62 01/24/18 17:55 Pulse Ox 100 01/24/18 17:55 Intake & Output 01/23/18 01/24/18 01/24/18 18:59 06:59 18:59 Intake Total 280 840 Balance 280 840 Weight 117 kg Intake: IV 280 480 Sodium Chloride 0.9% 1, 280 480 000 ml @ 40 mls/hr IV . Q24H [facility] Rx#:[id number] Oral 360 Other: Voiding Method Bedside Commode Bedside Commode Diaper Diaper Diaper Incontinent Incontinent Incontinent # Voids 1 1 # Bowel Movements 1 1 - Exam - Constitutional General appearance: Present: mild distress, obese - EENT Eyes: Present: EOMI, PERRLA, normal appearance ENT: Present: hard of hearing, normal oropharynx Ears: bilateral: normal - Neck Neck: Present: normal ROM Carotids: bilateral: upstroke normal, bruit absent Thyroid: bilateral: normal size - Respiratory Respiratory: bilateral: CTA, diminished, negative: dullness, rales, rhonchi, wheezing, prolonged expiration, prolonged inspiration - Cardiovascular Rhythm: regular Heart sounds: normal: S1, S2 - Gastrointestinal General gastrointestinal: Present: decreased bowel sounds, distended - Integumentary Integumentary: Present: normal, normal turgor - Neurologic Neurologic: Present: CNII-XII intact, very somnolent and poorly arousable but does have a gag and able to maintain airway - Musculoskeletal Musculoskeletal: Present: generalized weakness, strength equal bilaterally - Psychiatric Psychiatric: Present: Nonverbal and noncommunicative lethargic and poorly responsive - Labs CBC & Chem 7: 01/24/18 07:12 01/24/18 07:12 Labs: Abnormal Lab Results - Last 24 Hours (Table) 01/23/18 01/24/18 01/24/18 Range/Units 20:26 07:12 07:12 RBC 2.62 L (4.30-5.90) m/uL Hgb 7.7 L (13.0-17.5) gm/dL Hct 23.7 L (39.0-53.0) % RDW 18.2 H (11.5-15.5) % Plt Count 137 L (150-450) k/uL Neutrophils # 8.0 H (1.3-7.7) k/uL Lymphocytes # 0.6 L (1.0-4.8) k/uL INR 1.3 H (<1.2) Chloride (98-107) mmol/L Carbon Dioxide (22-30) mmol/L BUN (9-20) mg/dL Creatinine (0.66-1.25) mg/dL Glucose (74-99) mg/dL POC Glucose (mg/dL) 155 H (75-99) mg/dL Calcium (8.4-10.2) mg/dL AST (17-59) U/L Ammonia (<30) umol/L Total Protein (6.3-8.2) g/dL Albumin (3.5-5.0) g/dL 01/24/18 01/24/18 01/24/18 Range/Units 07:12 07:12 07:26 RBC (4.30-5.90) m/uL Hgb (13.0-17.5) gm/dL Hct (39.0-53.0) % RDW (11.5-15.5) % Plt Count (150-450) k/uL Neutrophils # (1.3-7.7) k/uL Lymphocytes # (1.0-4.8) k/uL INR (<1.2) Chloride 109 H (98-107) mmol/L Carbon Dioxide 18 L (22-30) mmol/L BUN 52 H (9-20) mg/dL Creatinine 1.74 H (0.66-1.25) mg/dL Glucose 149 H (74-99) mg/dL POC Glucose (mg/dL) 162 H (75-99) mg/dL Calcium 8.0 L (8.4-10.2) mg/dL AST 75 H (17-59) U/L Ammonia 118 H (<30) umol/L Total Protein 4.6 L (6.3-8.2) g/dL Albumin 2.1 L (3.5-5.0) g/dL 01/24/18 Range/Units 11:22 RBC (4.30-5.90) m/uL Hgb (13.0-17.5) gm/dL Hct (39.0-53.0) % RDW (11.5-15.5) % Plt Count (150-450) k/uL Neutrophils # (1.3-7.7) k/uL Lymphocytes # (1.0-4.8) k/uL INR (<1.2) Chloride (98-107) mmol/L Carbon Dioxide (22-30) mmol/L BUN (9-20) mg/dL Creatinine (0.66-1.25) mg/dL Glucose (74-99) mg/dL POC Glucose (mg/dL) 146 H (75-99) mg/dL Calcium (8.4-10.2) mg/dL AST (17-59) U/L Ammonia (<30) umol/L Total Protein (6.3-8.2) g/dL Albumin (3.5-5.0) g/dL Assessment and Plan Assessment: Altered mental status hepatic encephalopathy with elevated ammonia level Abdominal distention Tachycardia borderline hypertension with intravascular volume depletion and dehydration Severe anemia and thrombocytopenia and GI bleed Stage III renal failure GI bleed with nonbleeding peptic ulcer, associated lower GI bleed cannot be excluded Metabolic acidosis lactic acidosis slowly improving History of prior recurrent pleural effusion of unclear etiology History of cirrhosis of the liver Plan: Transferred to [facility] care, possible OG tube, passed fully's catheter, gently rehydrate the patient, beta dianna can be given IV slow hold most of the by mouth medications, patient is being started on xifaxin twice a day Continue gentle rehydration monitor clinical course closely continue supportive care will follow clinical course closely, continue breathing treatment continue lactulose further recommendations pending plan of care as per clinical response of the patient repeat ammonia level tomorrow, prognosis overall is guarded, will recommend to hold the Lasix, will also adjust the medication. Lipitor, stop IV Lasix glipizide and Cortef will put patient on Solu-Cortef 50 IV every 12 for a stress dose steroid critical care time spent 35 minutes Time with Patient: Greater than 30
[2018-01-24 19:47] LABS: ABG Base Excess -4.6 mmol/L; ABG HCO3 20 mmol/L (21-25); ABG Oxygen Saturation 98.9 % (94-97); ABG PCO2 29 mmHg (35-45); ABG PH 7.43 (7.35-7.45); ABG PO2 101 mmHg (83-108); ABG TCO2 21 mmol/L (19-24)
[2018-01-24 20:45] LABS: Glucose,Whole Blood 130 mg/dL (75-99)
[2018-01-24] MEDS: HYDROCORTISONE SUCCINATE 100 MG/2 ML VIAL IV SCH (21:59)
[2018-01-25] MEDS: SODIUM CHLORIDE 0.9% 1,000 ML IV SCH ×2 (02:14→08:30)
[2018-01-25 06:27] LABS: Anisocytosis Slight; Basophils % (A) 0 %; Eosinophils % (A) 1 %; HCT 24.2 % (39.0-53.0); HGB 7.8 gm/dL (13.0-17.5); Hypochromasia Slight; Lymphocytes # (A) 0.5 k/uL (1.0-4.8); Lymphocytes % (A) 7 %; MCHC 32.1 g/dL (31.0-37.0); MCV 90.5 fL (80.0-100.0); Mean Platelet Volume 8.1; Monocytes # (A) 0.3 k/uL (0-1.0); Monocytes % (A) 4 %; Neutrophils # (A) 5.5 k/uL (1.3-7.7); Neutrophils % (A) 86 %; Platelet Count 138 k/uL (150-450); Poikilocytosis Slight; RBC 2.67 m/uL (4.30-5.90); WBC 6.4 k/uL (3.8-10.6)
[2018-01-25 06:34] LABS: INR 1.3 (<1.2); Prothrombin Time 12.1 sec (9.0-12.0)
[2018-01-25] MEDS: METOPROLOL TARTRATE 5 MG/5 ML VIAL IVP SCH ×2 (06:36→17:00)
[2018-01-25 06:38] LABS: Glucose,Whole Blood 161 mg/dL (75-99)
[2018-01-25] MEDS: INSULIN ASPART 100 UNIT/ML 1 ML 10 ML VIAL SQ SCH ×4 (06:39→21:15)
[2018-01-25 06:41] LABS: Albumin 2.2 g/dL (3.5-5.0); Calcium 7.6 mg/dL (8.4-10.2); Potassium 3.9 mmol/L (3.5-5.1); Total Bilirubin 0.9 mg/dL (0.2-1.3); Total Protein 4.6 g/dL (6.3-8.2)
--- NOTE | 2018-01-25 08:22 | XR ---
EXAMINATION TYPE: XR chest 1V portable DATE OF EXAM: 01/25/2018 COMPARISON: 01/24/2018 HISTORY: Pleural effusion TECHNIQUE: Single frontal view of the chest is obtained. FINDINGS: Trace left pleural effusion blunts the costophrenic angle, similar to prior. Bibasilar sub segmental atelectasis is noted. Remainder the lungs are clear. Cardia mediastinal silhouette is withi n normal limits. Osseous structures are intact with mild degenerative changes of the thoracic spine a nd right acromio clavicular joint. IMPRESSION: Persistent trace right pleural effusion and bibasilar atelectasis.
[2018-01-25] MEDS: HYDROCORTISONE SUCCINATE 100 MG/2 ML VIAL IV SCH ×2 (08:28→20:09)
[2018-01-25] MEDS: FLUDROCORTISONE 0.1 MG TAB PO SCH ×2 (08:28→20:09)
[2018-01-25] MEDS: LACTULOSE 20 GM/30 ML CUP NG-TUBE SCH (08:29)
[2018-01-25] MEDS: SPIRONOLACTONE 25 MG TAB PO SCH (08:29)
[2018-01-25] MEDS: PANTOPRAZOLE 40 MG/10 ML VIAL IV SCH (08:29)
[2018-01-25] MEDS: RIFAXIMIN 550 MG TABLET NG-TUBE SCH (08:29)
--- NOTE | 2018-01-25 08:59 | P.PN ---
Subjective Progress Note Date: 01/25/18 Principal diagnosis: Upper GI bleed hepatic encephalopathy s/p EGD last week with findings of distal esophageal superficial ulceration. No recurrent bleeding. Mental status improved today ammonia less than 9. Patient pulled his NG tube out last night. Passing nonbloody bowel movements. Hemoglobin 7.8. Afebrile. CT abdomen and pelvis reported severe wall thickening of the sigmoid extending into rectum cannot exclude multifocal colitis cannot exclude neoplasm at the rectal sigmoid level. Liver small in size lobulated suggesting underlying cirrhosis with adjacent ascites. Objective - Vital Signs Vital signs: Vital Signs Temp 98.3 F 01/25/18 08:00 Pulse 92 01/25/18 08:00 Resp 18 01/25/18 08:00 BP 112/58 01/25/18 08:00 Pulse Ox 100 01/25/18 08:00 Intake & Output 01/24/18 01/25/18 01/25/18 18:59 06:59 18:59 Intake Total 700 Output Total 1300 Balance -600 Weight 105 kg Intake: IV 700 Sodium Chloride 0.9% 1, 700 000 ml @ 40 mls/hr IV . Q24H [facility] Rx#:[id number] Output: Urine 1300 Uretheral (Ortiz) 1300 Other: Voiding Method Diaper Indwelling Catheter Incontinent # Voids 1 # Bowel Movements 1 1 - Exam General appearance: The patient is or alert to self and place. Appropriate conversation. HET: Head is normocephalic and atraumatic. Pupils are equal and reactive. Oropharynx is clear without lesions. Neck: Supple without lymphadenopathy. Trachea midline. Heart: S1 S2. Regular rate and rhythm. Lungs: No crackles or wheezes are heard. Abdomen: Soft, nontender, distended with bowel sounds. No peritoneal signs. No palpable organomegaly or masses. Extremities: Normal skin color and turgor. No cyanosis, rash, ulceration, clubbing, or edema. Radial and pedal pulses are 2/4 bilaterally. Neurological: No focal deficits. Strength and sensation are grossly intact. - Labs CBC & Chem 7: 01/25/18 06:14 01/25/18 06:14 Labs: Abnormal Lab Results - Last 24 Hours (Table) 01/24/18 01/24/18 01/24/18 Range/Units 11:22 19:45 20:43 RBC (4.30-5.90) m/uL Hgb (13.0-17.5) gm/dL Hct (39.0-53.0) % RDW (11.5-15.5) % Plt Count (150-450) k/uL Lymphocytes # (1.0-4.8) k/uL PT (9.0-12.0) sec INR (<1.2) ABG pCO2 29 L (35-45) mmHg ABG HCO3 20 L (21-25) mmol/L ABG O2 Saturation 98.9 H (94-97) % Chloride (98-107) mmol/L Carbon Dioxide (22-30) mmol/L BUN (9-20) mg/dL Creatinine (0.66-1.25) mg/dL Glucose (74-99) mg/dL POC Glucose (mg/dL) 146 H 130 H (75-99) mg/dL Calcium (8.4-10.2) mg/dL AST (17-59) U/L Total Protein (6.3-8.2) g/dL Albumin (3.5-5.0) g/dL 01/25/18 01/25/18 01/25/18 Range/Units 06:14 06:14 06:14 RBC 2.67 L (4.30-5.90) m/uL Hgb 7.8 L (13.0-17.5) gm/dL Hct 24.2 L (39.0-53.0) % RDW 18.0 H (11.5-15.5) % Plt Count 138 L (150-450) k/uL Lymphocytes # 0.5 L (1.0-4.8) k/uL PT 12.1 H (9.0-12.0) sec INR 1.3 H (<1.2) ABG pCO2 (35-45) mmHg ABG HCO3 (21-25) mmol/L ABG O2 Saturation (94-97) % Chloride 111 H (98-107) mmol/L Carbon Dioxide 19 L (22-30) mmol/L BUN 46 H (9-20) mg/dL Creatinine 1.48 H (0.66-1.25) mg/dL Glucose 147 H (74-99) mg/dL POC Glucose (mg/dL) (75-99) mg/dL Calcium 7.6 L (8.4-10.2) mg/dL AST 75 H (17-59) U/L Total Protein 4.6 L (6.3-8.2) g/dL Albumin 2.2 L (3.5-5.0) g/dL 01/25/18 Range/Units 06:36 RBC (4.30-5.90) m/uL Hgb (13.0-17.5) gm/dL Hct (39.0-53.0) % RDW (11.5-15.5) % Plt Count (150-450) k/uL Lymphocytes # (1.0-4.8) k/uL PT (9.0-12.0) sec INR (<1.2) ABG pCO2 (35-45) mmHg ABG HCO3 (21-25) mmol/L ABG O2 Saturation (94-97) % Chloride (98-107) mmol/L Carbon Dioxide (22-30) mmol/L BUN (9-20) mg/dL Creatinine (0.66-1.25) mg/dL Glucose (74-99) mg/dL POC Glucose (mg/dL) 161 H (75-99) mg/dL Calcium (8.4-10.2) mg/dL AST (17-59) U/L Total Protein (6.3-8.2) g/dL Albumin (3.5-5.0) g/dL Assessment and Plan (1) Hepatic encephalopathy Narrative/Plan: Mentation improved ammonia less than 9 present receiving lactulose and Xifaxan. Current Visit: Yes Status: Acute Code(s): K72.90 - HEPATIC FAILURE, UNSPECIFIED WITHOUT COMA SNOMED Code(s): 40935266 (2) GI bleed Narrative/Plan: 82-year-old male admitted with reports of coffee-ground emesis and melena s/p EGD with findings of distal esophageal superficial ulceration with component of acute blood loss anemia. Current Visit: Yes Status: Acute Code(s): K92.2 - GASTROINTESTINAL HEMORRHAGE, UNSPECIFIED SNOMED Code(s): 22757382 (3) Altered mental status Current Visit: No Status: Acute Code(s): R41.82 - ALTERED MENTAL STATUS, UNSPECIFIED SNOMED Code(s): 645962489 (4) Cirrhosis Narrative/Plan: Etiology unclear possible cryptogenic possible chronic liver disease Current Visit: Yes Status: Chronic Code(s): K74.60 - UNSPECIFIED CIRRHOSIS OF LIVER SNOMED Code(s): 94743623 Plan: 1. CT reviewed cannot exclude underlying rectosigmoid neoplasm. We'll proceed with colonoscopy tomorrow; will discuss with medicine. If patient is not able to tolerate bowel prep will consider flexible sigmoidoscopy for further evaluation of CT findings. 2. Clear liquid diet today after seen by speech. 3. Continue Xifaxan 550 mg twice daily and lactulose 20 g 3 times daily hold lactulose if more than 3 bowel movements. 4. Will obtain CEA and AFP marker. Serologic workup for assessment of chronic liver disease requested. Assessment and plan of care discussed with Dr. Lopez
--- NOTE | 2018-01-25 10:10 | P.PN ---
Subjective Progress Note Date: 01/25/18 Asked to see patient again secondary to abdominal distention and possible obstruction. CT of the abdomen was performed yesterday that did not show any evidence of obstruction but did show thickening of the sigmoid and rectum that could not rule out malignancy. The patient was seen and examined at the bedside. He states that he feels bloated but does not have any abdominal pain. He denies any nausea and vomiting. He states he is having bowel function. Objective - Vital Signs Vital signs: Vital Signs Temp 98.3 F 01/25/18 08:00 Pulse 92 01/25/18 08:00 Resp 18 01/25/18 08:00 BP 112/58 01/25/18 08:00 Pulse Ox 100 01/25/18 08:00 Intake & Output 01/24/18 01/25/18 01/25/18 18:59 06:59 18:59 Intake Total 700 Output Total 1300 400 Balance -600 -400 Weight 105 kg Intake: IV 700 Sodium Chloride 0.9% 1, 700 000 ml @ 40 mls/hr IV . Q24H [facility] Rx#:[id number] Output: Urine 1300 400 Uretheral (Ortiz) 1300 400 Other: Voiding Method Diaper Indwelling Catheter Indwelling Catheter Incontinent # Voids 1 # Bowel Movements 1 1 - Constitutional General appearance: Present: cooperative, no acute distress - EENT ENT: Present: hearing grossly normal - Respiratory Details: No difficulty with respiration - Gastrointestinal Gastrointestinal Comment(s): Soft, nontender, mild distention, no rebound, no guarding - Musculoskeletal Musculoskeletal: Present: generalized weakness - Labs CBC & Chem 7: 01/25/18 06:14 01/25/18 06:14 Labs: Abnormal Lab Results - Last 24 Hours (Table) 01/24/18 01/24/18 01/24/18 Range/Units 11:22 19:45 20:43 RBC (4.30-5.90) m/uL Hgb (13.0-17.5) gm/dL Hct (39.0-53.0) % RDW (11.5-15.5) % Plt Count (150-450) k/uL Lymphocytes # (1.0-4.8) k/uL PT (9.0-12.0) sec INR (<1.2) ABG pCO2 29 L (35-45) mmHg ABG HCO3 20 L (21-25) mmol/L ABG O2 Saturation 98.9 H (94-97) % Chloride (98-107) mmol/L Carbon Dioxide (22-30) mmol/L BUN (9-20) mg/dL Creatinine (0.66-1.25) mg/dL Glucose (74-99) mg/dL POC Glucose (mg/dL) 146 H 130 H (75-99) mg/dL Calcium (8.4-10.2) mg/dL AST (17-59) U/L Total Protein (6.3-8.2) g/dL Albumin (3.5-5.0) g/dL 01/25/18 01/25/18 01/25/18 Range/Units 06:14 06:14 06:14 RBC 2.67 L (4.30-5.90) m/uL Hgb 7.8 L (13.0-17.5) gm/dL Hct 24.2 L (39.0-53.0) % RDW 18.0 H (11.5-15.5) % Plt Count 138 L (150-450) k/uL Lymphocytes # 0.5 L (1.0-4.8) k/uL PT 12.1 H (9.0-12.0) sec INR 1.3 H (<1.2) ABG pCO2 (35-45) mmHg ABG HCO3 (21-25) mmol/L ABG O2 Saturation (94-97) % Chloride 111 H (98-107) mmol/L Carbon Dioxide 19 L (22-30) mmol/L BUN 46 H (9-20) mg/dL Creatinine 1.48 H (0.66-1.25) mg/dL Glucose 147 H (74-99) mg/dL POC Glucose (mg/dL) (75-99) mg/dL Calcium 7.6 L (8.4-10.2) mg/dL AST 75 H (17-59) U/L Total Protein 4.6 L (6.3-8.2) g/dL Albumin 2.2 L (3.5-5.0) g/dL 01/25/18 Range/Units 06:36 RBC (4.30-5.90) m/uL Hgb (13.0-17.5) gm/dL Hct (39.0-53.0) % RDW (11.5-15.5) % Plt Count (150-450) k/uL Lymphocytes # (1.0-4.8) k/uL PT (9.0-12.0) sec INR (<1.2) ABG pCO2 (35-45) mmHg ABG HCO3 (21-25) mmol/L ABG O2 Saturation (94-97) % Chloride (98-107) mmol/L Carbon Dioxide (22-30) mmol/L BUN (9-20) mg/dL Creatinine (0.66-1.25) mg/dL Glucose (74-99) mg/dL POC Glucose (mg/dL) 161 H (75-99) mg/dL Calcium (8.4-10.2) mg/dL AST (17-59) U/L Total Protein (6.3-8.2) g/dL Albumin (3.5-5.0) g/dL Assessment and Plan (1) GI hemorrhage Current Visit: Yes Status: Acute Code(s): K92.2 - GASTROINTESTINAL HEMORRHAGE, UNSPECIFIED SNOMED Code(s): 65540353 Plan: 82-year-old male originally seen secondary to GI bleed, resolving. Evaluating for obstruction. - Abdomen is mildly distended, no evidence of obstruction on abdominal x-ray and CT of the abdomen and pelvis - With finding of thickening of the sigmoid and rectum, will defer to gastroenterology for possible lower endoscopy - No acute surgical intervention planned at this time - Continue medical management
[2018-01-25] MEDS: FUROSEMIDE 10 MG/ML 2 ML VIAL IV SCH (10:14)
[2018-01-25 11:49] LABS: Glucose,Whole Blood 158 mg/dL (75-99)
--- NOTE | 2018-01-25 13:51 | P.PN ---
Subjective Progress Note Date: 01/25/18 This is an 82-year-old gentleman patient of Dr. Rojas, with known history of CK D stage III, diabetes mellitus type 2, COPD, hyperlipidemia, and chronic anemia admitted from our facility in early August 2017, was diagnosed to have metabolic encephalopathy secondary to acute kidney injury and dehydration with hypoperfusion. Patient comes into the emergency room with a four-day history of black stools, has had increasing falls, no abdominal pain, patient denies any hematochezia, patient is not an alcoholic drinker currently, and was not feeling very well hence the ER admission. Patient has fallen numerous times, and the last one was 2 days ago, previous to this, patient had cracked the ribs , 4 weeks prior to admission. Patient follows up with Dr. Rojas every 4 months regimen, his due to see him in 01/20/2018 In the emergency room, he was noted to have Hemoccult-positive stools, patient was noted to have melanocytic stools, Hemoccult positive, hematuria with RBC of 59, double see if 1, moderate ketones, EKG shows sinus tachycardia with right bundle branch block, left anterior fascicular block, and pulmonary disease pattern heart rate of 124. Patient is admitted to ICU secondary to melanocytic stools with hemoglobin of 9, consult to Gen. surgery Dr. Montes and Dr. Haq gastroenterology. Admitting lactic acid was significantly elevated at 10.0 with a peak of 11.4, wbc of 15 troponin of 0.077 Previous imaging in our facility shows small amount of ascites, in the abdomen noted in May 2014 and CAT scan chest 2014, cholelithiasis, and evidence of cirrhosis and portal hypertension, improving pleural effusion, improving right apical nodule When patient was seen, patient was very much confused, trying to grab things in the area, very dry mouth, patient's nothing by mouth, and has a bilateral wrist restraints, ammonia levels were requested, family at bedside, CODE STATUS was discussed and is DO NOT RESUSCITATE no CPR with options for vent if needed 01/18: Hemoglobin is stable at 8.8. Patient is scheduled for EGD. The patient has had small bowel movements 7. Lactulose is on hold. Stools have been tarry in color. Cardiology is following for tachycardia. No plan for any further workup. 01/19: EGD revealed distal esophageal ulcer and gastritis but no active bleeding. Hemoglobin is 8.1. Ferrlecit ordered 1 dose. Patient is more alert today. Ammonia level is less than 9. Patient does have a large bruising area to the left antecubital which we will plan for Bactroban. Patient will be transferred out of intensive care today. PT will be started to help determine discharge plan. 01/20: Patient has less alert today. He missed a dose of lactulose and ammonia level is 34 today. He has a sitter at the bedside. Hemoglobin is currently 7.8. Patient has been waiting for selective care bed. He is hemodynamically stable will now be transferred to [facility]. Lactulose decrease to twice daily. Home medications reviewed and those appropriate have been resumed. 01/23: Patient is more lethargic today and stat lab work including ammonia level was ordered. Lactic acid came back at 2.1 and ammonia level CXXXVII. Patient was ordered for 1 L of IV fluid. Abdomen is more distended today and abdominal x-ray shows no bowel obstruction. Patient underwent bowel prep yesterday for colonoscopy to be done today but still did not clear. He has not been able to take any oral medications. Rectal lactulose has been ordered. 01/24: Patient is more lethargic today from yesterday. Ammonia level today is at 118. Patient did receive lactulose enemas yesterday. Patient is noted to have more abdominal distention today. GI has ordered NG tube and start Xifaxan , lactulose per NG tube and discontinue enemas and a CT of the abdomen and pelvis was ordered. Patient to be transferred to selective care. 01/25: Patient is more alert today. He did have 4 bowel movements yesterday but pulled his NG tube out. His ammonia level this morning is less than 9. He is to continue on lactulose 3 times daily orally. Patient did take his oral medications today. He is scheduled for a colonoscopy tomorrow. Patient is noted to have expiratory wheezing and IV Lasix ordered. Updrafts changed to scheduled. Pulse ox is 97% on room air. Patient has been afebrile. Objective - Vital Signs Vital signs: Vital Signs Temp 98.3 F 01/25/18 08:00 Pulse 92 01/25/18 08:00 Resp 18 01/25/18 08:00 BP 112/58 01/25/18 08:00 Pulse Ox 100 01/25/18 08:00 Intake & Output 01/24/18 01/25/18 01/25/18 18:59 06:59 18:59 Intake Total 700 Output Total 1300 400 Balance -600 -400 Weight 105 kg Intake: IV 700 Sodium Chloride 0.9% 1, 700 000 ml @ 40 mls/hr IV . Q24H [facility] Rx#:[id number] Output: Urine 1300 400 Uretheral (Ortiz) 1300 400 Other: Voiding Method Diaper Indwelling Catheter Indwelling Catheter Incontinent # Voids 1 # Bowel Movements 1 1 - Exam General appearance: cooperative, obese - EENT Eyes: anicteric sclerae, EOMI ENT: NA/AT - Neck Neck: normal ROM - Respiratory Respiratory: bilateral: Expiratory wheeze, negative: dullness, rales, rhonchi - Cardiovascular Rhythm: regular Heart sounds: normal: S1, S2 - Gastrointestinal General gastrointestinal: normal bowel sounds, soft, distended - Integumentary Integumentary: decreased turgor, normal - Neurologic Patient is oriented to person. He'll follow simple commands. - Labs CBC & Chem 7: 01/25/18 06:14 01/25/18 06:14 Labs: Abnormal Lab Results - Last 24 Hours (Table) 01/24/18 01/24/18 01/24/18 Range/Units 11:22 19:45 20:43 RBC (4.30-5.90) m/uL Hgb (13.0-17.5) gm/dL Hct (39.0-53.0) % RDW (11.5-15.5) % Plt Count (150-450) k/uL Lymphocytes # (1.0-4.8) k/uL PT (9.0-12.0) sec INR (<1.2) ABG pCO2 29 L (35-45) mmHg ABG HCO3 20 L (21-25) mmol/L ABG O2 Saturation 98.9 H (94-97) % Chloride (98-107) mmol/L Carbon Dioxide (22-30) mmol/L BUN (9-20) mg/dL Creatinine (0.66-1.25) mg/dL Glucose (74-99) mg/dL POC Glucose (mg/dL) 146 H 130 H (75-99) mg/dL Calcium (8.4-10.2) mg/dL AST (17-59) U/L Total Protein (6.3-8.2) g/dL Albumin (3.5-5.0) g/dL 01/25/18 01/25/18 01/25/18 Range/Units 06:14 06:14 06:14 RBC 2.67 L (4.30-5.90) m/uL Hgb 7.8 L (13.0-17.5) gm/dL Hct 24.2 L (39.0-53.0) % RDW 18.0 H (11.5-15.5) % Plt Count 138 L (150-450) k/uL Lymphocytes # 0.5 L (1.0-4.8) k/uL PT 12.1 H (9.0-12.0) sec INR 1.3 H (<1.2) ABG pCO2 (35-45) mmHg ABG HCO3 (21-25) mmol/L ABG O2 Saturation (94-97) % Chloride 111 H (98-107) mmol/L Carbon Dioxide 19 L (22-30) mmol/L BUN 46 H (9-20) mg/dL Creatinine 1.48 H (0.66-1.25) mg/dL Glucose 147 H (74-99) mg/dL POC Glucose (mg/dL) (75-99) mg/dL Calcium 7.6 L (8.4-10.2) mg/dL AST 75 H (17-59) U/L Total Protein 4.6 L (6.3-8.2) g/dL Albumin 2.2 L (3.5-5.0) g/dL 01/25/18 Range/Units 06:36 RBC (4.30-5.90) m/uL Hgb (13.0-17.5) gm/dL Hct (39.0-53.0) % RDW (11.5-15.5) % Plt Count (150-450) k/uL Lymphocytes # (1.0-4.8) k/uL PT (9.0-12.0) sec INR (<1.2) ABG pCO2 (35-45) mmHg ABG HCO3 (21-25) mmol/L ABG O2 Saturation (94-97) % Chloride (98-107) mmol/L Carbon Dioxide (22-30) mmol/L BUN (9-20) mg/dL Creatinine (0.66-1.25) mg/dL Glucose (74-99) mg/dL POC Glucose (mg/dL) 161 H (75-99) mg/dL Calcium (8.4-10.2) mg/dL AST (17-59) U/L Total Protein (6.3-8.2) g/dL Albumin (3.5-5.0) g/dL Assessment and Plan Plan: 1. Acute upper GI bleed with acute blood loss anemia, secondary to esophageal ulcer and gastritis. Patient will be transferred out of ICU. Carrot Grader Inspector was consulted Dr. Granger,we will transfuse with hemoglobin of less than 7, and GI consult with Dr. Lopez, for colonoscopy. Dr. Rodgers general surgeon. 2. Chronic liver cirrhosis and portal hypertension as noted through CT imaging , in 2015, ammonia levels are requested secondary to confusion. Lactulose every 6 hours rectally. Aldactone will be resumed. 3. Hyperammonemia, continue Xifaxan and lactulose 4. Recurrent falls, multifactorial, was likely secondary to metabolic encephalopathy with ongoing liver cirrhosis. Patient has having relapsing metabolic encephalopathy. Continue Xifaxan and lactulose. 5. Diabetes mellitus type 2, on metformin and glipizide--resumed 6. Autonomic dysfunction/possible adrenal insufficiency, patient resumed on home dose of Cortef and Florinef. Hydrocortisone discontinued 7. COPD on Spiriva, and when necessary albuterol 8. Hypertension, and tachycardia, patient will be restarted on metoprolol 12.5 mg bid. 9. Lactic acidosis likely secondary to GI bleed, continue to monitor serially, 10. CKD stage III with acute kidney failure, azotemia, IV hydration, Ortiz in place. Monitor creatinine. 11. Leukocytosis, 12. Hematuria, this needs to be worked up as outpatient, patient is asymptomatic , would need evaluate with either renal ultrasound or CT of the abdomen once stabilized 13. Hyperlipidemia. Patient will be resumed back on atorvastatin. 14. Mildly elevated troponins for which acute coronary syndrome has been ruled out. 15. No previous diagnosis heart failure. He is on Aldactone due to liver failure. 16. Severe protein calorie malnutrition secondary to cirrhosis of the liver with albumin of 2.2. Ensure added. Discharge plan: Subacute rehab at [facility] or [facility] Impression and plan of care have been directed as dictated by the signing physician. Radha Arredondo nurse practitioner acting as scribe for signing physician.
[2018-01-25] MEDS ORDERED: PEG 3350-NA SULF,BICARB,CL/KCL 4,000 ML BOTTLE PO ONE (15:00)
[2018-01-25] MEDS: LACTULOSE 20 GM/30 ML CUP PO SCH ×2 (15:19→20:10)
[2018-01-25] MEDS: IPRATROPIUM-ALBUTEROL 3 ML NEB INHALATION SCH ×2 (16:13→19:45)
[2018-01-25 16:48] LABS: Glucose,Whole Blood 146 mg/dL (75-99)
--- NOTE | 2018-01-25 19:30 | P.PN ---
Subjective Progress Note Date: 01/25/18 Principal diagnosis: Hepatic encephalopathy, GI bleed, cirrhosis liver, pancytopenia including thrombocytopenia and anemia, uncontrolled diabetes and hyperglycemia, chronic renal failure, protein calorie malnourishment, nonbleeding ulcer found on EGD, 01/25/2018, patient seen and evaluated examined during the rounds he is relatively more awake and opens eyes but however remains confused mildly anxious he underwent a swallowing evaluation could not swallow very well however given improvement in mental status would recommend repeated tomorrow anticipate should improve reviewed arterial blood gas as well as labs for tomorrow renal function continued to improve progressively, C. difficile is negative, with therapy with lactulose the ammonia level has significantly improved and Now they're less than 9, the chest x-ray reviewed there is basal atelectasis present with very small trace right pleural effusion which is overall stable compared to prior x-rays 01/24/2018, patient seen eval reexamined during the rounds he is more lethargic poorly responsive unable to hold anything by mouth an NG tube has been placed patient is somewhat tachycardic as well will need his the continuation of med a prolonged however cannot be given by mouth will need IV the patient will be transferred to selective care will put a Ortiz's catheter patient appears to be dehydrated with gently rehydrate patient to undergo medications through the OG tube, metoprolol cannot be crushed and cannot be given through the OG tubes so will give IV, repeat labs tomorrow, critical care time spent 35 minutes 01/23/2018, patient seen eval examined during the rounds family is present at bedside he is arousable he is getting lactulose per rectum ammonia level noted to be elevated, care plan discussed with the primary service may need NG tube if unable to tolerate by mouth or per rectum, will follow 01/22/2018, patient seen and evaluated examined during the rounds he is arousable and awake but remains somnolent patient is status post endoscopy noted to have the nonbleeding ulcer, patient does have a 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 Bedolla recommended to monitor observe closely Patient presented emergency department on January 16 complaining of generalized weakness and was admitted in ICU, patient was evaluated by Dr. crystal in my absence. The patient apparently had a large black bowel movement overnight. He also had coffee-ground emesis the emergency department. An NG tube was placed and 900 mL of coffee-ground fluid has been suctioned. The patient denies abdominal pain. He has received one and half liters of normal saline. He was found to have a lactic acid of 10. The patient denies abdominal pain, nausea, vomiting. He denies a history of GI bleed however the patient appears to be a poor historian. His hemoglobin is currently 9.9. History is mostly obtained from the electronic medical record. Objective - Vital Signs Vital signs: Vital Signs Temp 97.9 F 01/25/18 15:22 Pulse 96 01/25/18 16:24 Resp 20 01/25/18 15:22 BP 133/61 01/25/18 15:22 Pulse Ox 97 01/25/18 15:22 Intake & Output 01/25/18 01/25/18 01/26/18 06:59 18:59 06:59 Intake Total 700 Output Total 1300 1800 Balance -600 -1800 Weight 105 kg Intake: IV 700 Sodium Chloride 0.9% 1, 700 000 ml @ 40 mls/hr IV . Q24H [facility] Rx#:[id number] Output: Urine 1300 1800 Uretheral (Ortiz) 1300 1200 Other: Voiding Method Indwelling Catheter Indwelling Catheter # Bowel Movements 1 1 - Exam - Constitutional General appearance: Present: mild distress, obese - EENT Eyes: Present: EOMI, PERRLA, normal appearance ENT: Present: hard of hearing, normal oropharynx Ears: bilateral: normal - Neck Neck: Present: normal ROM Carotids: bilateral: upstroke normal, bruit absent Thyroid: bilateral: normal size - Respiratory Respiratory: bilateral: CTA, diminished, negative: dullness, rales, rhonchi, wheezing, prolonged expiration, prolonged inspiration - Cardiovascular Rhythm: regular Heart sounds: normal: S1, S2 - Gastrointestinal General gastrointestinal: Present: decreased bowel sounds, distended - Integumentary Integumentary: Present: normal, normal turgor - Neurologic Neurologic: Present: CNII-XII intact, more awake and alert but however remains confused and intermittently anxious and agitated this is significantly improved from yesterday exam - Musculoskeletal Musculoskeletal: Present: generalized weakness, strength equal bilaterally - Psychiatric Psychiatric: Present: Now relatively more and communicative and more responsive , thirsty and asking for water - Labs CBC & Chem 7: 01/25/18 06:14 01/25/18 06:14 Labs: Abnormal Lab Results - Last 24 Hours (Table) 01/24/18 01/24/18 01/25/18 Range/Units 19:45 20:43 06:14 RBC 2.67 L (4.30-5.90) m/uL Hgb 7.8 L (13.0-17.5) gm/dL Hct 24.2 L (39.0-53.0) % RDW 18.0 H (11.5-15.5) % Plt Count 138 L (150-450) k/uL Lymphocytes # 0.5 L (1.0-4.8) k/uL PT (9.0-12.0) sec INR (<1.2) ABG pCO2 29 L (35-45) mmHg ABG HCO3 20 L (21-25) mmol/L ABG O2 Saturation 98.9 H (94-97) % Chloride (98-107) mmol/L Carbon Dioxide (22-30) mmol/L BUN (9-20) mg/dL Creatinine (0.66-1.25) mg/dL Glucose (74-99) mg/dL POC Glucose (mg/dL) 130 H (75-99) mg/dL Calcium (8.4-10.2) mg/dL AST (17-59) U/L Total Protein (6.3-8.2) g/dL Albumin (3.5-5.0) g/dL 01/25/18 01/25/18 01/25/18 Range/Units 06:14 06:14 06:36 RBC (4.30-5.90) m/uL Hgb (13.0-17.5) gm/dL Hct (39.0-53.0) % RDW (11.5-15.5) % Plt Count (150-450) k/uL Lymphocytes # (1.0-4.8) k/uL PT 12.1 H (9.0-12.0) sec INR 1.3 H (<1.2) ABG pCO2 (35-45) mmHg ABG HCO3 (21-25) mmol/L ABG O2 Saturation (94-97) % Chloride 111 H (98-107) mmol/L Carbon Dioxide 19 L (22-30) mmol/L BUN 46 H (9-20) mg/dL Creatinine 1.48 H (0.66-1.25) mg/dL Glucose 147 H (74-99) mg/dL POC Glucose (mg/dL) 161 H (75-99) mg/dL Calcium 7.6 L (8.4-10.2) mg/dL AST 75 H (17-59) U/L Total Protein 4.6 L (6.3-8.2) g/dL Albumin 2.2 L (3.5-5.0) g/dL 01/25/18 01/25/18 Range/Units 11:34 16:41 RBC (4.30-5.90) m/uL Hgb (13.0-17.5) gm/dL Hct (39.0-53.0) % RDW (11.5-15.5) % Plt Count (150-450) k/uL Lymphocytes # (1.0-4.8) k/uL PT (9.0-12.0) sec INR (<1.2) ABG pCO2 (35-45) mmHg ABG HCO3 (21-25) mmol/L ABG O2 Saturation (94-97) % Chloride (98-107) mmol/L Carbon Dioxide (22-30) mmol/L BUN (9-20) mg/dL Creatinine (0.66-1.25) mg/dL Glucose (74-99) mg/dL POC Glucose (mg/dL) 158 H 146 H (75-99) mg/dL Calcium (8.4-10.2) mg/dL AST (17-59) U/L Total Protein (6.3-8.2) g/dL Albumin (3.5-5.0) g/dL Assessment and Plan Assessment: Altered mental status hepatic encephalopathy with elevated ammonia level, now improving with therapy Sigmoid colon wall thickening with a differential diagnoses of diffuse colitis/ multifocal colitis versus neoplasm Abdominal distention Basal atelectasis small pleural effusion multifactorial including an related to above as well as chronic renal failure cirrhosis of the liver Tachycardia borderline hypertension with intravascular volume depletion and dehydration, overall stable Severe anemia and thrombocytopenia and GI bleed Stage III renal failure GI bleed with nonbleeding peptic ulcer, associated lower GI bleed cannot be excluded Metabolic acidosis lactic acidosis slowly improving History of prior recurrent pleural effusion of unclear etiology History of cirrhosis of the liver Plan: Transferred to [facility], possible OG tube, passed fully's catheter, gently rehydrate the patient, beta dianna can be given IV slow hold most of the by mouth medications, patient is being started on xifaxin twice a day Continue gentle rehydration monitor clinical course closely continue supportive care will follow clinical course closely, continue breathing treatment continue lactulose further recommendations pending plan of care as per clinical response of the patient repeat ammonia level tomorrow, prognosis overall is guarded, will recommend to hold the Lasix, will also adjust the medication. Lipitor, stop IV Lasix glipizide and Cortef will put patient on Solu-Cortef 50 IV every 12 for a stress dose steroid critical care time spent 35 minutes Time with Patient: Greater than 30
[2018-01-25] MEDS: RIFAXIMIN 550 MG TABLET PO SCH (20:09)
[2018-01-25 20:47] LABS: Glucose,Whole Blood 162 mg/dL (75-99)
[2018-01-26 05:54] LABS: Glucose,Whole Blood 158 mg/dL (75-99)
[2018-01-26 06:22] LABS: Anisocytosis Slight; Basophils % (A) 0 %; Eosinophils % (A) 0 %; HCT 23.6 % (39.0-53.0); HGB 7.5 gm/dL (13.0-17.5); Hypochromasia Slight; Lymphocytes # (A) 0.6 k/uL (1.0-4.8); Lymphocytes % (A) 8 %; MCH 28.6 pg (25.0-35.0); MCHC 31.7 g/dL (31.0-37.0); MCV 90.1 fL (80.0-100.0); Monocytes # (A) 0.3 k/uL (0-1.0); Monocytes % (A) 5 %; Neutrophils # (A) 6.1 k/uL (1.3-7.7); Neutrophils % (A) 85 %; Platelet Count 167 k/uL (150-450); Poikilocytosis Slight; RBC 2.62 m/uL (4.30-5.90); RDW 17.8 % (11.5-15.5); WBC 7.2 k/uL (3.8-10.6)
[2018-01-26 06:27] LABS: Albumin 2.2 g/dL (3.5-5.0); Calcium 7.9 mg/dL (8.4-10.2); Potassium 3.6 mmol/L (3.5-5.1); Total Bilirubin 0.9 mg/dL (0.2-1.3); Total Protein 4.7 g/dL (6.3-8.2)
[2018-01-26 06:30] LABS: INR 1.3 (<1.2); Prothrombin Time 12.1 sec (9.0-12.0)
[2018-01-26] MEDS: INSULIN ASPART 100 UNIT/ML 1 ML 10 ML VIAL SQ SCH ×4 (06:34→22:25)
[2018-01-26] MEDS: METOPROLOL TARTRATE 5 MG/5 ML VIAL IVP SCH ×2 (06:58→17:33)
[2018-01-26] MEDS ORDERED: LACTATED RINGERS 1,000 ML IV SCH ×2 (07:08→18:00)
[2018-01-26] MEDS ORDERED: LIDOCAINE 1% 20 ML VIAL (10MG/ML) FOR IV START INTRADERMA PRN (07:08)
[2018-01-26] MEDS: IPRATROPIUM-ALBUTEROL 3 ML NEB INHALATION SCH ×4 (07:18→20:05)
--- NOTE | 2018-01-26 07:25 | XR ---
EXAMINATION TYPE: XR chest 1V portable DATE OF EXAM: 01/26/2018 COMPARISON: 01/25/2018 HISTORY: Shortness of breath TECHNIQUE: Frontal and lateral views of the chest are obtained. FINDINGS: Scattered senescent parenchymal changes noted. Hyperinflation compatible with COPD. No evidence for infiltrate. No evidence for atelectasis. Small right-sided pleural effusion noted. Heart size is stable. Mediastinal structures are stable and grossly unremarkable. No evidence for hilar prominence. Degenerative changes dorsal spine. Right-sided rib deformities redemonstrated. IMPRESSION: 1. Small right-sided pleural effusion noted.
[2018-01-26] MEDS: PANTOPRAZOLE 40 MG/10 ML VIAL IV SCH (08:03)
[2018-01-26] MEDS: FUROSEMIDE 10 MG/ML 2 ML VIAL IV SCH (08:03)
[2018-01-26] MEDS: RIFAXIMIN 550 MG TABLET PO SCH ×2 (08:03→22:28)
[2018-01-26] MEDS: LACTULOSE 20 GM/30 ML CUP PO SCH ×3 (08:03→22:29)
[2018-01-26] MEDS: SPIRONOLACTONE 25 MG TAB PO SCH (08:04)
[2018-01-26] MEDS: HYDROCORTISONE SUCCINATE 100 MG/2 ML VIAL IV SCH ×2 (08:04→22:28)
[2018-01-26] MEDS: FLUDROCORTISONE 0.1 MG TAB PO SCH ×2 (08:04→22:28)
--- NOTE | 2018-01-26 10:02 | P.PN ---
Subjective Progress Note Date: 01/26/18 Principal diagnosis: Upper GI bleed hepatic encephalopathy s/p EGD last week with findings of distal esophageal superficial ulceration. No recurrent bleeding. Mental status improving ammonia less than 9. Patient failed his bedside swallow exam yesterday. Reattempt will be made this morning. Tentative colonoscopy possible flexible sigmoidoscopy tomorrow pending swallow evaluation results today. Objective - Vital Signs Vital signs: Vital Signs Temp 97.5 F L 01/26/18 08:00 Pulse 95 01/26/18 08:00 Resp 20 01/26/18 08:00 BP 136/63 01/26/18 08:00 Pulse Ox 99 01/26/18 08:00 Intake & Output 01/25/18 01/26/18 01/26/18 18:59 06:59 18:59 Output Total 1800 650 225 Balance -1800 -650 -225 Weight 106.5 kg Output: Urine 1800 650 225 Uretheral (Ortiz) 1200 225 Other: Voiding Method Indwelling Catheter Indwelling Catheter Indwelling Catheter # Bowel Movements 1 1 - Exam General appearance: The patient is or alert with appropriate conversation. HET: Head is normocephalic and atraumatic. Pupils are equal and reactive. Oropharynx is clear without lesions. Neck: Supple without lymphadenopathy. Trachea midline. Heart: S1 S2. Regular rate and rhythm. Lungs: No crackles or wheezes are heard. Abdomen: Soft, nontender, distended with bowel sounds. No peritoneal signs. No palpable organomegaly or masses. Extremities: Normal skin color and turgor. No cyanosis, rash, ulceration, clubbing, or edema. Radial and pedal pulses are 2/4 bilaterally. Neurological: No focal deficits. Strength and sensation are grossly intact. - Labs CBC & Chem 7: 01/26/18 05:31 01/26/18 05:31 Labs: Abnormal Lab Results - Last 24 Hours (Table) 01/25/18 01/25/18 01/25/18 Range/Units 11:34 16:41 20:45 RBC (4.30-5.90) m/uL Hgb (13.0-17.5) gm/dL Hct (39.0-53.0) % RDW (11.5-15.5) % Lymphocytes # (1.0-4.8) k/uL PT (9.0-12.0) sec INR (<1.2) Chloride (98-107) mmol/L Carbon Dioxide (22-30) mmol/L BUN (9-20) mg/dL Creatinine (0.66-1.25) mg/dL Glucose (74-99) mg/dL POC Glucose (mg/dL) 158 H 146 H 162 H (75-99) mg/dL Calcium (8.4-10.2) mg/dL AST (17-59) U/L Total Protein (6.3-8.2) g/dL Albumin (3.5-5.0) g/dL 01/26/18 01/26/18 01/26/18 Range/Units 05:31 05:31 05:31 RBC 2.62 L (4.30-5.90) m/uL Hgb 7.5 L (13.0-17.5) gm/dL Hct 23.6 L (39.0-53.0) % RDW 17.8 H (11.5-15.5) % Lymphocytes # 0.6 L (1.0-4.8) k/uL PT 12.1 H (9.0-12.0) sec INR 1.3 H (<1.2) Chloride 113 H (98-107) mmol/L Carbon Dioxide 21 L (22-30) mmol/L BUN 41 H (9-20) mg/dL Creatinine 1.40 H (0.66-1.25) mg/dL Glucose 152 H (74-99) mg/dL POC Glucose (mg/dL) (75-99) mg/dL Calcium 7.9 L (8.4-10.2) mg/dL AST 66 H (17-59) U/L Total Protein 4.7 L (6.3-8.2) g/dL Albumin 2.2 L (3.5-5.0) g/dL 01/26/18 Range/Units 05:51 RBC (4.30-5.90) m/uL Hgb (13.0-17.5) gm/dL Hct (39.0-53.0) % RDW (11.5-15.5) % Lymphocytes # (1.0-4.8) k/uL PT (9.0-12.0) sec INR (<1.2) Chloride (98-107) mmol/L Carbon Dioxide (22-30) mmol/L BUN (9-20) mg/dL Creatinine (0.66-1.25) mg/dL Glucose (74-99) mg/dL POC Glucose (mg/dL) 158 H (75-99) mg/dL Calcium (8.4-10.2) mg/dL AST (17-59) U/L Total Protein (6.3-8.2) g/dL Albumin (3.5-5.0) g/dL Assessment and Plan (1) Hepatic encephalopathy Narrative/Plan: Mentation improved ammonia less than 9 present receiving lactulose and Xifaxan. Current Visit: Yes Status: Acute Code(s): K72.90 - HEPATIC FAILURE, UNSPECIFIED WITHOUT COMA SNOMED Code(s): 90155270 (2) GI bleed Narrative/Plan: 82-year-old male admitted with reports of coffee-ground emesis and melena s/p EGD with findings of distal esophageal superficial ulceration with component of acute blood loss anemia. Current Visit: Yes Status: Acute Code(s): K92.2 - GASTROINTESTINAL HEMORRHAGE, UNSPECIFIED SNOMED Code(s): 69604574 (3) Altered mental status Current Visit: No Status: Acute Code(s): R41.82 - ALTERED MENTAL STATUS, UNSPECIFIED SNOMED Code(s): 831728318 (4) Cirrhosis Narrative/Plan: Etiology unclear possible cryptogenic possible chronic liver disease Current Visit: Yes Status: Chronic Code(s): K74.60 - UNSPECIFIED CIRRHOSIS OF LIVER SNOMED Code(s): 59918234 (5) Anemia Narrative/Plan: Acute blood loss Current Visit: Yes Status: Acute Code(s): D64.9 - ANEMIA, UNSPECIFIED SNOMED Code(s): 797439973 Plan: 1. Possible colonoscopy possible flex with sigmoidoscopy tomorrow. AFP CEA reviewed unremarkable. 2. Case was discussed with surgeon Dr. Rodgers. We'll continue to follow closely. Assessment and plan a care discussed with Dr. Lopez
--- NOTE | 2018-01-26 11:11 | FL ---
EXAMINATION TYPE: FL barium swallow w video DATE OF EXAM: 01/26/2018 MODIFIED SWALLOW / DEGLUTITION STUDY CLINICAL HISTORY: Dysphagia. TECHNIQUE: Deglutition study is performed utilizing thin liquid Omnipaque as the patient has a recen t esophageal bleed. Pt given 75ml Omini 350 per speech therapy. 32sec fluoro time. No fluoroscopic images saved as video was performed. COMPARISON: None. FINDINGS: The oral and pharyngeal phases show satisfactory initiation and propagation. Persistent tra nsient penetration was seen without aspiration. No significant pharyngeal residue was appreciated. IMPRESSION: Persistent transient laryngeal penetration without aspiration. Please refer to speech th erapist notes for further details if necessary.
[2018-01-26 11:35] LABS: Protein, Total 4.7 g/dL (6.2-8.2)
[2018-01-26 11:37] LABS: Glucose,Whole Blood 149 mg/dL (75-99)
[2018-01-26 12:33] LABS: Ceruloplasmin 20.8 mg/dL (20.0-60.0)
[2018-01-26] MEDS ORDERED: PEG 3350-NA SULF,BICARB,CL/KCL 4,000 ML BOTTLE PO ONE (15:00)
--- NOTE | 2018-01-26 15:49 | P.PN ---
Subjective Progress Note Date: 01/26/18 This is an 82-year-old gentleman patient of Dr. Rojas, with known history of CK D stage III, diabetes mellitus type 2, COPD, hyperlipidemia, and chronic anemia admitted from our facility in early August 2017, was diagnosed to have metabolic encephalopathy secondary to acute kidney injury and dehydration with hypoperfusion. Patient comes into the emergency room with a four-day history of black stools, has had increasing falls, no abdominal pain, patient denies any hematochezia, patient is not an alcoholic drinker currently, and was not feeling very well hence the ER admission. Patient has fallen numerous times, and the last one was 2 days ago, previous to this, patient had cracked the ribs , 4 weeks prior to admission. Patient follows up with Dr. Rojas every 4 months regimen, his due to see him in 01/20/2018 In the emergency room, he was noted to have Hemoccult-positive stools, patient was noted to have melanocytic stools, Hemoccult positive, hematuria with RBC of 59, double see if 1, moderate ketones, EKG shows sinus tachycardia with right bundle branch block, left anterior fascicular block, and pulmonary disease pattern heart rate of 124. Patient is admitted to ICU secondary to melanocytic stools with hemoglobin of 9, consult to Gen. surgery Dr. Montes and Dr. Haq gastroenterology. Admitting lactic acid was significantly elevated at 10.0 with a peak of 11.4, wbc of 15 troponin of 0.077 Previous imaging in our facility shows small amount of ascites, in the abdomen noted in May 2014 and CAT scan chest 2014, cholelithiasis, and evidence of cirrhosis and portal hypertension, improving pleural effusion, improving right apical nodule When patient was seen, patient was very much confused, trying to grab things in the area, very dry mouth, patient's nothing by mouth, and has a bilateral wrist restraints, ammonia levels were requested, family at bedside, CODE STATUS was discussed and is DO NOT RESUSCITATE no CPR with options for vent if needed 01/18: Hemoglobin is stable at 8.8. Patient is scheduled for EGD. The patient has had small bowel movements 7. Lactulose is on hold. Stools have been tarry in color. Cardiology is following for tachycardia. No plan for any further workup. 01/19: EGD revealed distal esophageal ulcer and gastritis but no active bleeding. Hemoglobin is 8.1. Ferrlecit ordered 1 dose. Patient is more alert today. Ammonia level is less than 9. Patient does have a large bruising area to the left antecubital which we will plan for Bactroban. Patient will be transferred out of intensive care today. PT will be started to help determine discharge plan. 01/20: Patient has less alert today. He missed a dose of lactulose and ammonia level is 34 today. He has a sitter at the bedside. Hemoglobin is currently 7.8. Patient has been waiting for selective care bed. He is hemodynamically stable will now be transferred to [facility]. Lactulose decrease to twice daily. Home medications reviewed and those appropriate have been resumed. 01/23: Patient is more lethargic today and stat lab work including ammonia level was ordered. Lactic acid came back at 2.1 and ammonia level [id number]. Patient was ordered for 1 L of IV fluid. Abdomen is more distended today and abdominal x-ray shows no bowel obstruction. Patient underwent bowel prep yesterday for colonoscopy to be done today but still did not clear. He has not been able to take any oral medications. Rectal lactulose has been ordered. 01/24: Patient is more lethargic today from yesterday. Ammonia level today is at 118. Patient did receive lactulose enemas yesterday. Patient is noted to have more abdominal distention today. GI has ordered NG tube and start Xifaxan , lactulose per NG tube and discontinue enemas and a CT of the abdomen and pelvis was ordered. Patient to be transferred to selective care. 01/25: Patient is more alert today. He did have 4 bowel movements yesterday but pulled his NG tube out. His ammonia level this morning is less than 9. He is to continue on lactulose 3 times daily orally. Patient did take his oral medications today. He is scheduled for a colonoscopy tomorrow. Patient is noted to have expiratory wheezing and IV Lasix ordered. Updrafts changed to scheduled. Pulse ox is 97% on room air. Patient has been afebrile. 01/26: Repeat chest x-ray small right-sided pleural effusion. Patient's mental status is improved and patient may be back to his baseline. His ammonia level is again less than 9 He is denying any abdominal pain. He remains with Ortiz catheter in place which will be discontinued after colonoscopy which GI is planning for tomorrow. AFP and CEA ordered by GI or unremarkable. Patient underwent modified barium swallow that did not show any aspiration. Objective - Vital Signs Vital signs: Vital Signs Temp 97.5 F L 01/26/18 08:00 Pulse 95 01/26/18 08:00 Resp 20 01/26/18 08:00 BP 136/63 01/26/18 08:00 Pulse Ox 99 01/26/18 08:00 Intake & Output 01/25/18 01/26/18 01/26/18 18:59 06:59 18:59 Output Total 1800 650 225 Balance -1800 -650 -225 Weight 106.5 kg Output: Urine 1800 650 225 Uretheral (Ortiz) 1200 225 Other: Voiding Method Indwelling Catheter Indwelling Catheter Indwelling Catheter # Bowel Movements 1 1 - Exam General appearance: cooperative, obese - EENT Eyes: anicteric sclerae, EOMI ENT: NA/AT - Neck Neck: normal ROM - Respiratory Respiratory: bilateral: Expiratory wheeze, negative: dullness, rales, rhonchi - Cardiovascular Rhythm: regular Heart sounds: normal: S1, S2 - Gastrointestinal General gastrointestinal: normal bowel sounds, soft, distended - Integumentary Integumentary: decreased turgor, normal - Neurologic Patient is oriented to person and place. Answers questions appropriately. He' ll follow simple commands. - Labs CBC & Chem 7: 01/26/18 05:31 01/26/18 05:31 Labs: Abnormal Lab Results - Last 24 Hours (Table) 01/25/18 01/25/18 01/25/18 Range/Units 11:34 16:41 20:45 RBC (4.30-5.90) m/uL Hgb (13.0-17.5) gm/dL Hct (39.0-53.0) % RDW (11.5-15.5) % Lymphocytes # (1.0-4.8) k/uL PT (9.0-12.0) sec INR (<1.2) Chloride (98-107) mmol/L Carbon Dioxide (22-30) mmol/L BUN (9-20) mg/dL Creatinine (0.66-1.25) mg/dL Glucose (74-99) mg/dL POC Glucose (mg/dL) 158 H 146 H 162 H (75-99) mg/dL Calcium (8.4-10.2) mg/dL AST (17-59) U/L Total Protein (6.3-8.2) g/dL Albumin (3.5-5.0) g/dL 01/26/18 01/26/18 01/26/18 Range/Units 05:31 05:31 05:31 RBC 2.62 L (4.30-5.90) m/uL Hgb 7.5 L (13.0-17.5) gm/dL Hct 23.6 L (39.0-53.0) % RDW 17.8 H (11.5-15.5) % Lymphocytes # 0.6 L (1.0-4.8) k/uL PT 12.1 H (9.0-12.0) sec INR 1.3 H (<1.2) Chloride 113 H (98-107) mmol/L Carbon Dioxide 21 L (22-30) mmol/L BUN 41 H (9-20) mg/dL Creatinine 1.40 H (0.66-1.25) mg/dL Glucose 152 H (74-99) mg/dL POC Glucose (mg/dL) (75-99) mg/dL Calcium 7.9 L (8.4-10.2) mg/dL AST 66 H (17-59) U/L Total Protein 4.7 L (6.3-8.2) g/dL Albumin 2.2 L (3.5-5.0) g/dL 01/26/18 Range/Units 05:51 RBC (4.30-5.90) m/uL Hgb (13.0-17.5) gm/dL Hct (39.0-53.0) % RDW (11.5-15.5) % Lymphocytes # (1.0-4.8) k/uL PT (9.0-12.0) sec INR (<1.2) Chloride (98-107) mmol/L Carbon Dioxide (22-30) mmol/L BUN (9-20) mg/dL Creatinine (0.66-1.25) mg/dL Glucose (74-99) mg/dL POC Glucose (mg/dL) 158 H (75-99) mg/dL Calcium (8.4-10.2) mg/dL AST (17-59) U/L Total Protein (6.3-8.2) g/dL Albumin (3.5-5.0) g/dL Assessment and Plan Plan: 1. Acute upper GI bleed with acute blood loss anemia, secondary to esophageal ulcer and gastritis. Patient will be transferred out of ICU. Basket Machine Operator was consulted Dr. Granger,we will transfuse with hemoglobin of less than 7, and GI consult with Dr. Lopez, for colonoscopy. Dr. Rodgers general surgeon. 2. Chronic liver cirrhosis and portal hypertension as noted through CT imaging , in 2015, ammonia levels are requested secondary to confusion. Lactulose every 6 hours rectally. Aldactone will be resumed. 3. Hyperammonemia, continue Xifaxan and lactulose 4. Recurrent falls, multifactorial, was likely secondary to metabolic encephalopathy with ongoing liver cirrhosis. Patient has having relapsing metabolic encephalopathy. Continue Xifaxan and lactulose. 5. Diabetes mellitus type 2, on metformin and glipizide--resumed 6. Autonomic dysfunction/possible adrenal insufficiency, patient resumed on home dose of Cortef and Florinef. Hydrocortisone discontinued 7. COPD on Spiriva, and when necessary albuterol 8. Hypertension, and tachycardia, patient will be restarted on metoprolol 12.5 mg bid. 9. Lactic acidosis likely secondary to GI bleed, continue to monitor serially, 10. CKD stage III with acute kidney failure, azotemia, IV hydration, Ortiz in place. Monitor creatinine. 11. Leukocytosis, 12. Hematuria, this needs to be worked up as outpatient, patient is asymptomatic , would need evaluate with either renal ultrasound or CT of the abdomen once stabilized 13. Hyperlipidemia. Patient will be resumed back on atorvastatin. 14. Mildly elevated troponins for which acute coronary syndrome has been ruled out. 15. No previous diagnosis heart failure. He is on Aldactone due to liver failure. 16. Severe protein calorie malnutrition secondary to cirrhosis of the liver with albumin of 2.2. Ensure added. Discharge plan: Subacute rehab at [facility] or [facility] Impression and plan of care have been directed as dictated by the signing physician. Radha Arredondo nurse practitioner acting as scribe for signing physician.
[2018-01-26 15:52] LABS: Glucose,Whole Blood 192 mg/dL (75-99)
--- NOTE | 2018-01-26 17:13 | P.PN ---
Subjective Progress Note Date: 01/26/18 Principal diagnosis: Hepatic encephalopathy, GI bleed, cirrhosis liver, pancytopenia including thrombocytopenia and anemia, uncontrolled diabetes and hyperglycemia, chronic renal failure, protein calorie malnourishment, nonbleeding ulcer found on EGD, 01/26/2018, patient seen eval reexamined during the rounds clinically doing well awake and alert breathing comfortably patient is being evaluated for swallow no significant aspiration is seen with some laryngeal penetration transient in nature has been seen in the speech is following for recommendations Ammann mental status has improved significantly he is breathing more comfortably denies any pain abdominal distention has improved as well, medications reviewed, laboratory data reviewed as well 01/25/2018, patient seen and evaluated examined during the rounds he is relatively more awake and opens eyes but however remains confused mildly anxious he underwent a swallowing evaluation could not swallow very well however given improvement in mental status would recommend repeated tomorrow anticipate should improve reviewed arterial blood gas as well as labs for tomorrow renal function continued to improve progressively, C. difficile is negative, with therapy with lactulose the ammonia level has significantly improved and Now they're less than 9, the chest x-ray reviewed there is basal atelectasis present with very small trace right pleural effusion which is overall stable compared to prior x-rays 01/24/2018, patient seen eval reexamined during the rounds he is more lethargic poorly responsive unable to hold anything by mouth an NG tube has been placed patient is somewhat tachycardic as well will need his the continuation of med a prolonged however cannot be given by mouth will need IV the patient will be transferred to selective care will put a Jara's catheter patient appears to be dehydrated with gently rehydrate patient to undergo medications through the OG tube, metoprolol cannot be crushed and cannot be given through the OG tubes so will give IV, repeat labs tomorrow, critical care time spent 35 minutes 01/23/2018, patient seen eval examined during the rounds family is present at bedside he is arousable he is getting lactulose per rectum ammonia level noted to be elevated, care plan discussed with the primary service may need NG tube if unable to tolerate by mouth or per rectum, will follow 01/22/2018, patient seen and evaluated examined during the rounds he is arousable and awake but remains somnolent patient is status post endoscopy noted to have the nonbleeding ulcer, patient does have a 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 Bedolla recommended to monitor observe closely Patient presented emergency department on January 16 complaining of generalized weakness and was admitted in ICU, patient was evaluated by Dr. crystal in my absence. The patient apparently had a large black bowel movement overnight. He also had coffee-ground emesis the emergency department. An NG tube was placed and 900 mL of coffee-ground fluid has been suctioned. The patient denies abdominal pain. He has received one and half liters of normal saline. He was found to have a lactic acid of 10. The patient denies abdominal pain, nausea, vomiting. He denies a history of GI bleed however the patient appears to be a poor historian. His hemoglobin is currently 9.9. History is mostly obtained from the electronic medical record. Objective - Vital Signs Vital signs: Vital Signs Temp 97.5 F L 01/26/18 16:00 Pulse 95 01/26/18 16:58 Resp 16 01/26/18 16:58 BP 137/63 01/26/18 16:00 Pulse Ox 96 01/26/18 16:46 Intake & Output 01/25/18 01/26/18 01/26/18 18:59 06:59 18:59 Intake Total 1010 Output Total 8044 587 1330 Balance -1800 -650 10 Weight 106.5 kg 106.5 kg Intake: Oral 1010 Output: Urine 5205 485 7448 Uretheral (Jara) 1200 400 Other: Voiding Method Indwelling Catheter Indwelling Catheter Indwelling Catheter # Bowel Movements 1 1 1 - Exam - Constitutional General appearance: Present: mild distress, obese - EENT Eyes: Present: EOMI, PERRLA, normal appearance ENT: Present: hard of hearing, normal oropharynx Ears: bilateral: normal - Neck Neck: Present: normal ROM Carotids: bilateral: upstroke normal, bruit absent Thyroid: bilateral: normal size - Respiratory Respiratory: bilateral: CTA, diminished, negative: dullness, rales, rhonchi, wheezing, prolonged expiration, prolonged inspiration - Cardiovascular Rhythm: regular Heart sounds: normal: S1, S2 - Gastrointestinal General gastrointestinal: Present: decreased bowel sounds, distended - Integumentary Integumentary: Present: normal, normal turgor - Neurologic Neurologic: Present: CNII-XII intact, more awake and alert but however remains confused and intermittently anxious and agitated this is significantly improved from yesterday exam - Musculoskeletal Musculoskeletal: Present: generalized weakness, strength equal bilaterally - Psychiatric Psychiatric: Present: Now relatively more and communicative and more responsive , thirsty and asking for water - Labs CBC & Chem 7: 01/26/18 05:31 01/26/18 05:31 Labs: Abnormal Lab Results - Last 24 Hours (Table) 01/25/18 01/26/18 01/26/18 Range/Units 20:45 05:31 05:31 RBC 2.62 L (4.30-5.90) m/uL Hgb 7.5 L (13.0-17.5) gm/dL Hct 23.6 L (39.0-53.0) % RDW 17.8 H (11.5-15.5) % Lymphocytes # 0.6 L (1.0-4.8) k/uL PT (9.0-12.0) sec INR (<1.2) Chloride (98-107) mmol/L Carbon Dioxide (22-30) mmol/L BUN (9-20) mg/dL Creatinine (0.66-1.25) mg/dL Glucose (74-99) mg/dL POC Glucose (mg/dL) 162 H (75-99) mg/dL Calcium (8.4-10.2) mg/dL AST (17-59) U/L Total Protein (6.3-8.2) g/dL Total Protein (PEP) 4.7 L (6.2-8.2) g/dL Albumin (3.5-5.0) g/dL 01/26/18 01/26/18 01/26/18 Range/Units 05:31 05:31 05:51 RBC (4.30-5.90) m/uL Hgb (13.0-17.5) gm/dL Hct (39.0-53.0) % RDW (11.5-15.5) % Lymphocytes # (1.0-4.8) k/uL PT 12.1 H (9.0-12.0) sec INR 1.3 H (<1.2) Chloride 113 H (98-107) mmol/L Carbon Dioxide 21 L (22-30) mmol/L BUN 41 H (9-20) mg/dL Creatinine 1.40 H (0.66-1.25) mg/dL Glucose 152 H (74-99) mg/dL POC Glucose (mg/dL) 158 H (75-99) mg/dL Calcium 7.9 L (8.4-10.2) mg/dL AST 66 H (17-59) U/L Total Protein 4.7 L (6.3-8.2) g/dL Total Protein (PEP) (6.2-8.2) g/dL Albumin 2.2 L (3.5-5.0) g/dL 01/26/18 01/26/18 Range/Units 11:33 15:36 RBC (4.30-5.90) m/uL Hgb (13.0-17.5) gm/dL Hct (39.0-53.0) % RDW (11.5-15.5) % Lymphocytes # (1.0-4.8) k/uL PT (9.0-12.0) sec INR (<1.2) Chloride (98-107) mmol/L Carbon Dioxide (22-30) mmol/L BUN (9-20) mg/dL Creatinine (0.66-1.25) mg/dL Glucose (74-99) mg/dL POC Glucose (mg/dL) 149 H 192 H (75-99) mg/dL Calcium (8.4-10.2) mg/dL AST (17-59) U/L Total Protein (6.3-8.2) g/dL Total Protein (PEP) (6.2-8.2) g/dL Albumin (3.5-5.0) g/dL Assessment and Plan Assessment: Altered mental status hepatic encephalopathy with elevated ammonia level, now improving with therapy Sigmoid colon wall thickening with a differential diagnoses of diffuse colitis/ multifocal colitis versus neoplasm Abdominal distention Basal atelectasis small pleural effusion multifactorial including an related to above as well as chronic renal failure cirrhosis of the liver Tachycardia borderline hypertension with intravascular volume depletion and dehydration, overall stable Severe anemia and thrombocytopenia and GI bleed Stage III renal failure GI bleed with nonbleeding peptic ulcer, associated lower GI bleed cannot be excluded Metabolic acidosis lactic acidosis slowly improving History of prior recurrent pleural effusion of unclear etiology History of cirrhosis of the liver Plan: Continue to observe for aspiration and related issues on selective care, keep jara's catheter, gently rehydrate the patient, beta dianna can be given IV slow hold most of the by mouth medications, patient is on xifaxin twice a day Continue gentle rehydration monitor clinical course closely continue supportive care will follow clinical course closely, continue breathing treatment continue lactulose further recommendations pending plan of care as per clinical response of the patient prognosis overall is guarded, will recommend to hold the Lasix, will also adjust the medication. Observe off of Lipitor, stop IV Lasix glipizide and Cortef will maintain patient on Solu-Cortef 50 IV every 12 for a stress dose steroid, once well if he more stable can be switched to oral Time with Patient: Greater than 30
[2018-01-26 21:02] LABS: Glucose,Whole Blood 80 mg/dL (75-99)
[2018-01-27 06:17] LABS: Glucose,Whole Blood 173 mg/dL (75-99)
[2018-01-27 06:21] LABS: Anisocytosis Slight; Basophils % (A) 0 %; Eosinophils % (A) 0 %; HCT 24.1 % (39.0-53.0); HGB 7.2 gm/dL (13.0-17.5); Hypochromasia Moderate; Lymphocytes # (A) 0.4 k/uL (1.0-4.8); Lymphocytes % (A) 6 %; MCH 27.5 pg (25.0-35.0); MCHC 29.9 g/dL (31.0-37.0); MCV 91.8 fL (80.0-100.0); Mean Platelet Volume 8.7; Monocytes # (A) 0.4 k/uL (0-1.0); Monocytes % (A) 5 %; Neutrophils % (A) 87 %; Platelet Count 141 k/uL (150-450); Poikilocytosis Slight; RBC 2.63 m/uL (4.30-5.90); RDW 17.6 % (11.5-15.5); WBC 6.9 k/uL (3.8-10.6)
[2018-01-27 06:37] LABS: Albumin 2.2 g/dL (3.5-5.0); Calcium 7.8 mg/dL (8.4-10.2); Total Bilirubin 1.2 mg/dL (0.2-1.3); Total Protein 4.8 g/dL (6.3-8.2)
[2018-01-27] MEDS: INSULIN ASPART 100 UNIT/ML 1 ML 10 ML VIAL SQ SCH ×4 (06:52→22:49)
[2018-01-27] MEDS: METOPROLOL TARTRATE 5 MG/5 ML VIAL IVP SCH (06:52)
[2018-01-27] MEDS ORDERED: Potassium Replacement Protocol 1 EACH MISC MISCELLANE PRN (08:06)
[2018-01-27] MEDS: IPRATROPIUM-ALBUTEROL 3 ML NEB INHALATION SCH ×4 (08:06→20:09)
--- NOTE | 2018-01-27 08:12 | XR ---
EXAMINATION TYPE: XR chest 1V portable DATE OF EXAM: 01/27/2018 COMPARISON: Prior chest x-ray 01/26/2018 HISTORY: Pleural effusion TECHNIQUE: Single frontal view of the chest is obtained. FINDINGS: There is persistent increased density at the right lung place, blunting of the costophreni c angle. Cardiomediastinal silhouette, pulmonary vascularity and paco are stable. No evident pneumoth orax. There are overlying cardiac leads. IMPRESSION: Findings compatible with right lower lobe atelectasis and associated effusion, correlate to exclude pneumonia. Additional follow-up recommended.
[2018-01-27] MEDS: POTASSIUM CHLORIDE 10 MEQ in WATER FOR INJECTION 1 100ML.BAG IVPB SCH ×2 (08:43→09:57)
[2018-01-27] MEDS: PANTOPRAZOLE 40 MG/10 ML VIAL IV SCH (08:52)
[2018-01-27] MEDS: LACTULOSE 20 GM/30 ML CUP PO SCH ×2 (08:52→14:03)
[2018-01-27] MEDS: HYDROCORTISONE SUCCINATE 100 MG/2 ML VIAL IV SCH ×2 (08:52→22:43)
[2018-01-27] MEDS: FLUDROCORTISONE 0.1 MG TAB PO SCH ×2 (08:53→22:45)
[2018-01-27] MEDS: SPIRONOLACTONE 25 MG TAB PO SCH (08:53)
[2018-01-27] MEDS: RIFAXIMIN 550 MG TABLET PO SCH ×2 (08:53→22:45)
[2018-01-27] MEDS: FUROSEMIDE 10 MG/ML 2 ML VIAL IV SCH (08:54)
[2018-01-27] MEDS ORDERED: POTASSIUM CHLORIDE ER 20 MEQ TAB.ER PO STA ×2 (10:33→13:49)
--- NOTE | 2018-01-27 11:57 | P.PN ---
Subjective Progress Note Date: 01/27/18 Patient seen and examined at bedside. Denies abdominal pain. States he had bowel movement 1 hour prior to examination. Denies nausea and vomiting. Objective - Vital Signs Vital signs: Vital Signs Temp 97.6 F 01/27/18 11:16 Pulse 90 01/27/18 11:27 Resp 20 01/27/18 11:18 BP 137/63 01/27/18 11:16 Pulse Ox 98 01/27/18 11:16 Intake & Output 01/26/18 01/27/18 01/27/18 18:59 06:59 18:59 Intake Total 1010 300 Output Total 1000 300 Balance 10 -300 300 Weight 106.5 kg 113.4 kg Intake: Intake, IV Titration 200 Amount Potassium Chloride 10 meq 200 In Water For Injection 1 100ml.bag @ 100 mls/hr IVPB Q1H [facility] Rx#: [id number] Oral 1010 100 Output: Urine 1000 300 Uretheral (Ortiz) 400 300 Other: Voiding Method Indwelling Catheter Indwelling Catheter Indwelling Catheter # Bowel Movements 4 2 1 - Constitutional General appearance: Present: no acute distress - Respiratory Details: No difficulty with respiration - Gastrointestinal Gastrointestinal Comment(s): Soft, nontender, moderate distention, no rebound, no guarding - Musculoskeletal Musculoskeletal: Present: generalized weakness - Psychiatric Psychiatric: Present: A&O x's 3 - Labs CBC & Chem 7: 01/27/18 06:04 01/27/18 06:04 Labs: Abnormal Lab Results - Last 24 Hours (Table) 01/26/18 01/26/18 01/27/18 Range/Units 05:31 15:36 06:04 RBC 2.63 L (4.30-5.90) m/uL Hgb 7.2 L (13.0-17.5) gm/dL Hct 24.1 L (39.0-53.0) % MCHC 29.9 L (31.0-37.0) g/dL RDW 17.6 H (11.5-15.5) % Plt Count 141 L (150-450) k/uL Lymphocytes # 0.4 L (1.0-4.8) k/uL Potassium (3.5-5.1) mmol/L Chloride (98-107) mmol/L Carbon Dioxide (22-30) mmol/L BUN (9-20) mg/dL Creatinine (0.66-1.25) mg/dL Glucose (74-99) mg/dL POC Glucose (mg/dL) 192 H (75-99) mg/dL Calcium (8.4-10.2) mg/dL AST (17-59) U/L Total Protein (6.3-8.2) g/dL Total Protein (PEP) 4.7 L (6.2-8.2) g/dL Albumin (3.5-5.0) g/dL 01/27/18 01/27/18 Range/Units 06:04 06:14 RBC (4.30-5.90) m/uL Hgb (13.0-17.5) gm/dL Hct (39.0-53.0) % MCHC (31.0-37.0) g/dL RDW (11.5-15.5) % Plt Count (150-450) k/uL Lymphocytes # (1.0-4.8) k/uL Potassium 3.0 L* (3.5-5.1) mmol/L Chloride 110 H (98-107) mmol/L Carbon Dioxide 19 L (22-30) mmol/L BUN 34 H (9-20) mg/dL Creatinine 1.40 H (0.66-1.25) mg/dL Glucose 162 H (74-99) mg/dL POC Glucose (mg/dL) 173 H (75-99) mg/dL Calcium 7.8 L (8.4-10.2) mg/dL AST 69 H (17-59) U/L Total Protein 4.8 L (6.3-8.2) g/dL Total Protein (PEP) (6.2-8.2) g/dL Albumin 2.2 L (3.5-5.0) g/dL Assessment and Plan (1) GI hemorrhage Current Visit: Yes Status: Acute Code(s): K92.2 - GASTROINTESTINAL HEMORRHAGE, UNSPECIFIED SNOMED Code(s): 03451208 Plan: 82-year-old male originally seen secondary to GI bleed, resolving. Evaluating for obstruction. - Abdomen is distended, continues to have bowel function - Will evaluate swallow study - With finding of thickening of the sigmoid and rectum, will defer to gastroenterology for possible lower endoscopy - No acute surgical intervention planned at this time - Continue medical management
[2018-01-27 12:35] LABS: Glucose,Whole Blood 152 mg/dL (75-99)
--- NOTE | 2018-01-27 12:59 | P.PN ---
Subjective Progress Note Date: 01/27/18 Principal diagnosis: Hepatic encephalopathy, GI bleed, cirrhosis liver, pancytopenia including thrombocytopenia and anemia, uncontrolled diabetes and hyperglycemia, chronic renal failure, protein calorie malnourishment, nonbleeding ulcer found on EGD, 01/27/2018, patient seen eval reexamined during the rounds clinically doing well he is more awake and alert he has been cleared for clear liquid diet however patient is scheduled for colonoscopy this afternoon so has been nothing by mouth mental status has significantly improved respiration is improved as well stable 01/26/2018, patient seen eval reexamined during the rounds clinically doing well awake and alert breathing comfortably patient is being evaluated for swallow no significant aspiration is seen with some laryngeal penetration transient in nature has been seen in the speech is following for recommendations Ammann mental status has improved significantly he is breathing more comfortably denies any pain abdominal distention has improved as well, medications reviewed, laboratory data reviewed as well 01/25/2018, patient seen and evaluated examined during the rounds he is relatively more awake and opens eyes but however remains confused mildly anxious he underwent a swallowing evaluation could not swallow very well however given improvement in mental status would recommend repeated tomorrow anticipate should improve reviewed arterial blood gas as well as labs for tomorrow renal function continued to improve progressively, C. difficile is negative, with therapy with lactulose the ammonia level has significantly improved and Now they're less than 9, the chest x-ray reviewed there is basal atelectasis present with very small trace right pleural effusion which is overall stable compared to prior x-rays 01/24/2018, patient seen eval reexamined during the rounds he is more lethargic poorly responsive unable to hold anything by mouth an NG tube has been placed patient is somewhat tachycardic as well will need his the continuation of med a prolonged however cannot be given by mouth will need IV the patient will be transferred to selective care will put a Jara's catheter patient appears to be dehydrated with gently rehydrate patient to undergo medications through the OG tube, metoprolol cannot be crushed and cannot be given through the OG tubes so will give IV, repeat labs tomorrow, critical care time spent 35 minutes 01/23/2018, patient seen eval examined during the rounds family is present at bedside he is arousable he is getting lactulose per rectum ammonia level noted to be elevated, care plan discussed with the primary service may need NG tube if unable to tolerate by mouth or per rectum, will follow 01/22/2018, patient seen and evaluated examined during the rounds he is arousable and awake but remains somnolent patient is status post endoscopy noted to have the nonbleeding ulcer, patient does have a 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 Bedolla recommended to monitor observe closely Patient presented emergency department on January 16 complaining of generalized weakness and was admitted in ICU, patient was evaluated by Dr. crystal in my absence. The patient apparently had a large black bowel movement overnight. He also had coffee-ground emesis the emergency department. An NG tube was placed and 900 mL of coffee-ground fluid has been suctioned. The patient denies abdominal pain. He has received one and half liters of normal saline. He was found to have a lactic acid of 10. The patient denies abdominal pain, nausea, vomiting. He denies a history of GI bleed however the patient appears to be a poor historian. His hemoglobin is currently 9.9. History is mostly obtained from the electronic medical record. Objective - Vital Signs Vital signs: Vital Signs Temp 97.6 F 01/27/18 11:16 Pulse 92 01/27/18 11:40 Resp 20 01/27/18 11:18 BP 137/63 01/27/18 11:16 Pulse Ox 98 01/27/18 11:16 Intake & Output 01/26/18 01/27/18 01/27/18 18:59 06:59 18:59 Intake Total 1010 300 Output Total 1000 300 Balance 10 -300 300 Weight 106.5 kg 113.4 kg Intake: Intake, IV Titration 200 Amount Potassium Chloride 10 meq 200 In Water For Injection 1 100ml.bag @ 100 mls/hr IVPB Q1H [facility] Rx#: [id number] Oral 1010 100 Output: Urine 1000 300 Uretheral (Jara) 400 300 Other: Voiding Method Indwelling Catheter Indwelling Catheter Indwelling Catheter # Bowel Movements 4 2 1 - Exam - Constitutional General appearance: Present: mild distress, obese - EENT Eyes: Present: EOMI, PERRLA, normal appearance ENT: Present: hard of hearing, normal oropharynx Ears: bilateral: normal - Neck Neck: Present: normal ROM Carotids: bilateral: upstroke normal, bruit absent Thyroid: bilateral: normal size - Respiratory Respiratory: bilateral: CTA, diminished, negative: dullness, rales, rhonchi, wheezing, prolonged expiration, prolonged inspiration - Cardiovascular Rhythm: regular Heart sounds: normal: S1, S2 - Gastrointestinal General gastrointestinal: Present: decreased bowel sounds, distended - Integumentary Integumentary: Present: normal, normal turgor - Neurologic Neurologic: Present: CNII-XII intact, more awake and alert but however remains confused and intermittently anxious and agitated this is significantly improved from yesterday exam - Musculoskeletal Musculoskeletal: Present: generalized weakness, strength equal bilaterally - Psychiatric Psychiatric: Present: Now relatively more and communicative and more responsive , thirsty and asking for water - Labs CBC & Chem 7: 01/27/18 06:04 01/27/18 06:04 Labs: Abnormal Lab Results - Last 24 Hours (Table) 01/26/18 01/27/18 01/27/18 Range/Units 15:36 06:04 06:04 RBC 2.63 L (4.30-5.90) m/uL Hgb 7.2 L (13.0-17.5) gm/dL Hct 24.1 L (39.0-53.0) % MCHC 29.9 L (31.0-37.0) g/dL RDW 17.6 H (11.5-15.5) % Plt Count 141 L (150-450) k/uL Lymphocytes # 0.4 L (1.0-4.8) k/uL Potassium 3.0 L* (3.5-5.1) mmol/L Chloride 110 H (98-107) mmol/L Carbon Dioxide 19 L (22-30) mmol/L BUN 34 H (9-20) mg/dL Creatinine 1.40 H (0.66-1.25) mg/dL Glucose 162 H (74-99) mg/dL POC Glucose (mg/dL) 192 H (75-99) mg/dL Calcium 7.8 L (8.4-10.2) mg/dL AST 69 H (17-59) U/L Total Protein 4.8 L (6.3-8.2) g/dL Albumin 2.2 L (3.5-5.0) g/dL Crossmatch 01/27/18 01/27/18 01/27/18 Range/Units 06:14 11:25 11:53 RBC (4.30-5.90) m/uL Hgb (13.0-17.5) gm/dL Hct (39.0-53.0) % MCHC (31.0-37.0) g/dL RDW (11.5-15.5) % Plt Count (150-450) k/uL Lymphocytes # (1.0-4.8) k/uL Potassium (3.5-5.1) mmol/L Chloride (98-107) mmol/L Carbon Dioxide (22-30) mmol/L BUN (9-20) mg/dL Creatinine (0.66-1.25) mg/dL Glucose (74-99) mg/dL POC Glucose (mg/dL) 173 H 152 H (75-99) mg/dL Calcium (8.4-10.2) mg/dL AST (17-59) U/L Total Protein (6.3-8.2) g/dL Albumin (3.5-5.0) g/dL Crossmatch See Detail Assessment and Plan Assessment: Sigmoid colon wall thickening with a differential diagnoses of diffuse colitis/ multifocal colitis versus neoplasm Altered mental status hepatic encephalopathy with elevated ammonia level, now improving with therapy, Abdominal distention Basal atelectasis small pleural effusion multifactorial including an related to above as well as chronic renal failure cirrhosis of the liver Tachycardia borderline hypertension with intravascular volume depletion and dehydration, overall stable Severe anemia and thrombocytopenia and GI bleed Stage III renal failure GI bleed with nonbleeding peptic ulcer, associated lower GI bleed cannot be excluded Metabolic acidosis lactic acidosis slowly improving History of prior recurrent pleural effusion of unclear etiology History of cirrhosis of the liver Plan: Continue to observe for aspiration and related issues on selective care, keep jara's catheter, gently rehydrate the patient, beta dianna can be given IV slow hold most of the by mouth medications however can be resumed after colonoscopy, patient is on xifaxin twice a day will defer to GI services if can be discontinued Continue gentle rehydration monitor clinical course closely continue supportive care will follow clinical course closely, continue breathing treatment continue lactulose further recommendations pending plan of care as per clinical response of the patient prognosis overall is guarded, will recommend to hold the Lasix, will also adjust the medication. Observe off of Lipitor, stop IV Lasix glipizide and Cortef will maintain patient on Solu- Cortef 50 IV every 12 for a stress dose steroid, once well if he more stable can be switched to oral Time with Patient: Greater than 30
[2018-01-27] MEDS ORDERED: PROPOFOL 10 MG/ML 20 ML VIAL IV ONE (13:41)
--- NOTE | 2018-01-27 13:44 | P.PN ---
Subjective Progress Note Date: 01/27/18 This is an 82-year-old gentleman patient of Dr. Rojas, with known history of CK D stage III, diabetes mellitus type 2, COPD, hyperlipidemia, and chronic anemia admitted from our facility in early August 2017, was diagnosed to have metabolic encephalopathy secondary to acute kidney injury and dehydration with hypoperfusion. Patient comes into the emergency room with a four-day history of black stools, has had increasing falls, no abdominal pain, patient denies any hematochezia, patient is not an alcoholic drinker currently, and was not feeling very well hence the ER admission. Patient has fallen numerous times, and the last one was 2 days ago, previous to this, patient had cracked the ribs , 4 weeks prior to admission. Patient follows up with Dr. Rojas every 4 months regimen, his due to see him in 01/20/2018 In the emergency room, he was noted to have Hemoccult-positive stools, patient was noted to have melanocytic stools, Hemoccult positive, hematuria with RBC of 59, double see if 1, moderate ketones, EKG shows sinus tachycardia with right bundle branch block, left anterior fascicular block, and pulmonary disease pattern heart rate of 124. Patient is admitted to ICU secondary to melanocytic stools with hemoglobin of 9, consult to Gen. surgery Dr. Montes and Dr. Haq gastroenterology. Admitting lactic acid was significantly elevated at 10.0 with a peak of 11.4, wbc of 15 troponin of 0.077 Previous imaging in our facility shows small amount of ascites, in the abdomen noted in May 2014 and CAT scan chest 2014, cholelithiasis, and evidence of cirrhosis and portal hypertension, improving pleural effusion, improving right apical nodule When patient was seen, patient was very much confused, trying to grab things in the area, very dry mouth, patient's nothing by mouth, and has a bilateral wrist restraints, ammonia levels were requested, family at bedside, CODE STATUS was discussed and is DO NOT RESUSCITATE no CPR with options for vent if needed 01/18: Hemoglobin is stable at 8.8. Patient is scheduled for EGD. The patient has had small bowel movements 7. Lactulose is on hold. Stools have been tarry in color. Cardiology is following for tachycardia. No plan for any further workup. 01/19: EGD revealed distal esophageal ulcer and gastritis but no active bleeding. Hemoglobin is 8.1. Ferrlecit ordered 1 dose. Patient is more alert today. Ammonia level is less than 9. Patient does have a large bruising area to the left antecubital which we will plan for Bactroban. Patient will be transferred out of intensive care today. PT will be started to help determine discharge plan. 01/20: Patient has less alert today. He missed a dose of lactulose and ammonia level is 34 today. He has a sitter at the bedside. Hemoglobin is currently 7.8. Patient has been waiting for selective care bed. He is hemodynamically stable will now be transferred to [facility]. Lactulose decrease to twice daily. Home medications reviewed and those appropriate have been resumed. 01/23: Patient is more lethargic today and stat lab work including ammonia level was ordered. Lactic acid came back at 2.1 and ammonia level [id number]. Patient was ordered for 1 L of IV fluid. Abdomen is more distended today and abdominal x-ray shows no bowel obstruction. Patient underwent bowel prep yesterday for colonoscopy to be done today but still did not clear. He has not been able to take any oral medications. Rectal lactulose has been ordered. 01/24: Patient is more lethargic today from yesterday. Ammonia level today is at 118. Patient did receive lactulose enemas yesterday. Patient is noted to have more abdominal distention today. GI has ordered NG tube and start Xifaxan , lactulose per NG tube and discontinue enemas and a CT of the abdomen and pelvis was ordered. Patient to be transferred to selective care. 01/25: Patient is more alert today. He did have 4 bowel movements yesterday but pulled his NG tube out. His ammonia level this morning is less than 9. He is to continue on lactulose 3 times daily orally. Patient did take his oral medications today. He is scheduled for a colonoscopy tomorrow. Patient is noted to have expiratory wheezing and IV Lasix ordered. Updrafts changed to scheduled. Pulse ox is 97% on room air. Patient has been afebrile. 01/26: Repeat chest x-ray small right-sided pleural effusion. Patient's mental status is improved and patient may be back to his baseline. His ammonia level is again less than 9 He is denying any abdominal pain. He remains with Ortiz catheter in place which will be discontinued after colonoscopy which GI is planning for tomorrow. AFP and CEA ordered by GI or unremarkable. Patient underwent modified barium swallow that did not show any aspiration. 01/27: Chest x-ray shows right lower lobe atelectasis and associated effusion. Correlate to exclude pneumonia. Patient is scheduled for colonoscopy today. Hemoglobin 7.2 and gradually declining for which we will transfuse 1 unit of packed RBCs. Potassium will be replaced. Patient denies having any abdominal pain but noted to have abdominal distention. He denies any nausea or vomiting. He is alert and oriented and appears to be back to baseline. We will transfer the patient to [facility] floor and IV Lopressor will be changed back to his oral home dose. Objective - Vital Signs Vital signs: Vital Signs Temp 97.7 F 01/27/18 08:00 Pulse 92 01/27/18 08:20 Resp 20 01/27/18 08:00 BP 125/63 01/27/18 08:00 Pulse Ox 99 01/27/18 08:00 Intake & Output 01/26/18 01/27/18 01/27/18 18:59 06:59 18:59 Intake Total 1010 0 Output Total 1000 300 Balance 10 -300 0 Weight 106.5 kg 113.4 kg Intake: Oral 1010 0 Output: Urine 1000 300 Uretheral (Ortiz) 400 300 Other: Voiding Method Indwelling Catheter Indwelling Catheter Indwelling Catheter # Bowel Movements 4 2 - Exam General appearance: cooperative, obese - EENT Eyes: anicteric sclerae, EOMI ENT: NA/AT - Neck Neck: normal ROM - Respiratory Respiratory: bilateral: Expiratory wheeze, negative: dullness, rales, rhonchi - Cardiovascular Rhythm: regular Heart sounds: normal: S1, S2 - Gastrointestinal General gastrointestinal: normal bowel sounds, soft, distended, no tenderness - Integumentary Integumentary: decreased turgor, normal - Neurologic Patient is oriented x3. Answers questions appropriately. - Labs CBC & Chem 7: 01/27/18 06:04 01/27/18 06:04 Labs: Abnormal Lab Results - Last 24 Hours (Table) 01/26/18 01/26/18 01/26/18 Range/Units 05:31 11:33 15:36 RBC (4.30-5.90) m/uL Hgb (13.0-17.5) gm/dL Hct (39.0-53.0) % MCHC (31.0-37.0) g/dL RDW (11.5-15.5) % Plt Count (150-450) k/uL Lymphocytes # (1.0-4.8) k/uL Potassium (3.5-5.1) mmol/L Chloride (98-107) mmol/L Carbon Dioxide (22-30) mmol/L BUN (9-20) mg/dL Creatinine (0.66-1.25) mg/dL Glucose (74-99) mg/dL POC Glucose (mg/dL) 149 H 192 H (75-99) mg/dL Calcium (8.4-10.2) mg/dL AST (17-59) U/L Total Protein (6.3-8.2) g/dL Total Protein (PEP) 4.7 L (6.2-8.2) g/dL Albumin (3.5-5.0) g/dL 01/27/18 01/27/18 01/27/18 Range/Units 06:04 06:04 06:14 RBC 2.63 L (4.30-5.90) m/uL Hgb 7.2 L (13.0-17.5) gm/dL Hct 24.1 L (39.0-53.0) % MCHC 29.9 L (31.0-37.0) g/dL RDW 17.6 H (11.5-15.5) % Plt Count 141 L (150-450) k/uL Lymphocytes # 0.4 L (1.0-4.8) k/uL Potassium 3.0 L* (3.5-5.1) mmol/L Chloride 110 H (98-107) mmol/L Carbon Dioxide 19 L (22-30) mmol/L BUN 34 H (9-20) mg/dL Creatinine 1.40 H (0.66-1.25) mg/dL Glucose 162 H (74-99) mg/dL POC Glucose (mg/dL) 173 H (75-99) mg/dL Calcium 7.8 L (8.4-10.2) mg/dL AST 69 H (17-59) U/L Total Protein 4.8 L (6.3-8.2) g/dL Total Protein (PEP) (6.2-8.2) g/dL Albumin 2.2 L (3.5-5.0) g/dL Assessment and Plan Plan: 1. Acute upper GI bleed with acute blood loss anemia, secondary to esophageal ulcer and gastritis. Patient will be transferred out of ICU. Manager Power was consulted Dr. Granger,we will transfuse with hemoglobin of less than 7, and GI consult with Dr. Lopez, for colonoscopy today. Dr. Rodgers general surgeon. Patient will be transfused 1 unit of packed RBCs. 2. Chronic liver cirrhosis and portal hypertension as noted through CT imaging , in 2015, ammonia levels are requested secondary to confusion. Lactulose oral 3 times daily. Aldactone will be resumed. 3. Hyperammonemia, continue Xifaxan and lactulose 4. Recurrent falls, multifactorial, was likely secondary to metabolic encephalopathy with ongoing liver cirrhosis. Patient has having relapsing metabolic encephalopathy. Continue Xifaxan and lactulose. 5. Diabetes mellitus type 2, on metformin and glipizide at home. Continue NovoLog scale 6. Autonomic dysfunction/possible adrenal insufficiency, patient on home dose of Cortef and Florinef. He is currently on Solu-Cortef IV. 7. COPD on Spiriva, and when necessary albuterol 8. Hypertension, and tachycardia, patient will be restarted on metoprolol 12.5 mg bid. 9. Lactic acidosis likely secondary to GI bleed, continue to monitor serially, 10. CKD stage III with acute kidney failure, azotemia, IV hydration, Ortiz in place. Monitor creatinine. 11. Leukocytosis, 12. Hematuria, this needs to be worked up as outpatient, patient is asymptomatic , would need evaluate with either renal ultrasound or CT of the abdomen once stabilized 13. Hyperlipidemia. Patient will be resumed back on atorvastatin. 14. Mildly elevated troponins for which acute coronary syndrome has been ruled out. 15. No previous diagnosis heart failure. He is on Aldactone due to liver failure. 16. Severe protein calorie malnutrition secondary to cirrhosis of the liver with albumin of 2.2. Ensure added. Discharge plan: Subacute rehab at [facility] or [facility] on Tuesday Impression and plan of care have been directed as dictated by the signing physician. Radha Arredondo nurse practitioner acting as scribe for signing physician.
--- NOTE | 2018-01-27 14:24 | P.PCN ---
Date of Procedure: 01/27/18 Procedure(s) Performed: BRIEF HISTORY: Patient is a 82-year-old pleasant male, scheduled for an elective colonoscopy as a part of evaluation of abnormal CAT scan of the abdomen that was done 2 days ago that showed thickening of the rectum and sigmoid colon and transverse colon, rule out neoplasm. PROCEDURE PERFORMED: Colonoscopy. PREOPERATIVE DIAGNOSIS: Abdominal pain/abnormal CAT scan abdomen. IV sedation per Anesthesia. PROCEDURE: After informed consent was obtained, the patient, was brought into the endoscopy unit. IV sedation was administered by Anesthesia under continuous monitoring. Digital rectal examination was normal. Initially the Olympus CF- 160 flexible video colonoscope was then inserted in the rectum, gradually advanced into the cecum without any difficulty. Careful examination was performed as the scope was gradually being withdrawn. Ileocecal valve and the appendiceal orifice were visualized and appeared normal. Prep was excellent. Mucosa of the cecum, ascending colon, transverse colon, descending colon, sigmoid colon, and rectum appeared normal. Diffuse diverticulosis noted more prominent in the left colon. Retroflexion was performed in the rectum and no lesions were seen. The patient tolerated the procedure well. IMPRESSION: Normal-appearing colon from rectum to cecum with no evidence of colorectal neoplasia. Diffuse diverticulosis more predominant in the left colon. RECOMMENDATIONS: Findings of this examination were discussed with the patient as his family. He was advised to be a high-fiber diet..
[2018-01-27 16:40] LABS: Glucose,Whole Blood 166 mg/dL (75-99)
[2018-01-27] MEDS: METOPROLOL SUCCINATE (ER) 25 MG TAB.ER.24H PO SCH (17:12)
[2018-01-27] MEDS ORDERED: FUROSEMIDE 10 MG/ML 2 ML VIAL IV ONE (19:00)
[2018-01-27 20:57] LABS: Glucose,Whole Blood 183 mg/dL (75-99)
[2018-01-28] MEDS ORDERED: Potassium Replacement Protocol 1 EACH MISC MISCELLANE PRN (00:42)
[2018-01-28] MEDS: POTASSIUM CHLORIDE ER 20 MEQ TAB.ER PO SCH ×7 (01:30→10:08)
[2018-01-28] MEDS: LACTULOSE 20 GM/30 ML CUP PO SCH ×3 (06:32→15:25)
[2018-01-28 06:47] LABS: Anisocytosis Slight; Basophils % (A) 0 %; Eosinophils % (A) 0 %; Hypochromasia Moderate; Lymphocytes # (A) 0.5 k/uL (1.0-4.8); Lymphocytes % (A) 4 %; MCH 27.4 pg (25.0-35.0); MCHC 30.3 g/dL (31.0-37.0); MCV 90.5 fL (80.0-100.0); Mean Platelet Volume 8.1; Monocytes # (A) 0.5 k/uL (0-1.0); Monocytes % (A) 4 %; Neutrophils % (A) 91 %; Platelet Count 158 k/uL (150-450); Poikilocytosis Slight; RBC 3.21 m/uL (4.30-5.90); RDW 17.2 % (11.5-15.5); WBC 12.2 k/uL (3.8-10.6)
[2018-01-28 06:54] LABS: Glucose,Whole Blood 185 mg/dL (75-99)
[2018-01-28 06:55] LABS: HGB 8.8 gm/dL (13.0-17.5)
[2018-01-28 07:08] LABS: Albumin 2.4 g/dL (3.5-5.0); Calcium 7.6 mg/dL (8.4-10.2); Potassium 3.1 mmol/L (3.5-5.1); Total Bilirubin 1.5 mg/dL (0.2-1.3); Total Protein 5.1 g/dL (6.3-8.2)
[2018-01-28] MEDS: INSULIN ASPART 100 UNIT/ML 1 ML 10 ML VIAL SQ SCH ×4 (07:16→22:51)
--- NOTE | 2018-01-28 07:24 | XR ---
EXAMINATION TYPE: XR chest 1V portable DATE OF EXAM: 01/28/2018 HISTORY: Pleural effusion. REFERENCE: Previous study dated 01/27/2018. FINDINGS: The lungs are overinflated. There is some increased opacity at the right lung base. This ma y be due to pleural fluid or right lower lobe airspace disease. The left lung is clear. Heart size up per limits of normal. IMPRESSION: 1. COPD. 2. SMALL RIGHT EFFUSION VERSUS RIGHT LOWER LOBE AIRSPACE DISEASE. PLEASE CORRELATE CLINICALLY.
[2018-01-28] MEDS: RIFAXIMIN 550 MG TABLET PO SCH ×2 (07:49→22:51)
[2018-01-28] MEDS: HYDROCORTISONE SUCCINATE 100 MG/2 ML VIAL IV SCH (07:49)
[2018-01-28] MEDS: FLUDROCORTISONE 0.1 MG TAB PO SCH ×2 (07:49→22:52)
[2018-01-28] MEDS: FUROSEMIDE 10 MG/ML 2 ML VIAL IV SCH (07:49)
[2018-01-28] MEDS: PANTOPRAZOLE 40 MG/10 ML VIAL IV SCH (07:49)
[2018-01-28] MEDS: METOPROLOL SUCCINATE (ER) 25 MG TAB.ER.24H PO SCH (07:50)
[2018-01-28] MEDS: SPIRONOLACTONE 25 MG TAB PO SCH (07:50)
--- NOTE | 2018-01-28 08:43 | P.PN ---
Subjective Progress Note Date: 01/28/18 Principal diagnosis: Hepatic encephalopathy, GI bleed, cirrhosis liver, pancytopenia including thrombocytopenia and anemia, uncontrolled diabetes and hyperglycemia, chronic renal failure, protein calorie malnourishment, nonbleeding ulcer found on EGD, 01/28/2018, patient seen and evaluated examined during the rounds clinically doing well he is more awake and alert sitting upright in the bed he is status post colonoscopy his abdomen is slightly distended but which is a however otherwise not much change it's soft and nontender is passing gas from below, he is eating and tolerating diet fairly well, his labs from today reviewed patient did slowly drop down hemoglobin 7.2 require unit of packed RBC, white cell is slightly elevated, potassium remains on the lower side which is being replaced came down to 3 than 2.9 now is up to 3.1 January renal functions are stable BUN/ creatinine slightly improved 01/27/2018, patient seen eval reexamined during the rounds clinically doing well he is more awake and alert he has been cleared for clear liquid diet however patient is scheduled for colonoscopy this afternoon so has been nothing by mouth mental status has significantly improved respiration is improved as well stable 01/26/2018, patient seen eval reexamined during the rounds clinically doing well awake and alert breathing comfortably patient is being evaluated for swallow no significant aspiration is seen with some laryngeal penetration transient in nature has been seen in the speech is following for recommendations Ammann mental status has improved significantly he is breathing more comfortably denies any pain abdominal distention has improved as well, medications reviewed, laboratory data reviewed as well 01/25/2018, patient seen and evaluated examined during the rounds he is relatively more awake and opens eyes but however remains confused mildly anxious he underwent a swallowing evaluation could not swallow very well however given improvement in mental status would recommend repeated tomorrow anticipate should improve reviewed arterial blood gas as well as labs for tomorrow renal function continued to improve progressively, C. difficile is negative, with therapy with lactulose the ammonia level has significantly improved and Now they're less than 9, the chest x-ray reviewed there is basal atelectasis present with very small trace right pleural effusion which is overall stable compared to prior x-rays 01/24/2018, patient seen eval reexamined during the rounds he is more lethargic poorly responsive unable to hold anything by mouth an NG tube has been placed patient is somewhat tachycardic as well will need his the continuation of med a prolonged however cannot be given by mouth will need IV the patient will be transferred to selective care will put a Jara's catheter patient appears to be dehydrated with gently rehydrate patient to undergo medications through the OG tube, metoprolol cannot be crushed and cannot be given through the OG tubes so will give IV, repeat labs tomorrow, critical care time spent 35 minutes 01/23/2018, patient seen eval examined during the rounds family is present at bedside he is arousable he is getting lactulose per rectum ammonia level noted to be elevated, care plan discussed with the primary service may need NG tube if unable to tolerate by mouth or per rectum, will follow 01/22/2018, patient seen and evaluated examined during the rounds he is arousable and awake but remains somnolent patient is status post endoscopy noted to have the nonbleeding ulcer, patient does have a 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 Bedolla recommended to monitor observe closely Patient presented emergency department on January 16 complaining of generalized weakness and was admitted in ICU, patient was evaluated by Dr. crystal in my absence. The patient apparently had a large black bowel movement overnight. He also had coffee-ground emesis the emergency department. An NG tube was placed and 900 mL of coffee-ground fluid has been suctioned. The patient denies abdominal pain. He has received one and half liters of normal saline. He was found to have a lactic acid of 10. The patient denies abdominal pain, nausea, vomiting. He denies a history of GI bleed however the patient appears to be a poor historian. His hemoglobin is currently 9.9. History is mostly obtained from the electronic medical record. Objective - Vital Signs Vital signs: Vital Signs Temp 96.8 F L 01/28/18 07:44 Pulse 99 01/28/18 08:00 Resp 20 01/28/18 08:00 BP 136/67 01/28/18 07:44 Pulse Ox 98 01/28/18 07:44 Intake & Output 01/27/18 01/28/18 01/28/18 18:59 06:59 18:59 Intake Total 1500 540 Output Total 725 1600 175 Balance 775 -1600 365 Weight 113.4 kg 108 kg Intake: Intake, IV Titration 200 Amount Potassium Chloride 10 meq 200 In Water For Injection 1 100ml.bag @ 100 mls/hr IVPB Q1H [facility] Rx#: [id number] Oral 990 540 Blood Product 310 Rc Pheresis 2 As3 Unit 310 [id number] Output: Urine 725 1600 175 Uretheral (Jara) 725 175 Other: Voiding Method Indwelling Catheter Indwelling Catheter Indwelling Catheter # Voids 1 # Bowel Movements 1 - Exam - Constitutional General appearance: Present: mild distress, obese - EENT Eyes: Present: EOMI, PERRLA, normal appearance ENT: Present: hard of hearing, normal oropharynx Ears: bilateral: normal - Neck Neck: Present: normal ROM Carotids: bilateral: upstroke normal, bruit absent Thyroid: bilateral: normal size - Respiratory Respiratory: bilateral: CTA, diminished, negative: dullness, rales, rhonchi, wheezing, prolonged expiration, prolonged inspiration - Cardiovascular Rhythm: regular Heart sounds: normal: S1, S2 - Gastrointestinal General gastrointestinal: Present: decreased bowel sounds, distended - Integumentary Integumentary: Present: normal, normal turgor - Neurologic Neurologic: Present: CNII-XII intact, more awake and alert but however remains confused and intermittently anxious and agitated this is significantly improved from yesterday exam - Musculoskeletal Musculoskeletal: Present: generalized weakness, strength equal bilaterally - Psychiatric Psychiatric: Present: Now relatively more and communicative and more responsive , thirsty and asking for water - Labs CBC & Chem 7: 01/28/18 06:03 01/28/18 06:03 Labs: Abnormal Lab Results - Last 24 Hours (Table) 01/26/18 01/27/18 01/27/18 Range/Units 05:31 11:25 11:53 WBC (3.8-10.6) k/uL RBC (4.30-5.90) m/uL Hgb (13.0-17.5) gm/dL Hct (39.0-53.0) % MCHC (31.0-37.0) g/dL RDW (11.5-15.5) % Neutrophils # (1.3-7.7) k/uL Lymphocytes # (1.0-4.8) k/uL Potassium (3.5-5.1) mmol/L Chloride (98-107) mmol/L Carbon Dioxide (22-30) mmol/L BUN (9-20) mg/dL Creatinine (0.66-1.25) mg/dL Glucose (74-99) mg/dL POC Glucose (mg/dL) 152 H (75-99) mg/dL Calcium (8.4-10.2) mg/dL Total Bilirubin (0.2-1.3) mg/dL Total Protein (6.3-8.2) g/dL Albumin (3.5-5.0) g/dL Anti-Smooth Muscle Ab 28 H (<20) UNITS Crossmatch See Detail 01/27/18 01/27/18 01/27/18 Range/Units 13:00 16:38 20:55 WBC (3.8-10.6) k/uL RBC (4.30-5.90) m/uL Hgb (13.0-17.5) gm/dL Hct (39.0-53.0) % MCHC (31.0-37.0) g/dL RDW (11.5-15.5) % Neutrophils # (1.3-7.7) k/uL Lymphocytes # (1.0-4.8) k/uL Potassium 2.9 L* (3.5-5.1) mmol/L Chloride (98-107) mmol/L Carbon Dioxide (22-30) mmol/L BUN (9-20) mg/dL Creatinine (0.66-1.25) mg/dL Glucose (74-99) mg/dL POC Glucose (mg/dL) 166 H 183 H (75-99) mg/dL Calcium (8.4-10.2) mg/dL Total Bilirubin (0.2-1.3) mg/dL Total Protein (6.3-8.2) g/dL Albumin (3.5-5.0) g/dL Anti-Smooth Muscle Ab (<20) UNITS Crossmatch 01/27/18 01/28/18 01/28/18 Range/Units 20:57 06:03 06:03 WBC 12.2 H (3.8-10.6) k/uL RBC 3.21 L (4.30-5.90) m/uL Hgb 8.8 L D (13.0-17.5) gm/dL Hct 29.0 L (39.0-53.0) % MCHC 30.3 L (31.0-37.0) g/dL RDW 17.2 H (11.5-15.5) % Neutrophils # 11.0 H (1.3-7.7) k/uL Lymphocytes # 0.5 L (1.0-4.8) k/uL Potassium 2.9 L* 3.1 L (3.5-5.1) mmol/L Chloride 109 H (98-107) mmol/L Carbon Dioxide 20 L (22-30) mmol/L BUN 30 H (9-20) mg/dL Creatinine 1.38 H (0.66-1.25) mg/dL Glucose 161 H (74-99) mg/dL POC Glucose (mg/dL) (75-99) mg/dL Calcium 7.6 L (8.4-10.2) mg/dL Total Bilirubin 1.5 H (0.2-1.3) mg/dL Total Protein 5.1 L (6.3-8.2) g/dL Albumin 2.4 L (3.5-5.0) g/dL Anti-Smooth Muscle Ab (<20) UNITS Crossmatch 01/28/18 Range/Units 06:52 WBC (3.8-10.6) k/uL RBC (4.30-5.90) m/uL Hgb (13.0-17.5) gm/dL Hct (39.0-53.0) % MCHC (31.0-37.0) g/dL RDW (11.5-15.5) % Neutrophils # (1.3-7.7) k/uL Lymphocytes # (1.0-4.8) k/uL Potassium (3.5-5.1) mmol/L Chloride (98-107) mmol/L Carbon Dioxide (22-30) mmol/L BUN (9-20) mg/dL Creatinine (0.66-1.25) mg/dL Glucose (74-99) mg/dL POC Glucose (mg/dL) 185 H (75-99) mg/dL Calcium (8.4-10.2) mg/dL Total Bilirubin (0.2-1.3) mg/dL Total Protein (6.3-8.2) g/dL Albumin (3.5-5.0) g/dL Anti-Smooth Muscle Ab (<20) UNITS Crossmatch - Imaging and Cardiology Chest x-ray: report reviewed, image reviewed (Findings from today's x-ray reviewed a small right-sided effusion and basal atelectasis present finding consistent with COPD with component of the fluid overload) Assessment and Plan Assessment: Severe hypokalemia Acute on chronic anemia requiring blood transfusion Sigmoid colon wall thickening with a differential diagnoses of diffuse colitis/ multifocal colitis versus neoplasm Altered mental status hepatic encephalopathy with elevated ammonia level, now significantly improved Abdominal distention, chronic nature Basal atelectasis small pleural effusion multifactorial including an related to above as well as chronic renal failure cirrhosis of the liver Tachycardia borderline hypertension with intravascular volume depletion and dehydration, overall stable Severe anemia and thrombocytopenia and GI bleed Stage III renal failure GI bleed with nonbleeding peptic ulcer, associated lower GI bleed cannot be excluded Metabolic acidosis lactic acidosis slowly improving History of prior recurrent pleural effusion of unclear etiology History of cirrhosis of the liver Plan: Continue to observe for aspiration and related issues on selective care, keep jara's catheter, gently rehydrate the patient, patient would benefit from a reinitiation of Cortef 10 twice a day and DC the Solu-Cortef, continue other supportive care as noted above Time with Patient: Greater than 30
[2018-01-28] MEDS: IPRATROPIUM-ALBUTEROL 3 ML NEB INHALATION SCH ×4 (08:52→21:10)
[2018-01-28] MEDS ORDERED: POTASSIUM CHLORIDE 10 MEQ in WATER FOR INJECTION 1 100ML.BAG IVPB SCH (09:00)
[2018-01-28] MEDS: HYDROCORTISONE 10 MG TAB PO SCH ×2 (09:10→22:51)
--- NOTE | 2018-01-28 10:27 | PCN ---
PROCEDURE NOTE DATE OF SERVICE: 01/28/2018 Patient is an 82-year-old pleasant white male admitted to the hospital with GI bleed. Initially, underwent an upper endoscopy a week ago and was noted to have esophageal ulcer and esophagitis. In the meantime, he was started having some abdominal pain, abdominal distention, and he had a CT of the abdomen that showed thickening of the left colon and hence had a colonoscopy to evaluate this further, which was done yesterday. Colonoscopy revealed diffuse scattered diverticulosis but no evidence of colitis or colorectal neoplasia. This morning, patient feels better. He reports no abdominal pain. He had normal bowel movements today. PHYSICAL EXAMINATION: Appears comfortable, in no apparent distress. Vital signs are stable. Blood pressure 136/67, pulse rate 97, temperature 98.6. HEENT EXAMINATION: Unremarkable, conjunctivae are pink, sclerae nonicteric, oral cavity no lesions. NECK: No JVD or lymph node enlargement. CHEST: Clear to auscultation. HEART: Regular rate and rhythm. ABDOMEN: Soft. Bowel sounds are positive, was slightly distended. EXTREMITIES: No pedal edema. SKIN: No rashes. NEURO: He is alert and oriented x3. No focal deficits. LABS: Done today, WBC 12.2, hemoglobin 8.8, platelets are normal. BUN 30, creatinine 1.38. IMPRESSION: 1. Upper gastrointestinal bleed, resolved, status post EGD 10 days ago showing esophageal ulcer and esophagitis. 2. Hepatic encephalopathy, resolved. 3. History of liver cirrhosis. 4. Abdominal distention, colonoscopy done yesterday showed evidence of diverticulosis but no evidence of colorectal neoplasia. RECOMMENDATION: 1. Advance diet as tolerated. 2. Continue current medications. 3. Follow up in the office in 2 weeks following discharge from the hospital. MMODL / IJN: [id number] /
[2018-01-28 11:57] LABS: Glucose,Whole Blood 179 mg/dL (75-99)
[2018-01-28] MEDS ORDERED: POTASSIUM CHLORIDE ER 20 MEQ TAB.ER PO STA (14:23)
[2018-01-28 16:25] LABS: Glucose,Whole Blood 210 mg/dL (75-99)
--- NOTE | 2018-01-28 16:40 | P.PN ---
Subjective Progress Note Date: 01/28/18 This is an 82-year-old gentleman patient of Dr. Rojas, with known history of CK D stage III, diabetes mellitus type 2, COPD, hyperlipidemia, and chronic anemia admitted from our facility in early August 2017, was diagnosed to have metabolic encephalopathy secondary to acute kidney injury and dehydration with hypoperfusion. Patient comes into the emergency room with a four-day history of black stools, has had increasing falls, no abdominal pain, patient denies any hematochezia, patient is not an alcoholic drinker currently, and was not feeling very well hence the ER admission. Patient has fallen numerous times, and the last one was 2 days ago, previous to this, patient had cracked the ribs , 4 weeks prior to admission. Patient follows up with Dr. Rojas every 4 months regimen, his due to see him in 01/20/2018 In the emergency room, he was noted to have Hemoccult-positive stools, patient was noted to have melanocytic stools, Hemoccult positive, hematuria with RBC of 59, double see if 1, moderate ketones, EKG shows sinus tachycardia with right bundle branch block, left anterior fascicular block, and pulmonary disease pattern heart rate of 124. Patient is admitted to ICU secondary to melanocytic stools with hemoglobin of 9, consult to Gen. surgery Dr. Montes and Dr. Haq gastroenterology. Admitting lactic acid was significantly elevated at 10.0 with a peak of 11.4, wbc of 15 troponin of 0.077 Previous imaging in our facility shows small amount of ascites, in the abdomen noted in May 2014 and CAT scan chest 2014, cholelithiasis, and evidence of cirrhosis and portal hypertension, improving pleural effusion, improving right apical nodule When patient was seen, patient was very much confused, trying to grab things in the area, very dry mouth, patient's nothing by mouth, and has a bilateral wrist restraints, ammonia levels were requested, family at bedside, CODE STATUS was discussed and is DO NOT RESUSCITATE no CPR with options for vent if needed 01/18: Hemoglobin is stable at 8.8. Patient is scheduled for EGD. The patient has had small bowel movements 7. Lactulose is on hold. Stools have been tarry in color. Cardiology is following for tachycardia. No plan for any further workup. 01/19: EGD revealed distal esophageal ulcer and gastritis but no active bleeding. Hemoglobin is 8.1. Ferrlecit ordered 1 dose. Patient is more alert today. Ammonia level is less than 9. Patient does have a large bruising area to the left antecubital which we will plan for Bactroban. Patient will be transferred out of intensive care today. PT will be started to help determine discharge plan. 01/20: Patient has less alert today. He missed a dose of lactulose and ammonia level is 34 today. He has a sitter at the bedside. Hemoglobin is currently 7.8. Patient has been waiting for selective care bed. He is hemodynamically stable will now be transferred to [facility]. Lactulose decrease to twice daily. Home medications reviewed and those appropriate have been resumed. 01/23: Patient is more lethargic today and stat lab work including ammonia level was ordered. Lactic acid came back at 2.1 and ammonia level [id number]. Patient was ordered for 1 L of IV fluid. Abdomen is more distended today and abdominal x-ray shows no bowel obstruction. Patient underwent bowel prep yesterday for colonoscopy to be done today but still did not clear. He has not been able to take any oral medications. Rectal lactulose has been ordered. 01/24: Patient is more lethargic today from yesterday. Ammonia level today is at 118. Patient did receive lactulose enemas yesterday. Patient is noted to have more abdominal distention today. GI has ordered NG tube and start Xifaxan , lactulose per NG tube and discontinue enemas and a CT of the abdomen and pelvis was ordered. Patient to be transferred to selective care. 01/25: Patient is more alert today. He did have 4 bowel movements yesterday but pulled his NG tube out. His ammonia level this morning is less than 9. He is to continue on lactulose 3 times daily orally. Patient did take his oral medications today. He is scheduled for a colonoscopy tomorrow. Patient is noted to have expiratory wheezing and IV Lasix ordered. Updrafts changed to scheduled. Pulse ox is 97% on room air. Patient has been afebrile. 01/26: Repeat chest x-ray small right-sided pleural effusion. Patient's mental status is improved and patient may be back to his baseline. His ammonia level is again less than 9 He is denying any abdominal pain. He remains with Ortiz catheter in place which will be discontinued after colonoscopy which GI is planning for tomorrow. AFP and CEA ordered by GI or unremarkable. Patient underwent modified barium swallow that did not show any aspiration. 01/27: Chest x-ray shows right lower lobe atelectasis and associated effusion. Correlate to exclude pneumonia. Patient is scheduled for colonoscopy today. Hemoglobin 7.2 and gradually declining for which we will transfuse 1 unit of packed RBCs. Potassium will be replaced. Patient denies having any abdominal pain but noted to have abdominal distention. He denies any nausea or vomiting. He is alert and oriented and appears to be back to baseline. We will transfer the patient to [facility] floor and IV Lopressor will be changed back to his oral home dose. 01/28 colonoscopy negative for any neoplasm. Patient resting comfortably in bed. Does need to be discharged to a subacute rehab. Patient denies any chest pain, breathing difficulty, abdominal pain or nausea or vomiting. Objective - Vital Signs Vital signs: Vital Signs Temp 97.0 F L 01/28/18 15:38 Pulse 96 01/28/18 16:22 Resp 22 01/28/18 15:39 BP 131/59 01/28/18 15:38 Pulse Ox 99 01/28/18 15:38 Intake & Output 01/27/18 01/28/18 01/28/18 18:59 06:59 18:59 Intake Total 1500 1060 Output Total 725 1600 600 Balance 775 -1600 460 Weight 113.4 kg 108 kg Intake: Intake, IV Titration 200 Amount Potassium Chloride 10 meq 200 In Water For Injection 1 100ml.bag @ 100 mls/hr IVPB Q1H [facility] Rx#: [id number] Oral 990 1060 Blood Product 310 Rc Pheresis 2 As3 Unit 310 [id number] Output: Urine 725 1600 600 Uretheral (Ortiz) 725 600 Other: Voiding Method Indwelling Catheter Indwelling Catheter Indwelling Catheter # Voids 1 # Bowel Movements 1 - Exam - Exam General appearance: cooperative, obese - EENT Eyes: anicteric sclerae, EOMI ENT: NA/AT - Neck Neck: normal ROM - Respiratory Respiratory: bilateral: Expiratory wheeze, negative: dullness, rales, rhonchi - Cardiovascular Rhythm: regular Heart sounds: normal: S1, S2 - Gastrointestinal General gastrointestinal: normal bowel sounds, soft, distended, no tenderness - Integumentary Integumentary: decreased turgor, normal - Neurologic Patient is oriented x3. Answers questions appropriately. - Labs CBC & Chem 7: 01/28/18 06:03 01/28/18 13:00 Labs: Abnormal Lab Results - Last 24 Hours (Table) 01/27/18 01/27/18 01/27/18 Range/Units 11:25 16:38 20:55 WBC (3.8-10.6) k/uL RBC (4.30-5.90) m/uL Hgb (13.0-17.5) gm/dL Hct (39.0-53.0) % MCHC (31.0-37.0) g/dL RDW (11.5-15.5) % Neutrophils # (1.3-7.7) k/uL Lymphocytes # (1.0-4.8) k/uL Potassium (3.5-5.1) mmol/L Chloride (98-107) mmol/L Carbon Dioxide (22-30) mmol/L BUN (9-20) mg/dL Creatinine (0.66-1.25) mg/dL Glucose (74-99) mg/dL POC Glucose (mg/dL) 166 H 183 H (75-99) mg/dL Calcium (8.4-10.2) mg/dL Total Bilirubin (0.2-1.3) mg/dL Total Protein (6.3-8.2) g/dL Albumin (3.5-5.0) g/dL Crossmatch See Detail 01/27/18 01/28/18 01/28/18 Range/Units 20:57 06:03 06:03 WBC 12.2 H (3.8-10.6) k/uL RBC 3.21 L (4.30-5.90) m/uL Hgb 8.8 L D (13.0-17.5) gm/dL Hct 29.0 L (39.0-53.0) % MCHC 30.3 L (31.0-37.0) g/dL RDW 17.2 H (11.5-15.5) % Neutrophils # 11.0 H (1.3-7.7) k/uL Lymphocytes # 0.5 L (1.0-4.8) k/uL Potassium 2.9 L* 3.1 L (3.5-5.1) mmol/L Chloride 109 H (98-107) mmol/L Carbon Dioxide 20 L (22-30) mmol/L BUN 30 H (9-20) mg/dL Creatinine 1.38 H (0.66-1.25) mg/dL Glucose 161 H (74-99) mg/dL POC Glucose (mg/dL) (75-99) mg/dL Calcium 7.6 L (8.4-10.2) mg/dL Total Bilirubin 1.5 H (0.2-1.3) mg/dL Total Protein 5.1 L (6.3-8.2) g/dL Albumin 2.4 L (3.5-5.0) g/dL Crossmatch 01/28/18 01/28/18 01/28/18 Range/Units 06:52 11:56 13:00 WBC (3.8-10.6) k/uL RBC (4.30-5.90) m/uL Hgb (13.0-17.5) gm/dL Hct (39.0-53.0) % MCHC (31.0-37.0) g/dL RDW (11.5-15.5) % Neutrophils # (1.3-7.7) k/uL Lymphocytes # (1.0-4.8) k/uL Potassium 3.4 L (3.5-5.1) mmol/L Chloride (98-107) mmol/L Carbon Dioxide (22-30) mmol/L BUN (9-20) mg/dL Creatinine (0.66-1.25) mg/dL Glucose (74-99) mg/dL POC Glucose (mg/dL) 185 H 179 H (75-99) mg/dL Calcium (8.4-10.2) mg/dL Total Bilirubin (0.2-1.3) mg/dL Total Protein (6.3-8.2) g/dL Albumin (3.5-5.0) g/dL Crossmatch 01/28/18 Range/Units 16:22 WBC (3.8-10.6) k/uL RBC (4.30-5.90) m/uL Hgb (13.0-17.5) gm/dL Hct (39.0-53.0) % MCHC (31.0-37.0) g/dL RDW (11.5-15.5) % Neutrophils # (1.3-7.7) k/uL Lymphocytes # (1.0-4.8) k/uL Potassium (3.5-5.1) mmol/L Chloride (98-107) mmol/L Carbon Dioxide (22-30) mmol/L BUN (9-20) mg/dL Creatinine (0.66-1.25) mg/dL Glucose (74-99) mg/dL POC Glucose (mg/dL) 210 H (75-99) mg/dL Calcium (8.4-10.2) mg/dL Total Bilirubin (0.2-1.3) mg/dL Total Protein (6.3-8.2) g/dL Albumin (3.5-5.0) g/dL Crossmatch Assessment and Plan Plan: 1. Acute upper GI bleed with acute blood loss anemia, secondary to esophageal ulcer and gastritis. Patient will be transferred out of ICU. Trans[employer] Coil Winder was consulted Dr. Granger,we will transfuse with hemoglobin of less than 7, and GI consult with Dr. Lopez, for colonoscopy today. Dr. Rodgers general surgeon. Patient will be transfused 1 unit of packed RBCs. 2. Chronic liver cirrhosis and portal hypertension as noted through CT imaging , in 2014, ammonia levels are requested secondary to confusion. Lactulose oral 3 times daily. Aldactone will be resumed. 3. Hyperammonemia, continue Xifaxan and lactulose 4. Recurrent falls, multifactorial, was likely secondary to metabolic encephalopathy with ongoing liver cirrhosis. Patient has having relapsing metabolic encephalopathy. Continue Xifaxan and lactulose. 5. Diabetes mellitus type 2, on metformin and glipizide at home. Continue NovoLog scale 6. Autonomic dysfunction/possible adrenal insufficiency, patient on home dose of Cortef and Florinef. He is currently on Solu-Cortef IV. 7. COPD on Spiriva, and when necessary albuterol 8. Hypertension, and tachycardia, patient will be restarted on metoprolol 12.5 mg bid. 9. Lactic acidosis likely secondary to GI bleed, continue to monitor serially, 10. CKD stage III with acute kidney failure, azotemia, IV hydration, Ortiz in place. Monitor creatinine. 11. Leukocytosis, 12. Hematuria, this needs to be worked up as outpatient, patient is asymptomatic , would need evaluate with either renal ultrasound or CT of the abdomen once stabilized 13. Hyperlipidemia. Patient will be resumed back on atorvastatin. 14. Mildly elevated troponins for which acute coronary syndrome has been ruled out. 15. No previous diagnosis heart failure. He is on Aldactone due to liver failure. 16. Severe protein calorie malnutrition secondary to cirrhosis of the liver with albumin of 2.2. Ensure added. Discharge plan: Subacute rehab at [facility] or [facility] on Tuesday
[2018-01-28] MEDS: guaiFENesin 600 MG TABLET.ER PO SCH (17:49)
[2018-01-28 21:16] LABS: Glucose,Whole Blood 154 mg/dL (75-99)
[2018-01-29 06:05] LABS: Glucose,Whole Blood 169 mg/dL (75-99)
[2018-01-29] MEDS: LACTULOSE 20 GM/30 ML CUP PO SCH ×4 (06:58→21:06)
[2018-01-29] MEDS: INSULIN ASPART 100 UNIT/ML 1 ML 10 ML VIAL SQ SCH ×4 (06:59→21:05)
[2018-01-29] MEDS: SPIRONOLACTONE 25 MG TAB PO SCH (07:48)
[2018-01-29] MEDS: HYDROCORTISONE 10 MG TAB PO SCH (07:48)
[2018-01-29] MEDS: RIFAXIMIN 550 MG TABLET PO SCH ×2 (07:48→20:26)
[2018-01-29] MEDS: guaiFENesin 600 MG TABLET.ER PO SCH ×2 (07:48→20:26)
[2018-01-29] MEDS: FUROSEMIDE 10 MG/ML 2 ML VIAL IV SCH (07:48)
[2018-01-29] MEDS: PANTOPRAZOLE 40 MG/10 ML VIAL IV SCH (07:48)
[2018-01-29] MEDS: FLUDROCORTISONE 0.1 MG TAB PO SCH ×2 (07:49→20:26)
[2018-01-29] MEDS: METOPROLOL SUCCINATE (ER) 25 MG TAB.ER.24H PO SCH (07:49)
[2018-01-29 07:59] LABS: Anisocytosis Slight; HCT 31.4 % (39.0-53.0); HGB 10.1 gm/dL (13.0-17.5); Hypochromasia Moderate; MCHC 32.3 g/dL (31.0-37.0); MCV 89.9 fL (80.0-100.0); Mean Platelet Volume 8.1; Platelet Count 181 k/uL (150-450); Poikilocytosis Moderate; RDW 16.9 % (11.5-15.5); WBC 19.3 k/uL (3.8-10.6)
[2018-01-29] MEDS: IPRATROPIUM-ALBUTEROL 3 ML NEB INHALATION SCH ×4 (08:10→20:50)
[2018-01-29 08:13] LABS: Albumin 2.4 g/dL (3.5-5.0); Calcium 7.9 mg/dL (8.4-10.2); Magnesium 1.6 mg/dL (1.6-2.3); Potassium 3.6 mmol/L (3.5-5.1); Total Bilirubin 1.6 mg/dL (0.2-1.3); Total Protein 5.2 g/dL (6.3-8.2)
[2018-01-29 11:18] LABS: Glucose,Whole Blood 125 mg/dL (75-99)
--- NOTE | 2018-01-29 14:30 | P.PN ---
Subjective Progress Note Date: 01/29/18 This is an 82-year-old gentleman patient of Dr. Rojas, with known history of CK D stage III, diabetes mellitus type 2, COPD, hyperlipidemia, and chronic anemia admitted from our facility in early August 2017, was diagnosed to have metabolic encephalopathy secondary to acute kidney injury and dehydration with hypoperfusion. Patient comes into the emergency room with a four-day history of black stools, has had increasing falls, no abdominal pain, patient denies any hematochezia, patient is not an alcoholic drinker currently, and was not feeling very well hence the ER admission. Patient has fallen numerous times, and the last one was 2 days ago, previous to this, patient had cracked the ribs , 4 weeks prior to admission. Patient follows up with Dr. Rojas every 4 months regimen, his due to see him in 01/20/2018 In the emergency room, he was noted to have Hemoccult-positive stools, patient was noted to have melanocytic stools, Hemoccult positive, hematuria with RBC of 59, double see if 1, moderate ketones, EKG shows sinus tachycardia with right bundle branch block, left anterior fascicular block, and pulmonary disease pattern heart rate of 124. Patient is admitted to ICU secondary to melanocytic stools with hemoglobin of 9, consult to Gen. surgery Dr. Montes and Dr. Haq gastroenterology. Admitting lactic acid was significantly elevated at 10.0 with a peak of 11.4, wbc of 15 troponin of 0.077 Previous imaging in our facility shows small amount of ascites, in the abdomen noted in May 2014 and CAT scan chest 2014, cholelithiasis, and evidence of cirrhosis and portal hypertension, improving pleural effusion, improving right apical nodule When patient was seen, patient was very much confused, trying to grab things in the area, very dry mouth, patient's nothing by mouth, and has a bilateral wrist restraints, ammonia levels were requested, family at bedside, CODE STATUS was discussed and is DO NOT RESUSCITATE no CPR with options for vent if needed 01/18: Hemoglobin is stable at 8.8. Patient is scheduled for EGD. The patient has had small bowel movements 7. Lactulose is on hold. Stools have been tarry in color. Cardiology is following for tachycardia. No plan for any further workup. 01/19: EGD revealed distal esophageal ulcer and gastritis but no active bleeding. Hemoglobin is 8.1. Ferrlecit ordered 1 dose. Patient is more alert today. Ammonia level is less than 9. Patient does have a large bruising area to the left antecubital which we will plan for Bactroban. Patient will be transferred out of intensive care today. PT will be started to help determine discharge plan. 01/20: Patient has less alert today. He missed a dose of lactulose and ammonia level is 34 today. He has a sitter at the bedside. Hemoglobin is currently 7.8. Patient has been waiting for selective care bed. He is hemodynamically stable will now be transferred to [facility]. Lactulose decrease to twice daily. Home medications reviewed and those appropriate have been resumed. 01/23: Patient is more lethargic today and stat lab work including ammonia level was ordered. Lactic acid came back at 2.1 and ammonia level [id number]. Patient was ordered for 1 L of IV fluid. Abdomen is more distended today and abdominal x-ray shows no bowel obstruction. Patient underwent bowel prep yesterday for colonoscopy to be done today but still did not clear. He has not been able to take any oral medications. Rectal lactulose has been ordered. 01/24: Patient is more lethargic today from yesterday. Ammonia level today is at 118. Patient did receive lactulose enemas yesterday. Patient is noted to have more abdominal distention today. GI has ordered NG tube and start Xifaxan , lactulose per NG tube and discontinue enemas and a CT of the abdomen and pelvis was ordered. Patient to be transferred to [facility] care. 01/25: Patient is more alert today. He did have 4 bowel movements yesterday but pulled his NG tube out. His ammonia level this morning is less than 9. He is to continue on lactulose 3 times daily orally. Patient did take his oral medications today. He is scheduled for a colonoscopy tomorrow. Patient is noted to have expiratory wheezing and IV Lasix ordered. Updrafts changed to scheduled. Pulse ox is 97% on room air. Patient has been afebrile. 01/26: Repeat chest x-ray small right-sided pleural effusion. Patient's mental status is improved and patient may be back to his baseline. His ammonia level is again less than 9 He is denying any abdominal pain. He remains with Ortiz catheter in place which will be discontinued after colonoscopy which GI is planning for tomorrow. AFP and CEA ordered by GI or unremarkable. Patient underwent modified barium swallow that did not show any aspiration. 01/27: Chest x-ray shows right lower lobe atelectasis and associated effusion. Correlate to exclude pneumonia. Patient is scheduled for colonoscopy today. Hemoglobin 7.2 and gradually declining for which we will transfuse 1 unit of packed RBCs. Potassium will be replaced. Patient denies having any abdominal pain but noted to have abdominal distention. He denies any nausea or vomiting. He is alert and oriented and appears to be back to baseline. We will transfer the patient to [facility] floor and IV Lopressor will be changed back to his oral home dose. 01/28 colonoscopy negative for any neoplasm. Patient resting comfortably in bed. Does need to be discharged to a subacute rehab. Patient denies any chest pain, breathing difficulty, abdominal pain or nausea or vomiting. Last 20: Patient examined bedside. Appears to answer questions appropriately but does appear to be less alert than yesterday. Patient still has some cough and wheezing on examination continue steroids. Ammonia level yesterday 199. Patient was not getting his lactulose due to increased bowel movement. Lactulose given today. Objective - Vital Signs Vital signs: Vital Signs Temp 96.8 F L 01/29/18 11:31 Pulse 92 01/29/18 11:33 Resp 18 01/29/18 11:32 BP 101/55 01/29/18 11:31 Pulse Ox 94 L 01/29/18 11:31 Intake & Output 01/28/18 01/29/18 01/29/18 18:59 06:59 18:59 Intake Total 1540 280 Output Total 600 2375 400 Balance 940 -2375 -120 Weight 110 kg Intake: Oral 1540 280 Output: Urine 600 2375 400 Uretheral (Ortiz) 600 1275 100 Other: Voiding Method Indwelling Catheter Indwelling Catheter Indwelling Catheter # Voids 1 - Exam - Exam General appearance: cooperative, obese - EENT Eyes: anicteric sclerae, EOMI ENT: NA/AT - Neck Neck: normal ROM - Respiratory Respiratory: bilateral: Expiratory wheeze, negative: dullness, rales, rhonchi - Cardiovascular Rhythm: regular Heart sounds: normal: S1, S2 - Gastrointestinal General gastrointestinal: normal bowel sounds, soft, distended, no tenderness - Integumentary Integumentary: decreased turgor, normal - Neurologic Patient is oriented x3. Answers questions appropriately. - Labs CBC & Chem 7: 01/29/18 07:40 01/29/18 07:40 Labs: Abnormal Lab Results - Last 24 Hours (Table) 01/28/18 01/28/18 01/28/18 Range/Units 16:22 18:58 21:12 WBC (3.8-10.6) k/uL RBC (4.30-5.90) m/uL Hgb (13.0-17.5) gm/dL Hct (39.0-53.0) % RDW (11.5-15.5) % Carbon Dioxide (22-30) mmol/L BUN (9-20) mg/dL Creatinine (0.66-1.25) mg/dL Glucose (74-99) mg/dL POC Glucose (mg/dL) 210 H 154 H (75-99) mg/dL Calcium (8.4-10.2) mg/dL Total Bilirubin (0.2-1.3) mg/dL Ammonia 199 H (<30) umol/L Total Protein (6.3-8.2) g/dL Albumin (3.5-5.0) g/dL 01/29/18 01/29/18 01/29/18 Range/Units 06:04 07:40 07:40 WBC 19.3 H (3.8-10.6) k/uL RBC 3.50 L (4.30-5.90) m/uL Hgb 10.1 L (13.0-17.5) gm/dL Hct 31.4 L (39.0-53.0) % RDW 16.9 H (11.5-15.5) % Carbon Dioxide 21 L (22-30) mmol/L BUN 30 H (9-20) mg/dL Creatinine 1.60 H (0.66-1.25) mg/dL Glucose 139 H (74-99) mg/dL POC Glucose (mg/dL) 169 H (75-99) mg/dL Calcium 7.9 L (8.4-10.2) mg/dL Total Bilirubin 1.6 H (0.2-1.3) mg/dL Ammonia (<30) umol/L Total Protein 5.2 L (6.3-8.2) g/dL Albumin 2.4 L (3.5-5.0) g/dL 01/29/18 01/29/18 Range/Units 11:15 11:28 WBC (3.8-10.6) k/uL RBC (4.30-5.90) m/uL Hgb (13.0-17.5) gm/dL Hct (39.0-53.0) % RDW (11.5-15.5) % Carbon Dioxide (22-30) mmol/L BUN (9-20) mg/dL Creatinine (0.66-1.25) mg/dL Glucose (74-99) mg/dL POC Glucose (mg/dL) 125 H (75-99) mg/dL Calcium (8.4-10.2) mg/dL Total Bilirubin (0.2-1.3) mg/dL Ammonia 134 H (<30) umol/L Total Protein (6.3-8.2) g/dL Albumin (3.5-5.0) g/dL Assessment and Plan Plan: 1. Acute upper GI bleed with acute blood loss anemia, secondary to esophageal ulcer and gastritis. Patient will be transferred out of ICU. [employer]per was consulted Dr. Granger,we will transfuse with hemoglobin of less than 7, and GI consult with Dr. Lopez, for colonoscopy today. Dr. Rodgers general surgeon. Patient will be transfused 1 unit of packed RBCs. 2. Chronic liver cirrhosis and portal hypertension as noted through CT imaging , in 2014, ammonia levels are requested secondary to confusion. Lactulose oral 3 times daily. Aldactone will be resumed. 3. Hyperammonemia, continue Xifaxan and lactulose 4. Recurrent falls, multifactorial, was likely secondary to metabolic encephalopathy with ongoing liver cirrhosis. Patient has having relapsing metabolic encephalopathy. Continue Xifaxan and lactulose. 5. Diabetes mellitus type 2, on metformin and glipizide at home. Continue NovoLog scale 6. Autonomic dysfunction/possible adrenal insufficiency, patient on home dose of Cortef and Florinef. He is currently on Solu-Cortef IV. 7. COPD on Spiriva, and when necessary albuterol 8. Hypertension, and tachycardia, patient will be restarted on metoprolol 12.5 mg bid. 9. Lactic acidosis likely secondary to GI bleed, continue to monitor serially, 10. CKD stage III with acute kidney failure, azotemia, IV hydration, Ortiz in place. Monitor creatinine. 11. Leukocytosis, 12. Hematuria, this needs to be worked up as outpatient, patient is asymptomatic , would need evaluate with either renal ultrasound or CT of the abdomen once stabilized 13. Hyperlipidemia. Patient will be resumed back on atorvastatin. 14. Mildly elevated troponins for which acute coronary syndrome has been ruled out. 15. No previous diagnosis heart failure. He is on Aldactone due to liver failure. 16. Severe protein calorie malnutrition secondary to cirrhosis of the liver with albumin of 2.2. Ensure added. Discharge plan: Subacute rehab at [facility] or [facility] on Tuesday
[2018-01-29 15:26] LABS: Albumin 2.41 g/dL (3.80-4.90); Gamma Globulin 0.68 g/dL (0.70-1.50)
[2018-01-29] MEDS: predniSONE 20 MG TAB PO SCH (15:31)
[2018-01-29 16:37] LABS: Glucose,Whole Blood 155 mg/dL (75-99)
[2018-01-29 21:00] LABS: Glucose,Whole Blood 172 mg/dL (75-99)
[2018-01-29] MEDS ORDERED: guaiFENesin 600 MG TABLET.ER PO SCH (21:00)
[2018-01-30 06:11] LABS: Glucose,Whole Blood 206 mg/dL (75-99)
[2018-01-30 06:28] LABS: Anisocytosis Slight; HCT 29.6 % (39.0-53.0); HGB 9.6 gm/dL (13.0-17.5); Hypochromasia Moderate; MCH 29.3 pg (25.0-35.0); MCHC 32.3 g/dL (31.0-37.0); MCV 90.8 fL (80.0-100.0); Mean Platelet Volume 7.9; Platelet Count 128 k/uL (150-450); Poikilocytosis Slight; RBC 3.26 m/uL (4.30-5.90); RDW 16.9 % (11.5-15.5); WBC 12.7 k/uL (3.8-10.6)
[2018-01-30 06:44] LABS: Albumin 2.2 g/dL (3.5-5.0); Magnesium 1.6 mg/dL (1.6-2.3); Total Bilirubin 1.5 mg/dL (0.2-1.3); Total Protein 4.8 g/dL (6.3-8.2)
[2018-01-30] MEDS: INSULIN ASPART 100 UNIT/ML 1 ML 10 ML VIAL SQ SCH ×4 (06:47→21:33)
[2018-01-30] MEDS: predniSONE 20 MG TAB PO SCH (09:24)
[2018-01-30] MEDS: LACTULOSE 20 GM/30 ML CUP PO SCH ×3 (09:24→21:24)
[2018-01-30] MEDS: RIFAXIMIN 550 MG TABLET PO SCH ×2 (09:24→21:25)
[2018-01-30] MEDS: FLUDROCORTISONE 0.1 MG TAB PO SCH ×2 (09:25→21:25)
[2018-01-30] MEDS: guaiFENesin 600 MG TABLET.ER PO SCH ×2 (09:26→21:24)
[2018-01-30] MEDS: SPIRONOLACTONE 25 MG TAB PO SCH (09:26)
[2018-01-30] MEDS: PANTOPRAZOLE 40 MG/10 ML VIAL IV SCH (09:26)
[2018-01-30] MEDS: METOPROLOL SUCCINATE (ER) 25 MG TAB.ER.24H PO SCH (09:26)
[2018-01-30] MEDS: FUROSEMIDE 10 MG/ML 2 ML VIAL IV SCH (09:26)
[2018-01-30] MEDS: IPRATROPIUM-ALBUTEROL 3 ML NEB INHALATION SCH ×4 (11:28→19:12)
[2018-01-30 11:49] LABS: Glucose,Whole Blood 129 mg/dL (75-99)
--- NOTE | 2018-01-30 14:00 | P.PN ---
Subjective This is an 82-year-old gentleman patient of Dr. Rojas, with known history of CK D stage III, diabetes mellitus type 2, COPD, hyperlipidemia, and chronic anemia admitted from our facility in early August 2017, was diagnosed to have metabolic encephalopathy secondary to acute kidney injury and dehydration with hypoperfusion. Patient comes into the emergency room with a four-day history of black stools, has had increasing falls, no abdominal pain, patient denies any hematochezia, patient is not an alcoholic drinker currently, and was not feeling very well hence the ER admission. Patient has fallen numerous times, and the last one was 2 days ago, previous to this, patient had cracked the ribs , 4 weeks prior to admission. Patient follows up with Dr. Rojas every 4 months regimen, his due to see him in 01/20/2018 In the emergency room, he was noted to have Hemoccult-positive stools, patient was noted to have melanocytic stools, Hemoccult positive, hematuria with RBC of 59, double see if 1, moderate ketones, EKG shows sinus tachycardia with right bundle branch block, left anterior fascicular block, and pulmonary disease pattern heart rate of 124. Patient is admitted to ICU secondary to melanocytic stools with hemoglobin of 9, consult to Gen. surgery Dr. Montes and Dr. Haq gastroenterology. Admitting lactic acid was significantly elevated at 10.0 with a peak of 11.4, wbc of 15 troponin of 0.077 Previous imaging in our facility shows small amount of ascites, in the abdomen noted in May 2014 and CAT scan chest 2014, cholelithiasis, and evidence of cirrhosis and portal hypertension, improving pleural effusion, improving right apical nodule When patient was seen, patient was very much confused, trying to grab things in the area, very dry mouth, patient's nothing by mouth, and has a bilateral wrist restraints, ammonia levels were requested, family at bedside, CODE STATUS was discussed and is DO NOT RESUSCITATE no CPR with options for vent if needed 01/18: Hemoglobin is stable at 8.8. Patient is scheduled for EGD. The patient has had small bowel movements 7. Lactulose is on hold. Stools have been tarry in color. Cardiology is following for tachycardia. No plan for any further workup. 01/19: EGD revealed distal esophageal ulcer and gastritis but no active bleeding. Hemoglobin is 8.1. Ferrlecit ordered 1 dose. Patient is more alert today. Ammonia level is less than 9. Patient does have a large bruising area to the left antecubital which we will plan for Bactroban. Patient will be transferred out of intensive care today. PT will be started to help determine discharge plan. 01/20: Patient has less alert today. He missed a dose of lactulose and ammonia level is 34 today. He has a sitter at the bedside. Hemoglobin is currently 7.8. Patient has been waiting for selective care bed. He is hemodynamically stable will now be transferred to [facility]. Lactulose decrease to twice daily. Home medications reviewed and those appropriate have been resumed. 01/23: Patient is more lethargic today and stat lab work including ammonia level was ordered. Lactic acid came back at 2.1 and ammonia level [id number]. Patient was ordered for 1 L of IV fluid. Abdomen is more distended today and abdominal x-ray shows no bowel obstruction. Patient underwent bowel prep yesterday for colonoscopy to be done today but still did not clear. He has not been able to take any oral medications. Rectal lactulose has been ordered. 01/24: Patient is more lethargic today from yesterday. Ammonia level today is at 118. Patient did receive lactulose enemas yesterday. Patient is noted to have more abdominal distention today. GI has ordered NG tube and start Xifaxan , lactulose per NG tube and discontinue enemas and a CT of the abdomen and pelvis was ordered. Patient to be transferred to selective care. 01/25: Patient is more alert today. He did have 4 bowel movements yesterday but pulled his NG tube out. His ammonia level this morning is less than 9. He is to continue on lactulose 3 times daily orally. Patient did take his oral medications today. He is scheduled for a colonoscopy tomorrow. Patient is noted to have expiratory wheezing and IV Lasix ordered. Updrafts changed to scheduled. Pulse ox is 97% on room air. Patient has been afebrile. 01/26: Repeat chest x-ray small right-sided pleural effusion. Patient's mental status is improved and patient may be back to his baseline. His ammonia level is again less than 9 He is denying any abdominal pain. He remains with Ortiz catheter in place which will be discontinued after colonoscopy which GI is planning for tomorrow. AFP and CEA ordered by GI or unremarkable. Patient underwent modified barium swallow that did not show any aspiration. 01/27: Chest x-ray shows right lower lobe atelectasis and associated effusion. Correlate to exclude pneumonia. Patient is scheduled for colonoscopy today. Hemoglobin 7.2 and gradually declining for which we will transfuse 1 unit of packed RBCs. Potassium will be replaced. Patient denies having any abdominal pain but noted to have abdominal distention. He denies any nausea or vomiting. He is alert and oriented and appears to be back to baseline. We will transfer the patient to [facility] floor and IV Lopressor will be changed back to his oral home dose. 01/28 colonoscopy negative for any neoplasm. Patient resting comfortably in bed. Does need to be discharged to a subacute rehab. Patient denies any chest pain, breathing difficulty, abdominal pain or nausea or vomiting. 01/29: Patient examined bedside. Appears to answer questions appropriately but does appear to be less alert than yesterday. Patient still has some cough and wheezing on examination continue steroids. Ammonia level yesterday 199. Patient was not getting his lactulose due to increased bowel movement. Lactulose given today. 01/30: Patient was examined at bedside today. Again patient is very drowsy, answers questions but then drifts back to sleep. Repeat ammonia today is 51. Hemoglobin is stable at 9.6. Patient's abdomen is more distended than yesterday , will order an abdominal ultrasound to rule out ascites, Lasix increased to 40 mg every 12 hours. Objective - Vital Signs Vital signs: Vital Signs Temp 97.0 F L 01/30/18 04:00 Pulse 95 01/30/18 04:00 Resp 18 01/30/18 04:00 BP 134/62 01/30/18 04:00 Pulse Ox 96 01/30/18 04:00 Intake & Output 01/29/18 01/30/18 01/30/18 18:59 06:59 18:59 Intake Total 450 10 0 Output Total 400 300 Balance 50 -290 0 Weight 112.3 kg Intake: IV 10 0.9 10 Oral 450 0 Output: Urine 400 300 Uretheral (Ortiz) 100 Other: Voiding Method Indwelling Catheter Indwelling Catheter - Exam - Exam General appearance: cooperative, obese - EENT Eyes: anicteric sclerae, EOMI ENT: NA/AT - Neck Neck: normal ROM - Respiratory Respiratory: bilateral: Expiratory wheeze, negative: dullness, rales, rhonchi - Cardiovascular Rhythm: regular Heart sounds: normal: S1, S2 - Gastrointestinal General gastrointestinal: normal bowel sounds, soft, distended, no tenderness - Integumentary Integumentary: decreased turgor, normal - Neurologic Patient is oriented x3. Answers questions appropriately. - Labs CBC & Chem 7: 01/30/18 06:00 01/30/18 06:00 Labs: Abnormal Lab Results - Last 24 Hours (Table) 01/26/18 01/29/18 01/29/18 Range/Units 05:31 11:15 11:28 WBC (3.8-10.6) k/uL RBC (4.30-5.90) m/uL Hgb (13.0-17.5) gm/dL Hct (39.0-53.0) % RDW (11.5-15.5) % Plt Count (150-450) k/uL Chloride (98-107) mmol/L Carbon Dioxide (22-30) mmol/L BUN (9-20) mg/dL Creatinine (0.66-1.25) mg/dL Glucose (74-99) mg/dL POC Glucose (mg/dL) 125 H (75-99) mg/dL Calcium (8.4-10.2) mg/dL Total Bilirubin (0.2-1.3) mg/dL Alkaline Phosphatase (38-126) U/L Ammonia 134 H (<30) umol/L Total Protein (6.3-8.2) g/dL Albumin (3.5-5.0) g/dL Albumin (PEP) 2.41 L (3.80-4.90) g/dL Bamat-8-Jplyozbde 0.57 L (0.60-1.00) g/dL Gamma Globulins 0.68 L (0.70-1.50) g/dL 01/29/18 01/29/18 01/29/18 Range/Units 16:29 17:00 20:53 WBC (3.8-10.6) k/uL RBC (4.30-5.90) m/uL Hgb (13.0-17.5) gm/dL Hct (39.0-53.0) % RDW (11.5-15.5) % Plt Count (150-450) k/uL Chloride (98-107) mmol/L Carbon Dioxide (22-30) mmol/L BUN (9-20) mg/dL Creatinine (0.66-1.25) mg/dL Glucose (74-99) mg/dL POC Glucose (mg/dL) 155 H 172 H (75-99) mg/dL Calcium (8.4-10.2) mg/dL Total Bilirubin (0.2-1.3) mg/dL Alkaline Phosphatase (38-126) U/L Ammonia 88 H (<30) umol/L Total Protein (6.3-8.2) g/dL Albumin (3.5-5.0) g/dL Albumin (PEP) (3.80-4.90) g/dL Etgzl-0-Ermrvdywi (0.60-1.00) g/dL Gamma Globulins (0.70-1.50) g/dL 01/30/18 01/30/18 01/30/18 Range/Units 06:00 06:00 06:00 WBC 12.7 H (3.8-10.6) k/uL RBC 3.26 L (4.30-5.90) m/uL Hgb 9.6 L (13.0-17.5) gm/dL Hct 29.6 L (39.0-53.0) % RDW 16.9 H (11.5-15.5) % Plt Count 128 L (150-450) k/uL Chloride 109 H (98-107) mmol/L Carbon Dioxide 19 L (22-30) mmol/L BUN 36 H (9-20) mg/dL Creatinine 1.76 H (0.66-1.25) mg/dL Glucose 192 H (74-99) mg/dL POC Glucose (mg/dL) (75-99) mg/dL Calcium 8.0 L (8.4-10.2) mg/dL Total Bilirubin 1.5 H (0.2-1.3) mg/dL Alkaline Phosphatase 132 H (38-126) U/L Ammonia 51 H (<30) umol/L Total Protein 4.8 L (6.3-8.2) g/dL Albumin 2.2 L (3.5-5.0) g/dL Albumin (PEP) (3.80-4.90) g/dL Ufkud-9-Zaaxmavhn (0.60-1.00) g/dL Gamma Globulins (0.70-1.50) g/dL 01/30/18 Range/Units 06:09 WBC (3.8-10.6) k/uL RBC (4.30-5.90) m/uL Hgb (13.0-17.5) gm/dL Hct (39.0-53.0) % RDW (11.5-15.5) % Plt Count (150-450) k/uL Chloride (98-107) mmol/L Carbon Dioxide (22-30) mmol/L BUN (9-20) mg/dL Creatinine (0.66-1.25) mg/dL Glucose (74-99) mg/dL POC Glucose (mg/dL) 206 H (75-99) mg/dL Calcium (8.4-10.2) mg/dL Total Bilirubin (0.2-1.3) mg/dL Alkaline Phosphatase (38-126) U/L Ammonia (<30) umol/L Total Protein (6.3-8.2) g/dL Albumin (3.5-5.0) g/dL Albumin (PEP) (3.80-4.90) g/dL Ilrbc-6-Mowfglqja (0.60-1.00) g/dL Gamma Globulins (0.70-1.50) g/dL Assessment and Plan Assessment: 1. Acute upper GI bleed with acute blood loss anemia, secondary to esophageal ulcer and gastritis. Patient will be transferred out of ICU. Car Sweeper was consulted Dr. Granger,we will transfuse with hemoglobin of less than 7, and GI consult with Dr. Lopez, for colonoscopy today. Dr. Rodgers general surgeon. Patient will be transfused 1 unit of packed RBCs. 2. Chronic liver cirrhosis and portal hypertension as noted through CT imaging , in 2014, ammonia levels are requested secondary to confusion. Lactulose oral 3 times daily. Aldactone will be resumed. 3. Hyperammonemia, continue Xifaxan and lactulose 4. Recurrent falls, multifactorial, was likely secondary to metabolic encephalopathy with ongoing liver cirrhosis. Patient has having relapsing metabolic encephalopathy. Continue Xifaxan and lactulose. 5. Diabetes mellitus type 2, on metformin and glipizide at home. Continue NovoLog scale 6. Autonomic dysfunction/possible adrenal insufficiency, patient on home dose of Cortef and Florinef. He is currently on Solu-Cortef IV. 7. COPD on Spiriva, and when necessary albuterol 8. Hypertension, and tachycardia, patient will be restarted on metoprolol 12.5 mg bid. 9. Lactic acidosis likely secondary to GI bleed, continue to monitor serially, 10. CKD stage III with acute kidney failure, azotemia, IV hydration, Ortiz in place. Monitor creatinine. 11. Leukocytosis, 12. Hematuria, this needs to be worked up as outpatient, patient is asymptomatic , would need evaluate with either renal ultrasound or CT of the abdomen once stabilized 13. Hyperlipidemia. Patient will be resumed back on atorvastatin. 14. Mildly elevated troponins for which acute coronary syndrome has been ruled out. 15. No previous diagnosis heart failure. He is on Aldactone due to liver failure. 16. Severe protein calorie malnutrition secondary to cirrhosis of the liver with albumin of 2.2. Ensure added. Discharge plan: Subacute rehab at [facility] or [facility] on Tuesday Plan: 1. Acute upper GI bleed with acute blood loss anemia, secondary to esophageal ulcer and gastritis. Car Sweeper was consulted Dr. rGanger, we will transfuse with hemoglobin of less than 7 and GI on consult. 2. Chronic liver cirrhosis and portal hypertension as noted through CT imaging , in 2014, ammonia levels are trending hours, will continue with Lactulose oral 3 times daily. Aldactone was resumed. 3. Hyperammonemia, continue Xifaxan and lactulose 4. Recurrent falls, multifactorial, was likely secondary to metabolic encephalopathy with ongoing liver cirrhosis. Patient has having relapsing metabolic encephalopathy. Continue Xifaxan and lactulose. 5. Diabetes mellitus type 2, on metformin and glipizide at home. Continue NovoLog scale 6. Autonomic dysfunction/possible adrenal insufficiency, patient on home dose of Cortef and Florinef. He is currently on Solu-Cortef IV. 7. COPD on Spiriva, and when necessary albuterol 8. Hypertension, and tachycardia, patient will be restarted on metoprolol 12.5 mg bid. 9. Lactic acidosis likely secondary to GI bleed, continue to monitor serially, 10. CKD stage III with acute kidney failure, azotemia, IV hydration, Ortiz in place. Monitor creatinine. 11. Leukocytosis, 12. Hematuria, this needs to be worked up as outpatient, patient is asymptomatic , would need evaluate with either renal ultrasound or CT of the abdomen once stabilized 13. Hyperlipidemia. Patient will be resumed back on atorvastatin. 14. Mildly elevated troponins for which acute coronary syndrome has been ruled out. 15. No previous diagnosis heart failure. He is on Aldactone due to liver failure. 16. Severe protein calorie malnutrition secondary to cirrhosis of the liver with albumin of 2.2. Ensure added. The above impression and plan of care have been discussed and directed by signing physician. Leyda Walls nurse practitioner acting as scribe for signing physician.
--- NOTE | 2018-01-30 14:17 | US ---
EXAMINATION TYPE: US abdomen limited DATE OF EXAM: 01/30/2018 COMPARISON: CT abdomen and pelvis from 6 days ago CLINICAL HISTORY: r/o ascites . Distension RUQ, RLQ, LUQ and LLQ scanned. Free fluid seen in all four quadrants. Small to moderate amount of free fluid is seen in the bilateral upper and lower quadrants slightly mo re prominent on the right side on images saved. IMPRESSION: As above.
[2018-01-30 16:52] LABS: Glucose,Whole Blood 177 mg/dL (75-99)
--- NOTE | 2018-01-30 19:09 | P.PN ---
Subjective Progress Note Date: 01/29/18 (late entry note) Principal diagnosis: Hepatic encephalopathy, GI bleed, cirrhosis liver, pancytopenia including thrombocytopenia and anemia, uncontrolled diabetes and hyperglycemia, chronic renal failure, protein calorie malnourishment, nonbleeding ulcer found on EGD, 01/29/18, patient seen and evaluated examined during the rounds overall arousable pleasantly confused but slightly more lethargic today compared to yesterday exam GI service has been following and adjusting therapy for the hepatic encephalopathy 01/28/2018, patient seen and evaluated examined during the rounds clinically doing well he is more awake and alert sitting upright in the bed he is status post colonoscopy his abdomen is slightly distended but which is a however otherwise not much change it's soft and nontender is passing gas from below, he is eating and tolerating diet fairly well, his labs from today reviewed patient did slowly drop down hemoglobin 7.2 require unit of packed RBC, white cell is slightly elevated, potassium remains on the lower side which is being replaced came down to 3 than 2.9 now is up to 3.1 January renal functions are stable BUN/ creatinine slightly improved 01/27/2018, patient seen eval reexamined during the rounds clinically doing well he is more awake and alert he has been cleared for clear liquid diet however patient is scheduled for colonoscopy this afternoon so has been nothing by mouth mental status has significantly improved respiration is improved as well stable 01/26/2018, patient seen eval reexamined during the rounds clinically doing well awake and alert breathing comfortably patient is being evaluated for swallow no significant aspiration is seen with some laryngeal penetration transient in nature has been seen in the speech is following for recommendations Ammann mental status has improved significantly he is breathing more comfortably denies any pain abdominal distention has improved as well, medications reviewed, laboratory data reviewed as well 01/25/2018, patient seen and evaluated examined during the rounds he is relatively more awake and opens eyes but however remains confused mildly anxious he underwent a swallowing evaluation could not swallow very well however given improvement in mental status would recommend repeated tomorrow anticipate should improve reviewed arterial blood gas as well as labs for tomorrow renal function continued to improve progressively, C. difficile is negative, with therapy with lactulose the ammonia level has significantly improved and Now they're less than 9, the chest x-ray reviewed there is basal atelectasis present with very small trace right pleural effusion which is overall stable compared to prior x-rays 01/24/2018, patient seen eval reexamined during the rounds he is more lethargic poorly responsive unable to hold anything by mouth an NG tube has been placed patient is somewhat tachycardic as well will need his the continuation of med a prolonged however cannot be given by mouth will need IV the patient will be transferred to selective care will put a Jara's catheter patient appears to be dehydrated with gently rehydrate patient to undergo medications through the OG tube, metoprolol cannot be crushed and cannot be given through the OG tubes so will give IV, repeat labs tomorrow, critical care time spent 35 minutes 01/23/2018, patient seen eval examined during the rounds family is present at bedside he is arousable he is getting lactulose per rectum ammonia level noted to be elevated, care plan discussed with the primary service may need NG tube if unable to tolerate by mouth or per rectum, will follow 01/22/2018, patient seen and evaluated examined during the rounds he is arousable and awake but remains somnolent patient is status post endoscopy noted to have the nonbleeding ulcer, patient does have a 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 Bedolla recommended to monitor observe closely Patient presented emergency department on January 16 complaining of generalized weakness and was admitted in ICU, patient was evaluated by Dr. crystal in my absence. The patient apparently had a large black bowel movement overnight. He also had coffee-ground emesis the emergency department. An NG tube was placed and 900 mL of coffee-ground fluid has been suctioned. The patient denies abdominal pain. He has received one and half liters of normal saline. He was found to have a lactic acid of 10. The patient denies abdominal pain, nausea, vomiting. He denies a history of GI bleed however the patient appears to be a poor historian. His hemoglobin is currently 9.9. History is mostly obtained from the electronic medical record. Objective - Vital Signs Vital signs: Vital Signs Temp 97.4 F L 01/30/18 15:45 Pulse 92 01/30/18 15:45 Resp 18 01/30/18 15:45 BP 132/58 01/30/18 15:45 Pulse Ox 94 L 01/30/18 15:45 Intake & Output 01/30/18 01/30/18 01/31/18 06:59 18:59 06:59 Intake Total 10 0 Output Total 300 1025 Balance -290 -1025 Weight 112.3 kg 112.3 kg Intake: IV 10 0.9 10 Oral 0 Output: Urine 300 1025 Other: Voiding Method Indwelling Catheter Indwelling Catheter # Bowel Movements 0 - Exam - Constitutional General appearance: Present: mild distress, obese - EENT Eyes: Present: EOMI, PERRLA, normal appearance ENT: Present: hard of hearing, normal oropharynx Ears: bilateral: normal - Neck Neck: Present: normal ROM Carotids: bilateral: upstroke normal, bruit absent Thyroid: bilateral: normal size - Respiratory Respiratory: bilateral: CTA, diminished, negative: dullness, rales, rhonchi, wheezing, prolonged expiration, prolonged inspiration - Cardiovascular Rhythm: regular Heart sounds: normal: S1, S2 - Gastrointestinal General gastrointestinal: Present: decreased bowel sounds, distended - Integumentary Integumentary: Present: normal, normal turgor - Neurologic Neurologic: Present: CNII-XII intact, more awake and alert but however remains confused and intermittently anxious and agitated this is significantly improved from yesterday exam - Musculoskeletal Musculoskeletal: Present: generalized weakness, strength equal bilaterally - Psychiatric Psychiatric: Present: Has been relatively more and communicative and more responsive, but today appears more somnolent but readily arousable - Labs CBC & Chem 7: 01/30/18 06:00 01/30/18 06:00 Labs: Abnormal Lab Results - Last 24 Hours (Table) 01/26/18 01/29/18 01/30/18 Range/Units 05:31 20:53 06:00 WBC 12.7 H (3.8-10.6) k/uL RBC 3.26 L (4.30-5.90) m/uL Hgb 9.6 L (13.0-17.5) gm/dL Hct 29.6 L (39.0-53.0) % RDW 16.9 H (11.5-15.5) % Plt Count 128 L (150-450) k/uL Chloride (98-107) mmol/L Carbon Dioxide (22-30) mmol/L BUN (9-20) mg/dL Creatinine (0.66-1.25) mg/dL Glucose (74-99) mg/dL POC Glucose (mg/dL) 172 H (75-99) mg/dL Calcium (8.4-10.2) mg/dL Total Bilirubin (0.2-1.3) mg/dL Alkaline Phosphatase (38-126) U/L Ammonia (<30) umol/L Total Protein (6.3-8.2) g/dL Albumin (3.5-5.0) g/dL Albumin (PEP) 2.41 L (3.80-4.90) g/dL Hpzld-2-Vbclxinsz 0.57 L (0.60-1.00) g/dL Gamma Globulins 0.68 L (0.70-1.50) g/dL 01/30/18 01/30/18 01/30/18 Range/Units 06:00 06:00 06:09 WBC (3.8-10.6) k/uL RBC (4.30-5.90) m/uL Hgb (13.0-17.5) gm/dL Hct (39.0-53.0) % RDW (11.5-15.5) % Plt Count (150-450) k/uL Chloride 109 H (98-107) mmol/L Carbon Dioxide 19 L (22-30) mmol/L BUN 36 H (9-20) mg/dL Creatinine 1.76 H (0.66-1.25) mg/dL Glucose 192 H (74-99) mg/dL POC Glucose (mg/dL) 206 H (75-99) mg/dL Calcium 8.0 L (8.4-10.2) mg/dL Total Bilirubin 1.5 H (0.2-1.3) mg/dL Alkaline Phosphatase 132 H (38-126) U/L Ammonia 51 H (<30) umol/L Total Protein 4.8 L (6.3-8.2) g/dL Albumin 2.2 L (3.5-5.0) g/dL Albumin (PEP) (3.80-4.90) g/dL Nfybw-3-Egfajkijv (0.60-1.00) g/dL Gamma Globulins (0.70-1.50) g/dL 01/30/18 01/30/18 Range/Units 11:40 16:48 WBC (3.8-10.6) k/uL RBC (4.30-5.90) m/uL Hgb (13.0-17.5) gm/dL Hct (39.0-53.0) % RDW (11.5-15.5) % Plt Count (150-450) k/uL Chloride (98-107) mmol/L Carbon Dioxide (22-30) mmol/L BUN (9-20) mg/dL Creatinine (0.66-1.25) mg/dL Glucose (74-99) mg/dL POC Glucose (mg/dL) 129 H 177 H (75-99) mg/dL Calcium (8.4-10.2) mg/dL Total Bilirubin (0.2-1.3) mg/dL Alkaline Phosphatase (38-126) U/L Ammonia (<30) umol/L Total Protein (6.3-8.2) g/dL Albumin (3.5-5.0) g/dL Albumin (PEP) (3.80-4.90) g/dL Lmboo-5-Wmfqebkod (0.60-1.00) g/dL Gamma Globulins (0.70-1.50) g/dL Assessment and Plan Assessment: Altered mental status hepatic encephalopathy Severe hypokalemia Acute on chronic anemia requiring blood transfusion Sigmoid colon wall thickening with a differential diagnoses of diffuse colitis/ multifocal colitis versus neoplasm Abdominal distention, chronic nature Basal atelectasis small pleural effusion multifactorial including an related to above as well as chronic renal failure cirrhosis of the liver Tachycardia borderline hypertension with intravascular volume depletion and dehydration, overall stable Severe anemia and thrombocytopenia and GI bleed Stage III renal failure GI bleed with nonbleeding peptic ulcer, associated lower GI bleed cannot be excluded Metabolic acidosis lactic acidosis slowly improving History of prior recurrent pleural effusion of unclear etiology History of cirrhosis of the liver Plan: Continue to observe for aspiration and related issues on selective care, keep jara's catheter, gently rehydrate the patient, patient would benefit from a reinitiation of Cortef 10 twice a day and DC the Solu-Cortef, continue other supportive care as noted above, prognosis overall poor Time with Patient: Greater than 30
--- NOTE | 2018-01-30 19:12 | P.PN ---
Subjective Progress Note Date: 01/30/18 Principal diagnosis: Hepatic encephalopathy, GI bleed, cirrhosis liver, pancytopenia including thrombocytopenia and anemia, uncontrolled diabetes and hyperglycemia, chronic renal failure, protein calorie malnourishment, nonbleeding ulcer found on EGD, 01/30/2018, patient seen eval examined care plan discussed with the patient and present at bedside he remains somnolent but readily arousable overall not much change from yesterday noted ultrasound of the chest abdomen has been ordered by primary service, patient is slightly more short of breath however denies any cough or sputum production Ammann ultrasound finding reviewed small to moderate amount of fluid has been seen in the abdomen 01/29/18, patient seen and evaluated examined during the rounds overall arousable pleasantly confused but slightly more lethargic today compared to yesterday exam GI service has been following and adjusting therapy for the hepatic encephalopathy 01/28/2018, patient seen and evaluated examined during the rounds clinically doing well he is more awake and alert sitting upright in the bed he is status post colonoscopy his abdomen is slightly distended but which is a however otherwise not much change it's soft and nontender is passing gas from below, he is eating and tolerating diet fairly well, his labs from today reviewed patient did slowly drop down hemoglobin 7.2 require unit of packed RBC, white cell is slightly elevated, potassium remains on the lower side which is being replaced came down to 3 than 2.9 now is up to 3.1 January renal functions are stable BUN/ creatinine slightly improved 01/27/2018, patient seen eval reexamined during the rounds clinically doing well he is more awake and alert he has been cleared for clear liquid diet however patient is scheduled for colonoscopy this afternoon so has been nothing by mouth mental status has significantly improved respiration is improved as well stable 01/26/2018, patient seen eval reexamined during the rounds clinically doing well awake and alert breathing comfortably patient is being evaluated for swallow no significant aspiration is seen with some laryngeal penetration transient in nature has been seen in the speech is following for recommendations Ammann mental status has improved significantly he is breathing more comfortably denies any pain abdominal distention has improved as well, medications reviewed, laboratory data reviewed as well 01/25/2018, patient seen and evaluated examined during the rounds he is relatively more awake and opens eyes but however remains confused mildly anxious he underwent a swallowing evaluation could not swallow very well however given improvement in mental status would recommend repeated tomorrow anticipate should improve reviewed arterial blood gas as well as labs for tomorrow renal function continued to improve progressively, C. difficile is negative, with therapy with lactulose the ammonia level has significantly improved and Now they're less than 9, the chest x-ray reviewed there is basal atelectasis present with very small trace right pleural effusion which is overall stable compared to prior x-rays 01/24/2018, patient seen eval reexamined during the rounds he is more lethargic poorly responsive unable to hold anything by mouth an NG tube has been placed patient is somewhat tachycardic as well will need his the continuation of med a prolonged however cannot be given by mouth will need IV the patient will be transferred to selective care will put a Jara's catheter patient appears to be dehydrated with gently rehydrate patient to undergo medications through the OG tube, metoprolol cannot be crushed and cannot be given through the OG tubes so will give IV, repeat labs tomorrow, critical care time spent 35 minutes 01/23/2018, patient seen eval examined during the rounds family is present at bedside he is arousable he is getting lactulose per rectum ammonia level noted to be elevated, care plan discussed with the primary service may need NG tube if unable to tolerate by mouth or per rectum, will follow 01/22/2018, patient seen and evaluated examined during the rounds he is arousable and awake but remains somnolent patient is status post endoscopy noted to have the nonbleeding ulcer, patient does have a 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 Bedolla recommended to monitor observe closely Patient presented emergency department on January 16 complaining of generalized weakness and was admitted in ICU, patient was evaluated by Dr. crystal in my absence. The patient apparently had a large black bowel movement overnight. He also had coffee-ground emesis the emergency department. An NG tube was placed and 900 mL of coffee-ground fluid has been suctioned. The patient denies abdominal pain. He has received one and half liters of normal saline. He was found to have a lactic acid of 10. The patient denies abdominal pain, nausea, vomiting. He denies a history of GI bleed however the patient appears to be a poor historian. His hemoglobin is currently 9.9. History is mostly obtained from the electronic medical record. Objective - Vital Signs Vital signs: Vital Signs Temp 97.4 F L 01/30/18 15:45 Pulse 92 01/30/18 15:45 Resp 18 01/30/18 15:45 BP 132/58 01/30/18 15:45 Pulse Ox 94 L 01/30/18 15:45 Intake & Output 01/30/18 01/30/18 01/31/18 06:59 18:59 06:59 Intake Total 10 0 Output Total 300 1025 Balance -290 -1025 Weight 112.3 kg 112.3 kg Intake: IV 10 0.9 10 Oral 0 Output: Urine 300 1025 Other: Voiding Method Indwelling Catheter Indwelling Catheter # Bowel Movements 0 - Exam - Constitutional General appearance: Present: mild distress, obese - EENT Eyes: Present: EOMI, PERRLA, normal appearance ENT: Present: hard of hearing, normal oropharynx Ears: bilateral: normal - Neck Neck: Present: normal ROM Carotids: bilateral: upstroke normal, bruit absent Thyroid: bilateral: normal size - Respiratory Respiratory: bilateral: CTA, diminished, negative: dullness, rales, rhonchi, wheezing, prolonged expiration, prolonged inspiration - Cardiovascular Rhythm: regular Heart sounds: normal: S1, S2 - Gastrointestinal General gastrointestinal: Present: decreased bowel sounds, distended - Integumentary Integumentary: Present: normal, normal turgor - Neurologic Neurologic: Present: CNII-XII intact, more awake and alert but however remains confused and intermittently anxious and agitated this is significantly improved from yesterday exam - Musculoskeletal Musculoskeletal: Present: generalized weakness, strength equal bilaterally - Psychiatric Psychiatric: Present: Has been relatively more and communicative and more responsive, but today appears more somnolent but readily arousable - Labs CBC & Chem 7: 01/30/18 06:00 01/30/18 06:00 Labs: Abnormal Lab Results - Last 24 Hours (Table) 01/26/18 01/29/18 01/30/18 Range/Units 05:31 20:53 06:00 WBC 12.7 H (3.8-10.6) k/uL RBC 3.26 L (4.30-5.90) m/uL Hgb 9.6 L (13.0-17.5) gm/dL Hct 29.6 L (39.0-53.0) % RDW 16.9 H (11.5-15.5) % Plt Count 128 L (150-450) k/uL Chloride (98-107) mmol/L Carbon Dioxide (22-30) mmol/L BUN (9-20) mg/dL Creatinine (0.66-1.25) mg/dL Glucose (74-99) mg/dL POC Glucose (mg/dL) 172 H (75-99) mg/dL Calcium (8.4-10.2) mg/dL Total Bilirubin (0.2-1.3) mg/dL Alkaline Phosphatase (38-126) U/L Ammonia (<30) umol/L Total Protein (6.3-8.2) g/dL Albumin (3.5-5.0) g/dL Albumin (PEP) 2.41 L (3.80-4.90) g/dL [id number]-[id number] 0.57 L (0.60-1.00) g/dL Gamma Globulins 0.68 L (0.70-1.50) g/dL 01/30/18 01/30/18 01/30/18 Range/Units 06:00 06:00 06:09 WBC (3.8-10.6) k/uL RBC (4.30-5.90) m/uL Hgb (13.0-17.5) gm/dL Hct (39.0-53.0) % RDW (11.5-15.5) % Plt Count (150-450) k/uL Chloride 109 H (98-107) mmol/L Carbon Dioxide 19 L (22-30) mmol/L BUN 36 H (9-20) mg/dL Creatinine 1.76 H (0.66-1.25) mg/dL Glucose 192 H (74-99) mg/dL POC Glucose (mg/dL) 206 H (75-99) mg/dL Calcium 8.0 L (8.4-10.2) mg/dL Total Bilirubin 1.5 H (0.2-1.3) mg/dL Alkaline Phosphatase 132 H (38-126) U/L Ammonia 51 H (<30) umol/L Total Protein 4.8 L (6.3-8.2) g/dL Albumin 2.2 L (3.5-5.0) g/dL Albumin (PEP) (3.80-4.90) g/dL Wsdzk-4-Lqilllflu (0.60-1.00) g/dL Gamma Globulins (0.70-1.50) g/dL 01/30/18 01/30/18 Range/Units 11:40 16:48 WBC (3.8-10.6) k/uL RBC (4.30-5.90) m/uL Hgb (13.0-17.5) gm/dL Hct (39.0-53.0) % RDW (11.5-15.5) % Plt Count (150-450) k/uL Chloride (98-107) mmol/L Carbon Dioxide (22-30) mmol/L BUN (9-20) mg/dL Creatinine (0.66-1.25) mg/dL Glucose (74-99) mg/dL POC Glucose (mg/dL) 129 H 177 H (75-99) mg/dL Calcium (8.4-10.2) mg/dL Total Bilirubin (0.2-1.3) mg/dL Alkaline Phosphatase (38-126) U/L Ammonia (<30) umol/L Total Protein (6.3-8.2) g/dL Albumin (3.5-5.0) g/dL Albumin (PEP) (3.80-4.90) g/dL Olpjd-0-Bnvrxxvre (0.60-1.00) g/dL Gamma Globulins (0.70-1.50) g/dL Assessment and Plan Assessment: Altered mental status hepatic encephalopathy with borderline elevated ammonia level Severe hypokalemia, slowly improving Acute on chronic anemia requiring blood transfusion as needed Sigmoid colon wall thickening with a differential diagnoses of diffuse colitis/ multifocal colitis versus neoplasm Abdominal distention, chronic nature Basal atelectasis small pleural effusion multifactorial including an related to above as well as chronic renal failure cirrhosis of the liver Tachycardia borderline hypertension with intravascular volume depletion and dehydration, overall stable Severe anemia and thrombocytopenia and GI bleed Stage III renal failure GI bleed with nonbleeding peptic ulcer, associated lower GI bleed cannot be excluded Metabolic acidosis lactic acidosis slowly improving History of prior recurrent pleural effusion of unclear etiology History of cirrhosis of the liver Plan: Continue to observe for aspiration and related issues on selective care, keep jara's catheter, gently rehydrate the patient, patient would benefit from a reinitiation of Cortef 10 twice a day and DC the Solu-Cortef, continue other supportive care as noted above, prognosis overall poor Time with Patient: Greater than 30
[2018-01-30 21:24] LABS: Glucose,Whole Blood 178 mg/dL (75-99)
[2018-01-30] MEDS: FUROSEMIDE 10 MG/ML 4 ML VIAL IV SCH (21:24)
[2018-01-31] MEDS: IPRATROPIUM-ALBUTEROL 3 ML NEB INHALATION SCH ×4 (07:43→20:04)
[2018-01-31 08:11] LABS: Glucose,Whole Blood 167 mg/dL (75-99)
[2018-01-31] MEDS: RIFAXIMIN 550 MG TABLET PO SCH ×2 (08:32→20:29)
[2018-01-31] MEDS: FUROSEMIDE 10 MG/ML 4 ML VIAL IV SCH ×2 (08:32→23:21)
[2018-01-31] MEDS: guaiFENesin 600 MG TABLET.ER PO SCH ×2 (08:32→20:28)
[2018-01-31] MEDS: FLUDROCORTISONE 0.1 MG TAB PO SCH ×2 (08:33→20:29)
[2018-01-31] MEDS: INSULIN ASPART 100 UNIT/ML 1 ML 10 ML VIAL SQ SCH ×4 (08:33→23:07)
[2018-01-31] MEDS: PANTOPRAZOLE 40 MG/10 ML VIAL IV SCH (08:33)
[2018-01-31] MEDS: METOPROLOL SUCCINATE (ER) 25 MG TAB.ER.24H PO SCH (08:33)
[2018-01-31] MEDS: LACTULOSE 20 GM/30 ML CUP PO SCH ×4 (08:33→22:08)
[2018-01-31] MEDS: predniSONE 20 MG TAB PO SCH (08:33)
[2018-01-31] MEDS: SPIRONOLACTONE 25 MG TAB PO SCH (08:33)
--- NOTE | 2018-01-31 10:22 | P.PN ---
Subjective Progress Note Date: 01/31/18 Principal diagnosis: Hepatic encephalopathy, GI bleed, cirrhosis liver, pancytopenia including thrombocytopenia and anemia, uncontrolled diabetes and hyperglycemia, chronic renal failure, protein calorie malnourishment, nonbleeding ulcer found on EGD, 01/31/2018, patient seen and evaluated examined during the rounds clinically doing well in terms of mental status remains pleasantly confused respiratory status overall stable, labs reviewed medications reviewed, leukocytosis is improving electrolytes are relatively more stable slight decline in renal function from yesterday labs were noted 01/30/2018, patient seen eval examined care plan discussed with the patient and present at bedside he remains somnolent but readily arousable overall not much change from yesterday noted ultrasound of the chest abdomen has been ordered by primary service, patient is slightly more short of breath however denies any cough or sputum production Ammann ultrasound finding reviewed small to moderate amount of fluid has been seen in the abdomen 01/29/18, patient seen and evaluated examined during the rounds overall arousable pleasantly confused but slightly more lethargic today compared to yesterday exam GI service has been following and adjusting therapy for the hepatic encephalopathy 01/28/2018, patient seen and evaluated examined during the rounds clinically doing well he is more awake and alert sitting upright in the bed he is status post colonoscopy his abdomen is slightly distended but which is a however otherwise not much change it's soft and nontender is passing gas from below, he is eating and tolerating diet fairly well, his labs from today reviewed patient did slowly drop down hemoglobin 7.2 require unit of packed RBC, white cell is slightly elevated, potassium remains on the lower side which is being replaced came down to 3 than 2.9 now is up to 3.1 January renal functions are stable BUN/ creatinine slightly improved 01/27/2018, patient seen eval reexamined during the rounds clinically doing well he is more awake and alert he has been cleared for clear liquid diet however patient is scheduled for colonoscopy this afternoon so has been nothing by mouth mental status has significantly improved respiration is improved as well stable 01/26/2018, patient seen eval reexamined during the rounds clinically doing well awake and alert breathing comfortably patient is being evaluated for swallow no significant aspiration is seen with some laryngeal penetration transient in nature has been seen in the speech is following [facility] mental status has improved significantly he is breathing more comfortably denies any pain abdominal distention has improved as well, medications reviewed, laboratory data reviewed as well 01/25/2018, patient seen and evaluated examined during the rounds he is relatively more awake and opens eyes but however remains confused mildly anxious he underwent a swallowing evaluation could not swallow very well however given improvement in mental status would recommend repeated tomorrow anticipate should improve reviewed arterial blood gas as well as labs for tomorrow renal function continued to improve progressively, C. difficile is negative, with therapy with lactulose the ammonia level has significantly improved and Now they're less than 9, the chest x-ray reviewed there is basal atelectasis present with very small trace right pleural effusion which is overall stable compared to prior x-rays 01/24/2018, patient seen eval reexamined during the rounds he is more lethargic poorly responsive unable to hold anything by mouth an NG tube has been placed patient is somewhat tachycardic as well will need his the continuation of med a prolonged however cannot be given by mouth will need IV the patient will be transferred to selective care will put a Jara's catheter patient appears to be dehydrated with gently rehydrate patient to undergo medications through the OG tube, metoprolol cannot be crushed and cannot be given through the OG tubes so will give IV, repeat labs tomorrow, critical care time spent 35 minutes 01/23/2018, patient seen eval examined during the rounds family is present at bedside he is arousable he is getting lactulose per rectum ammonia level noted to be elevated, care plan discussed with the primary service may need NG tube if unable to tolerate by mouth or per rectum, will follow 01/22/2018, patient seen and evaluated examined during the rounds he is arousable and awake but remains somnolent patient is status post endoscopy noted to have the nonbleeding ulcer, patient does have a 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 Bedolla recommended to monitor observe closely Patient presented emergency department on January 16 complaining of generalized weakness and was admitted in ICU, patient was evaluated by Dr. crystal in my absence. The patient apparently had a large black bowel movement overnight. He also had coffee-ground emesis the emergency department. An NG tube was placed and 900 mL of coffee-ground fluid has been suctioned. The patient denies abdominal pain. He has received one and half liters of normal saline. He was found to have a lactic acid of 10. The patient denies abdominal pain, nausea, vomiting. He denies a history of GI bleed however the patient appears to be a poor historian. His hemoglobin is currently 9.9. History is mostly obtained from the electronic medical record. Objective - Vital Signs Vital signs: Vital Signs Temp 97.8 F 01/31/18 08:00 Pulse 92 01/31/18 08:00 Resp 18 01/31/18 08:00 BP 135/64 01/31/18 08:00 Pulse Ox 98 01/31/18 08:00 Intake & Output 01/30/18 01/31/18 01/31/18 18:59 06:59 18:59 Intake Total 0 100 Output Total 1025 700 Balance -1025 -600 Weight 112.3 kg 113.5 kg Intake: Oral 0 100 Output: Urine 1025 700 Uretheral (Jara) 700 Other: Voiding Method Indwelling Catheter Indwelling Catheter # Bowel Movements 0 - Exam - Constitutional General appearance: Present: mild distress, obese - EENT Eyes: Present: EOMI, PERRLA, normal appearance ENT: Present: hard of hearing, normal oropharynx Ears: bilateral: normal - Neck Neck: Present: normal ROM Carotids: bilateral: upstroke normal, bruit absent Thyroid: bilateral: normal size - Respiratory Respiratory: bilateral: CTA, diminished, negative: dullness, rales, rhonchi, wheezing, prolonged expiration, prolonged inspiration - Cardiovascular Rhythm: regular Heart sounds: normal: S1, S2 - Gastrointestinal General gastrointestinal: Present: decreased bowel sounds, distended - Integumentary Integumentary: Present: normal, normal turgor - Neurologic Neurologic: Present: CNII-XII intact, more awake and alert but however remains confused and intermittently anxious and agitated this is significantly improved from yesterday exam - Musculoskeletal Musculoskeletal: Present: generalized weakness, strength equal bilaterally - Psychiatric Psychiatric: Present: Has been relatively more and communicative and more responsive, but today appears more somnolent but readily arousable - Labs CBC & Chem 7: 01/30/18 06:00 01/30/18 06:00 Labs: Abnormal Lab Results - Last 24 Hours (Table) 01/30/18 01/30/18 01/30/18 Range/Units 11:40 16:48 21:15 POC Glucose (mg/dL) 129 H 177 H 178 H (75-99) mg/dL 01/31/18 Range/Units 08:07 POC Glucose (mg/dL) 167 H (75-99) mg/dL Assessment and Plan Assessment: Altered mental status hepatic encephalopathy with borderline elevated ammonia level Severe hypokalemia, slowly improving Acute on chronic anemia requiring blood transfusion as needed Sigmoid colon wall thickening with a differential diagnoses of diffuse colitis/ multifocal colitis versus neoplasm Abdominal distention, chronic nature Basal atelectasis small pleural effusion multifactorial including an related to above as well as chronic renal failure cirrhosis of the liver Tachycardia borderline hypertension with intravascular volume depletion and dehydration, overall stable Severe anemia and thrombocytopenia and GI bleed Stage III renal failure GI bleed with nonbleeding peptic ulcer, associated lower GI bleed cannot be excluded Metabolic acidosis lactic acidosis slowly improving History of prior recurrent pleural effusion of unclear etiology History of cirrhosis of the liver Plan: Continue to observe for aspiration and related issues on selective care, keep jara's catheter, gently rehydrate the patient, patient would benefit from a reinitiation of Cortef 10 twice a day and DC the Solu-Cortef, continue other supportive care as noted above, prognosis overall poor Time with Patient: Greater than 30
[2018-01-31 11:33] LABS: Glucose,Whole Blood 165 mg/dL (75-99)
[2018-01-31] MEDS: METOLAZONE 2.5 MG TAB PO SCH (14:30)
--- NOTE | 2018-01-31 15:21 | P.PN ---
Subjective This is an 82-year-old gentleman patient of Dr. Rojas, with known history of CK D stage III, diabetes mellitus type 2, COPD, hyperlipidemia, and chronic anemia admitted from our facility in early August 2017, was diagnosed to have metabolic encephalopathy secondary to acute kidney injury and dehydration with hypoperfusion. Patient comes into the emergency room with a four-day history of black stools, has had increasing falls, no abdominal pain, patient denies any hematochezia, patient is not an alcoholic drinker currently, and was not feeling very well hence the ER admission. Patient has fallen numerous times, and the last one was 2 days ago, previous to this, patient had cracked the ribs , 4 weeks prior to admission. Patient follows up with Dr. Rojas every 4 months regimen, his due to see him in 01/20/2018 In the emergency room, he was noted to have Hemoccult-positive stools, patient was noted to have melanocytic stools, Hemoccult positive, hematuria with RBC of 59, double see if 1, moderate ketones, EKG shows sinus tachycardia with right bundle branch block, left anterior fascicular block, and pulmonary disease pattern heart rate of 124. Patient is admitted to ICU secondary to melanocytic stools with hemoglobin of 9, consult to Gen. surgery Dr. Montes and Dr. Haq gastroenterology. Admitting lactic acid was significantly elevated at 10.0 with a peak of 11.4, wbc of 15 troponin of 0.077 Previous imaging in our facility shows small amount of ascites, in the abdomen noted in May 2014 and CAT scan chest 2014, cholelithiasis, and evidence of cirrhosis and portal hypertension, improving pleural effusion, improving right apical nodule When patient was seen, patient was very much confused, trying to grab things in the area, very dry mouth, patient's nothing by mouth, and has a bilateral wrist restraints, ammonia levels were requested, family at bedside, CODE STATUS was discussed and is DO NOT RESUSCITATE no CPR with options for vent if needed 01/18: Hemoglobin is stable at 8.8. Patient is scheduled for EGD. The patient has had small bowel movements 7. Lactulose is on hold. Stools have been tarry in color. Cardiology is following for tachycardia. No plan for any further workup. 01/19: EGD revealed distal esophageal ulcer and gastritis but no active bleeding. Hemoglobin is 8.1. Ferrlecit ordered 1 dose. Patient is more alert today. Ammonia level is less than 9. Patient does have a large bruising area to the left antecubital which we will plan for Bactroban. Patient will be transferred out of intensive care today. PT will be started to help determine discharge plan. 01/20: Patient has less alert today. He missed a dose of lactulose and ammonia level is 34 today. He has a sitter at the bedside. Hemoglobin is currently 7.8. Patient has been waiting for selective care bed. He is hemodynamically stable will now be transferred to [facility]. Lactulose decrease to twice daily. Home medications reviewed and those appropriate have been resumed. 01/23: Patient is more lethargic today and stat lab work including ammonia level was ordered. Lactic acid came back at 2.1 and ammonia level [id number]. Patient was ordered for 1 L of IV fluid. Abdomen is more distended today and abdominal x-ray shows no bowel obstruction. Patient underwent bowel prep yesterday for colonoscopy to be done today but still did not clear. He has not been able to take any oral medications. Rectal lactulose has been ordered. 01/24: Patient is more lethargic today from yesterday. Ammonia level today is at 118. Patient did receive lactulose enemas yesterday. Patient is noted to have more abdominal distention today. GI has ordered NG tube and start Xifaxan , lactulose per NG tube and discontinue enemas and a CT of the abdomen and pelvis was ordered. Patient to be transferred to selective care. 01/25: Patient is more alert today. He did have 4 bowel movements yesterday but pulled his NG tube out. His ammonia level this morning is less than 9. He is to continue on lactulose 3 times daily orally. Patient did take his oral medications today. He is scheduled for a colonoscopy tomorrow. Patient is noted to have expiratory wheezing and IV Lasix ordered. Updrafts changed to scheduled. Pulse ox is 97% on room air. Patient has been afebrile. 01/26: Repeat chest x-ray small right-sided pleural effusion. Patient's mental status is improved and patient may be back to his baseline. His ammonia level is again less than 9 He is denying any abdominal pain. He remains with Ortiz catheter in place which will be discontinued after colonoscopy which GI is planning for tomorrow. AFP and CEA ordered by GI or unremarkable. Patient underwent modified barium swallow that did not show any aspiration. 01/27: Chest x-ray shows right lower lobe atelectasis and associated effusion. Correlate to exclude pneumonia. Patient is scheduled for colonoscopy today. Hemoglobin 7.2 and gradually declining for which we will transfuse 1 unit of packed RBCs. Potassium will be replaced. Patient denies having any abdominal pain but noted to have abdominal distention. He denies any nausea or vomiting. He is alert and oriented and appears to be back to baseline. We will transfer the patient to [facility] floor and IV Lopressor will be changed back to his oral home dose. 01/28 colonoscopy negative for any neoplasm. Patient resting comfortably in bed. Does need to be discharged to a subacute rehab. Patient denies any chest pain, breathing difficulty, abdominal pain or nausea or vomiting. 01/29: Patient examined bedside. Appears to answer questions appropriately but does appear to be less alert than yesterday. Patient still has some cough and wheezing on examination continue steroids. Ammonia level yesterday 199. Patient was not getting his lactulose due to increased bowel movement. Lactulose given today. 01/30: Patient was examined at bedside today. Again patient is very drowsy, answers questions but then drifts back to sleep. Repeat ammonia today is 51. Hemoglobin is stable at 9.6. Patient's abdomen is more distended than yesterday , will order an abdominal ultrasound to rule out ascites, Lasix increased to 40 mg every 12 hours. 01/31: Patient remains confused, family is at the bedside today. Patient is a little more awake today. Patient has pulled out his IV multiple times. IV medications changed to oral. Patient continues to have chest congestion and lower extremity edema. Patient has not had a bowel movement in a few days, Dulcolax suppository ordered. Discussed with patient's that was at the bedside today about patient's poor prognosis. She requests that we wait until her daughters are there tomorrow morning to discuss patient's goals of care. Abdominal ultrasound completed showed small to moderate amount of free fluid in bilateral upper and lower quadrants. Will continue with current treatment plan Objective - Vital Signs Vital signs: Vital Signs Temp 97.8 F 01/31/18 08:00 Pulse 84 01/31/18 11:40 Resp 18 01/31/18 08:00 BP 135/64 01/31/18 08:00 Pulse Ox 98 01/31/18 08:00 Intake & Output 01/30/18 01/31/18 01/31/18 18:59 06:59 18:59 Intake Total 0 100 Output Total 1025 700 Balance -1025 -600 Weight 112.3 kg 113.5 kg Intake: Oral 0 100 Output: Urine 1025 700 Uretheral (Ortiz) 700 Other: Voiding Method Indwelling Catheter Indwelling Catheter Indwelling Catheter # Bowel Movements 0 0 - Exam - Exam General appearance: cooperative, obese - EENT Eyes: anicteric sclerae, EOMI ENT: NA/AT - Neck Neck: normal ROM - Respiratory Respiratory: bilateral: Coarse breath sounds throughout - Cardiovascular Rhythm: regular Heart sounds: normal: S1, S2 - Gastrointestinal General gastrointestinal: normal bowel sounds, soft, distended, no tenderness - Integumentary Integumentary: decreased turgor, normal - Neurologic Patient is oriented x1, confused, follows commands - Labs CBC & Chem 7: 01/30/18 06:00 01/30/18 06:00 Labs: Abnormal Lab Results - Last 24 Hours (Table) 01/30/18 01/30/18 01/31/18 Range/Units 16:48 21:15 08:07 POC Glucose (mg/dL) 177 H 178 H 167 H (75-99) mg/dL 01/31/18 Range/Units 11:20 POC Glucose (mg/dL) 165 H (75-99) mg/dL Assessment and Plan Plan: 1. Acute upper GI bleed with acute blood loss anemia, secondary to esophageal ulcer and gastritis. Customer Experience Professional was consulted Dr. Granger, we will transfuse with hemoglobin of less than 7 and GI on consult. Hemoglobin has been stable 2. Chronic liver cirrhosis and portal hypertension as noted through CT imaging , in 2014, ammonia levels are trending down, will continue with Lactulose oral 3 times daily. Aldactone was resumed. 3. Hyperammonemia, continue Xifaxan and lactulose 4. Recurrent falls, multifactorial, was likely secondary to metabolic encephalopathy with ongoing liver cirrhosis. Patient has having relapsing metabolic encephalopathy. Continue Xifaxan and lactulose. 5. Diabetes mellitus type 2, on metformin and glipizide at home. Continue NovoLog scale 6. Autonomic dysfunction/possible adrenal insufficiency, patient on home dose of Florinef. 7. COPD on Spiriva, and when necessary albuterol 8. Hypertension, and tachycardia, patient will be restarted on metoprolol 12.5 mg bid. 9. Lactic acidosis likely secondary to GI bleed, continue to monitor serially, 10. CKD stage III with acute kidney failure, azotemia, IV hydration, Ortiz in place. Monitor creatinine. 11. Leukocytosis, 12. Hematuria, this needs to be worked up as outpatient, patient is asymptomatic , would need evaluate with either renal ultrasound or CT of the abdomen once stabilized 13. Hyperlipidemia. Patient will be resumed back on atorvastatin. 14. Mildly elevated troponins for which acute coronary syndrome has been ruled out. 15. No previous diagnosis heart failure. He is on Aldactone due to liver failure. 16. Severe protein calorie malnutrition secondary to cirrhosis of the liver with albumin of 2.2. Ensure added. The above impression and plan of care have been discussed and directed by signing physician. Leyda Walls nurse practitioner acting as scribe for signing physician.
[2018-01-31] MEDS: FUROSEMIDE 80 MG TAB PO SCH ×2 (17:20→17:36)
[2018-01-31 17:29] LABS: Glucose,Whole Blood 183 mg/dL (75-99)
[2018-01-31] MEDS ORDERED: LEVOFLOXACIN 750MG-D5W PMX 750 MG in DEXTROSE/WATER 1 150ML.BAG IVPB SCH (18:00)
[2018-01-31 18:27] LABS: Albumin 2.4 g/dL (3.5-5.0); Calcium 8.2 mg/dL (8.4-10.2); Potassium 4.2 mmol/L (3.5-5.1); Total Bilirubin 1.4 mg/dL (0.2-1.3); Total Protein 5.1 g/dL (6.3-8.2)
--- NOTE | 2018-01-31 18:33 | XR ---
EXAMINATION TYPE: XR chest 1V DATE OF EXAM: 01/31/2018 COMPARISON: 01/28/2018 HISTORY: Cough TECHNIQUE: Single frontal view of the chest is obtained. FINDINGS: There is some infiltrate at the lung bases and more on the right side. Thoracic aorta is a theromatous. There are chest leads. There is some blunting of right costophrenic angle. IMPRESSION: Increasing lower lobe pulmonary infiltrates compared to last exam. Mild heart failure is possible.
[2018-01-31] MEDS: SODIUM CHLORIDE 0.9% 1,000 ML IV SCH (18:53)
[2018-01-31 20:29] LABS: Glucose,Whole Blood 209 mg/dL (75-99)
[2018-01-31] MEDS: BISACODYL 10 MG SUPP RECTAL SCH (20:54)
[2018-01-31] MEDS ORDERED: FUROSEMIDE 40 MG TAB PO SCH (22:00)
[2018-01-31] MEDS ORDERED: FUROSEMIDE 40 MG TAB NASOENTERL SCH (22:30)
[2018-02-01] MEDS ORDERED: LORazepam 2 MG/ML INJ IV PRN ×3 (04:45→07:26)
[2018-02-01] MEDS: SODIUM CHLORIDE 0.9% 1,000 ML IV SCH (05:25)
[2018-02-01 07:25] LABS: Glucose,Whole Blood 159 mg/dL (75-99)
[2018-02-01] MEDS: FUROSEMIDE 10 MG/ML 4 ML VIAL IV SCH (07:39)
[2018-02-01] MEDS: LACTULOSE 20 GM/30 ML CUP PO SCH ×3 (07:41→21:17)
[2018-02-01] MEDS: guaiFENesin 600 MG TABLET.ER PO SCH ×2 (07:42→21:12)
[2018-02-01] MEDS: POTASSIUM BICARBONATE/CIT AC 20 MEQ TABLET.EFF PO SCH (07:42)
[2018-02-01] MEDS: FLUDROCORTISONE 0.1 MG TAB PO SCH ×2 (07:43→21:12)
[2018-02-01] MEDS: PANTOPRAZOLE 40 MG TABLET PO SCH (07:43)
[2018-02-01] MEDS: predniSONE 20 MG TAB PO SCH (07:44)
[2018-02-01] MEDS: SPIRONOLACTONE 25 MG TAB PO SCH (07:45)
[2018-02-01] MEDS: RIFAXIMIN 550 MG TABLET PO SCH ×2 (07:45→21:12)
[2018-02-01] MEDS: METOPROLOL SUCCINATE (ER) 25 MG TAB.ER.24H PO SCH (07:51)
[2018-02-01] MEDS: INSULIN ASPART 100 UNIT/ML 1 ML 10 ML VIAL SQ SCH ×4 (07:52→21:17)
[2018-02-01] MEDS ORDERED: SODIUM CHLORIDE 0.9% 1,000 ML IV ONE (08:27)
[2018-02-01 08:38] LABS: Albumin 2.2 g/dL (3.5-5.0); Calcium 7.8 mg/dL (8.4-10.2); Potassium 3.8 mmol/L (3.5-5.1); Total Bilirubin 1.4 mg/dL (0.2-1.3); Total Protein 4.9 g/dL (6.3-8.2)
[2018-02-01] MEDS: IPRATROPIUM-ALBUTEROL 3 ML NEB INHALATION SCH ×4 (08:46→20:20)
--- NOTE | 2018-02-01 10:01 | P.PN ---
Subjective Progress Note Date: 02/01/18 Principal diagnosis: Hepatic encephalopathy, GI bleed, cirrhosis liver, pancytopenia including thrombocytopenia and anemia, uncontrolled diabetes and hyperglycemia, chronic renal failure, protein calorie malnourishment, nonbleeding ulcer found on EGD, 02/01/2018, patient seen and evaluated examined he is the very poorly responsive care plan discussed with RN as well as the respiratory therapist patient has some respiratory secretions gurgling in the back of the throat care plan discussed with the primary service patient is a no code at this point of time the primary services planning to discuss comfort measures and not to do any aggressive intervention at this point of time as prognosis is extremely poor , agree with current plan of care we'll continue to follow closely 01/31/2018, patient seen and evaluated examined during the rounds clinically doing well in terms of mental status remains pleasantly confused respiratory status overall stable, labs reviewed medications reviewed, leukocytosis is improving electrolytes are relatively more stable slight decline in renal function from yesterday labs were noted 01/30/2018, patient seen eval examined care plan discussed with the patient and present at bedside he remains somnolent but readily arousable overall not much change from yesterday noted ultrasound of the chest abdomen has been ordered by primary service, patient is slightly more short of breath however denies any cough or sputum production Ammann ultrasound finding reviewed small to moderate amount of fluid has been seen in the abdomen 01/29/18, patient seen and evaluated examined during the rounds overall arousable pleasantly confused but slightly more lethargic today compared to yesterday exam GI service has been following and adjusting therapy for the hepatic encephalopathy 01/28/2018, patient seen and evaluated examined during the rounds clinically doing well he is more awake and alert sitting upright in the bed he is status post colonoscopy his abdomen is slightly distended but which is a however otherwise not much change it's soft and nontender is passing gas from below, he is eating and tolerating diet fairly well, his labs from today reviewed patient did slowly drop down hemoglobin 7.2 require unit of packed RBC, white cell is slightly elevated, potassium remains on the lower side which is being replaced came down to 3 than 2.9 now is up to 3.1 January renal functions are stable BUN/ creatinine slightly improved 01/27/2018, patient seen eval reexamined during the rounds clinically doing well he is more awake and alert he has been cleared for clear liquid diet however patient is scheduled for colonoscopy this afternoon so has been nothing by mouth mental status has significantly improved respiration is improved as well stable 01/26/2018, patient seen eval reexamined during the rounds clinically doing well awake and alert breathing comfortably patient is being evaluated for swallow no significant aspiration is seen with some laryngeal penetration transient in nature has been seen in the speech is following for recommendations Ammann mental status has improved significantly he is breathing more comfortably denies any pain abdominal distention has improved as well, medications reviewed, laboratory data reviewed as well 01/25/2018, patient seen and evaluated examined during the rounds he is relatively more awake and opens eyes but however remains confused mildly anxious he underwent a swallowing evaluation could not swallow very well however given improvement in mental status would recommend repeated tomorrow anticipate should improve reviewed arterial blood gas as well as labs for tomorrow renal function continued to improve progressively, C. difficile is negative, with therapy with lactulose the ammonia level has significantly improved and Now they're less than 9, the chest x-ray reviewed there is basal atelectasis present with very small trace right pleural effusion which is overall stable compared to prior x-rays 01/24/2018, patient seen eval reexamined during the rounds he is more lethargic poorly responsive unable to hold anything by mouth an NG tube has been placed patient is somewhat tachycardic as well will need his the continuation of med a prolonged however cannot be given by mouth will need IV the patient will be transferred to selective care will put a Ortiz's catheter patient appears to be dehydrated with gently rehydrate patient to undergo medications through the OG tube, metoprolol cannot be crushed and cannot be given through the OG tubes so will give IV, repeat labs tomorrow, critical care time spent 35 minutes 01/23/2018, patient seen eval examined during the rounds family is present at bedside he is arousable he is getting lactulose per rectum ammonia level noted to be elevated, care plan discussed with the primary service may need NG tube if unable to tolerate by mouth or per rectum, will follow 01/22/2018, patient seen and evaluated examined during the rounds he is arousable and awake but remains somnolent patient is status post endoscopy noted to have the nonbleeding ulcer, patient does have a 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 Bedolla recommended to monitor observe closely Patient presented emergency department on January 16 complaining of generalized weakness and was admitted in ICU, patient was evaluated by Dr. crystal in my absence. The patient apparently had a large black bowel movement overnight. He also had coffee-ground emesis the emergency department. An NG tube was placed and 900 mL of coffee-ground fluid has been suctioned. The patient denies abdominal pain. He has received one and half liters of normal saline. He was found to have a lactic acid of 10. The patient denies abdominal pain, nausea, vomiting. He denies a history of GI bleed however the patient appears to be a poor historian. His hemoglobin is currently 9.9. History is mostly obtained from the electronic medical record. Objective - Vital Signs Vital signs: Vital Signs Temp 98.1 F 02/01/18 08:00 Pulse 92 02/01/18 09:00 Resp 18 02/01/18 08:00 BP 118/58 02/01/18 08:00 Pulse Ox 99 02/01/18 08:00 Intake & Output 01/31/18 02/01/18 02/01/18 18:59 06:59 18:59 Intake Total 100 Output Total 575 650 Balance -575 -550 Weight 107.5 kg Intake: Oral 100 Output: Urine 575 650 Uretheral (Ortiz) 575 650 Other: Voiding Method Indwelling Catheter Indwelling Catheter Indwelling Catheter # Bowel Movements 0 - Exam - Constitutional General appearance: Present: mild distress, obese - EENT Eyes: Present: EOMI, PERRLA, normal appearance ENT: Present: hard of hearing, normal oropharynx Ears: bilateral: normal - Neck Neck: Present: normal ROM Carotids: bilateral: upstroke normal, bruit absent Thyroid: bilateral: normal size - Respiratory Respiratory: bilateral: Bilateral crackles appears to be coming from upper airway overall diminished diminished air entry, very shallow respiration - Cardiovascular Rhythm: regular Heart sounds: normal: S1, S2 - Gastrointestinal General gastrointestinal: Present: decreased bowel sounds, distended - Integumentary Integumentary: Present: normal, normal turgor - Neurologic Neurologic: Very lethargic poorly responsive with GCS of 3 - Musculoskeletal Musculoskeletal: Present: generalized weakness, strength equal bilaterally - Psychiatric Psychiatric: Present: Has been relatively more more somnolent and poorly responsive lethargic - Labs CBC & Chem 7: 01/30/18 06:00 02/01/18 07:57 Labs: Abnormal Lab Results - Last 24 Hours (Table) 01/31/18 01/31/18 01/31/18 Range/Units 11:20 17:26 17:57 Carbon Dioxide 19 L (22-30) mmol/L BUN 43 H (9-20) mg/dL Creatinine 1.80 H (0.66-1.25) mg/dL Glucose 188 H (74-99) mg/dL POC Glucose (mg/dL) 165 H 183 H (75-99) mg/dL Calcium 8.2 L (8.4-10.2) mg/dL Total Bilirubin 1.4 H (0.2-1.3) mg/dL Alkaline Phosphatase 156 H (38-126) U/L Ammonia (<30) umol/L Total Protein 5.1 L (6.3-8.2) g/dL Albumin 2.4 L (3.5-5.0) g/dL 01/31/18 01/31/18 02/01/18 Range/Units 17:57 20:26 07:23 Carbon Dioxide (22-30) mmol/L BUN (9-20) mg/dL Creatinine (0.66-1.25) mg/dL Glucose (74-99) mg/dL POC Glucose (mg/dL) 209 H 159 H (75-99) mg/dL Calcium (8.4-10.2) mg/dL Total Bilirubin (0.2-1.3) mg/dL Alkaline Phosphatase (38-126) U/L Ammonia 95 H (<30) umol/L Total Protein (6.3-8.2) g/dL Albumin (3.5-5.0) g/dL 02/01/18 Range/Units 07:57 Carbon Dioxide 21 L (22-30) mmol/L BUN 45 H (9-20) mg/dL Creatinine 1.76 H (0.66-1.25) mg/dL Glucose 157 H (74-99) mg/dL POC Glucose (mg/dL) (75-99) mg/dL Calcium 7.8 L (8.4-10.2) mg/dL Total Bilirubin 1.4 H (0.2-1.3) mg/dL Alkaline Phosphatase 132 H (38-126) U/L Ammonia (<30) umol/L Total Protein 4.9 L (6.3-8.2) g/dL Albumin 2.2 L (3.5-5.0) g/dL Assessment and Plan Assessment: Altered mental status hepatic encephalopathy with extremely poor prognosis and slowly decompensating respiratory status U Leiden imbalance with Severe hypokalemia, slowly improving Acute on chronic anemia requiring blood transfusion as needed Sigmoid colon wall thickening with a differential diagnoses of diffuse colitis/ multifocal colitis versus neoplasm Abdominal distention, chronic nature Basal atelectasis small pleural effusion multifactorial including an related to above as well as chronic renal failure cirrhosis of the liver Tachycardia borderline hypertension with intravascular volume depletion and dehydration, overall stable Severe anemia and thrombocytopenia and GI bleed Stage III renal failure GI bleed with nonbleeding peptic ulcer, associated lower GI bleed cannot be excluded Metabolic acidosis lactic acidosis slowly improving History of prior recurrent pleural effusion of unclear etiology History of cirrhosis of the liver Overall very poor prognosis and likelihood of recovery is very slim and dismal, patient is no code agree with plans for comfort measure as indicated by the family Plan: As noted above patient is a no code, and likely family will consider comfort measure we will be available as needed her eyes continue supportive care in the meantime Time with Patient: Greater than 30
--- NOTE | 2018-02-01 10:14 | P.PN ---
Subjective Progress Note Date: 02/01/18 Principal diagnosis: Upper GI bleed hepatic encephalopathy Evaluated this morning requested by medicine secondary to mental status changes unresponsiveness elevated ammonia level. Patient's 3 daughters and spouse are at bedside. Patient is unarousable has pulled out multiple IVs over the last 24 hours. No bowel movements 2 days. Not receiving his oral medications. Ammonia 95 yesterday. Creatinine 1.7. Objective - Vital Signs Vital signs: Vital Signs Temp 98.1 F 02/01/18 08:00 Pulse 92 02/01/18 09:00 Resp 18 02/01/18 08:00 BP 118/58 02/01/18 08:00 Pulse Ox 99 02/01/18 08:00 Intake & Output 01/31/18 02/01/18 02/01/18 18:59 06:59 18:59 Intake Total 100 Output Total 575 650 Balance -575 -550 Weight 107.5 kg Intake: Oral 100 Output: Urine 575 650 Uretheral (Ortiz) 575 650 Other: Voiding Method Indwelling Catheter Indwelling Catheter Indwelling Catheter # Bowel Movements 0 - Exam General appearance: The patient is unarousable. HET: Head is normocephalic and atraumatic. Pupils are equal and reactive. Oropharynx is clear without lesions. Neck: Supple without lymphadenopathy. Trachea midline. Heart: S1 S2. Regular rate and rhythm. Lungs: Jenifer rhonchi. Abdomen: Soft, distended with ascites generalized anasarca with hypoactive bowel sounds. No peritoneal signs. No palpable organomegaly or masses. Extremities: +3 lower extremity edema with Clyde wraps weeping.. Neurological: No focal deficits. Unarousable. - Labs CBC & Chem 7: 01/30/18 06:00 02/01/18 07:57 Labs: Abnormal Lab Results - Last 24 Hours (Table) 01/31/18 01/31/18 01/31/18 Range/Units 11:20 17:26 17:57 Carbon Dioxide 19 L (22-30) mmol/L BUN 43 H (9-20) mg/dL Creatinine 1.80 H (0.66-1.25) mg/dL Glucose 188 H (74-99) mg/dL POC Glucose (mg/dL) 165 H 183 H (75-99) mg/dL Calcium 8.2 L (8.4-10.2) mg/dL Total Bilirubin 1.4 H (0.2-1.3) mg/dL Alkaline Phosphatase 156 H (38-126) U/L Ammonia (<30) umol/L Total Protein 5.1 L (6.3-8.2) g/dL Albumin 2.4 L (3.5-5.0) g/dL 01/31/18 01/31/18 02/01/18 Range/Units 17:57 20:26 07:23 Carbon Dioxide (22-30) mmol/L BUN (9-20) mg/dL Creatinine (0.66-1.25) mg/dL Glucose (74-99) mg/dL POC Glucose (mg/dL) 209 H 159 H (75-99) mg/dL Calcium (8.4-10.2) mg/dL Total Bilirubin (0.2-1.3) mg/dL Alkaline Phosphatase (38-126) U/L Ammonia 95 H (<30) umol/L Total Protein (6.3-8.2) g/dL Albumin (3.5-5.0) g/dL 02/01/18 02/01/18 Range/Units 07:57 07:57 Carbon Dioxide 21 L (22-30) mmol/L BUN 45 H (9-20) mg/dL Creatinine 1.76 H (0.66-1.25) mg/dL Glucose 157 H (74-99) mg/dL POC Glucose (mg/dL) (75-99) mg/dL Calcium 7.8 L (8.4-10.2) mg/dL Total Bilirubin 1.4 H (0.2-1.3) mg/dL Alkaline Phosphatase 132 H (38-126) U/L Ammonia 55 H (<30) umol/L Total Protein 4.9 L (6.3-8.2) g/dL Albumin 2.2 L (3.5-5.0) g/dL Assessment and Plan (1) Hepatic encephalopathy Narrative/Plan: Worsening mental status elevated ammonia with decompensation and functional status Current Visit: Yes Status: Acute Code(s): K72.90 - HEPATIC FAILURE, UNSPECIFIED WITHOUT COMA SNOMED Code(s): 24376508 (2) GI bleed Narrative/Plan: 82-year-old male admitted with reports of coffee-ground emesis and melena s/p EGD/colonoscopy with findings of distal esophageal superficial ulceration with component of acute blood loss anemia. Current Visit: Yes Status: Acute Code(s): K92.2 - GASTROINTESTINAL HEMORRHAGE, UNSPECIFIED SNOMED Code(s): 90426411 (3) Altered mental status Current Visit: No Status: Acute Code(s): R41.82 - ALTERED MENTAL STATUS, UNSPECIFIED SNOMED Code(s): 717667744 (4) Cirrhosis Narrative/Plan: Etiology unclear possible cryptogenic possible chronic liver disease Current Visit: Yes Status: Chronic Code(s): K74.60 - UNSPECIFIED CIRRHOSIS OF LIVER SNOMED Code(s): 20978706 (5) Anemia Narrative/Plan: Acute blood loss Current Visit: Yes Status: Acute Code(s): D64.9 - ANEMIA, UNSPECIFIED SNOMED Code(s): 471879370 Plan: 1. 25-30 minute bedside conversation held with family/spouse reviewing/ discussing patient's current mental/functional status underlying liver cirrhosis and current laboratory studies. Dr. Haq recommends insertion of NG tube with additional doses of lactulose and continuance of Xifaxan with ammonia/ PT/INR/BUN/creatinine monitoring. No guarantees that patient's hepatic encephalopathy will improve with these measures; he has had multiple NG tube insertions over the last 2 weeks multiple times difficult to insert sometimes requiring restraints. No guarantee that reinsertion of NG tube will be successful as well as no guarantee if encephalopathy improves that he will not decompensate again. All questions were answered to family satisfaction. At this time they would like to discuss plan of care with the attending Dr. Ayala before making a decision about continued care/reinsertion of NG tube versus comfort care. Continue supportive measures. We'll continue to follow with you. Assessment and plan a care discussed with Dr. Haq
[2018-02-01] MEDS ORDERED: HALOPERIDOL LACTATE 5 MG/ML 1 ML VIAL IVP PRN (11:18)
[2018-02-01 11:33] LABS: Glucose,Whole Blood 165 mg/dL (75-99)
[2018-02-01] MEDS: METOLAZONE 2.5 MG TAB PO SCH (11:45)
[2018-02-01] MEDS ORDERED: LACTULOSE 20 GM/30 ML CUP PO ONE ×3 (14:00→17:00)
[2018-02-01] MEDS ORDERED: RIFAXIMIN 550 MG TABLET PO ONE (14:30)
--- NOTE | 2018-02-01 16:39 | P.PN ---
Subjective Progress Note Date: 02/01/18 This is an 82-year-old gentleman patient of Dr. Rojas, with known history of CK D stage III, diabetes mellitus type 2, COPD, hyperlipidemia, and chronic anemia admitted from our facility in early August 2017, was diagnosed to have metabolic encephalopathy secondary to acute kidney injury and dehydration with hypoperfusion. Patient comes into the emergency room with a four-day history of black stools, has had increasing falls, no abdominal pain, patient denies any hematochezia, patient is not an alcoholic drinker currently, and was not feeling very well hence the ER admission. Patient has fallen numerous times, and the last one was 2 days ago, previous to this, patient had cracked the ribs , 4 weeks prior to admission. Patient follows up with Dr. Rojas every 4 months regimen, his due to see him in 01/20/2018 In the emergency room, he was noted to have Hemoccult-positive stools, patient was noted to have melanocytic stools, Hemoccult positive, hematuria with RBC of 59, double see if 1, moderate ketones, EKG shows sinus tachycardia with right bundle branch block, left anterior fascicular block, and pulmonary disease pattern heart rate of 124. Patient is admitted to ICU secondary to melanocytic stools with hemoglobin of 9, consult to Gen. surgery Dr. Montes and Dr. Haq gastroenterology. Admitting lactic acid was significantly elevated at 10.0 with a peak of 11.4, wbc of 15 troponin of 0.077 Previous imaging in our facility shows small amount of ascites, in the abdomen noted in May 2014 and CAT scan chest 2014, cholelithiasis, and evidence of cirrhosis and portal hypertension, improving pleural effusion, improving right apical nodule When patient was seen, patient was very much confused, trying to grab things in the area, very dry mouth, patient's nothing by mouth, and has a bilateral wrist restraints, ammonia levels were requested, family at bedside, CODE STATUS was discussed and is DO NOT RESUSCITATE no CPR with options for vent if needed 01/18: Hemoglobin is stable at 8.8. Patient is scheduled for EGD. The patient has had small bowel movements 7. Lactulose is on hold. Stools have been tarry in color. Cardiology is following for tachycardia. No plan for any further workup. 01/19: EGD revealed distal esophageal ulcer and gastritis but no active bleeding. Hemoglobin is 8.1. Ferrlecit ordered 1 dose. Patient is more alert today. Ammonia level is less than 9. Patient does have a large bruising area to the left antecubital which we will plan for Bactroban. Patient will be transferred out of intensive care today. PT will be started to help determine discharge plan. 01/20: Patient has less alert today. He missed a dose of lactulose and ammonia level is 34 today. He has a sitter at the bedside. Hemoglobin is currently 7.8. Patient has been waiting for selective care bed. He is hemodynamically stable will now be transferred to [facility]. Lactulose decrease to twice daily. Home medications reviewed and those appropriate have been resumed. 01/23: Patient is more lethargic today and stat lab work including ammonia level was ordered. Lactic acid came back at 2.1 and ammonia level CXXXVII. Patient was ordered for 1 L of IV fluid. Abdomen is more distended today and abdominal x-ray shows no bowel obstruction. Patient underwent bowel prep yesterday for colonoscopy to be done today but still did not clear. He has not been able to take any oral medications. Rectal lactulose has been ordered. 01/24: Patient is more lethargic today from yesterday. Ammonia level today is at 118. Patient did receive lactulose enemas yesterday. Patient is noted to have more abdominal distention today. GI has ordered NG tube and start Xifaxan , lactulose per NG tube and discontinue enemas and a CT of the abdomen and pelvis was ordered. Patient to be transferred to selective care. 01/25: Patient is more alert today. He did have 4 bowel movements yesterday but pulled his NG tube out. His ammonia level this morning is less than 9. He is to continue on lactulose 3 times daily orally. Patient did take his oral medications today. He is scheduled for a colonoscopy tomorrow. Patient is noted to have expiratory wheezing and IV Lasix ordered. Updrafts changed to scheduled. Pulse ox is 97% on room air. Patient has been afebrile. 01/26: Repeat chest x-ray small right-sided pleural effusion. Patient's mental status is improved and patient may be back to his baseline. His ammonia level is again less than 9 He is denying any abdominal pain. He remains with Ortiz catheter in place which will be discontinued after colonoscopy which GI is planning for tomorrow. AFP and CEA ordered by GI or unremarkable. Patient underwent modified barium swallow that did not show any aspiration. 01/27: Chest x-ray shows right lower lobe atelectasis and associated effusion. Correlate to exclude pneumonia. Patient is scheduled for colonoscopy today. Hemoglobin 7.2 and gradually declining for which we will transfuse 1 unit of packed RBCs. Potassium will be replaced. Patient denies having any abdominal pain but noted to have abdominal distention. He denies any nausea or vomiting. He is alert and oriented and appears to be back to baseline. We will transfer the patient to [facility] floor and IV Lopressor will be changed back to his oral home dose. 01/28 colonoscopy negative for any neoplasm. Patient resting comfortably in bed. Does need to be discharged to a subacute rehab. Patient denies any chest pain, breathing difficulty, abdominal pain or nausea or vomiting. 01/29: Patient examined bedside. Appears to answer questions appropriately but does appear to be less alert than yesterday. Patient still has some cough and wheezing on examination continue steroids. Ammonia level yesterday 199. Patient was not getting his lactulose due to increased bowel movement. Lactulose given today. 01/30: Patient was examined at bedside today. Again patient is very drowsy, answers questions but then drifts back to sleep. Repeat ammonia today is 51. Hemoglobin is stable at 9.6. Patient's abdomen is more distended than yesterday , will order an abdominal ultrasound to rule out ascites, Lasix increased to 40 mg every 12 hours. 01/31: Patient remains confused, family is at the bedside today. Patient is a little more awake today. Patient has pulled out his IV multiple times. IV medications changed to oral. Patient continues to have chest congestion and lower extremity edema. Patient has not had a bowel movement in a few days, Dulcolax suppository ordered. Discussed with patient's that was at the bedside today about patient's poor prognosis. She requests that we wait until her daughters are there tomorrow morning to discuss patient's goals of care. Abdominal ultrasound completed showed small to moderate amount of free fluid in bilateral upper and lower quadrants. Will continue with current treatment plan 02/01: Patient has had significant confusion and has removed 11 IV and will not maintain telemetry. Nursing was one-on-one with him through the night. Patient has not received lactulose or Xifaxan as he has been confused. Long discussion with the patient's family regarding prognosis. They aren't requesting one more attempt to treat him with NG tube and provide medications via NG tube. They do understand that this is only temporary and patient may revert back to his confusional state as patient has had improvement of his mental status while here but it is short-lived each time. Next option would be hospice care. Ammonia level today is 55, BUN 45 and creatinine 1.76. Objective - Vital Signs Vital signs: Vital Signs Temp 98.1 F 02/01/18 08:00 Pulse 92 02/01/18 09:00 Resp 18 02/01/18 08:00 BP 118/58 02/01/18 08:00 Pulse Ox 99 02/01/18 08:00 Intake & Output 01/31/18 02/01/18 02/01/18 18:59 06:59 18:59 Intake Total 100 Output Total 575 650 Balance -575 -550 Weight 107.5 kg Intake: Oral 100 Output: Urine 575 650 Uretheral (Ortiz) 575 650 Other: Voiding Method Indwelling Catheter Indwelling Catheter Indwelling Catheter # Bowel Movements 0 - Exam General appearance: uncooperative, obese - EENT Eyes: anicteric sclerae, EOMI ENT: NA/AT - Neck Neck: normal ROM - Respiratory Respiratory: bilateral: Expiratory wheeze, negative: dullness, rales, rhonchi - Cardiovascular Rhythm: regular Heart sounds: normal: S1, S2 - Gastrointestinal General gastrointestinal: normal bowel sounds, soft, distended, no tenderness - Integumentary Integumentary: decreased turgor, normal - Neurologic Patient is oriented x0. not able to answers questions appropriately. - Labs CBC & Chem 7: 01/30/18 06:00 02/01/18 07:57 Labs: Abnormal Lab Results - Last 24 Hours (Table) 01/31/18 01/31/18 01/31/18 Range/Units 11:20 17:26 17:57 Carbon Dioxide 19 L (22-30) mmol/L BUN 43 H (9-20) mg/dL Creatinine 1.80 H (0.66-1.25) mg/dL Glucose 188 H (74-99) mg/dL POC Glucose (mg/dL) 165 H 183 H (75-99) mg/dL Calcium 8.2 L (8.4-10.2) mg/dL Total Bilirubin 1.4 H (0.2-1.3) mg/dL Alkaline Phosphatase 156 H (38-126) U/L Ammonia (<30) umol/L Total Protein 5.1 L (6.3-8.2) g/dL Albumin 2.4 L (3.5-5.0) g/dL 01/31/18 01/31/18 02/01/18 Range/Units 17:57 20:26 07:23 Carbon Dioxide (22-30) mmol/L BUN (9-20) mg/dL Creatinine (0.66-1.25) mg/dL Glucose (74-99) mg/dL POC Glucose (mg/dL) 209 H 159 H (75-99) mg/dL Calcium (8.4-10.2) mg/dL Total Bilirubin (0.2-1.3) mg/dL Alkaline Phosphatase (38-126) U/L Ammonia 95 H (<30) umol/L Total Protein (6.3-8.2) g/dL Albumin (3.5-5.0) g/dL 02/01/18 02/01/18 Range/Units 07:57 07:57 Carbon Dioxide 21 L (22-30) mmol/L BUN 45 H (9-20) mg/dL Creatinine 1.76 H (0.66-1.25) mg/dL Glucose 157 H (74-99) mg/dL POC Glucose (mg/dL) (75-99) mg/dL Calcium 7.8 L (8.4-10.2) mg/dL Total Bilirubin 1.4 H (0.2-1.3) mg/dL Alkaline Phosphatase 132 H (38-126) U/L Ammonia 55 H (<30) umol/L Total Protein 4.9 L (6.3-8.2) g/dL Albumin 2.2 L (3.5-5.0) g/dL Assessment and Plan Plan: 1. Acute upper GI bleed with acute blood loss anemia, secondary to esophageal ulcer and gastritis. Patient will be transferred out of ICU. Perfect Binder Operator was consulted Dr. Granger,we will transfuse with hemoglobin of less than 7, and GI consult with Dr. Lopez, for colonoscopy. Dr. Rodgers general surgeon. Status post transfusion of 1 unit of packed RBCs. 2. Chronic liver cirrhosis and portal hypertension as noted through CT imaging , in 2014, ammonia levels are requested secondary to confusion. Lactulose oral 3 times daily. Aldactone continued. 3. Hyperammonemia with hepatic encephalopathy, continue Xifaxan and lactulose. Ativan discontinued and Haldol only for confusion 4. Recurrent falls, multifactorial, was likely secondary to metabolic encephalopathy with ongoing liver cirrhosis. Patient has having relapsing metabolic encephalopathy. Continue Xifaxan and lactulose. 5. Diabetes mellitus type 2, on metformin and glipizide at home. Continue NovoLog scale only for now 6. Autonomic dysfunction/possible adrenal insufficiency, patient on home dose of Cortef and Florinef. He is currently on Solu-Cortef IV. 7. COPD on Spiriva, and when necessary albuterol 8. Hypertension, and tachycardia, patient will be restarted on metoprolol 25 mg bid. 9. Lactic acidosis likely secondary to GI bleed, continue to monitor serially, 10. CKD stage III with acute kidney failure, azotemia, IV hydration, Ortiz in place. Monitor creatinine. 11. Leukocytosis, 12. Hematuria, this needs to be worked up as outpatient, patient is asymptomatic , would need evaluate with either renal ultrasound or CT of the abdomen once stabilized 13. Hyperlipidemia. Patient will be resumed back on atorvastatin. 14. Mildly elevated troponins for which acute coronary syndrome has been ruled out. 15. No previous diagnosis heart failure. He is on Aldactone due to liver failure. 16. Severe protein calorie malnutrition secondary to cirrhosis of the liver with albumin of 2.2. Ensure added. Discharge plan: Subacute rehab possible hospice care Impression and plan of care have been directed as dictated by the signing physician. Radha Arredondo nurse practitioner acting as scribe for signing physician.
[2018-02-01 17:17] LABS: Glucose,Whole Blood 163 mg/dL (75-99)
[2018-02-01] MEDS ORDERED: HALOPERIDOL LACTATE 5 MG/ML 1 ML VIAL IM PRN (18:56)
[2018-02-01 20:32] LABS: Glucose,Whole Blood 166 mg/dL (75-99)
[2018-02-01] MEDS: BISACODYL 10 MG SUPP RECTAL SCH (22:53)
[2018-02-02] MEDS: LACTULOSE 20 GM/30 ML CUP PO SCH (07:10)
[2018-02-02] MEDS: FUROSEMIDE 10 MG/ML 4 ML VIAL IV SCH (07:11)
[2018-02-02] MEDS: FLUDROCORTISONE 0.1 MG TAB PO SCH ×2 (07:11→21:09)
[2018-02-02] MEDS: SPIRONOLACTONE 25 MG TAB PO SCH (07:12)
[2018-02-02] MEDS: RIFAXIMIN 550 MG TABLET PO SCH ×2 (07:12→21:09)
[2018-02-02] MEDS: METOPROLOL SUCCINATE (ER) 25 MG TAB.ER.24H PO SCH (07:13)
[2018-02-02] MEDS: PANTOPRAZOLE 40 MG TABLET PO SCH (07:14)
[2018-02-02] MEDS: guaiFENesin 600 MG TABLET.ER PO SCH ×2 (07:14→21:09)
[2018-02-02] MEDS: POTASSIUM BICARBONATE/CIT AC 20 MEQ TABLET.EFF PO SCH (07:17)
[2018-02-02] MEDS: predniSONE 20 MG TAB PO SCH (07:17)
[2018-02-02 07:23] LABS: Glucose,Whole Blood 152 mg/dL (75-99)
[2018-02-02] MEDS: IPRATROPIUM-ALBUTEROL 3 ML NEB INHALATION SCH ×4 (08:24→20:14)
[2018-02-02 08:37] LABS: INR 1.5 (<1.2); Prothrombin Time 14.3 sec (9.0-12.0)
[2018-02-02] MEDS: INSULIN ASPART 100 UNIT/ML 1 ML 10 ML VIAL SQ SCH ×4 (08:44→21:09)
[2018-02-02 08:45] LABS: Albumin 2.2 g/dL (3.5-5.0); Calcium 8.1 mg/dL (8.4-10.2); Potassium 3.9 mmol/L (3.5-5.1); Total Bilirubin 1.5 mg/dL (0.2-1.3); Total Protein 4.8 g/dL (6.3-8.2)
[2018-02-02] MEDS: METOLAZONE 2.5 MG TAB PO SCH (08:45)
--- NOTE | 2018-02-02 08:48 | P.PN ---
Subjective Progress Note Date: 02/02/18 Principal diagnosis: Hepatic encephalopathy, GI bleed, cirrhosis liver, pancytopenia including thrombocytopenia and anemia, uncontrolled diabetes and hyperglycemia, chronic renal failure, protein calorie malnourishment, nonbleeding ulcer found on EGD, 02/02/2018, patient seen eval reexamined he remains very poorly responsive he is getting lactulose for his hepatic encephalopathy but couldn't tolerated had a NG tube which has a he pulled out his been getting rectal lactulose mental status remains poor overall prognosis is very poor as a lot of respiratory secretions and upper airways overall remains very poorly responsive and not much change compared to yesterday exam 02/01/2018, patient seen and evaluated examined he is the very poorly responsive care plan discussed with RN as well as the respiratory therapist patient has some respiratory secretions gurgling in the back of the throat care plan discussed with the primary service patient is a no code at this point of time the primary services planning to discuss comfort measures and not to do any aggressive intervention at this point of time as prognosis is extremely poor , agree with current plan of care we'll continue to follow closely 01/31/2018, patient seen and evaluated examined during the rounds clinically doing well in terms of mental status remains pleasantly confused respiratory status overall stable, labs reviewed medications reviewed, leukocytosis is improving electrolytes are relatively more stable slight decline in renal function from yesterday labs were noted 01/30/2018, patient seen eval examined care plan discussed with the patient and present at bedside he remains somnolent but readily arousable overall not much change from yesterday noted ultrasound of the chest abdomen has been ordered by primary service, patient is slightly more short of breath however denies any cough or sputum production Ammann ultrasound finding reviewed small to moderate amount of fluid has been seen in the abdomen 01/29/18, patient seen and evaluated examined during the rounds overall arousable pleasantly confused but slightly more lethargic today compared to yesterday exam GI service has been following and adjusting therapy for the hepatic encephalopathy 01/28/2018, patient seen and evaluated examined during the rounds clinically doing well he is more awake and alert sitting upright in the bed he is status post colonoscopy his abdomen is slightly distended but which is a however otherwise not much change it's soft and nontender is passing gas from below, he is eating and tolerating diet fairly well, his labs from today reviewed patient did slowly drop down hemoglobin 7.2 require unit of packed RBC, white cell is slightly elevated, potassium remains on the lower side which is being replaced came down to 3 than 2.9 now is up to 3.1 January renal functions are stable BUN/ creatinine slightly improved 01/27/2018, patient seen eval reexamined during the rounds clinically doing well he is more awake and alert he has been cleared for clear liquid diet however patient is scheduled for colonoscopy this afternoon so has been nothing by mouth mental status has significantly improved respiration is improved as well stable 01/26/2018, patient seen eval reexamined during the rounds clinically doing well awake and alert breathing comfortably patient is being evaluated for swallow no significant aspiration is seen with some laryngeal penetration transient in nature has been seen in the speech is following for recommendations Amadolfo mental status has improved significantly he is breathing more comfortably denies any pain abdominal distention has improved as well, medications reviewed, laboratory data reviewed as well 01/25/2018, patient seen and evaluated examined during the rounds he is relatively more awake and opens eyes but however remains confused mildly anxious he underwent a swallowing evaluation could not swallow very well however given improvement in mental status would recommend repeated tomorrow anticipate should improve reviewed arterial blood gas as well as labs for tomorrow renal function continued to improve progressively, C. difficile is negative, with therapy with lactulose the ammonia level has significantly improved and Now they're less than 9, the chest x-ray reviewed there is basal atelectasis present with very small trace right pleural effusion which is overall stable compared to prior x-rays 01/24/2018, patient seen eval reexamined during the rounds he is more lethargic poorly responsive unable to hold anything by mouth an NG tube has been placed patient is somewhat tachycardic as well will need his the continuation of med a prolonged however cannot be given by mouth will need IV the patient will be transferred to selective care will put a Ortiz's catheter patient appears to be dehydrated with gently rehydrate patient to undergo medications through the OG tube, metoprolol cannot be crushed and cannot be given through the OG tubes so will give IV, repeat labs tomorrow, critical care time spent 35 minutes 01/23/2018, patient seen eval examined during the rounds family is present at bedside he is arousable he is getting lactulose per rectum ammonia level noted to be elevated, care plan discussed with the primary service may need NG tube if unable to tolerate by mouth or per rectum, will follow 01/22/2018, patient seen and evaluated examined during the rounds he is arousable and awake but remains somnolent patient is status post endoscopy noted to have the nonbleeding ulcer, patient does have a 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 Bedolla recommended to monitor observe closely Patient presented emergency department on January 16 complaining of generalized weakness and was admitted in ICU, patient was evaluated by Dr. crystal in my absence. The patient apparently had a large black bowel movement overnight. He also had coffee-ground emesis the emergency department. An NG tube was placed and 900 mL of coffee-ground fluid has been suctioned. The patient denies abdominal pain. He has received one and half liters of normal saline. He was found to have a lactic acid of 10. The patient denies abdominal pain, nausea, vomiting. He denies a history of GI bleed however the patient appears to be a poor historian. His hemoglobin is currently 9.9. History is mostly obtained from the electronic medical record. Objective - Vital Signs Vital signs: Vital Signs Temp 98.0 F 02/01/18 21:17 Pulse 99 02/02/18 07:23 Resp 18 02/02/18 07:23 BP 142/60 02/01/18 21:17 Pulse Ox 98 02/01/18 21:17 Intake & Output 02/01/18 02/02/18 02/02/18 18:59 06:59 18:59 Intake Total 20 Output Total 800 650 Balance -780 -650 Weight 107.5 kg 108.2 kg Intake: Oral 20 Output: Urine 800 650 Uretheral (Ortiz) 650 Other: Voiding Method Indwelling Catheter Indwelling Catheter Indwelling Catheter # Voids 1 # Bowel Movements 1 - Exam - Constitutional General appearance: Present: mild distress, obese - EENT Eyes: Present: EOMI, PERRLA, normal appearance ENT: Present: hard of hearing, normal oropharynx Ears: bilateral: normal - Neck Neck: Present: normal ROM Carotids: bilateral: upstroke normal, bruit absent Thyroid: bilateral: normal size - Respiratory Respiratory: bilateral: Bilateral crackles appears to be coming from upper airway overall diminished diminished air entry, very shallow respiration - Cardiovascular Rhythm: regular Heart sounds: normal: S1, S2 - Gastrointestinal General gastrointestinal: Present: decreased bowel sounds, distended - Integumentary Integumentary: Present: normal, normal turgor - Neurologic Neurologic: Very lethargic poorly responsive with GCS of 3 - Musculoskeletal Musculoskeletal: Present: generalized weakness, strength equal bilaterally - Psychiatric Psychiatric: Present: Has been relatively more more somnolent and poorly responsive lethargic - Labs CBC & Chem 7: 01/30/18 06:00 02/01/18 07:57 Labs: Abnormal Lab Results - Last 24 Hours (Table) 02/01/18 02/01/18 02/01/18 Range/Units 07:57 11:31 17:12 PT (9.0-12.0) sec INR (<1.2) POC Glucose (mg/dL) 165 H 163 H (75-99) mg/dL Ammonia 55 H (<30) umol/L 02/01/18 02/02/18 02/02/18 Range/Units 20:31 07:19 08:13 PT 14.3 H (9.0-12.0) sec INR 1.5 H (<1.2) POC Glucose (mg/dL) 166 H 152 H (75-99) mg/dL Ammonia (<30) umol/L Assessment and Plan Assessment: Altered mental status hepatic encephalopathy with extremely poor prognosis and slowly decompensating respiratory status U Leiden imbalance with Severe hypokalemia, slowly improving Acute on chronic anemia requiring blood transfusion as needed Sigmoid colon wall thickening with a differential diagnoses of diffuse colitis/ multifocal colitis versus neoplasm Abdominal distention, chronic nature Basal atelectasis small pleural effusion multifactorial including an related to above as well as chronic renal failure cirrhosis of the liver Tachycardia borderline hypertension with intravascular volume depletion and dehydration, overall stable Severe anemia and thrombocytopenia and GI bleed Stage III renal failure GI bleed with nonbleeding peptic ulcer, associated lower GI bleed cannot be excluded Metabolic acidosis lactic acidosis slowly improving History of prior recurrent pleural effusion of unclear etiology History of cirrhosis of the liver Overall very poor prognosis and likelihood of recovery is very slim and dismal, patient is no code agree with plans for comfort measure as indicated by the family Plan: As noted above patient is a no code, and likely family will consider comfort measure we will be available as needed her eyes continue supportive care in the meantime, initial attempts are being made so lactulose can be given to improve the mental status however they have been unsuccessful in the last 24 hour, overall patient appeared to be decompensating more not only from respiratory standpoint but also a neurological standpoint, we'll follow Time with Patient: Greater than 30
[2018-02-02] MEDS ORDERED: LEVOFLOXACIN 750MG-D5W PMX 750 MG in DEXTROSE/WATER 1 150ML.BAG IVPB SCH (09:00)
--- NOTE | 2018-02-02 10:53 | P.PN ---
Subjective Progress Note Date: 02/02/18 Principal diagnosis: Upper GI bleed hepatic encephalopathy NG tube inserted yesterday with multiple doses of lactulose and Xifaxan passing 3-4 bowel movements in the last 24 hours. Patient pulled out his NG tube this morning. Patient is unarousable grunts. Not receiving his oral medications. Ammonia increased to 131 today. Creatinine 1.8. INR 1.5. Afebrile. Lactulose enemas ordered. Objective - Vital Signs Vital signs: Vital Signs Temp 97.4 F L 02/02/18 08:00 Pulse 90 02/02/18 08:34 Resp 22 02/02/18 08:00 BP 129/76 02/02/18 08:00 Pulse Ox 100 02/02/18 08:00 Intake & Output 02/01/18 02/02/18 02/02/18 18:59 06:59 18:59 Intake Total 20 Output Total 800 650 Balance -780 -650 Weight 107.5 kg 108.2 kg Intake: Oral 20 Output: Urine 800 650 Uretheral (Ortiz) 650 Other: Voiding Method Indwelling Catheter Indwelling Catheter Indwelling Catheter # Voids 1 1 # Bowel Movements 1 1 - Exam General appearance: The patient is unarousable. Grunts. HET: Head is normocephalic and atraumatic. Pupils are equal and reactive. Oropharynx is clear without lesions. Neck: Supple without lymphadenopathy. Trachea midline. Heart: S1 S2. Regular rate and rhythm. Lungs: Jenifer rhonchi. Abdomen: Soft, distended with ascites generalized anasarca with hypoactive bowel sounds. No peritoneal signs. No palpable organomegaly or masses. Extremities: +3 lower extremity edema with Clyde wraps weeping.. Neurological: No focal deficits. Unarousable. - Labs CBC & Chem 7: 01/30/18 06:00 02/02/18 08:13 Labs: Abnormal Lab Results - Last 24 Hours (Table) 02/01/18 02/01/18 02/01/18 Range/Units 11:31 17:12 20:31 PT (9.0-12.0) sec INR (<1.2) Chloride (98-107) mmol/L BUN (9-20) mg/dL Creatinine (0.66-1.25) mg/dL Glucose (74-99) mg/dL POC Glucose (mg/dL) 165 H 163 H 166 H (75-99) mg/dL Calcium (8.4-10.2) mg/dL Total Bilirubin (0.2-1.3) mg/dL Ammonia (<30) umol/L Total Protein (6.3-8.2) g/dL Albumin (3.5-5.0) g/dL 02/02/18 02/02/18 02/02/18 Range/Units 07:19 08:13 08:13 PT (9.0-12.0) sec INR (<1.2) Chloride 109 H (98-107) mmol/L BUN 47 H (9-20) mg/dL Creatinine 1.88 H (0.66-1.25) mg/dL Glucose 157 H (74-99) mg/dL POC Glucose (mg/dL) 152 H (75-99) mg/dL Calcium 8.1 L (8.4-10.2) mg/dL Total Bilirubin 1.5 H (0.2-1.3) mg/dL Ammonia 131 H (<30) umol/L Total Protein 4.8 L (6.3-8.2) g/dL Albumin 2.2 L (3.5-5.0) g/dL 02/02/18 Range/Units 08:13 PT 14.3 H (9.0-12.0) sec INR 1.5 H (<1.2) Chloride (98-107) mmol/L BUN (9-20) mg/dL Creatinine (0.66-1.25) mg/dL Glucose (74-99) mg/dL POC Glucose (mg/dL) (75-99) mg/dL Calcium (8.4-10.2) mg/dL Total Bilirubin (0.2-1.3) mg/dL Ammonia (<30) umol/L Total Protein (6.3-8.2) g/dL Albumin (3.5-5.0) g/dL Assessment and Plan (1) Hepatic encephalopathy Narrative/Plan: Worsening mental status elevated ammonia with decompensation and functional status Current Visit: Yes Status: Acute Code(s): K72.90 - HEPATIC FAILURE, UNSPECIFIED WITHOUT COMA SNOMED Code(s): 47695154 (2) GI bleed Narrative/Plan: 82-year-old male admitted with reports of coffee-ground emesis and melena s/p EGD/colonoscopy with findings of distal esophageal superficial ulceration with component of acute blood loss anemia. Current Visit: Yes Status: Acute Code(s): K92.2 - GASTROINTESTINAL HEMORRHAGE, UNSPECIFIED SNOMED Code(s): 52766311 (3) Altered mental status Current Visit: No Status: Acute Code(s): R41.82 - ALTERED MENTAL STATUS, UNSPECIFIED SNOMED Code(s): 523894385 (4) Cirrhosis Narrative/Plan: Etiology unclear possible cryptogenic possible chronic liver disease Current Visit: Yes Status: Chronic Code(s): K74.60 - UNSPECIFIED CIRRHOSIS OF LIVER SNOMED Code(s): 51322299 (5) Anemia Narrative/Plan: Acute blood loss Current Visit: Yes Status: Acute Code(s): D64.9 - ANEMIA, UNSPECIFIED SNOMED Code(s): 225729058 Plan: 1. Dr. Haq discussed plan of care with Dr. Ayala this morning; no evidence at this time to suggest fulminant hepatic failure. She recommends continuing with lactulose enemas. Family will speak with attending later today about possible hospice versus continuation of care. Reinsertion of NG tube will be determined between family and attending. Continuous supportive measures. Assessment and plan a care discussed with Dr. Haq
[2018-02-02 11:38] LABS: Glucose,Whole Blood 142 mg/dL (75-99)
[2018-02-02] MEDS: LACTULOSE 200 GM/300 ML (FROM 1/2 GAL JUG) RECTAL SCH ×2 (13:47→18:13)
[2018-02-02 14:15] VITALS: BMI 29.0
--- NOTE | 2018-02-02 15:12 | P.PN ---
Subjective Progress Note Date: 02/02/18 This is an 82-year-old gentleman patient of Dr. Rojas, with known history of CK D stage III, diabetes mellitus type 2, COPD, hyperlipidemia, and chronic anemia admitted from our facility in early August 2017, was diagnosed to have metabolic encephalopathy secondary to acute kidney injury and dehydration with hypoperfusion. Patient comes into the emergency room with a four-day history of black stools, has had increasing falls, no abdominal pain, patient denies any hematochezia, patient is not an alcoholic drinker currently, and was not feeling very well hence the ER admission. Patient has fallen numerous times, and the last one was 2 days ago, previous to this, patient had cracked the ribs , 4 weeks prior to admission. Patient follows up with Dr. Rojas every 4 months regimen, his due to see him in 01/20/2018 In the emergency room, he was noted to have Hemoccult-positive stools, patient was noted to have melanocytic stools, Hemoccult positive, hematuria with RBC of 59, double see if 1, moderate ketones, EKG shows sinus tachycardia with right bundle branch block, left anterior fascicular block, and pulmonary disease pattern heart rate of 124. Patient is admitted to ICU secondary to melanocytic stools with hemoglobin of 9, consult to Gen. surgery Dr. Montes and Dr. Haq gastroenterology. Admitting lactic acid was significantly elevated at 10.0 with a peak of 11.4, wbc of 15 troponin of 0.077 Previous imaging in our facility shows small amount of ascites, in the abdomen noted in May 2014 and CAT scan chest 2014, cholelithiasis, and evidence of cirrhosis and portal hypertension, improving pleural effusion, improving right apical nodule When patient was seen, patient was very much confused, trying to grab things in the area, very dry mouth, patient's nothing by mouth, and has a bilateral wrist restraints, ammonia levels were requested, family at bedside, CODE STATUS was discussed and is DO NOT RESUSCITATE no CPR with options for vent if needed 01/18: Hemoglobin is stable at 8.8. Patient is scheduled for EGD. The patient has had small bowel movements 7. Lactulose is on hold. Stools have been tarry in color. Cardiology is following for tachycardia. No plan for any further workup. 01/19: EGD revealed distal esophageal ulcer and gastritis but no active bleeding. Hemoglobin is 8.1. Ferrlecit ordered 1 dose. Patient is more alert today. Ammonia level is less than 9. Patient does have a large bruising area to the left antecubital which we will plan for Bactroban. Patient will be transferred out of intensive care today. PT will be started to help determine discharge plan. 01/20: Patient has less alert today. He missed a dose of lactulose and ammonia level is 34 today. He has a sitter at the bedside. Hemoglobin is currently 7.8. Patient has been waiting for selective care bed. He is hemodynamically stable will now be transferred to [facility]. Lactulose decrease to twice daily. Home medications reviewed and those appropriate have been resumed. 01/23: Patient is more lethargic today and stat lab work including ammonia level was ordered. Lactic acid came back at 2.1 and ammonia level [id number]. Patient was ordered for 1 L of IV fluid. Abdomen is more distended today and abdominal x-ray shows no bowel obstruction. Patient underwent bowel prep yesterday for colonoscopy to be done today but still did not clear. He has not been able to take any oral medications. Rectal lactulose has been ordered. 01/24: Patient is more lethargic today from yesterday. Ammonia level today is at 118. Patient did receive lactulose enemas yesterday. Patient is noted to have more abdominal distention today. GI has ordered NG tube and start Xifaxan , lactulose per NG tube and discontinue enemas and a CT of the abdomen and pelvis was ordered. Patient to be transferred to selective care. 01/25: Patient is more alert today. He did have 4 bowel movements yesterday but pulled his NG tube out. His ammonia level this morning is less than 9. He is to continue on lactulose 3 times daily orally. Patient did take his oral medications today. He is scheduled for a colonoscopy tomorrow. Patient is noted to have expiratory wheezing and IV Lasix ordered. Updrafts changed to scheduled. Pulse ox is 97% on room air. Patient has been afebrile. 01/26: Repeat chest x-ray small right-sided pleural effusion. Patient's mental status is improved and patient may be back to his baseline. His ammonia level is again less than 9 He is denying any abdominal pain. He remains with Ortiz catheter in place which will be discontinued after colonoscopy which GI is planning for tomorrow. AFP and CEA ordered by GI or unremarkable. Patient underwent modified barium swallow that did not show any aspiration. 01/27: Chest x-ray shows right lower lobe atelectasis and associated effusion. Correlate to exclude pneumonia. Patient is scheduled for colonoscopy today. Hemoglobin 7.2 and gradually declining for which we will transfuse 1 unit of packed RBCs. Potassium will be replaced. Patient denies having any abdominal pain but noted to have abdominal distention. He denies any nausea or vomiting. He is alert and oriented and appears to be back to baseline. We will transfer the patient to [facility] floor and IV Lopressor will be changed back to his oral home dose. 01/28 colonoscopy negative for any neoplasm. Patient resting comfortably in bed. Does need to be discharged to a subacute rehab. Patient denies any chest pain, breathing difficulty, abdominal pain or nausea or vomiting. 01/29: Patient examined bedside. Appears to answer questions appropriately but does appear to be less alert than yesterday. Patient still has some cough and wheezing on examination continue steroids. Ammonia level yesterday 199. Patient was not getting his lactulose due to increased bowel movement. Lactulose given today. 01/30: Patient was examined at bedside today. Again patient is very drowsy, answers questions but then drifts back to sleep. Repeat ammonia today is 51. Hemoglobin is stable at 9.6. Patient's abdomen is more distended than yesterday , will order an abdominal ultrasound to rule out ascites, Lasix increased to 40 mg every 12 hours. 01/31: Patient remains confused, family is at the bedside today. Patient is a little more awake today. Patient has pulled out his IV multiple times. IV medications changed to oral. Patient continues to have chest congestion and lower extremity edema. Patient has not had a bowel movement in a few days, Dulcolax suppository ordered. Discussed with patient's that was at the bedside today about patient's poor prognosis. She requests that we wait until her daughters are there tomorrow morning to discuss patient's goals of care. Abdominal ultrasound completed showed small to moderate amount of free fluid in bilateral upper and lower quadrants. Will continue with current treatment plan 02/01: Patient has had significant confusion and has removed 11 IV and will not maintain telemetry. Nursing was one-on-one with him through the night. Patient has not received lactulose or Xifaxan as he has been confused. Long discussion with the patient's family regarding prognosis. They aren't requesting one more attempt to treat him with NG tube and provide medications via NG tube. They do understand that this is only temporary and patient may revert back to his confusional state as patient has had improvement of his mental status while here but it is short-lived each time. Next option would be hospice care. Ammonia level today is 55, BUN 45 and creatinine 1.76. 02/02: Patient is obtunded today. Patient had NG tube placed yesterday and was given 100 mL of lactulose until he pulled it out. Patient has had 4 bowel movements. Patient did drink his lactulose this morning but it was only medication he would take for nursing. He is noted to have lower extremity edema and increased ascites. Discussed with patient's daughter over the phone and also family members at the bedside is current prognosis and plan. They are agreeable that no NG tube will be placed and would like to do the rectal lactulose. If patient has no improvement, we will consider hospice care. A stress ordered for lower extremity edema. Case management and hospital social worker following. Objective - Vital Signs Vital signs: Vital Signs Temp 97.4 F L 02/02/18 08:00 Pulse 90 02/02/18 08:34 Resp 22 02/02/18 08:00 BP 129/76 02/02/18 08:00 Pulse Ox 100 02/02/18 08:00 Intake & Output 02/01/18 02/02/18 02/02/18 18:59 06:59 18:59 Intake Total 20 Output Total 800 650 Balance -780 -650 Weight 107.5 kg 108.2 kg Intake: Oral 20 Output: Urine 800 650 Uretheral (Ortiz) 650 Other: Voiding Method Indwelling Catheter Indwelling Catheter Indwelling Catheter # Voids 1 1 # Bowel Movements 1 1 - Exam General appearance: Unresponsive, obese - EENT Eyes: anicteric sclerae, EOMI ENT: NA/AT - Neck Neck: normal ROM - Respiratory Respiratory: bilateral: Expiratory wheeze, negative: dullness, rales, rhonchi - Cardiovascular Rhythm: regular Heart sounds: normal: S1, S2 - Gastrointestinal General gastrointestinal: normal bowel sounds, soft, distended, no tenderness - Integumentary Integumentary: decreased turgor, normal - Neurologic Patient is oriented x0. not able to answers questions appropriately. - Labs CBC & Chem 7: 01/30/18 06:00 02/02/18 08:13 Labs: Abnormal Lab Results - Last 24 Hours (Table) 02/01/18 02/01/18 02/01/18 Range/Units 11:31 17:12 20:31 PT (9.0-12.0) sec INR (<1.2) Chloride (98-107) mmol/L BUN (9-20) mg/dL Creatinine (0.66-1.25) mg/dL Glucose (74-99) mg/dL POC Glucose (mg/dL) 165 H 163 H 166 H (75-99) mg/dL Calcium (8.4-10.2) mg/dL Total Bilirubin (0.2-1.3) mg/dL Ammonia (<30) umol/L Total Protein (6.3-8.2) g/dL Albumin (3.5-5.0) g/dL 02/02/18 02/02/18 02/02/18 Range/Units 07:19 08:13 08:13 PT (9.0-12.0) sec INR (<1.2) Chloride 109 H (98-107) mmol/L BUN 47 H (9-20) mg/dL Creatinine 1.88 H (0.66-1.25) mg/dL Glucose 157 H (74-99) mg/dL POC Glucose (mg/dL) 152 H (75-99) mg/dL Calcium 8.1 L (8.4-10.2) mg/dL Total Bilirubin 1.5 H (0.2-1.3) mg/dL Ammonia 131 H (<30) umol/L Total Protein 4.8 L (6.3-8.2) g/dL Albumin 2.2 L (3.5-5.0) g/dL 02/02/18 Range/Units 08:13 PT 14.3 H (9.0-12.0) sec INR 1.5 H (<1.2) Chloride (98-107) mmol/L BUN (9-20) mg/dL Creatinine (0.66-1.25) mg/dL Glucose (74-99) mg/dL POC Glucose (mg/dL) (75-99) mg/dL Calcium (8.4-10.2) mg/dL Total Bilirubin (0.2-1.3) mg/dL Ammonia (<30) umol/L Total Protein (6.3-8.2) g/dL Albumin (3.5-5.0) g/dL Assessment and Plan Plan: 1. Acute upper GI bleed with acute blood loss anemia, secondary to esophageal ulcer and gastritis. Patient will be transferred out of ICU. Manager Cost was consulted Dr. Granger,we will transfuse with hemoglobin of less than 7, and GI consult with Dr. Lopez, for colonoscopy. Dr. Rodgers general surgeon. Status post transfusion of 1 unit of packed RBCs. 2. Chronic liver cirrhosis and portal hypertension as noted through CT imaging , in 2014, ammonia levels are requested secondary to confusion. Lactulose rectally. No NG tube will be placed. Aldactone continued. 3. Hyperammonemia with hepatic encephalopathy, continue Xifaxan and lactulose. Ativan discontinued and Haldol only for confusion 4. Recurrent falls, multifactorial, was likely secondary to metabolic encephalopathy with ongoing liver cirrhosis. Patient has having relapsing metabolic encephalopathy. Continue Xifaxan and lactulose. 5. Diabetes mellitus type 2, on metformin and glipizide at home. Continue NovoLog scale only for now 6. Autonomic dysfunction/possible adrenal insufficiency, patient on home dose of Cortef and Florinef. He is currently on Solu-Cortef IV. 7. COPD on Spiriva, and when necessary albuterol 8. Hypertension, and tachycardia, patient will be restarted on metoprolol 25 mg bid. 9. Lactic acidosis likely secondary to GI bleed, continue to monitor serially, 10. CKD stage III with acute kidney failure, azotemia, IV hydration, Ortiz in place. Monitor creatinine. 11. Leukocytosis, 12. Hematuria, this needs to be worked up as outpatient, patient is asymptomatic , would need evaluate with either renal ultrasound or CT of the abdomen once stabilized 13. Hyperlipidemia. Patient will be resumed back on atorvastatin. 14. Mildly elevated troponins for which acute coronary syndrome has been ruled out. 15. No previous diagnosis heart failure. He is on Aldactone due to liver failure. 16. Severe protein calorie malnutrition secondary to cirrhosis of the liver with albumin of 2.2. Ensure added. Discharge plan: Subacute rehab possible hospice care Impression and plan of care have been directed as dictated by the signing physician. Radha Arredondo nurse practitioner acting as scribe for signing physician.
[2018-02-02 17:41] LABS: Glucose,Whole Blood 144 mg/dL (75-99)
[2018-02-02] MEDS ORDERED: LORazepam 2 MG/ML INJ IV PRN (19:14)
[2018-02-02 20:15] LABS: Glucose,Whole Blood 149 mg/dL (75-99)
[2018-02-02] MEDS: MORPHINE SULFATE/PF 10MG/10ML VL IVP PRN (21:00)
[2018-02-02] MEDS: BISACODYL 10 MG SUPP RECTAL SCH (21:09)
[2018-02-03] MEDS: LACTULOSE 200 GM/300 ML (FROM 1/2 GAL JUG) RECTAL SCH ×3 (01:24→11:40)
[2018-02-03] MEDS: MORPHINE SULFATE/PF 10MG/10ML VL IVP PRN ×2 (03:12→11:29)
[2018-02-03 07:02] LABS: Glucose,Whole Blood 146 mg/dL (75-99)
[2018-02-03] MEDS: INSULIN ASPART 100 UNIT/ML 1 ML 10 ML VIAL SQ SCH ×2 (07:43→11:40)
[2018-02-03] MEDS: FLUDROCORTISONE 0.1 MG TAB PO SCH (07:44)
[2018-02-03] MEDS: METOLAZONE 2.5 MG TAB PO SCH (07:44)
[2018-02-03] MEDS: PANTOPRAZOLE 40 MG TABLET PO SCH (07:44)
[2018-02-03] MEDS: guaiFENesin 600 MG TABLET.ER PO SCH (07:44)
[2018-02-03 07:47] VITALS: BP 128/58; RESP 16; TEMP 96.7
[2018-02-03 08:07] LABS: INR 1.6 (<1.2); Prothrombin Time 14.4 sec (9.0-12.0)
[2018-02-03 08:17] LABS: Total Bilirubin 1.4 mg/dL (0.2-1.3); Total Protein 4.6 g/dL (6.3-8.2)
[2018-02-03] MEDS: IPRATROPIUM-ALBUTEROL 3 ML NEB INHALATION SCH ×2 (08:26→11:47)
[2018-02-03 08:28] VITALS: PULSE 90
[2018-02-03] MEDS: METOPROLOL SUCCINATE (ER) 25 MG TAB.ER.24H PO SCH (09:38)
[2018-02-03] MEDS: RIFAXIMIN 550 MG TABLET PO SCH (09:38)
[2018-02-03] MEDS: POTASSIUM BICARBONATE/CIT AC 20 MEQ TABLET.EFF PO SCH (09:38)
[2018-02-03] MEDS: SPIRONOLACTONE 25 MG TAB PO SCH (09:38)
[2018-02-03] MEDS: predniSONE 20 MG TAB PO SCH (09:38)
[2018-02-03] MEDS: FUROSEMIDE 10 MG/ML 4 ML VIAL IV SCH (10:20)
--- NOTE | 2018-02-03 10:33 | P.DS ---
Providers Date of admission: 01/16/18 14:00 Expected date of discharge: 02/03/18 Attending physician: Sofie Patino Consults: 01/16/18 14:00 Consult Physician Stat Consulting Provider: Stanley Sampson Consult Reason/Comments: critical care Do you want consulting provider notified?: Yes Consult Physician Stat Consulting Provider: Gianni Hernandez Consult Reason/Comments: GI hemorrhage Do you want consulting provider notified?: Yes 01/16/18 16:02 Consult Physician Routine Consulting Provider: Alan Ortiz Consult Reason/Comments: elevated troponin Do you want consulting provider notified?: Yes 01/24/18 12:14 Consult Physician Urgent Consulting Provider: Francisco J Rodgers Consult Reason/Comments: increased abdominal distention Do you want consulting provider notified?: Yes 02/01/18 09:19 Consult Physician Routine Consulting Provider: Melonie Haq Consult Reason/Comments: reevaluation Do you want consulting provider notified?: Already Contacted Primary care physician: [facility] Course: This is an 82-year-old gentleman patient of Dr. Rojas, with known history of CK D stage III, diabetes mellitus type 2, COPD, hyperlipidemia, and chronic anemia admitted from our facility in early August 2017, was diagnosed to have metabolic encephalopathy secondary to acute kidney injury and dehydration with hypoperfusion. Patient comes into the emergency room with a four-day history of black stools, has had increasing falls, no abdominal pain, patient denies any hematochezia, patient is not an alcoholic drinker currently, and was not feeling very well hence the ER admission. Patient has fallen numerous times, and the last one was 2 days ago, previous to this, patient had cracked the ribs , 4 weeks prior to admission. Patient follows up with Dr. Rojas every 4 months regimen, his due to see him in 01/20/2018 In the emergency room, he was noted to have Hemoccult-positive stools, patient was noted to have melanocytic stools, Hemoccult positive, hematuria with RBC of 59, double see if 1, moderate ketones, EKG shows sinus tachycardia with right bundle branch block, left anterior fascicular block, and pulmonary disease pattern heart rate of 124. Patient is admitted to ICU secondary to melanocytic stools with hemoglobin of 9, consult to Gen. surgery Dr. Montes and Dr. Haq gastroenterology. Admitting lactic acid was significantly elevated at 10.0 with a peak of 11.4, wbc of 15 troponin of 0.077 Previous imaging in our facility shows small amount of ascites, in the abdomen noted in May 2014 and CAT scan chest 2014, cholelithiasis, and evidence of cirrhosis and portal hypertension, improving pleural effusion, improving right apical nodule When patient was seen, patient was very much confused, trying to grab things in the area, very dry mouth, patient's nothing by mouth, and has a bilateral wrist restraints, ammonia levels were requested, family at bedside, CODE STATUS was discussed and is DO NOT RESUSCITATE no CPR with options for vent if needed 01/18: Hemoglobin is stable at 8.8. Patient is scheduled for EGD. The patient has had small bowel movements 7. Lactulose is on hold. Stools have been tarry in color. Cardiology is following for tachycardia. No plan for any further workup. 01/19: EGD revealed distal esophageal ulcer and gastritis but no active bleeding. Hemoglobin is 8.1. Ferrlecit ordered 1 dose. Patient is more alert today. Ammonia level is less than 9. Patient does have a large bruising area to the left antecubital which we will plan for Bactroban. Patient will be transferred out of intensive care today. PT will be started to help determine discharge plan. 01/20: Patient has less alert today. He missed a dose of lactulose and ammonia level is 34 today. He has a sitter at the bedside. Hemoglobin is currently 7.8. Patient has been waiting for selective care bed. He is hemodynamically stable will now be transferred to [facility]. Lactulose decrease to twice daily. Home medications reviewed and those appropriate have been resumed. 01/23: Patient is more lethargic today and stat lab work including ammonia level was ordered. Lactic acid came back at 2.1 and ammonia level CXXXVII. Patient was ordered for 1 L of IV fluid. Abdomen is more distended today and abdominal x-ray shows no bowel obstruction. Patient underwent bowel prep yesterday for colonoscopy to be done today but still did not clear. He has not been able to take any oral medications. Rectal lactulose has been ordered. 01/24: Patient is more lethargic today from yesterday. Ammonia level today is at 118. Patient did receive lactulose enemas yesterday. Patient is noted to have more abdominal distention today. GI has ordered NG tube and start Xifaxan , lactulose per NG tube and discontinue enemas and a CT of the abdomen and pelvis was ordered. Patient to be transferred to [facility] care. 01/25: Patient is more alert today. He did have 4 bowel movements yesterday but pulled his NG tube out. His ammonia level this morning is less than 9. He is to continue on lactulose 3 times daily orally. Patient did take his oral medications today. He is scheduled for a colonoscopy tomorrow. Patient is noted to have expiratory wheezing and IV Lasix ordered. Updrafts changed to scheduled. Pulse ox is 97% on room air. Patient has been afebrile. 01/26: Repeat chest x-ray small right-sided pleural effusion. Patient's mental status is improved and patient may be back to his baseline. His ammonia level is again less than 9 He is denying any abdominal pain. He remains with Ortiz catheter in place which will be discontinued after colonoscopy which GI is planning for tomorrow. AFP and CEA ordered by GI or unremarkable. Patient underwent modified barium swallow that did not show any aspiration. 01/27: Chest x-ray shows right lower lobe atelectasis and associated effusion. Correlate to exclude pneumonia. Patient is scheduled for colonoscopy today. Hemoglobin 7.2 and gradually declining for which we will transfuse 1 unit of packed RBCs. Potassium will be replaced. Patient denies having any abdominal pain but noted to have abdominal distention. He denies any nausea or vomiting. He is alert and oriented and appears to be back to baseline. We will transfer the patient to [facility] and IV Lopressor will be changed back to his oral home dose. 01/28 colonoscopy negative for any neoplasm. Patient resting comfortably in bed. Does need to be discharged to a subacute rehab. Patient denies any chest pain, breathing difficulty, abdominal pain or nausea or vomiting. 01/29: Patient examined bedside. Appears to answer questions appropriately but does appear to be less alert than yesterday. Patient still has some cough and wheezing on examination continue steroids. Ammonia level yesterday 199. Patient was not getting his lactulose due to increased bowel movement. Lactulose given today. 01/30: Patient was examined at bedside today. Again patient is very drowsy, answers questions but then drifts back to sleep. Repeat ammonia today is 51. Hemoglobin is stable at 9.6. Patient's abdomen is more distended than yesterday , will order an abdominal ultrasound to rule out ascites, Lasix increased to 40 mg every 12 hours. 01/31: Patient remains confused, family is at the bedside today. Patient is a little more awake today. Patient has pulled out his IV multiple times. IV medications changed to oral. Patient continues to have chest congestion and lower extremity edema. Patient has not had a bowel movement in a few days, Dulcolax suppository ordered. Discussed with patient's that was at the bedside today about patient's poor prognosis. She requests that we wait until her daughters are there tomorrow morning to discuss patient's goals of care. Abdominal ultrasound completed showed small to moderate amount of free fluid in bilateral upper and lower quadrants. Will continue with current treatment plan 02/01: Patient has had significant confusion and has removed 11 IV and will not maintain telemetry. Nursing was one-on-one with him through the night. Patient has not received lactulose or Xifaxan as he has been confused. Long discussion with the patient's family regarding prognosis. They aren't requesting one more attempt to treat him with NG tube and provide medications via NG tube. They do understand that this is only temporary and patient may revert back to his confusional state as patient has had improvement of his mental status while here but it is short-lived each time. Next option would be hospice care. Ammonia level today is 55, BUN 45 and creatinine 1.76. 02/02: Patient is obtunded today. Patient had NG tube placed yesterday and was given 100 mL of lactulose until he pulled it out. Patient has had 4 bowel movements. Patient did drink his lactulose this morning but it was only medication he would take for nursing. He is noted to have lower extremity edema and increased ascites. Discussed with patient's daughter over the phone and also family members at the bedside is current prognosis and plan. They are agreeable that no NG tube will be placed and would like to do the rectal lactulose. If patient has no improvement, we will consider hospice care. A stress ordered for lower extremity edema. Case management and social work associate following. 02/03: Patient has had no improvedment in mental status. Patient's family have decided to make him comfort care yesterday. They met with [facility] yesterday and have decided to take the patient to [facility] with Hospice care. All medications will be discontinued except for comfort meds. Discharge diagnoses: 1. Acute upper GI bleed with acute blood loss anemia, secondary to esophageal ulcer and gastritis. 2. Chronic liver cirrhosis and portal hypertension and severe hepatic encephalopathy due to decompensated liver failure 3. Hyperammonemia with hepatic encephalopathy 4. Recurrent falls, multifactorial, was likely secondary to metabolic encephalopathy with ongoing liver cirrhosis. 5. Diabetes mellitus type 2 6. Autonomic dysfunction/possible adrenal insufficiency 7. COPD 8. Hypertension, and tachycardia 9. Lactic acidosis likely secondary to GI bleed 10. CKD stage III with acute kidney failure, azotemia 11. Leukocytosis, 12. Hematuria 13. Hyperlipidemia 14. Mildly elevated troponins for which acute coronary syndrome has been ruled out. 15. No previous diagnosis heart failure. 16. Severe protein calorie malnutrition secondary to cirrhosis of the liver with albumin of 2.2. Discharge plan: [facility] with hospice care Impression and plan of care have been directed as dictated by the signing physician. Radha Arredondo nurse practitioner acting as scribe for signing physician. Patient Condition at Discharge: Stable Plan - Discharge Summary Discharge Rx Participant: No New Discharge Prescriptions: New Atropine Ophth Soln 1% 5Ml [Isopto Atropine 1% 5Ml] 1 drop SUBLINGUAL Q4H #1 bottle LORazepam ORAL CONC [Ativan Intensol] 2 mg PO Q4H PRN #30 ml PRN Reason: Anxiety MORPHINE ORAL JEFRY 2mg/mL [Morphine Oral Soln 2 MG/ML] 5 mg PO Q4H PRN #30 ml PRN Reason: Pain Discontinued Omeprazole 20 mg PO DAILY Simvastatin 20 mg PO HS Fludrocortisone [Florinef] 0.05 mg PO BID Tiotropium 18 Mcg/Puff [Spiriva] 1 puff INHALATION RT-DAILY Hydrocortisone [Cortef] 10 mg PO BID Allopurinol [Zyloprim] 100 mg PO DAILY glipiZIDE/METFORMIN HCL [glipiZIDE/METFORMIN HCL 5-500 mg] 2 tab PO BID Spironolactone [Aldactone] 25 mg PO DAILY Metoprolol Succinate [Toprol XL] 25 mg PO DAILY Discharge Medication List Atropine Ophth Soln 1% 5Ml [Isopto Atropine 1% 5Ml] 1 drop SUBLINGUAL Q4H #1 bottle 02/03/18 [Rx] LORazepam ORAL CONC [Ativan Intensol] 2 mg PO Q4H PRN #30 ml 02/03/18 [Rx] MORPHINE ORAL JEFRY 2mg/mL [Morphine Oral Soln 2 MG/ML] 5 mg PO Q4H PRN #30 ml [Rx] Follow up Appointment(s)/Referral(s): Ishmael Rojas MD [Primary Care Provider] - 1-2 days (at [facility]) Discharge Disposition: TRANSFER TO SNF/ECF
[2018-02-03 11:17] LABS: Glucose,Whole Blood 135 mg/dL (75-99)
--- NOTE | 2018-02-06 16:53 | CDI ---
Last Revision, October 2017 Documentation Clarification Form Date: 02/06/18 From: Kita Ward Phone: If you have a question regarding this query, please contact Nell Zhao at [phone]. Admit Date: 01/16/2018 2:00:00 PM Patient Name: Kayden Méndez Visit Number: [id number] Discharge Date: 02/03/18 ATTENTION: The Clinical Documentation Specialists (CDI) and [facility] Coding Staff appreciate your assistance in clarifying documentation. Please respond to the clarification below the line at the bottom and electronically sign. The CDI & [facility] Coding staff will review the response and follow-up if needed. Please note: Queries are made part of the Legal Health Record. If you have any questions, please contact the author of this message via ITS. Dr. Kierra Ayala Severe protein calorie malnutrition has been documented in Dr. Galindo's 01/21 & progress notes, your 01/23 - 02/02 progress notes, in your discharge summary and in Dr Patino's 01/20 progress notes. Dietary consult documented no dietary diagnosis. History/Risk Factors: Patient has a history of cirrhosi and was admitted for GI bleed due to gastritis and espohageal ulcer. Patient has ascites and pleural effusion and emaciation is documented in Dr. Lucas's consult note. Clinical Indicators: Labs: Albumin/Total Protein: 2.7 - 2.0/5.3 - 2.0 Current BMI: 31.4 - 29.0 Insufficient energy intake: Per temperature inspector good to poor nutrition intake. Weight Loss: Per temperature inspector the patient's weight is normal to overweight Fluid accumulation: Patient has ascites and pleural effusion Decreased hand psychiatric specialist strength: Not documented. Dietary Consult: No nutrition diagnosis. Supplements/TPN: Ensure Lab monitoring: repeat albumin and total protein daily. In your professional opinion, can you please clarify if severe protein calorie malnutrition is confirmed? Other condition, please specify Unable to determine MTDD
--- NOTE | 2018-02-06 17:24 | CDI ---
Last Revision, October 2017 Documentation Clarification Form Date: 02/06/18 From: Kita Ward Phone: If you have a question regarding this query, please contact Nell Zhao at [phone]. Admit Date: 01/16/2018 2:00:00 PM Patient Name: Kayden Méndez Visit Number: [id number] Discharge Date: ATTENTION: The Clinical Documentation Specialists (CDI) and [facility] Coding Staff appreciate your assistance in clarifying documentation. Please respond to the clarification below the line at the bottom and electronically sign. The CDI & [facility] Coding staff will review the response and follow-up if needed. Please note: Queries are made part of the Legal Health Record. If you have any questions, please contact the author of this message via ITS. Dr. Kierra Ayala Large open blister on top of foot and multiple open and closed blisters all over right foot as well as multiple blisters some open and some serous filled on the left foot is documented in the nursing documentation under wound assessment. Patient history/risk factors: Patient is diabetic and has neuropathy. Treatment: abd pad and kerlix applied as well as RAJNI wrap In your professional opinion, can the etiology be further specified? Etiology: Other, Please specify Unable to determine MTDD
--- NOTE | 2018-02-06 17:35 | CDI ---
Last Revision, October 2017 Documentation Clarification Form Date: 02/06/18 From: Kita Ward Phone: If you have a question regarding this query, please contact Nell Zhao at [phone] between 8am and 5pm Admit Date: 01/16/2018 2:00:00 PM Patient Name: Kayden Méndez Visit Number: [id number] Discharge Date: 02/03 ATTENTION: The Clinical Documentation Specialists (CDI) and [facility] Coding Staff appreciate your assistance in clarifying documentation. Please respond to the clarification below the line at the bottom and electronically sign. The CDI & [facility] Coding staff will review the response and follow-up if needed. Please note: Queries are made part of the Legal Health Record. If you have any questions, please contact the author of this message via ITS. Dr. Kierra Ayala Nursing documentation indicates that the patient has a pressure ulcer on the coccyx. Patient history/risk factors: patient has a history of Cirrhosis and CKD and was admitted for GI bleed.indings: Other Clinical Indicators: Treatment: optifoam In your professional opinion, can you please clarify if the patient had an ulcer on the coccyx and the type of ulcer it is? Pressure ulcer Non pressure ulcer Diabetic ulcer Other, please specify Unable to determine MTDD
--- NOTE | 2018-02-10 20:14 | CDI ---
Last Revision, October 2017 Documentation Clarification Form Date: 02/10/18 From: Kita Ward Phone: If you have a question regarding this query, please contact Nell Zhao at [phone]. Admit Date: 01/16/2018 2:00:00 PM Patient Name: Kayden Méndez Visit Number: [id number] Discharge Date: 02/04/18 ATTENTION: The Clinical Documentation Specialists (CDI) and [facility] Coding Staff appreciate your assistance in clarifying documentation. Please respond to the clarification below the line at the bottom and electronically sign. The CDI & [facility] Coding staff will review the response and follow-up if needed. Please note: Queries are made part of the Legal Health Record. If you have any questions, please contact the author of this message via ITS. Dr. Kierra Ayala Patient was found to have acute upper GI bleed with acute blood loss anemia, secondary to esophageal ulcer and gastritis. Patient history/risk factors Patient was admitted for GI bleed and has a history of cirrhosis, use of steroids and GERD. Clinical Indicators: GI bleed Treatment: IV Protonix In your professional opinion, can you please clarify the acuity of the gastritis ? Acute Chronic Other, please specify Unable to determine acute MTDD
== END 2018-02-03 14:35 | DRG 380 ==
LOC: EC 11:23 → 6ICU 14:00 → 5MS5E 01-20 11:50 → 6SEL 01-24 16:30 → 5MS5E 01-30 21:15
PROVIDERS: ADMIT Family Medicine; ATTEND Family Medicine
PROC: 0DJ08ZZ Inspection of Upper Intestinal Tract, Via Natural or Artificial Opening Endoscopic (ICD-10-PCS; principal; 2018-01-18 12:25)
PROC: 0DJD8ZZ Inspection of Lower Intestinal Tract, Via Natural or Artificial Opening Endoscopic (ICD-10-PCS; 2018-01-27)
DX: K22.11 Ulcer of esophagus with bleeding (principal); G93.41 Metabolic encephalopathy; E43 Unspecified severe protein-calorie malnutrition; N17.9 Acute kidney failure, unspecified; J90 Pleural effusion, not elsewhere classified; K76.6 Portal hypertension; D62 Acute posthemorrhagic anemia; E87.2 Acidosis; I45.2 Bifascicular block; J98.11 Atelectasis; R18.8 Other ascites; E27.40 Unspecified adrenocortical insufficiency; L89.152 Pressure ulcer of sacral region, stage 2; D69.6 Thrombocytopenia, unspecified; E11.22 Type 2 diabetes mellitus with diabetic chronic kidney disease; I95.9 Hypotension, unspecified; E11.42 Type 2 diabetes mellitus with diabetic polyneuropathy; J44.9 Chronic obstructive pulmonary disease, unspecified; K29.71 Gastritis, unspecified, with bleeding; K29.01 Acute gastritis with bleeding; S90.822A Blister (nonthermal), left foot, initial encounter; S90.821A Blister (nonthermal), right foot, initial encounter; E11.65 Type 2 diabetes mellitus with hyperglycemia; N18.3 Chronic kidney disease, stage 3 (moderate); D72.829 Elevated white blood cell count, unspecified; E78.5 Hyperlipidemia, unspecified; E86.0 Dehydration; E87.6 Hypokalemia; H35.30 Unspecified macular degeneration; K21.9 Gastro-esophageal reflux disease without esophagitis; K57.30 Diverticulosis of large intestine without perforation or abscess without bleeding; K64.9 Unspecified hemorrhoids; K80.20 Calculus of gallbladder without cholecystitis without obstruction; M10.9 Gout, unspecified; M19.90 Unspecified osteoarthritis, unspecified site; R00.0 Tachycardia, unspecified; R31.9 Hematuria, unspecified; K72.90 Hepatic failure, unspecified without coma; K74.60 Unspecified cirrhosis of liver; R29.6 Repeated falls; I12.9 Hypertensive chronic kidney disease with stage 1 through stage 4 chronic kidney disease, or unspecified chronic kidney disease; I45.10 Unspecified right bundle-branch block; I25.10 Atherosclerotic heart disease of native coronary artery without angina pectoris; M48.00 Spinal stenosis, site unspecified; R32 Unspecified urinary incontinence; E66.9 Obesity, unspecified; Z68.29 Body mass index [BMI] 29.0-29.9, adult; R74.8 Abnormal levels of other serum enzymes; S50.02XA Contusion of left elbow, initial encounter; H91.90 Unspecified hearing loss, unspecified ear; Z66 Do not resuscitate; Z79.52 Long term (current) use of systemic steroids; Z79.899 Other long term (current) drug therapy; Z79.84 Long term (current) use of oral hypoglycemic drugs; Z86.73 Personal history of transient ischemic attack (TIA), and cerebral infarction without residual deficits; Z87.11 Personal history of peptic ulcer disease; Z87.891 Personal history of nicotine dependence; Z96.1 Presence of intraocular lens; Z98.41 Cataract extraction status, right eye; Z98.42 Cataract extraction status, left eye; Z91.81 History of falling; Z87.81 Personal history of (healed) traumatic fracture; Z90.49 Acquired absence of other specified parts of digestive tract; Z82.49 Family history of ischemic heart disease and other diseases of the circulatory system
CPT/HCPCS: 36415; 36600; 43235; 43753; 45378; 51701; 71045; 74018; 74176; 74230; 76705; 80048; 80053; 81001; 82103; 82105; 82140; 82271; 82272; 82378; 82390; 82550; 82553; 82805; 83036; 83516; 83540; 83550; 83605; 83735; 84100; 84132; 84165; 84484; 85025; 85027; 85610; 85730; 86850; 86900; 86901; 86920; 87324; 93005; 93306; 94640; 94760; 96361; 96374; 96375; 96376; 99291